=== PATIENT | male | born 1945 | race Caucasian/White ===

== ENCOUNTER 2017-09-11 14:18 | Inpatient (IN) | payer MEDICARE ==
[2017-09-11] VITALS (18 sets, daily range): BP systolic 64–118; BP diastolic 42–78; PULSE 41–94; RESP 8–20; TEMP 96–96.8; O2SAT 72–100
[~2017-09-11] VITALS: Ht 182.9 cm; Wt 105.2 kg
[~2017-09-11 14:18] MED LIST: ATOR80TA41 PO; ECOT81TA2 PO; FOSI20TA PO; HYDR-2768 PO; MSIR15 PO; NEUR800T PO; PROM25SU8 PO; PROT40TA PO; SERT50 PO; WARF2.5T40 PO; WARF5TAB PO; ZOFR4TAB3 SL
[2017-09-11 14:37] LABS: BLOOD GAS BASE EXCESS -17.4 mmol/L (-2-2); BLOOD GAS CARBOXYHEMOGLOBIN 0.9 % (0-4); BLOOD GAS HCO3 10 mmol/L (22-26); BLOOD GAS O2 HGB SATURATION 93 % (90-100); BLOOD GAS OXYGEN CONTENT 13.3 Vol % (12.0-20.0); BLOOD GAS PCO2 29 mmHg (38-42); BLOOD GAS PO2 109 mmHG (61-120); BLOOD GAS TOTAL HGB 10.1 G/DL (12.0-16.0); TEMP CORR TO 98.6
[2017-09-11 14:38] LABS: CRITICAL VALUE YES; DRAW SITE RT RADIAL; FIO2 100 %; LITER FLOW 15 L/M; NUMBER OF ARTERIAL PUNCTURES 1; STAT NO; ULNAR PULSE PRESENT
[2017-09-11] MEDS ORDERED: HEPARIN SODIUM - IV 10,000 UNITS/10 ML VIAL ONE ×2 (14:50→14:58)
[2017-09-11] MEDS ORDERED: NITROGLYCERIN INJ 5 ML ONE (14:50)
[2017-09-11] MEDS ORDERED: HEPARIN-NS/PF INJ 1,000 ML ONE ×2 (14:50→14:58)
[2017-09-11 14:55] LABS: AUTOMATED NEUTROPHIL # 9.8 TH/MM3 (1.8-7.7); BASOPHIL % 0.3 % (0.0-2.0); HEMATOCRIT 32.6 % (39.0-51.0); HEMO FLAGS DIFF FINAL; LYMPH % 4.5 % (9.0-44.0); LYMPHOCYTE # 0.5 TH/MM3 (1.0-4.8); MEAN CELL VOLUME 98.5 FL (80.0-100.0); MEAN CORPUSCULAR HGB CONC 31.4 % (32.0-36.0); MONO % 5.3 % (0.0-8.0); NEUT % 89.9 % (16.0-70.0); PLATELET COUNT 311 TH/MM3 (150-450); RED BLOOD COUNT 3.31 MIL/MM3 (4.50-5.90); RED CELL DISTRIBUTION WIDTH 15.4 % (11.6-17.2); WHITE BLOOD COUNT 10.9 TH/MM3 (4.0-11.0)
[2017-09-11] MEDS ORDERED: MIDAZOLAM HCL 2 MG/2 ML VIAL ONE (14:59)
--- NOTE | 2017-09-11 14:59 | RADRPT ---
EXAM DATE/TIME: 09/11/2017 14:45 [place] COMPARISON: CHEST SINGLE AP, January 09, 2016, 23:21. INDICATIONS : Short of breath, stemi alert MEDICAL HISTORY : Hypertension. diabetic SURGICAL HISTORY : aortic valve surgery. ENCOUNTER: Initial ACUITY: 1 day PAIN SCORE: Non-responsive. LOCATION: Bilateral chest FINDINGS: A single view of the chest demonstrates diffuse interstitial and airspace disease Central and perihil ar location. Heart is moderately enlarged. Prosthetic aortic valve is identified. Granulomatous calcification is identified in the right hilum. CONCLUSION: Bilateral interstitial/alveolar infiltrate characteristic of pulmonary edema. Mild cardiomegaly. Status post aortic valve replacement. Norberto Mckinley MD on September 11, 2017 at 14:56 Board Certified Radiologist. This report was verified electronically.
[2017-09-11 15:04] LABS: I-STAT POTASSIUM 6.8 MMOL/L (3.5-4.9); I-STAT SODIUM 133 MMOL/L (138-146)
[2017-09-11 15:06] LABS: APTT (PATIENT) 34.3 SEC (24.3-30.1); INTERNATIONAL NORMALIZED RATIO 1.7 RATIO; PROTHROMBIN TIME - PATIENT 19.3 SEC (9.8-11.6)
[2017-09-11] MEDS ORDERED: BIVALIRUDIN 250 MG VIAL ONE (15:07)
[2017-09-11] MEDS ORDERED: STERILE WATER FOR INJECTION 10 ML VIAL ONE (15:08)
[2017-09-11 15:21] LABS: MAGNESIUM 2.5 MG/DL (1.5-2.5)
[2017-09-11] MEDS ORDERED: FUROSEMIDE 40 MG/4 ML VIAL ONE (15:22)
[2017-09-11 15:23] LABS: CREATINE KINASE 174 U/L (39-308)
--- NOTE | 2017-09-11 15:25 | PD ---
HPI Chief Complaint: Respiratory Distress Time Seen by Provider: 14:44 Travel History International Travel<30 days: No Contact w/Intl Traveler<30days: No Traveled to known affect area: No History of Present Illness HPI 71-year-old male with history of hypertension, valve replacement currently on Coumadin, diabetes with an insulin pump, previous CVA, presents to the ER today because he wasn't feeling well since last night, generally weak, nauseous, throwing up, short of breath. EKG was done which show significant ST depressions, stroke alert had been called, and my presence was requested by charge nurse. When I got to the echo pod, patient was diaphoretic, EKG shows deep ST depressions in the inferior leads and lateral leads, I did not see any mild acute ST elevations, posterior leads were then done as well. Case was discussed with Dr. 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 STEMI protocol was initiated. Lab work started to return showing glucose of 500, pH of 7.19, potassium of 6.8, creatinine of 2.9. At this point, I am also concerned about underlying acute renal failure, possible hyperkalemia, DKA. I have discussed the lab findings with Dr. chi via cell phone as well regarding this case. At this point, he is on his way up to catheterization lab and Dr. chi states she will take care of him there. Case is admitted to his service for STEMI protocol. Modifying Factors: None Associated Signs & Symptoms: STEMI alert, left light abnormalities Risk Factors: Valve replacement, diabetes PFSH Past Medical History Hx Anticoagulant Therapy: Yes (COUMADIN) Asthma: No Blood Disorders: No Heart Rhythm Problems: No Cancer: No Cardiac Catheterization: Yes (2 X CABG) Cardiovascular Problems: Yes (MECHANICAL VALVE) High Cholesterol: Yes Chest Pain: No Congestive Heart Failure: No COPD: No Cerebrovascular Accident: Yes (TIA IN NOVEMBER 2015) Coronary Artery Disease: Yes Diabetes: Yes (INSULIN PUMP) Diminished Hearing: No Endocrine: No Genitourinary: No Hypertension: Yes Immune Disorder: No Implanted Vascular Access Dvce: Yes Musculoskeletal: Yes (LOWER BACK AND LEFT HIP: CHRONIC PAIN) Neurologic: No Psychiatric: No Reproductive: No Respiratory: No Pneumonia: Yes Sleep Apnea: No Thyroid Disease: No Past Surgical History Abdominal Surgery: Yes Appendectomy: Yes Body Medical Devices: mechanical heart valve Cardiac Surgery: Yes (CABG X2 AND VALVE BY LOAN 2000) Coronary Artery Bypass Graft: Yes Insulin Pump: Yes Valve Replacement: Yes Other Surgery: Yes (R NECK/FACE SURGERY TO REMOVE A LUMP) Social History Alcohol Use: No Tobacco Use: No Substance Use: No Allergies-Medications (Allergen,Severity, Reaction): Coded Allergies: No Known Allergies (Verified , 09/11/17) Reported Meds & Prescriptions Reported Meds & Active Scripts Active Phenergan (Promethazine HCl) 25 Mg Tab 25 Mg PO Q6H PRN FOR NAUSEA/VOMITING Zofran ODT (Ondansetron HCl) 4 Mg Tab 4 Mg SL Q6H PRN FOR NAUSEA/VOMITING Ecotrin (Aspirin) 81 Mg Tabec 81 Mg PO DAILY Reported Warfarin Sodium 2.5 mg (Warfarin Sodium) 2.5 Mg Tab 2.5 Mg PO EVERY OTHER DAY Neurontin (Gabapentin) 800 Mg Tab 1,600 Mg PO HS Neurontin (Gabapentin) 800 Mg Tab 800 Mg PO DAILY Protonix (Pantoprazole Sodium) 40 Mg Tab 40 Mg PO DAILY Morphine Sulfate IR 15 mg (Morphine Sulfate) 15 Mg Tab 15 Mg PO TID Warfarin Sodium 5 mg (Warfarin Sodium) 5 Mg Tab 5 Mg PO EVERY OTHER DAY Fosinopril Sodium 20 Mg Tab 40 Mg PO DAILY Hctz (Hydrochlorothiazide) 25 Mg Tab 25 Mg PO DAILY Lipitor 80 Mg Tab (Atorvastatin) 80 Mg Tab 80 Mg PO DAILY Zoloft (Sertraline HCl) 50 Mg Tab 100 Mg PO DAILY Review of Systems Except as stated in HPI: all other systems reviewed are Neg Physical Exam Narrative GENERAL: Well-developed elderly white male patient currently in moderate distress, diaphoretic, awake, oriented 3. SKIN: Focused skin assessment diaphoretic. HEAD: Atraumatic. Normocephalic. EYES: Pupils equal and round. No scleral icterus. No injection or drainage. ENT: No nasal bleeding or discharge. Mucous membranes pink and moist. NECK: Trachea midline. No JVD. CARDIOVASCULAR: Regular rate and rhythm. No murmur appreciated. Pulses are present and equal bilaterally. RESPIRATORY: No accessory muscle use. Clear to auscultation. Breath sounds equal bilaterally. GASTROINTESTINAL: Abdomen soft, non-tender, nondistended. Hepatic and splenic margins not palpable. MUSCULOSKELETAL: No obvious deformities. No clubbing. No cyanosis. No edema. NEUROLOGICAL: Awake and alert. No obvious cranial nerve deficits. Motor grossly within normal limits. Normal speech. PSYCHIATRIC: Appropriate mood and affect; insight and judgment normal. Data Data Last Documented VS Vital Signs Date Time Temp Pulse Resp B/P (MAP) Pulse Ox O2 Delivery O2 Flow Rate FiO2 09/11/17 14:34 93 18 118/59 (78) 100 09/11/17 14:30 Non-Rebreather 15.00 Orders Orders Electrocardiogram (09/11/17 14:21) Complete Blood Count With Diff (09/11/17 14:21) Prothrombin Time / Inr (Pt) (09/11/17 14:21) Act Partial Throm Time (Ptt) (09/11/17 14:21) Lactic Acid Sepsis Protocol (09/11/17 14:21) Magnesium (Mg) (09/11/17 14:21) Ckmb (Isoenzyme) Profile (09/11/17 14:21) Troponin I (09/11/17 14:21) Urinalysis - C+S If Indicated (09/11/17 14:21) Blood Culture (09/11/17 14:21) Chest, Single Ap (09/11/17 14:21) Blood Glucose (09/11/17 14:21) Ecg Monitoring (09/11/17 14:21) Iv Access Insert/Monitor (09/11/17 14:21) Oximetry (09/11/17 14:21) Oxygen Administration (09/11/17 14:21) Arterial Blood Gas (Abg) (09/11/17 14:26) I-Stat Creatinine (09/11/17 14:21) I-Stat Profile (09/11/17 14:21) Cardiac Catheterization (09/11/17 ) Heparin-Ns/Pf Inj (Heparin-Ns/Pf Inj) (09/11/17 14:50) Heparin Inj (Heparin Inj) (09/11/17 14:50) Nitroglycerin Inj (Nitroglycerin Inj) (09/11/17 14:50) Admit Order (Ed Use Only) (09/11/17 14:51) Labs Laboratory Tests Test 09/11/17 14:26 09/11/17 14:35 Blood Gas Puncture Site RT RADIAL Blood Gas Patient Temperature 98.6 Blood Gas HCO3 10 mmol/L Blood Gas Base Excess -17.4 mmol/L Blood Gas Oxygen Saturation 93 % Arterial Blood pH 7.15 Arterial Blood Partial Pressure CO2 29 mmHg Arterial Blood Partial Pressure O2 109 mmHG Arterial Blood Oxygen Content 13.3 Vol % Arterial Blood Carboxyhemoglobin 0.9 % Arterial Blood Methemoglobin 1.0 % Blood Gas Hemoglobin 10.1 G/DL Oxygen Delivery Device Non-Rebreathing Mask Blood Gas Liter Flow 15 L/M Blood Gas Inspired Oxygen 100 % White Blood Count 10.9 TH/MM3 Red Blood Count 3.31 MIL/MM3 Hemoglobin 10.3 GM/DL Bedside Hemoglobin 10.5 G/DL Hematocrit 32.6 % Bedside Hematocrit 31.0 % Mean Corpuscular Volume 98.5 FL Mean Corpuscular Hemoglobin 31.0 PG Mean Corpuscular Hemoglobin Concent 31.4 % Red Cell Distribution Width 15.4 % Platelet Count 311 TH/MM3 Mean Platelet Volume 9.5 FL Neutrophils (%) (Auto) 89.9 % Lymphocytes (%) (Auto) 4.5 % Monocytes (%) (Auto) 5.3 % Eosinophils (%) (Auto) 0.0 % Basophils (%) (Auto) 0.3 % Neutrophils # (Auto) 9.8 TH/MM3 Lymphocytes # (Auto) 0.5 TH/MM3 Monocytes # (Auto) 0.6 TH/MM3 Eosinophils # (Auto) 0.0 TH/MM3 Basophils # (Auto) 0.0 TH/MM3 CBC Comment DIFF FINAL Differential Comment Prothrombin Time 19.3 SEC Prothromb Time International Ratio 1.7 RATIO Activated Partial Thromboplast Time 34.3 SEC Bedside Sodium 133 MMOL/L Bedside Potassium 6.8 MMOL/L Bedside Chloride 102 MMOL/L Bedside Blood Urea Nitrogen 80 MG/DL Bedside Creatinine 2.9 MG/DL Bedside Glucose 495 MG/DL [facility] Medical Decision Making Medical Screen Exam Complete: Yes Emergency Medical Condition: Yes Medical Record Reviewed: Yes Interpretation(s) EKG show ST depressions which are fairly deep in the inferior lateral leads. Mild nonspecific ST elevations in aVR and possibly V2 which is up pointing versus down compared to old EKG. Laboratory Tests Test 09/11/17 14:26 09/11/17 14:35 Blood Gas HCO3 10 mmol/L (22-26) Blood Gas Base Excess -17.4 mmol/L (-2-2) Arterial Blood pH 7.15 (7.380-7.420) Arterial Blood Partial Pressure CO2 29 mmHg (38-42) Blood Gas Hemoglobin 10.1 G/DL (12.0-16.0) Red Blood Count 3.31 MIL/MM3 (4.50-5.90) Hemoglobin 10.3 GM/DL (13.0-17.0) Bedside Hemoglobin 10.5 G/DL (12.0-17.0) Hematocrit 32.6 % (39.0-51.0) Bedside Hematocrit 31.0 % (38.0-51.0) Mean Corpuscular Hemoglobin Concent 31.4 % (32.0-36.0) Neutrophils (%) (Auto) 89.9 % (16.0-70.0) Lymphocytes (%) (Auto) 4.5 % (9.0-44.0) Neutrophils # (Auto) 9.8 TH/MM3 (1.8-7.7) Lymphocytes # (Auto) 0.5 TH/MM3 (1.0-4.8) Prothrombin Time 19.3 SEC (9.8-11.6) Activated Partial Thromboplast Time 34.3 SEC (24.3-30.1) Bedside Sodium 133 MMOL/L (138-146) Bedside Potassium 6.8 MMOL/L (3.5-4.9) Bedside Blood Urea Nitrogen 80 MG/DL (8-26) Bedside Creatinine 2.9 MG/DL (0.8-1.3) Bedside Glucose 495 MG/DL (60-95) Last 24 hours Impressions Chest X-Ray 09/11/17 1421 Signed Impressions: Service Date/Time: Monday, September 11, 2017 14:45 - CONCLUSION: Bilateral interstitial/alveolar infiltrate characteristic of pulmonary edema. Mild cardiomegaly. Status post aortic valve replacement. Norberto Mckinley MD Differential Diagnosis ST elevation UT versus non-ST elevation UT versus electrolyte abnormalities versus pneumonia versus dysrhythmias Narrative Course Case is discussed with Dr. chi who accepts the case for catheterization lab. Admitted to his service for further treatment. Protocol initiated for STEMI alert. Diagnosis Primary Impression: ACS (acute coronary syndrome) Additional Impressions: DKA (diabetic ketoacidoses) Hyperkalemia, diminished renal excretion Admitting Information Admitting Physician Requests: Admit Mamta Blake MD Sep 11, 2017 15:25
[2017-09-11] MEDS ORDERED: CLOPIDOGREL 75 MG TAB ONE (15:48)
[2017-09-11] MEDS ORDERED: HEPARIN-D5W 25,000 U/250 ML 250 ML ONE (15:53)
[2017-09-11] MEDS ORDERED: CLOPIDOGREL 300 MG TAB PO ONE (16:00)
[2017-09-11] MEDS ORDERED: SODIUM BICARBONATE 8.4% SOLN 50 MEQ/50 ML VIAL SLOW IVP ONE (16:00)
[2017-09-11] MEDS ORDERED: METOCLOPRAMIDE HCL 10 MG/2 ML VIAL IV PUSH PRN (16:00)
[2017-09-11] MEDS ORDERED: CALCIUM GLUCONATE 10% 1 GM/10 ML VIAL SLOW IVP ONE (16:00)
[2017-09-11] MEDS ORDERED: SODIUM CHLOR 0.9% 250 ML INJ 250 ML IV PRN (16:00)
[2017-09-11] MEDS ORDERED: LIDOCAINE 2% JELLY 30 ML TUBE TOP PRN (16:00)
[2017-09-11] MEDS ORDERED: ONDANSETRON HCL 4 MG/2 ML VIAL IV PUSH PRN (16:00)
[2017-09-11] MEDS ORDERED: ATROPINE SULFATE 1 MG/ML VIAL IV PUSH PRN (16:00)
[2017-09-11] MEDS ORDERED: MORPHINE SULFATE 4 MG/ML INJ IV PUSH PRN (16:00)
--- NOTE | 2017-09-11 16:06 | CATHPROC ---
[employer] HIS Report Study Information Study Number Admission Scheduled Start Study Start [id number] Sep 11 2017 2:18PM 09/11/2017 Sep 11 2017 3:01PM [place] [facility] Cardiac Catheterization Admit Source Facility Department Emergency department [facility] - [employer] Worker Physician and Clinical Staff Initial Raza Amor Patient Safety Coordinator Misty Reyes BSRN Patient Safety Coordinator Kenn RN, Rios Recorder Starr Travis,RT(R) Scrub Fransisca Inman,RT(R) Procedures Performed Procedure Location (Site) Vessel Name Coronary Angiograms LCA Left Coronary Coronary Angiograms RCA Right Coronary Coronary Angiograms LOERA-LAD Left Coronary Coronary Angiograms SVG-OM CIRC IABP Antecubital (right) Antecubital Vein L Heart Cath PTCA RCA Dist Right Coronary PTCA RCA Mid Right Coronary Stent RCA Dist Right Coronary Stent RCA Mid Right Coronary Wire insertion Fem Art (right) Femoral Art Equipment Time Relocation Commissioner Description Size Mfg Part Number Used/Scraped TRANSDUCER, TRUWAVE [id number] 15:07 STODDARD ALAS * Used W/STOCKCOCK *[id number] *[id number] *[id number] *[id number] *[id number] BALLOON, FR7.5 40CC [id number] 15:45 MAQUET FR 7.5 40CC Used SENSATION PLUS 01U *[id number] 15:07 Independent IP INDUSTRIES PACK, CCL CUSTOM * Used *[id number] 15:07 Independent IP PACER PEN, SKIN DUAL W/ RULER * Used *[id number] 15:20 MEDTRONIC BALLOON, 2.0 X 15MM EUPHORA 15MM Used *[id number] 15:25 MEDTRONIC STENT, 2.25 14 INTEGRITY 2.25 14 Used *[id number] 15:29 MEDTRONIC STENT, 3.0 22 INTEGRITY 3.0 22 Used *[id number] 15:20 Rezzcard MEDICAL 30 MAU INDEFLATOR Used *[id number] 15:09 Rezzcard MEDICAL SHEATH, FR6.5 PRELUDE 11CM FR 6.5 038ACT Used *[id number] 15:12 Pathagility WIRE, 3MMJ .035 180CM 180CM Used *[id number] 15:07 Rezzcard MEDICAL WIRE, 3MMJ .035 180CM 180CM Used *[id number] 15:07 NAMIC MANIFOLD, 4 PORT * Used *[id number] 15:07 NYCOMED OMNIPAQUE, 350 MG, 150ML 150ML [id number] Used 15:32 NYCOMED OMNIPAQUE, 350 MG, 150ML 150ML [id number] Used [id number] 15:07 VALPARAISO MEDICAL BLANKET,WARM AIR CCL * Used *[id number] 15:07 TERUMO MEDICAL SHEATH, FR5 TERUMO (10CM) FR 5 Used *[id number] WIRE, RUNTHROUGH NS FLOPPY [id number] 15:18 TERUMO MEDICAL 300CM Used .014 300CM *[id number] Equipment Model, Serial, Lot Number and Expiration Data Description Model Number Serial Number Lot Number Expiration Date BALLOON, 2.0 X 15MM EUPHORA [id number] 04-03-2019 STENT, 2.25 14 INTEGRITY [id number] 08-02-2018 STENT, 3.0 22 INTEGRITY [id number] 03-02-2019 Labs Hgb (g/dl) Hct (%) RBC (MIL/MM3) WBC (l/cumm) Platelets (thousands) 11.60-17.00 35.00-51.00 4.00-5.90 4.00-11.00 150.00-450.00 10.3 31 3.3 10.9 311 Glucose (mg/dl) BUN (mg/dl) Creatinine (mg/dl) BUN:Creatinine (1:x) 74.00-106.00 7.00-18.00 0.50-1.30 10.00-20.00 495 80 2.9 27.6 Na (meq/l) K (meq/l) Cl (meq/l) 136.00-145.00 3.50-5.10 98.00-107.00 133 6.8 102 PT (sec) PTT (sec) INR (PTT:PT) 9.80-11.60 24.30-30.10 0.90-1.10 19.3 34.3 1.7 Troponin I (ng/ml) CPK-MB (ng/ML) 0.02-0.05 0.50-3.60 6.2 Not Drawn Medication Medication Total Dose (Bolus/Oral) Medication Total Dosage/Unit 1% XYLOCAINE 20 mL AGGRASTAT BOLUS 14 meq/kg FENTANYL 25 mcg LASIX 40 mg VERSED 1 mg Medications (Bolus/Oral) Medication Time Given Dosage/Unit Administered By Reason VERSED 09/11/2017 3:00:44 PM 1 mg Rittenour, Misty 1 mg VERSED given in lab by Misty Reyes BSRN via Peripheral IV. FENTANYL 09/11/2017 3:01:41 PM 25 mcg Rittenour, Misty 25 mcg FENTANYL given by Misty Reyes BSRN in Right Antecubital via Peripheral IV. 1% XYLOCAINE 09/11/2017 3:06:12 PM 20 mL Raza Courtney 20 mL 1% XYLOCAINE given in lab by Raza Courtney in Right Groin via Subcutaneous. AGGRASTAT BOLUS 09/11/2017 3:17:11 PM 14 meq/kg Rittensharmin, Misty 14 meq/kg AGGRASTAT BOLUS given in lab by Misty Reyes BSRN in Right Antecubital via Peripheral IV. Amount given = 1304.8 meq. LASIX 09/11/2017 3:24:37 PM 40 mg Eric, Misty 40 mg LASIX given in lab by Misty Reyes BSRN via Peripheral IV. Medication (Drip) Medication Time Given Dosage/Unit Concentration/Unit Diluent (ml) Solution AGGRASTAT DRIP 09/11/2017 3:19:06 PM 0.291 mcg/kg/min 12.5 mg 250 NaCl .9 0.291 mcg/kg/min AGGRASTAT DRIP given in lab by Misty Reyes BSRN via Peripheral IV. Pump/Drip F low = 32.6 ml/hr using NaCl .9 with a concentration of 12.5 mg in 250 ml. HEPARIN DRIP 09/11/2017 3:56:41 PM 745203 units/hr 97706 units 250 D5W 127075 units/hr HEPARIN DRIP given in lab by Misty Reyes BSRN via Peripheral IV. Pump/Drip Flow = 1000 ml/hr [place] [address] units in 250 ml. IV Solutions 09/11/2017 3:05:11 PM 0 mL (IV) 1000 NaCl .9 Patient arrived on IV Solutions in Right Antecubital via Peripheral IV. Pump/Drip Flow = 20 ml/hr usi ng NaCl .9. Initial Case Assessment Cardiovascular HR Rhythm NIBP Chest Pain 77 irreg 111/59 0 Edema Present Skin color Skin None Normal Warm Circulatory - Right Pulses Dorsalis Pedis Femoral 1 2 Scale (0,1,2,3,4,d) Circulatory - Left Pulses Dorsalis Pedis Femoral 1 2 Scale (0,1,2,3,4,d) Neurological State Oriented to time-place- Drowsy Moves all extremities person Respiration - General Respiration Rate SpO2 (%) O2 (lpm) (B/min) 17 98 15 Comment: non rebreather mask Chronological Log Time Study Chronological Log 14:55:00 Patient arrived via Bed. 15:00:44 1 mg VERSED given in lab by Misty Reyes BSRN via Peripheral IV. Vitals capture started with the following parameters, Patient=Adult, Interval=5 min, Initial Zsjfsbzz=953 mmHg, 15:01:14 Deflation Rate=5 mmHg, Cuff placed on Right Arm 15:01:25 Patient Name, D.O.B, / Armband Verified By R.N. 15:01:27 Pre-op and post- op instructions given; patient acknowledges understanding of instruction s. 15:01:35 Patient has been NPO for Less than 6Hrs. 15:01:39 HR=55 bpm, RLCZ=219/59 mmhg, SpO2=98.0 %, Resp=20 B/min, Pain=0, Hao=10, Lincoln=2 15:01:41 25 mcg FENTANYL given by Misty Reyes BSRN in Right Antecubital via Peripheral IV. 15:03:28 Skin Breakdown-healing wound plantar right foot Assessment: Initial Case, HR=77 BPM, Rhythm=irreg, LBBR=659/59 mmhg, Chest Pain=0, Edema=None, Color=Normal, Skin = Warm Right Pulses: Roman Ped=1, Femoral=2 15:03:51 Left Pulses: Roman Ped=1, Femoral=2 Neurological: State=Drowsy, Ox3, MUKHERJEE Respiration: Resp=17 B/min, SpO2=98 %, O2=15 lpm, Comment=non rebreather mask 15:03:59 Reference ECG taken 15:04:00 ON ARRIVAL PT'S BLOOD GLUCOSE WAS 495. ON INSULIN PUMP 15::28 Pressure channel 1 zeroed. 15:05:02 A # 158 IV was noted in the Antecubital (right). Grade = 0 15:05:11 Patient arrived on IV Solutions in Right Antecubital via Peripheral IV. Pump/Drip Flow = 20 ml/hr using NaCl .9. 15:05:37 Bilateral groins prepped with 2% chlorhexidine, and draped after a 3 minute waiting time. 15:05:43 MD arrived. Time Out. Correct patient, correct procedure, correct physician, power injector loaded, or not loaded with contrast with 15::54 surgical team present. Time Out Concurred by MD and individual staff in procedure. 15:06:07 Case Start 15:06:12 20 mL 1% XYLOCAINE given in lab by Raza Courtney in Right Groin via Subcutaneous. 15:06:23 Access site was Right Femoral Artery. 15:06:28 A wire was inserted via Fem Art (right). 15:06:32 A SHEATH, FR6.5 PRELUDE 11CM FR 6.5 was advanced into the Fem Art (right) using the Percuta neous technique. 15:06:38 HR=75 bpm, GTHY=598/42 mmhg, SpO2=96.0 %, Resp=20 B/min, Pain=0, Hao=10, Lincoln=2 Recorded Pressure: Ao, HR=76, Condition=Condition 1 15:07:02 (Aorta) Ao 85/37/54 A JR 4.0 INFINITI CATHETER FR 6 was advanced over a wire. OMNIPAQUE, 350 MG, 150ML 150ML was us ed for 15:07:32 injections. 15:07:38 The RCA was injected and visualized at various angles. OMNIPAQUE, 350 MG, 150ML 150ML used . 15:08:43 The SVG-OM was injected and visualized at various angles. OMNIPAQUE, 350 MG, 150ML 150ML us ed. 15:10:03 The LOERA-LAD was injected and visualized at various angles. OMNIPAQUE, 350 MG, 150ML 150ML used. After removing the current catheter a ESTELLA INFINITI CATHETER FR 6 was advanced over a WIRE, 3MMJ .035 180CM 15:10:30 180CM. 15:11:39 HR=70 bpm, YFFI=476/39 mmhg, SpO2=99.0 %, Resp=18 B/min, Pain=0, Hao=10, Lincoln=2 15:14:19 Catheter was removed A XBLAD 3.5 GUIDE CATHETER FR 6 was advanced over a wire. OMNIPAQUE, 350 MG, 150ML 150ML was us ed for 15:14:26 injections. 15:15:17 The LCA was injected and visualized at various angles. OMNIPAQUE, 350 MG, 150ML 150ML used . After removing the current catheter a JR 4.0 GUIDE CATHETER FR 6 was advanced over a WIRE, 3MMJ .035 180CM 15:15:45 180CM. 15:16:38 HR=61 bpm, EXSO=301/35 mmhg, SpO2=98.0 %, Resp=17 B/min, Pain=0, Hao=10, Lincoln=2 14 meq/kg AGGRASTAT BOLUS given in lab by Misty Reyes BSRN in Right Antecubital via Perip heral IV. Amount 15:17:11 given = 1304.8 meq. 15:18:43 A WIRE, RUNTHROUGH NS FLOPPY .014 300CM 300CM was inserted via Fem Art (right). 15:18:56 Interventional wire has crossed the lesion 0.291 mcg/kg/min AGGRASTAT DRIP given in lab by Misty Reyes BSRN via Peripheral IV. Pump/ Drip Flow = 32.6 15:19:06 ml/hr using NaCl .9 with a concentration of 12.5 mg in 250 ml. A BALLOON, 2.0 X 15MM EUPHORA 15MM was inserted over WIRE, RUNTHROUGH NS FLOPPY .014 300CM 300C M via 15:19:27 the RCA Mid. A BALLOON, 2.0 X 15MM EUPHORA 15MM over a WIRE, RUNTHROUGH NS FLOPPY .014 300CM 300CM in the RC A Mid 15:20:09 was inflated using a 30 MAU INDEFLATOR at 14 mau for 18 sec. 15:21:35 HR=62 bpm, KDOY=004/46 mmhg, SpO2=94.0 %, Resp=25 B/min, Pain=0, Hao=10, Lincoln=2 A BALLOON, 2.0 X 15MM EUPHORA 15MM over a WIRE, RUNTHROUGH NS FLOPPY .014 300CM 300CM in the RC A Dist 15:22:17 was inflated using a 30 MAU INDEFLATOR at 14 mau for 16 sec. 15:23:02 Balloon Removed. 15:24:37 40 mg LASIX given in lab by Misty Reyes BSRN via Peripheral IV. An STENT, 2.25 14 INTEGRITY 2.25 14 Bare Metal Stent was inserted through a JR 4.0 GUIDE CATHET ER FR 6 over a 15:24:55 WIRE, RUNTHROUGH NS FLOPPY .014 300CM 300CM. A STENT, 2.25 14 INTEGRITY 2.25 14 was deployed using a 30 MAU INDEFLATOR at 16 atmospheres for 10 seconds in 15:25:31 the RCA Dist. A STENT, 2.25 14 INTEGRITY 2.25 14 was deployed using a 30 MAU INDEFLATOR at 16 atmospheres for 8 seconds in 15:26:01 the RCA Dist. A STENT, 2.25 14 INTEGRITY 2.25 14 was deployed using a 30 MAU INDEFLATOR at 8 atmospheres for 6 seconds in 15:26:06 the RCA Dist. 15:26:38 HR=61 bpm, CRAA=749/34 mmhg, SpO2=88.0 %, Resp=29 B/min, Pain=0, Hao=10, Lincoln=2 A STENT, 2.25 14 INTEGRITY 2.25 14 was deployed using a 30 MAU INDEFLATOR at 12 atmospheres for 20 seconds in 15:27:07 the RCA Dist. 15:28:01 Delivery device removed 15:28:20 NIBP STAT measurement started. An STENT, 3.0 22 INTEGRITY 3.0 22 Bare Metal Stent was inserted through a JR 4.0 GUIDE CATHETER FR 6 over a 15:28:38 WIRE, RUNTHROUGH NS FLOPPY .014 300CM 300CM. 15:28:51 HR=65 bpm, NIBP=96/56 mmhg, SpO2=91.0 %, Resp=23 B/min, Pain=0, Hao=10, Lincoln=2 A STENT, 3.0 22 INTEGRITY 3.0 22 was deployed using a 30 MAU INDEFLATOR at 16 atmospheres for 1 0 seconds in 15:30:23 the RCA Mid. 15:31:35 HR=91 bpm, LOMW=168/43 mmhg, SpO2=91.0 %, Resp=16 B/min, Pain=0, Hao=10, Lincoln=2 15:31:53 The RCA was injected and visualized at various angles. OMNIPAQUE, 350 MG, 150ML 150ML used . 15:32:27 runthru Wire removed 15:32:38 A WIRE, 3MMJ .035 180CM 180CM was inserted via Fem Art (right). 15:32:42 Catheter was removed over j wire 15:32:56 ECHO ARRIVES TO CHECK VALVE AND EF 15:37:11 HR=76 bpm, QXYL=048/96 mmhg, SpO2=87.0 %, Resp=17 B/min, Pain=0, Hao=10, Lincoln=2 15:40:25 Sheath exchanged for intra-aortic balloon insertion. 15:41:37 HR=70 bpm, CCPX=446/45 mmhg, SpO2=94.0 %, Resp=18 B/min, Pain=0, Hao=10, Lincoln=2 An BALLOON, FR7.5 40CC SENSATION PLUS FR 7.5 40CC was advanced to the descending aorta. Proper placement 15:44:46 was confired under fluoroscopy and the balloon was sutured in place. Ratio = ~RATIO~. Augmented BP ~SYS~/~JAD~ 15:46:36 HR=67 bpm, NIBP=84/46 mmhg, SpO2=95.0 %, Resp=18 B/min, Pain=0, Hao=10, Lincoln=2 15:52:55 HR=75 bpm, NIBP=68/32 mmhg, SpO2=91.0 %, Resp=33 B/min, Pain=0, Hao=10, Lincoln=2 15:55:54 ANGIOMAX DISCONTINUED PER PHYSICAN 041239 units/hr HEPARIN DRIP given in lab by Misty Reyes BSRN via Peripheral IV. Pump/Dri p Flow = 1000 ml/hr 15:56:41 [place] D5[place] [address] units in 250 ml. 15:56:59 HR=67 bpm, NIBP=78/38 mmhg, SpO2=90.0 %, Resp=18 B/min, Pain=0, Hao=10, Lincoln=2 15:59:50 Case End 16:01:58 HR=66 bpm, NIBP=96/50 mmhg, SpO2=93.0 %, Resp=10 B/min, Pain=0, Hao=10, Lincoln=2 16:04:02 Catheter(s) removed without difficulty 16:04:16 In the Fem Art (right) the SHEATH, FR6.5 PRELUDE 11CM FR 6.[address] by Fransisca Inman, RT(R). 16:04:23 Sterile dressing applied to site 16:04:24 No case complications noted. 16:04:24 Cine recording checked. 16:04:26 Bedside Report will be given. 16:04:27 Implantable Device card placed in patient's chart. 16:04:31 A Left Heart Cath was performed. 16:04:[facility] Clinical correlaton risk stratification. End Study - Contrast Media Used In Study Contrast Total Opened (mL) Total Used (mL) Total Wasted (mL) Omnipaque 160 160 0 End Study - Maximum Contrast Load Max Contrast Load (mL) 160.7 End Study - Radiation Exposure Fluoro Time (minutes) 11.2 End Study - Patient Disposition Complications Transferred To Interventional Outcome No Telemetry Bed successful
[2017-09-11] MEDS ORDERED: INSULIN HUMAN REGULAR 1,000 UNITS/10 ML VIAL IV PUSH ONE ×2 (16:15→17:45)
[2017-09-11 16:48] LABS: LACTIC ACID GHOST NOT REPORTABLE
[2017-09-11 17:03] LABS: BLOOD GAS BASE EXCESS -20.5 mmol/L (-2-2); BLOOD GAS CARBOXYHEMOGLOBIN 0.1 % (0-4); BLOOD GAS HCO3 10 mmol/L (22-26); BLOOD GAS METHEMOGLOBIN 1.8 % (0-2); BLOOD GAS O2 HGB SATURATION 96 % (90-100); BLOOD GAS OXYGEN CONTENT 13.6 Vol % (12.0-20.0); BLOOD GAS PCO2 60 mmHg (38-42); BLOOD GAS PO2 255 mmHg (61-120); BLOOD GAS TOTAL HGB 9.7 G/DL (12.0-16.0); CRITICAL VALUE YES; OXYGEN DEVICE VENTILATOR; TEMP CORR TO 98.6
[2017-09-11 17:04] LABS: DRAW SITE ART LINE; FIO2 100 %; STAT YES; VENT SETTINGS 16/500/1.0/+5
[2017-09-11] MEDS ORDERED: ACETAMINOPHEN 325 MG TAB PO PRN (17:15)
[2017-09-11] MEDS ORDERED: CHLORHEXIDINE GLUCONATE 2 % 1 PACK (2 CLOTHS) TOP PRN (17:15)
[2017-09-11] MEDS ORDERED: BISACODYL 10 MG SUPP RECTAL PRN (17:15)
[2017-09-11] MEDS ORDERED: MAGNESIUM HYDROXIDE SUSP 30 ML CUP PO PRN (17:15)
[2017-09-11] MEDS ORDERED: SENNOSIDES 8.6 MG TAB PO PRN (17:15)
[2017-09-11] MEDS ORDERED: LACTULOSE SYRUP 20 GM/30 ML CUP PO PRN (17:15)
[2017-09-11] MEDS ORDERED: SODIUM CHLORIDE 0.9% FLUSH 10 ML FLUSH IV FLUSH PRN (17:15)
[2017-09-11] MEDS ORDERED: RESP: ALBUTEROL 2.5 MG/IPRATROPIUM 0.5 MG NEB (PRN) INH (17:15)
[2017-09-11] MEDS ORDERED: MISCELLANEOUS NURSING INFORMATION XX SCH ×3 (17:15→17:45)
[2017-09-11] MEDS ORDERED: TERBUTALINE INJ 1 MG/ML AMP SQ PRN (17:30)
[2017-09-11] MEDS ORDERED: Vancomycin Consult Pharmacy 1 EA OTHER SCH (17:30)
[2017-09-11] MEDS ORDERED: MIDAZOLAM 100 MG/100 ML INJ 100 ML IV PRN (17:30)
[2017-09-11 17:33] LABS: HEMATOCRIT 32.2 % (39.0-51.0); MEAN CELL VOLUME 101.4 FL (80.0-100.0); MEAN CORPUSCULAR HEMOGLOBIN 30.2 PG (27.0-34.0); PLATELET COUNT 314 TH/MM3 (150-450); RED BLOOD COUNT 3.17 MIL/MM3 (4.50-5.90); REVIEW FLAG FINAL; WHITE BLOOD COUNT 10.6 TH/MM3 (4.0-11.0)
[2017-09-11 17:34] LABS: MEAN CORPUSCULAR HGB CONC 29.8 % (32.0-36.0)
[2017-09-11] MEDS: DEXT 5%-NACL 0.9% 1000 ML INJ 1,000 ML IV SCH ×2 (17:34→21:19)
[2017-09-11] MEDS: SODIUM CHLOR 0.9% 1000 ML INJ 1,000 ML IV SCH ×2 (17:34→21:45)
--- NOTE | 2017-09-11 17:41 | MB ---
cc: KARRI MARCUM MD DATE OF CONSULTATION 09/11/[address]-elevation RI HISTORY OF PRESENT ILLNESS This is a 71-year-old gentleman with hypertension, history of mechanical aortic valve replacement on anticoagulation therapy in addition to diabetes with an insulin pump and prior stroke who presented to the emergency department with acute onset of shortness of breath with general weakness, nausea, vomiting. EKG showed significant ST depression throughout the anterolateral precordial leads and some borderline ST elevation inferiorly. He was diaphoretic, appeared to be ill. His electrocardiogram was compared to a prior EKG and shows dramatic change. ST-elevation RI protocol was initiated. He was rushed emergently to the cardiac catheterization lab. After arrival to the catheterization lab, it was noted that he had a glucose of 500. He was also acidotic 7.19, potassium 6.8, elevated creatinine to 2.9. PAST MEDICAL HISTORY 1. Thread Separator aortic valve replacement on anticoagulation 2. Coronary bypass surgery x2 3. TIA, 4. Diabetes insulin pump. 5. Chronic pain. SOCIAL HISTORY Denies any alcohol, tobacco or drug use. ALLERGIES NO KNOWN DRUG ALLERGIES. MEDICATIONS Reported medications 1. Neurontin 2. Warfarin 3. Protonix 4. Morphine 5. Lisinopril 6. Hydrochlorothiazide 7. Lipitor 8. Zoloft. REVIEW OF SYSTEMS 12-point review of systems was performed, negative unless otherwise noted in history of present illness. PHYSICAL EXAMINATION GENERAL: The patient appears to be in moderate distress, diaphoretic. Jugular vein is mildly distended. HEENT: Pupils reactive to light and accommodation. LUNGS: Generally clear with decreased breath sounds throughout. CARDIOVASCULAR: Regular without murmurs, rubs or gallops with 2/6 systolic murmur left sternal border. ABDOMEN: Nontender, nondistended. Good bowel sounds. No hepatosplenomegaly. EXTREMITIES: No clubbing, stenosis or edema. LABORATORY DATA WBC 10.9, hemoglobin 10.3, platelet count 311, INR is 1.7. Sodium 133, chloride 102, bicarb 6.8, lactate 10.9, troponin 6.2. CARDIOLOGY STUDIES Electrocardiogram shows sinus rhythm, right bundle-branch block, significant for ST-elevation and some anterolateral ST depression. ASSESSMENT Given the patient's acute ill appearance electrocardiographic changes, the STEMI protocol was initiated. He has been brought emergently to the cardiac catheterization lab. He does have a history of coronary disease, prior bypass surgery and aortic valve replacement with a mechanical valve. We will check some Stat labs for level of anticoagulation. He has been compliant with his Coumadin therapy. I will obtain a Stat 2-D echo to make sure that his mechanical estimator aortic valve is not thrombosed. He also appears to be in diabetic ketoacidosis with lactate of 10. His potassium is also elevated and he has acute renal failure, but his ejection fraction is moderately reduced so we will have to be careful with hydration. We will do a cardiac cath to determine what his coronary anatomy is and then move forward from there. MD JENNIFFER Gonzalez/ /4:01 PM /5:22 PM MTDD
[2017-09-11] MEDS ORDERED: POTASSIUM CHLOR 20 MEQ PREMIX 100 ML IV PRN ×6 (17:45)
[2017-09-11] MEDS ORDERED: SODIUM PHOSPHATE INJ 15 MMOL in SODIUM CHLORIDE 0.9% INJ 100 ML IV PRN (17:45)
[2017-09-11] MEDS ORDERED: SODIUM BICARBONATE 8.4% SOLN 50 MEQ/50 ML VIAL IV PUSH PRN ×2 (17:45)
[2017-09-11] MEDS ORDERED: POTASSIUM CHLOR 40 MEQ PREMIX 100 ML IV PRN ×2 (17:45)
[2017-09-11] MEDS: PHENYLEPHRINE INJ 80 MG in DEXTROSE 5% IN WATE 500 ML INJ 492 ML IV PRN ×6 (18:00→23:43)
[2017-09-11] MEDS: fentaNYL DRIP 250 ML IV PRN (18:00)
[2017-09-11] MEDS: PIPERACIL-TAZO 4.5 GM PREMIX 100 ML IV SCH ×2 (18:00→23:42)
[2017-09-11] MEDS: HEPARIN-D5W 25,000 U/250 ML 250 ML IV PRN (18:00)
--- NOTE | 2017-09-11 18:12 | HHI.HP ---
HPI Service Critical Care Medicine Primary Care Physician Rosa Riggs MD Admission Diagnosis STEMI/hyperkalemia/acidosis Diagnosis: Travel History International Travel<30 Days: No Contact w/Intl Traveler <30 Da: No Traveled to Known Affected Are: No History of Present Illness This is a 71-year-old male with history of hypertension, valve replacement currently on Coumadin, diabetes with an insulin pump, previous CVA, that presented to the ED, with symptoms of malaise nausea and vomiting with dyspnea. EKG was done which show significant ST depressions, stroke alert had been initiated. The patient was diaphoretic, EKG shows deep ST depressions in the inferior leads and lateral leads. Dr. Chi, patient's customer experience professional was notified , a STEMI alert was initiated . The patient underwent cardiac catheterization lab for further evaluation. In the ED laboratory findings glucose of 500, pH of 7.19, potassium of 6.8, creatinine of 2.9, lactate level of 10. At this point, concern for acute renal failure, possible hyperkalemia, DKA. The patient has a medical history significant for aortic valve replacement , mechanical, and a two-vessel bypass and a recent foot infection. A bedside echo was performed by Dr. chi showing an ejection fraction of 35-40% with moderate TR. The patient underwent 2 stents to the RCA and cardiac catheterization the patient was noted to become significantly hypotensive with a systolic blood pressure in the 70s-80s, and intra-aortic balloon pump was placed. The patient was transferred to the ICU, critical care medicine was consulted. Upon arrival to the ICU,the patient was noted to be in agonal respirations, O2 saturation 70's, sinus bradycardia heart rate in the 40s, with systolic blood pressure in 60's, cold with weak pulses. The patient was emergently intubated, fluid boluses initiated, phenylephrine was initiated. ABG upon presentation to ICU, immediately postintubation-pH 6.86 PCO2 60 PO2 255, [id number] with a base excess of -20.3. Modifying Factors: None Associated Signs & Symptoms: STEMI alert, left light abnormalities Risk Factors: Valve replacement, diabetes History PFSH Past Medical History Hx Anticoagulant Therapy: Yes (COUMADIN) Asthma: No Blood Disorders: No Heart Rhythm Problems: No Cancer: No Cardiac Catheterization: Yes (2 X CABG) Cardiovascular Problems: Yes (MECHANICAL VALVE) High Cholesterol: Yes Chest Pain: No Congestive Heart Failure: No COPD: No Cerebrovascular Accident: Yes (TIA IN NOVEMBER 2015) Coronary Artery Disease: Yes Diabetes: Yes (INSULIN PUMP) Diminished Hearing: No Endocrine: No Genitourinary: No Hypertension: Yes Immune Disorder: No Implanted Vascular Access Dvce: Yes Musculoskeletal: Yes (LOWER BACK AND LEFT HIP: CHRONIC PAIN) Neurologic: No Psychiatric: No Reproductive: No Respiratory: No Pneumonia: Yes Sleep Apnea: No Thyroid Disease: No Past Surgical History Abdominal Surgery: Yes Appendectomy: Yes Body Medical Devices: mechanical heart valve Cardiac Surgery: Yes (CABG X2 AND VALVE BY LOAN 2000) Coronary Artery Bypass Graft: Yes Insulin Pump: Yes Valve Replacement: Yes Other Surgery: Yes (R NECK/FACE SURGERY TO REMOVE A LUMP) Social History Alcohol Use: No Tobacco Use: No Substance Use: No Allergies-Medications Allergies-Medications (Allergen,Severity, Reaction): Coded Allergies: No Known Allergies (Verified , 09/11/17) Reported Meds & Prescriptions Reported Meds & Active Scripts Active Phenergan (Promethazine HCl) 25 Mg Tab 25 Mg PO Q6H PRN FOR NAUSEA/VOMITING Zofran ODT (Ondansetron HCl) 4 Mg Tab 4 Mg SL Q6H PRN FOR NAUSEA/VOMITING Ecotrin (Aspirin) 81 Mg Tabec 81 Mg PO DAILY Reported Warfarin Sodium 2.5 mg (Warfarin Sodium) 2.5 Mg Tab 2.5 Mg PO EVERY OTHER DAY Neurontin (Gabapentin) 800 Mg Tab 1,600 Mg PO HS Neurontin (Gabapentin) 800 Mg Tab 800 Mg PO DAILY Protonix (Pantoprazole Sodium) 40 Mg Tab 40 Mg PO DAILY Morphine Sulfate IR 15 mg (Morphine Sulfate) 15 Mg Tab 15 Mg PO TID Warfarin Sodium 5 mg (Warfarin Sodium) 5 Mg Tab 5 Mg PO EVERY OTHER DAY Fosinopril Sodium 20 Mg Tab 40 Mg PO DAILY Hctz (Hydrochlorothiazide) 25 Mg Tab 25 Mg PO DAILY Lipitor 80 Mg Tab (Atorvastatin) 80 Mg Tab 80 Mg PO DAILY Zoloft (Sertraline HCl) 50 Mg Tab 100 Mg PO DAILY Review of Systems ROS Limitations: Clinical Condition (12 point review of systems done with patient and negative except for pertinent positives mentioned in the above history and physical) Past Family Social History Allergies: Coded Allergies: No Known Allergies (Verified , 09/11/17) Physical Exam Vital Signs Vital Signs Date Time Temp Pulse Resp B/P (MAP) Pulse Ox O2 Delivery O2 Flow Rate FiO2 09/11/17 17:00 100 100 09/11/17 15:10 76 20 112/78 (89) 98 Non-Rebreather 15.00 09/11/17 14:34 93 18 118/59 (78) 100 09/11/17 14:30 78 20 98 Non-Rebreather 15.00 09/11/17 14:28 Non-Rebreather 15.00 09/11/17 14:28 92 20 118/59 (78) 100 Non-Rebreather 15.00 Physical Exam GENERAL: Critically ill male cool and clammy nonresponsive SKIN: Cool and clammy HEAD: Atraumatic. Normocephalic. EYES: Pupils equal and round. No scleral icterus. No injection or drainage. ENT: No nasal bleeding or discharge. Mucous membranes pink and moist. NECK: Trachea midline. No JVD. CARDIOVASCULAR: Normal rate, regular rhythm. RESPIRATORY: Accessory muscle use. Bilateral chest excursion. Dyspneic GASTROINTESTINAL: Abdomen soft, non-tender, nondistended. No guarding. MUSCULOSKELETAL: Extremities without clubbing, cyanosis, or edema. No obvious deformities. NEUROLOGICAL: Obtunded. Unable to assess Laboratory Laboratory Tests Test 09/11/17 14:26 09/11/17 14:35 09/11/17 16:45 09/11/17 17:17 Blood Gas Puncture Site RT RADIAL ART LINE Blood Gas Patient Temperature 98.6 98.6 Blood Gas HCO3 10 10 Blood Gas Base Excess -17.4 -20.5 Blood Gas Oxygen Saturation 93 96 Arterial Blood pH 7.15 6.87 Arterial Blood Partial Pressure CO2 29 60 Arterial Blood Partial Pressure O2 109 255 Arterial Blood Oxygen Content 13.3 13.6 Arterial Blood Carboxyhemoglobin 0.9 0.1 Arterial Blood Methemoglobin 1.0 1.8 Blood Gas Hemoglobin 10.1 9.7 Oxygen Delivery Device Non-Rebreathing Mask VENTILATOR Blood Gas Liter Flow 15 Blood Gas Inspired Oxygen 100 100 Lactic Acid Level 10.9 White Blood Count 10.9 10.6 Red Blood Count 3.31 3.17 Hemoglobin 10.3 9.6 Bedside Hemoglobin 10.5 Hematocrit 32.6 32.2 Bedside Hematocrit 31.0 Mean Corpuscular Volume 98.5 101.4 Mean Corpuscular Hemoglobin 31.0 30.2 Mean Corpuscular Hemoglobin Concent 31.4 29.8 Red Cell Distribution Width 15.4 15.0 Platelet Count 311 314 Mean Platelet Volume 9.5 9.1 Neutrophils (%) (Auto) 89.9 Lymphocytes (%) (Auto) 4.5 Monocytes (%) (Auto) 5.3 Eosinophils (%) (Auto) 0.0 Basophils (%) (Auto) 0.3 Neutrophils # (Auto) 9.8 Lymphocytes # (Auto) 0.5 Monocytes # (Auto) 0.6 Eosinophils # (Auto) 0.0 Basophils # (Auto) 0.0 CBC Comment DIFF FINAL Differential Comment Prothrombin Time 19.3 Prothromb Time International Ratio 1.7 Activated Partial Thromboplast Time 34.3 Bedside Sodium 133 Bedside Potassium 6.8 Bedside Chloride 102 Bedside Blood Urea Nitrogen 80 Bedside Creatinine 2.9 Bedside Glucose 495 Magnesium Level 2.5 Total Creatine Kinase 174 Creatine Kinase MB 5.0 Troponin I 6.20 Blood Gas Ventilator Setting 16/500/1.0/+5 Date/Time Source Procedure Growth Status 09/11/17 14:35 Blood Peripheral Aerobic Blood Culture Pending Received 09/11/17 14:35 Blood Peripheral Anaerobic Blood Culture Pending Received Result Diagram: 09/11/17 1435 Imaging Last Impressions Chest X-Ray 09/11/17 1421 Signed Impressions: Service Date/Time: Monday, September 11, 2017 14:45 - CONCLUSION: Bilateral interstitial/alveolar infiltrate characteristic of pulmonary edema. Mild cardiomegaly. Status post aortic valve replacement. Norberto Mckinley MD Septic Shock Reassessment Heart: Other (sinus bradycardia) Lungs: Crackles Skin: Cold, Mottled Peripheral Pulses: Weak Right Radial Weak Left Radial Weak Right Popliteal Weak Left Popliteal Capillary Refill: Sluggish Caprini VTE Risk Assessment Caprini VTE Risk Assessment: Mod/High Risk (score >= 2) Caprini Risk Assessment Model Point Value = 1 Point Value = 2 Point Value = 3 Point Value = 5 Age 41-60 Minor surgery BMI > 25 kg/m2 Swollen legs Varicose veins or History of unexplained or recurrent spontaneous Oral contraceptives or hormone replacement Sepsis (< 1 month) Serious lung disease, including pneumonia (< 1 month) Abnormal pulmonary function Acute myocardial infarction Congestive heart failure (< 1 month) History of inflammatory bowel disease Medical patient at bed rest Age 61-74 Arthroscopic surgery Major open surgery (> 45 min) Laparoscopic surgery (> 45 min) Malignancy Confined to bed (> 72 hours) Immobilizing plaster cast Central venous access Age >= 75 History of VTE Family history of VTE Factor V Leiden Prothrombin [id number] Lupus anticoagulant Anticardiolipin antibodies Elevated serum homocysteine Heparin-induced thrombocytopenia Other congenital or acquired thrombophilia Stroke (< 1 month) Elective arthroplasty Hip, pelvis, or leg fracture Acute spinal cord injury (< 1 month) Prophylaxis Regimen Total Risk Factor Score Risk Level Prophylaxis Regimen 0-1 Low Early ambulation 2 Moderate Order ONE of the following: *Sequential Compression Device (SCD) *Heparin 5000 units SQ BID 3-4 Higher Order ONE of the following medications: *Heparin 5000 units SQ TID *Enoxaparin/Lovenox 40 mg SQ daily (WT < 150 kg, CrCl > 30 mL/min) *Enoxaparin/Lovenox 30 mg SQ daily (WT < 150 kg, CrCl > 10-29 mL/min) *Enoxaparin/Lovenox 30 mg SQ BID (WT < 150 kg, CrCl > 30 mL/min) AND/OR *Sequential Compression Device (SCD) 5 or more Highest Order ONE of the following medications: *Heparin 5000 units SQ TID (Preferred with Epidurals) *Enoxaparin/Lovenox 40 mg SQ daily (WT < 150 kg, CrCl > 30 mL/min) *Enoxaparin/Lovenox 30 mg SQ daily (WT < 150 kg, CrCl > 10-29 mL/min) *Enoxaparin/Lovenox 30 mg SQ BID (WT < 150 kg, CrCl > 30 mL/min) AND *Sequential Compression Device (SCD) Assessment and Plan Assessment and Plan Assessment This is a 71-year-old male with cardiogenic and concomitant septic shock in the setting of DKA with recent/current wound infection. Patient has life- threatening metabolic abnormalites, with severe metabolic acidosis. Prognosis is guarded at this time. ASSESSMENT STEMI S/P PCI x 2 (RCA) History of two-vessel cardiac bypass with mechanical AVR Cardiogenic shock- with IABP support DKA Septic shock Acute hypercapnic and hypoxemic respiratory failure Pulmonary edema Acute kidney injury secondary to low cardiac output state Hyperkalemia Foot infection History of CVA PLAN Neurologic: Versed and fentanyl infusions for ventilator synchrony Neurochecks per ICU protocol Daily sedation vacation Tylenol 650 mg every 6 hours for temp greater than 101 Hold Neurontin at this time, patient's home medication Respiratory: 09/11-intubated 8.0 ETT at 23cm Mechanical vent settings to maintain O2 saturation > 92% Ventilator bundle Bronchodilators every 6 hours scheduled, every 2 hours when necessary CPAP trials when clinically indicated Repeat ABG Cardiovascular: IABP 1:2 Phenylephrine infusion to maintain MAP > 60mmHg Heparin infusion per protocol Renal: Insert and maintain Desouza -- Strict I/Os FEN/GI: Bolus normal saline 2 L, 50 mEq sodium bicarbonate IV push Sodium bicarbonate infusion 100 cc/hour Repeat BMP Maintain NPO status Zofran for nausea Bowel regimen Heme/ID: Follow up lactate per sepsis protocol Empiric antibiotics vancomycin and Zosyn initiated Follow-up blood, urine, and sputum cultures Obtain foot wound culture Endocrine: Insulin infusion per DKA protocol Remove insulin pump -- SSI Prophylaxis: GI Prophylaxis Famotidine DVT Prophylaxis -- SCDs Heparin infusion Lines: Peripheral IVs, right femoral intra-aortic balloon pump Dispo: This patient remains critically ill with one or more organ systems which are or may become a threat to life. I have spent in excess of 75 minutes discontinuously in the care and management of this patient. This time is exclusive of procedures, and includes, but is not limited to, evaluation of the patient, review of the medical record, discussions with family, consultants, nursing staff, or respiratory therapy, and documentation in the medical record. Code Status Full Discussed Condition With Dr. Chi,and PRINCIPAL JAVA DEVELOPER at bedside Flor Koch MD Sep 11, 2017 18:12
--- NOTE | 2017-09-11 18:14 | PD.PROCEDR ---
Procedure Note Procedure Endotracheal Intubation Diagnosis: Hypercapnic hypoxemic respiratory failure Indications: same Consent: emergent Anesthesia: see MAR Description of the Procedure: The patient was positioned in the sniffing position. Pre-oxygenation was performed using a BVM. Anesthesia was induced via rapid sequence. A Glidescope was used for laryngoscopy and a Grade 1 view was obtained. A 8.0 cuffed endotracheal tube was inserted atraumatically through the vocal cords. Confirmation of correct endotracheal tube placement was made by equal and bilateral breath sounds and colorimetric CO2 detection. The endotracheal tube was secured at [ ] cm at the teeth. There were no immediate complications noted. The patient remained hemodynamically stable throughout the procedure. A chest x-ray has been ordered. I personally performed the procedure. Flor Koch MD Sep 11, 2017 18:14
--- NOTE | 2017-09-11 18:48 | MA ---
cc: KARRI MARCUM DATE 09/11/[address]-elevation myocardial infarction. PROCEDURES PERFORMED 1. Fluoroscopy with interpretation. 2. Coronary angiography. 3. Coronary artery bypass graft angiography. 4. Percutaneous intervention with bare metal stents to the right coronary artery. 5. Intraaortic balloon pump placement. METHOD The risks, benefits and alternatives discussed with the patient. The patient understood and consented to the procedure. PROCEDURE DETAILS The patient brought into the catheterization lab and placed on the catheterization table. Right groin prepped and draped in usual sterile fashion. Right groin was anesthetized with 2% lidocaine. Right common femoral was cannulated and a 6-[place] 11 cm sheath was placed without difficulty. CORONARY ANGIOGRAPHY 1. Left main coronary has minor luminal irregularities. 2. Left anterior descending coronary artery is 100% occluded proximally. The diagonal branch is also 100% occluded. Distal LAD is fed via bypass graft. 3. Circumflex is occluded proximally. 4. Right coronary is a dominant vessel giving rise to a posterior descending branch. The mid right coronary has a 95% stenosis. The distal segment just prior to the bifurcation has a 90% stenosis. Posterior descending branch has luminal irregularities. Posterolateral branch has moderate diffuse disease. Small caliber size. CORONARY BYPASS GRAFT ANGIOGRAPHY 1. Left internal mammary to left anterior descending coronary is patent. The left anterior descending just beyond the graft itself has what appears to be about 60% to maybe 70% stenosis. This LAD wraps around the inferior apex. There is GERA III flow. 2. Saphenous vein graft to the second obtuse marginal branch widely patent. There is a first obtuse marginal branch which was back fed via the graft to the OM-2. There is a stenosis at the origin of the OM which does somewhat limit the perfusion of the first obtuse marginal branch but there is still GERA III flow. PERCUTANEOUS INTERVENTION Given the patient's ill appearance and electrocardiographic changes we elected to proceed with attempted revascularization. It did appear that the right coronary is potentially the culprit given that the flow did appear to be GERA II flow and there is subtotal occlusion. The right coronary artery was selectively engaged with a 6-[place] JR-4 guide catheter. A 0.014 300 cm [employer] run-through wire was navigated down the distal posterior lateral branch and a 2.0 x 15 mm RX Euphora balloon was then deployed in the distal right coronary artery and mid right coronary to 12 atmospheres. Repeat angiography showed still severe residual stenosis. A 2.25 x 14 mm RX Integrity bare metal stent was then deployed in the distal right coronary artery. A 3.0 x 22 mm RX Integrity bare metal stent was advanced into the mid-right coronary artery and deployed. Repeat angiography showed no significant residual stenosis and GERA III flow. Wires removed. Guide catheter removed. Sheath was sewn into place to be removed. Manual hemostasis. INTRAAORTIC BALLOON PUMP PLACEMENT Given the patient's systolic pressure of 70s and decreased ejection fraction we elected to proceed with intraaortic balloon pump placement. A 40 cc Datascope intra-aortic balloon pump was then placed and 1:1 synchronization was obtained with good arterial augmentation. Heparin was administered throughout the entire procedure to maintain appropriate anticoagulation. CONCLUSION 1. Severe [place] three-vessel coronary disease. 2. Two of two coronary bypass grafts are widely patent. 3. Moderate left anterior descending coronary artery stenosis beyond the takeoff of the left internal mammary graft anastomosis. 4. Successful percutaneous intervention with drug-eluting stents to the mid and distal right coronary artery. PLAN We will initiate Plavix and will monitor closely. Hopefully IABP will improve systolic pressure & will help to reduce the afterload and improve coronary perfusion. He is also going to need aggressive treatment for diabetic ketoacidosis. We will have to monitor his fluid balance closely given his reduced ejection fraction . We will consult medical laboratory specialist. MD JENNIFFER Gonzalez/EZEKIEL /4:05 PM /6:08 PM CHELE
[2017-09-11 18:50] LABS: BLOOD, URINE NEG (NEG); GLUCOSE,URINE NEG (NEG); KETONE, URINE NEG (NEG); NITRITE,URINE NEG (NEG); SQUAMOUS EPITHELIAL CELL URINE <1 /hpf (0-5); URINE COLOR YELLOW (YELLW/STRAW)
--- NOTE | 2017-09-11 18:50 | RADRPT ---
EXAM DATE/TIME: 09/11/2017 18:15 [facility] COMPARISON: CHEST SINGLE AP, September 11, 2017, 14:45. INDICATIONS : Short of breath. MEDICAL HISTORY : Hypertension. diabetic SURGICAL HISTORY : None. ENCOUNTER: Subsequent ACUITY: 1 day PAIN SCORE: 0/10 LOCATION: Bilateral chest FINDINGS: ET tube is present with tip overlapping approximately 3 cm above the dami. NG tube is present with tip in the stomach. There is no appreciable change inmixed interstitial and alveolar process in the r ight lung, however the left lung opacity has questionably slightly improved. There is evidence for pr ior median sternotomy. CONCLUSION: The right lung has not changed, however there is mild questionable improvement in aeration of the lef t lung. Lesley Spangler MD on September 11, 2017 at 18:48 Board Certified Radiologist. This report was verified electronically.
[2017-09-11 18:52] LABS: COMMENT (UR) CATH-CULT NOT IND; CULTURE IF INDICATED CATH CULTURE NOT IND
[2017-09-11] MEDS: SODIUM BICARBONATE 8.4% INJ 150 MEQ in SODIUM CHLOR 0.9% 1000 ML INJ 850 ML IV SCH (18:54)
[2017-09-11] MEDS: INSULIN REGULAR (IV INFUSION) 100 UNITS in SODIUM CHLORIDE 0.9% INJ 99 ML IV SCH (19:04)
[2017-09-11] MEDS: CHLORHEXIDINE 0.12% (ORAL KIT) 15 ML CUP MT SCH (20:00)
[2017-09-11] MEDS ORDERED: VANCOMYCIN 1,500 MG/NS 500 ML IV ONE ×2 (20:00)
[2017-09-11] MEDS: VASOPRESSIN INJ 40 UNITS in DEXTROSE 5% IN WATER 100ML INJ 98 ML IV PRN ×2 (20:26)
[2017-09-11 20:29] LABS: BLOOD GAS BASE EXCESS -17.2 mmol/L (-2-2); BLOOD GAS CARBOXYHEMOGLOBIN 0.6 % (0-4); BLOOD GAS HCO3 12 mmol/L (22-26); BLOOD GAS METHEMOGLOBIN 1.7 % (0-2); BLOOD GAS O2 HGB SATURATION 87 % (90-100); BLOOD GAS OXYGEN CONTENT 11.8 Vol % (12.0-20.0); BLOOD GAS PCO2 55 mmHg (38-42); BLOOD GAS PO2 87 mmHg (61-120); BLOOD GAS TOTAL HGB 9.5 G/DL (12.0-16.0); TEMP CORR TO 98.6
[2017-09-11 20:30] LABS: CRITICAL VALUE YES; FIO2 100 %; OXYGEN DEVICE VENTILATOR; VENT SETTINGS PRVC/AC
[2017-09-11 20:31] LABS: DRAW SITE LT RADIAL; NUMBER OF ARTERIAL PUNCTURES 1; STAT NO; ULNAR PULSE PRESENT
[2017-09-11 20:35] LABS: APTT (PATIENT) 106.7 SEC (24.3-30.1)
[2017-09-11] MEDS: DOCUSATE SODIUM 50 MG/SENNA 8.6 MG TAB PO SCH (20:52)
[2017-09-11] MEDS: SODIUM CHLORIDE 0.9% FLUSH 10 ML FLUSH IV FLUSH SCH (20:52)
--- NOTE | 2017-09-11 20:59 | RADRPT ---
EXAM DATE/TIME: 09/11/2017 20:14 [facility] COMPARISON: CHEST SINGLE AP, September 11, 2017, 18:15. INDICATIONS : Central line placement. MEDICAL HISTORY : Hypertension. diabetic. SURGICAL HISTORY : None. ENCOUNTER: Subsequent ACUITY: 1 day PAIN SCORE: 0/10 LOCATION: Bilateral chest FINDINGS: There is no appreciable change in bilateral mixed interstitial and alveolar process. Right IJ line is present with tip overlapping the expected region of the SVC. No definite pneumothorax is seen for [place]. ET tube, and NG tube have not changed. The rest of the examination has not significantly erin nged. CONCLUSION: Placement of right IJ central line otherwise not changed. Lesley Spangler MD on September 11, 2017 at 20:57 Board Certified Radiologist. This report was verified electronically.
--- NOTE | 2017-09-11 21:01 | PD.PROCEDR ---
Procedure Note Procedure Centerline placement A time-out was completed verifying correct patient, procedure, site, positioning , and special equipment if applicable. The patient was placed in a dependent position appropriate for central line placement based on the vein to be cannulated. The patients right neck was prepped and draped in sterile fashion. 1% Lidocaine was used to anesthetize the surrounding skin area. A triple lumen 9 -Russian Cordis catheter was introduced into the the internal jugular vein using the Seldinger technique and under ultrasound guidance. The catheter was threaded smoothly over the guide wire and appropriate blood return was obtained. Each lumen of the catheter was evacuated of air and flushed with sterile saline. The catheter was then sutured in place to the skin and a sterile dressing applied. Perfusion to the extremity distal to the point of catheter insertion was checked and found to be adequate. Estimated Blood Loss: 1ml The patient tolerated the procedure well and there were no complications. Viet Das MD Sep 11, 2017 21:01
[2017-09-11] MEDS: RESP: ALBUTEROL 2.5 MG/IPRATROPIUM 0.5 MG NEB (SCH) INH (21:26)
[2017-09-11] MEDS ORDERED: SODIUM CHLOR 0.9% 1000 ML INJ 2,000 ML IV STA (21:51)
[2017-09-11 22:36] LABS: APTT (PATIENT) 182.3 SEC (24.3-30.1)
[2017-09-11 23:23] LABS: BICARBONATE 14.1 MEQ/L (21.0-32.0); MAGNESIUM 2.4 MG/DL (1.5-2.5); POTASSIUM 5.6 MEQ/L (3.5-5.1)
[2017-09-11 23:46] LABS: CALCIUM-PROTEIN CORRECTED 7.9 MG/DL (8.5-10.1)
[2017-09-12] VITALS (29 sets, daily range): BP systolic 85–117; BP diastolic 48–60; PULSE 71–97; RESP 0–24; TEMP 91.1–97.8; O2SAT 92–100
[2017-09-12 01:17] LABS: APTT (PATIENT) 93.1 SEC (24.3-30.1)
[2017-09-12] MEDS ORDERED: PHENYLEPHRINE INJ 80 MG in DEXTROSE 5% IN WATE 500 ML INJ 492 ML IV PRN ×2 (01:30)
[2017-09-12] MEDS: DOPamine 800 MG/D5W PREMIX 500 ML IV PRN (01:35)
[2017-09-12] MEDS: PHENYLEPHRINE HCL 160 MG/D5W 484 ML ADMIX IV PRN ×8 (02:02→16:06)
[2017-09-12] MEDS: INSULIN REGULAR (IV INFUSION) 100 UNITS in SODIUM CHLORIDE 0.9% INJ 99 ML IV SCH ×4 (02:17→19:26)
[2017-09-12] MEDS: SODIUM CHLOR 0.9% 1000 ML INJ 1,000 ML IV SCH ×7 (02:45→21:57)
[2017-09-12 03:14] LABS: APTT (PATIENT) 59.2 SEC (24.3-30.1)
[2017-09-12] MEDS: DEXT 5%-NACL 0.9% 1000 ML INJ 1,000 ML IV SCH ×5 (03:34→22:30)
[2017-09-12] MEDS: CHLORHEXIDINE GLUCONATE 2 % 1 PACK (2 CLOTHS) TOP SCH ×2 (04:00→20:29)
[2017-09-12] MEDS: RESP: ALBUTEROL 2.5 MG/IPRATROPIUM 0.5 MG NEB (SCH) INH ×4 (04:53→21:15)
[2017-09-12] MEDS: SODIUM BICARBONATE 8.4% INJ 150 MEQ in SODIUM CHLOR 0.9% 1000 ML INJ 850 ML IV SCH ×3 (05:02→21:57)
[2017-09-12] MEDS: PIPERACIL-TAZO 4.5 GM PREMIX 100 ML IV SCH ×2 (05:02→11:30)
[2017-09-12] MEDS: VASOPRESSIN INJ 40 UNITS in DEXTROSE 5% IN WATER 100ML INJ 98 ML IV PRN ×2 (05:03)
[2017-09-12 05:07] LABS: AUTOMATED NEUTROPHIL # 17.4 TH/MM3 (1.8-7.7); BASOPHIL % 0.1 % (0.0-2.0); HEMATOCRIT 31.6 % (39.0-51.0); HEMO FLAGS DIFF FINAL; LYMPHOCYTE # 0.8 TH/MM3 (1.0-4.8); MEAN CELL VOLUME 98.1 FL (80.0-100.0); MEAN CORPUSCULAR HEMOGLOBIN 30.6 PG (27.0-34.0); MEAN CORPUSCULAR HGB CONC 31.2 % (32.0-36.0); MONO % 4.6 % (0.0-8.0); NEUT % 91.3 % (16.0-70.0); PLATELET COUNT 282 TH/MM3 (150-450); RED BLOOD COUNT 3.22 MIL/MM3 (4.50-5.90); RED CELL DISTRIBUTION WIDTH 15.3 % (11.6-17.2); WHITE BLOOD COUNT 19.1 TH/MM3 (4.0-11.0)
[2017-09-12 05:18] LABS: BLOOD GAS BASE EXCESS -8.4 mmol/L (-2-2); BLOOD GAS HCO3 19 mmol/L (22-26); BLOOD GAS METHEMOGLOBIN 1.7 % (0-2); BLOOD GAS O2 HGB SATURATION 88 % (90-100); BLOOD GAS OXYGEN CONTENT 12.4 Vol % (12.0-20.0); BLOOD GAS PCO2 52 mmHg (38-42); BLOOD GAS PO2 70 mmHg (61-120); TEMP CORR TO 98.6
[2017-09-12 05:19] LABS: CRITICAL VALUE YES; OXYGEN DEVICE VENTILATOR
[2017-09-12 05:20] LABS: DRAW SITE RT RADIAL; FIO2 100 %; NUMBER OF ARTERIAL PUNCTURES 1; STAT NO; ULNAR PULSE Y; VENT SETTINGS PRVC/AC
[2017-09-12 05:41] LABS: ANION GAP 14 MEQ/L (5-15); BETA-HYDROXYBUTYRATE 0.14 MMOL/L (0.00-0.39); BICARBONATE 19.9 MEQ/L (21.0-32.0); BLOOD UREA NITROGEN 76 MG/DL (7-18); CHLORIDE 101 MEQ/L (98-107); CREATINE KINASE 630 U/L (39-308); GLOMERULAR FILTRATION RATE 19 ML/MIN (>89); HDL CHOLESTEROL 33.6 MG/DL (40.0-60.0); MAGNESIUM 2.1 MG/DL (1.5-2.5); POTASSIUM 3.9 MEQ/L (3.5-5.1); SODIUM (NA) 135 MEQ/L (136-145)
[2017-09-12 06:01] LABS: LDL CHOLESTEROL 5 MG/DL (0-99)
[2017-09-12 06:20] LABS: CKMB 36.9 NG/ML (0.5-3.6)
[2017-09-12 06:26] LABS: CALCIUM-PROTEIN CORRECTED 7.3 MG/DL (8.5-10.1)
[2017-09-12] MEDS: fentaNYL DRIP 250 ML IV PRN (06:35)
[2017-09-12] MEDS: CHLORHEXIDINE 0.12% (ORAL KIT) 15 ML CUP MT SCH ×2 (08:00→19:20)
[2017-09-12] MEDS: DOCUSATE SODIUM 50 MG/SENNA 8.6 MG TAB PO SCH ×2 (09:00→19:30)
--- NOTE | 2017-09-12 09:14 | PD.CARD.PN ---
Subjective Subjective Remarks intubated, sedated and mechanically ventilated (Drea Jimenez) Objective Medications Current Medications Medications (Trade) Dose Ordered Sig/Kandice Route Start Time Stop Time Status Last Admin (Xylocaine 2% Jelly) 1 applic UNSCH PRN TOP 09/11/17 16:00 (Morphine Inj) 2 mg Q30M PRN IV PUSH 09/11/17 16:00 (Plavix) 75 mg DAILY PO 09/12/17 09:00 (Atropine Inj) 0.5 mg UNSCH PRN IV PUSH 09/11/17 16:00 Sodium Chloride 250 ml @ 500 mls/hr ONCE PRN IV 09/11/17 16:00 09/12/17 15:59 (Reglan Inj) 10 mg Q4H PRN IV PUSH 09/11/17 16:00 UNV (Zofran Inj) 4 mg Q4H PRN IV PUSH 09/11/17 16:00 Heparin Sodium/ Dextrose 250 ml @ 9 mls/hr TITRATE PRN IV 09/11/17 16:00 09/11/17 18:00 (NS Flush) 2 ml UNSCH PRN IV FLUSH 09/11/17 17:15 (NS Flush) 2 ml BID IV FLUSH 09/11/17 21:00 09/11/17 20:52 (Tylenol) 650 mg Q6H PRN PO 09/11/17 17:15 (Duoneb Neb) 1 ampule Q6HR NEB INH 09/11/17 22:00 09/12/17 08:31 (Duoneb Neb) 1 ampule Q2HR NEB PRN INH 09/11/17 17:15 Miscellaneous Information 1 Q361D XX 09/11/17 17:15 09/11/17 17:15 (Chlorhexidine 2% Cloth) 3 pack Taper DAILY@04 TOP 09/12/17 04:00 09/08/18 03:59 09/12/17 04:00 (Chlorhexidine 2% Cloth) 3 pack UNSCH PRN TOP 09/11/17 17:15 (Yamilex-Colace) 1 tab BID PO 09/11/17 21:00 (Milk Of Magnesia Liq) 30 ml Q12H PRN PO 09/11/17 17:15 (Senokot) 17.2 mg Q12H PRN PO 09/11/17 17:15 (Dulcolax Supp) 10 mg DAILY PRN RECTAL 09/11/17 17:15 (Lactulose Liq) 30 ml DAILY PRN PO 09/11/17 17:15 Fentanyl Citrate 250 ml @ 5 mls/hr TITRATE PRN IV 09/11/17 17:30 09/12/17 06:35 (Brethine Inj) 1 mg UNSCH PRN SQ 09/11/17 17:30 Pharmacy Profile Note 0 ml @ 0 mls/hr UNSCH OTHER 09/11/17 17:30 Piperacillin Sod/ Tazobactam Sod 100 ml @ 200 mls/hr Q6H IV 09/11/17 18:00 09/12/17 05:02 Miscellaneous Information 1 Q361D XX 09/11/17 17:30 09/11/17 17:30 (Peridex 0.12% Liq) 15 ml BID@08,20 MT 09/11/17 20:00 09/11/17 20:00 Sodium Bicarbonate 150 meq/Sodium Chloride 1,000 ml @ 100 mls/hr Q10H IV 09/11/17 20:00 09/12/17 05:02 Sodium Chloride 1,000 ml @ 250 mls/hr Q4H IV 09/11/17 17:34 09/12/17 06:51 Dextrose/Sodium Chloride 1,000 ml @ 200 mls/hr Q5H IV 09/11/17 17:34 Insulin Human Regular 100 units/ Sodium Chloride 100 ml @ 7 mls/hr TITRATE IV 09/11/17 17:45 09/12/17 02:17 Potassium Chloride 100 ml @ 100 mls/hr Q1H PRN IV 09/11/17 17:45 Potassium Chloride 100 ml @ 50 mls/hr Q2H PRN IV 09/11/17 17:45 Potassium Chloride 100 ml @ 100 mls/hr Q1H PRN IV 09/11/17 17:45 Potassium Chloride 100 ml @ 100 mls/hr Q1H PRN IV 09/11/17 17:45 Potassium Chloride 100 ml @ 50 mls/hr Q2H PRN IV 09/11/17 17:45 Potassium Chloride 100 ml @ 50 mls/hr Q2H PRN IV 09/11/17 17:45 Potassium Chloride 100 ml @ 50 mls/hr Q2H PRN IV 09/11/17 17:45 Potassium Chloride 100 ml @ 50 mls/hr Q2H PRN IV 09/11/17 17:45 (Sodium Bicarbonate 8.4% Inj) 100 meq UNSCH PRN IV PUSH 09/11/17 17:45 09/11/17 19:01 (Sodium Bicarbonate 8.4% Inj) 50 meq UNSCH PRN IV PUSH 09/11/17 17:45 Sodium Phosphate 15 mmol/Sodium Chloride 105 ml @ 25 mls/hr UNSCH PRN IV 09/11/17 17:45 Miscellaneous Information 1 Q361D XX 09/11/17 17:45 09/11/17 17:45 Vasopressin 40 units/Dextrose 100 ml @ 6 mls/hr TITRATE PRN IV 09/11/17 18:15 09/12/17 05:03 Phenylephrine HCl 160 mg/Dextrose 500 ml @ 7.5 mls/hr TITRATE PRN IV 09/12/17 01:30 09/12/17 06:36 Dopamine HCl/ Dextrose 500 ml @ 8.182 mls/ hr TITRATE PRN IV 09/12/17 01:30 09/12/17 01:35 Vital Signs / I&O Vital Signs Date Time Temp Pulse Resp B/P (MAP) Pulse Ox O2 Delivery O2 Flow Rate FiO2 09/12/17 08:26 99 75 09/12/17 06:36 81 101/57 09/12/17 06:00 91/39 (71) 09/12/17 06:00 82 09/12/17 06:00 82 105/59 (74) 09/12/17 05:03 80 92/50 09/12/17 05:00 96/37 (72) 09/12/17 04:54 92 100 09/12/17 04:00 94.1 80 20 100/56 (71) 93 09/12/17 04:00 96/36 (72) 09/12/17 04:00 100 09/12/17 04:00 80 09/12/17 03:00 94/35 (72) 09/12/17 02:02 71 89/54 09/12/17 02:00 74/31 (61) 09/12/17 02:00 71 09/12/17 01:35 70 86/54 09/12/17 01:14 96 100 09/12/17 01:00 75/28 (59) 09/12/17 00:00 100 09/12/17 00:00 72 09/12/17 00:00 91.1 72 20 88/54 (65) 97 09/12/17 00:00 79/30 (63) 09/11/17 23:43 74 89/51 09/11/17 23:00 109/34 (80) 09/11/17 22:00 79 09/11/17 22:00 99/30 (73) 09/11/17 21:54 80 104/53 09/11/17 21:21 100 100 09/11/17 21:00 106/28 (75) 09/11/17 20:26 85 91/55 09/11/17 20:00 100/22 (67) 09/11/17 20:00 87 20 86/45 (59) 100 09/11/17 20:00 87 09/11/17 20:00 100 09/11/17 19:15 96.0 85 16 89/45 (60) 100 09/11/17 19:00 109/27 (73) 09/11/17 19:00 96.0 86 16 90/48 (62) 100 09/11/17 18:45 96.0 90 16 93/47 (62) 100 09/11/17 18:30 96.0 90 16 95/50 (65) 100 09/11/17 18:15 96.0 94 16 99/54 (69) 100 09/11/17 18:00 91/21 (66) 09/11/17 18:00 53/22 09/11/17 18:00 96.0 92 16 72/42 (52) 100 09/11/17 17:45 96.0 94 16 80/46 (57) 100 09/11/17 17:30 96.0 92 16 91/52 (65) 09/11/17 17:15 96.0 77 16 81/53 (62) 09/11/17 17:00 96.0 94 10 86/59 (68) 100 17 17:00 102/33 (66) 17 17:00 100 100 17 16:48 100 09/11/17 16:45 96.0 62 8 94/65 (75) 75 09/11/17 16:30 96.8 69 11 64/43 (50) 09/11/17 16:30 96.0 41 8 64/43 (50) 72 09/11/17 15:10 76 20 112/78 (89) 98 Non-Rebreather 15.00 09/11/17 14:34 93 18 118/59 (78) 100 09/11/17 14:30 78 20 98 Non-Rebreather 15.00 09/11/17 14:28 Non-Rebreather 15.00 09/11/17 14:28 92 20 118/59 (78) 100 Non-Rebreather 15.00 I/O 09/11/17 09/11/17 09/11/17 09/12/17 09/12/17 09/12/17 06:59 14:59 22:59 06:59 14:59 22:59 Intake Total 100 ml 84131 ml 490 ml Output Total 450 ml Balance 100 ml 29272 ml 490 ml Intake IV Total 100 ml 20962 ml 490 ml Output Urine Total 450 ml Physical Exam intubated,sedated and mechanically ventilated HEAD: Atraumatic. Normocephalic. EYES: Pupils equal and round. No scleral icterus. No injection or drainage. ENT: No nasal bleeding or discharge. Mucous membranes pink and moist. NECK: Trachea midline. No JVD. CARDIOVASCULAR: Regular rate and rhythm. systolic murmur RESPIRATORY: No accessory muscle use. GASTROINTESTINAL: Abdomen soft, non-tender, nondistended. . MUSCULOSKELETAL: Extremities without clubbing, cyanosis, or edema. No obvious deformities. NEUROLOGICAL: sedated. Laboratory Laboratory Tests Test 09/11/17 14:26 09/11/17 14:35 09/11/17 16:45 09/11/17 17:04 Blood Gas Puncture Site RT RADIAL ART LINE Blood Gas Patient Temperature 98.6 98.6 Blood Gas HCO3 10 mmol/L 10 mmol/L Blood Gas Base Excess -17.4 mmol/L -20.5 mmol/L Blood Gas Oxygen Saturation 93 % 96 % Arterial Blood pH 7.15 6.87 Arterial Blood Partial Pressure CO2 29 mmHg 60 mmHg Arterial Blood Partial Pressure O2 109 mmHG 255 mmHg Arterial Blood Oxygen Content 13.3 Vol % 13.6 Vol % Arterial Blood Carboxyhemoglobin 0.9 % 0.1 % Arterial Blood Methemoglobin 1.0 % 1.8 % Blood Gas Hemoglobin 10.1 G/DL 9.7 G/DL Oxygen Delivery Device Non-Rebreathing Mask VENTILATOR Blood Gas Liter Flow 15 L/M Blood Gas Inspired Oxygen 100 % 100 % Lactic Acid Level 10.9 mmol/L White Blood Count 10.9 TH/MM3 Red Blood Count 3.31 MIL/MM3 Hemoglobin 10.3 GM/DL Bedside Hemoglobin 10.5 G/DL Hematocrit 32.6 % Bedside Hematocrit 31.0 % Mean Corpuscular Volume 98.5 FL Mean Corpuscular Hemoglobin 31.0 PG Mean Corpuscular Hemoglobin Concent 31.4 % Red Cell Distribution Width 15.4 % Platelet Count 311 TH/MM3 Mean Platelet Volume 9.5 FL Neutrophils (%) (Auto) 89.9 % Lymphocytes (%) (Auto) 4.5 % Monocytes (%) (Auto) 5.3 % Eosinophils (%) (Auto) 0.0 % Basophils (%) (Auto) 0.3 % Neutrophils # (Auto) 9.8 TH/MM3 Lymphocytes # (Auto) 0.5 TH/MM3 Monocytes # (Auto) 0.6 TH/MM3 Eosinophils # (Auto) 0.0 TH/MM3 Basophils # (Auto) 0.0 TH/MM3 CBC Comment DIFF FINAL Differential Comment Prothrombin Time 19.3 SEC Prothromb Time International Ratio 1.7 RATIO Activated Partial Thromboplast Time 34.3 SEC Bedside Sodium 133 MMOL/L Bedside Potassium 6.8 MMOL/L Bedside Chloride 102 MMOL/L Bedside Blood Urea Nitrogen 80 MG/DL Bedside Creatinine 2.9 MG/DL Bedside Glucose 495 MG/DL Magnesium Level 2.5 MG/DL Total Creatine Kinase 174 U/L Creatine Kinase MB 5.0 NG/ML Troponin I 6.20 NG/ML Blood Gas Ventilator Setting 16/500/1.0/+5 Nasal Screen MRSA (PCR) MRSA NOT DETECTED Test 09/11/17 17:15 09/11/17 17:17 09/11/17 19:04 09/11/17 20:05 Urine Color YELLOW Urine Turbidity HAZY Urine pH 5.0 Urine Specific [place] 1.017 Urine Protein 30 mg/dL Urine Glucose (UA) NEG mg/dL Urine Ketones NEG mg/dL Urine Occult Blood NEG Urine Nitrite NEG Urine Bilirubin NEG Urine Urobilinogen 2.0 MG/DL Urine Leukocyte Esterase NEG Urine RBC 1 /hpf Urine WBC 1 /hpf Urine Squamous Epithelial Cells <1 /hpf Urine Amorphous Sediment RARE Microscopic Urinalysis Comment CATH-CULT NOT IND White Blood Count 10.6 TH/MM3 Red Blood Count 3.17 MIL/MM3 Hemoglobin 9.6 GM/DL Hematocrit 32.2 % Mean Corpuscular Volume 101.4 FL Mean Corpuscular Hemoglobin 30.2 PG Mean Corpuscular Hemoglobin Concent 29.8 % Red Cell Distribution Width 15.0 % Platelet Count 314 TH/MM3 Mean Platelet Volume 9.1 FL Lactic Acid Level 11.2 mmol/L Activated Partial Thromboplast Time 106.7 SEC Potassium Level 6.6 MEQ/L B-Hydroxybutyrate 1.80 MMOL/L Blood Gas Puncture Site LT RADIAL Blood Gas Patient Temperature 98.6 Blood Gas HCO3 12 mmol/L Blood Gas Base Excess -17.2 mmol/L Blood Gas Oxygen Saturation 87 % Arterial Blood pH 6.98 Arterial Blood Partial Pressure CO2 55 mmHg Arterial Blood Partial Pressure O2 87 mmHg Arterial Blood Oxygen Content 11.8 Vol % Arterial Blood Carboxyhemoglobin 0.6 % Arterial Blood Methemoglobin 1.7 % Blood Gas Hemoglobin 9.5 G/DL Oxygen Delivery Device VENTILATOR Blood Gas Ventilator Setting PRVC/AC Blood Gas Inspired Oxygen 100 % Test 09/11/17 20:09 09/11/17 21:10 09/11/17 22:45 09/12/17 00:43 Blood Urea Nitrogen 80 MG/DL Creatinine 3.42 MG/DL Random Glucose 653 MG/DL 673 MG/DL 687 MG/DL Total Protein 5.9 GM/DL Calcium Level 7.3 MG/DL Phosphorus Level 7.6 MG/DL Magnesium Level 2.4 MG/DL Sodium Level 135 MEQ/L Potassium Level 5.6 MEQ/L Chloride Level 101 MEQ/L Carbon Dioxide Level 14.1 MEQ/L Anion Gap 20 MEQ/L Estimat Glomerular Filtration Rate 18 ML/MIN Protein Corrected Calcium 7.9 MG/DL Activated Partial Thromboplast Time 182.3 SEC 93.1 SEC Test 09/12/17 02:55 09/12/17 04:40 09/12/17 04:48 Activated Partial Thromboplast Time 59.2 SEC Random Glucose 716 MG/DL 643 MG/DL White Blood Count 19.1 TH/MM3 Red Blood Count 3.22 MIL/MM3 Hemoglobin 9.9 GM/DL Hematocrit 31.6 % Mean Corpuscular Volume 98.1 FL Mean Corpuscular Hemoglobin 30.6 PG Mean Corpuscular Hemoglobin Concent 31.2 % Red Cell Distribution Width 15.3 % Platelet Count 282 TH/MM3 Mean Platelet Volume 9.6 FL Neutrophils (%) (Auto) 91.3 % Lymphocytes (%) (Auto) 4.0 % Monocytes (%) (Auto) 4.6 % Eosinophils (%) (Auto) 0.0 % Basophils (%) (Auto) 0.1 % Neutrophils # (Auto) 17.4 TH/MM3 Lymphocytes # (Auto) 0.8 TH/MM3 Monocytes # (Auto) 0.9 TH/MM3 Eosinophils # (Auto) 0.0 TH/MM3 Basophils # (Auto) 0.0 TH/MM3 CBC Comment DIFF FINAL Differential Comment Blood Urea Nitrogen 76 MG/DL Creatinine 3.22 MG/DL Total Protein 5.7 GM/DL Calcium Level 6.6 MG/DL Phosphorus Level 4.7 MG/DL Magnesium Level 2.1 MG/DL Sodium Level 135 MEQ/L Potassium Level 3.9 MEQ/L Chloride Level 101 MEQ/L Carbon Dioxide Level 19.9 MEQ/L Anion Gap 14 MEQ/L Estimat Glomerular Filtration Rate 19 ML/MIN Protein Corrected Calcium 7.3 MG/DL Total Creatine Kinase 630 U/L Creatine Kinase MB 36.9 NG/ML Creatine Kinase MB % 5.9 % Triglycerides Level 58 MG/DL Cholesterol Level LESS THAN 50 MG/DL LDL Cholesterol 5 MG/DL HDL Cholesterol 33.6 MG/DL Cholesterol/HDL Ratio 1.48 RATIO B-Hydroxybutyrate 0.14 MMOL/L Blood Gas Puncture Site RT RADIAL Blood Gas Patient Temperature 98.6 Blood Gas HCO3 19 mmol/L Blood Gas Base Excess -8.4 mmol/L Blood Gas Oxygen Saturation 88 % Arterial Blood pH 7.18 Arterial Blood Partial Pressure CO2 52 mmHg Arterial Blood Partial Pressure O2 70 mmHg Arterial Blood Oxygen Content 12.4 Vol % Arterial Blood Carboxyhemoglobin 1.0 % Arterial Blood Methemoglobin 1.7 % Blood Gas Hemoglobin 10.0 G/DL Oxygen Delivery Device VENTILATOR Blood Gas Ventilator Setting PRVC/AC Blood Gas Inspired Oxygen 100 % Imaging Last 24 hours Impressions Chest X-Ray 09/11/17 1421 Signed Impressions: Service Date/Time: Monday, September 11, 2017 14:45 - CONCLUSION: Bilateral interstitial/alveolar infiltrate characteristic of pulmonary edema. Mild cardiomegaly. Status post aortic valve replacement. Norberto Mckinley MD (Drea Jimeenz) Assessment and Plan Problem List: (1) ACS (acute coronary syndrome) ICD Codes: I24.9 - Acute ischemic heart disease, unspecified Status: Acute Assessment and Plan 71 yo M with HTN, CABG, mechanical AVR, diabetes with insulin pump, prior CVA who presented with STEMI yesterday and underwent urgent cardiac catheterization. STEMI: s/p PCI KENNEDY RCA, 2/3 grafts patent, mid-LAD stenosis, IABP in place. patient is in DKA and receiving fluids. he is heparinized to cover his mechanical valve. we will continue to monitor while glucose and fluids corrected and he becomes more hemodynamically stable before considering further intervention. (Drea Jimenez) Assessment and Plan STEMI - KENNEDY RCA. asa plavix statin hold BB and ACEi due to SBP mechanical valve - FU echo. bedside looked ok. on heparin gtt. will eventually need heparin to Coumadin transition. cardiomyopathy - intubated. FiO2 80%. EF moderately reduced but IVF necessary. DKA - + I/O. Acidosis improving. Resolve DKA and then we will move to weaning pressors, IABP, and intubation. cardiogenic shock - IABP in place. 1:1. Chito gtt (Raza Courtney MD) Drea Jimenez Sep 12, 2017 09:14 Raza Courtnye MD Sep 12, 2017 10:03
[2017-09-12] MEDS: SODIUM CHLORIDE 0.9% FLUSH 10 ML FLUSH IV FLUSH SCH ×2 (09:41→19:20)
[2017-09-12 10:51] LABS: APTT (PATIENT) 56.9 SEC (24.3-30.1)
[2017-09-12 11:14] LABS: MAGNESIUM 2.1 MG/DL (1.5-2.5); POTASSIUM 3.7 MEQ/L (3.5-5.1)
[2017-09-12] MEDS: ATORVASTATIN 40 MG TAB PO SCH (11:30)
[2017-09-12] MEDS: ASPIRIN EC 81 MG TABEC PO SCH (11:30)
[2017-09-12 11:32] LABS: CALCIUM-PROTEIN CORRECTED 7.4 MG/DL (8.5-10.1)
[2017-09-12] MEDS: CLOPIDOGREL 75 MG TAB PO SCH (11:32)
--- NOTE | 2017-09-12 11:40 | HHI.CCPN ---
Subjective Remarks/Hospital Course This is a 71-year-old male with history of hypertension, valve replacement currently on Coumadin, diabetes with an insulin pump, previous CVA, that presented to the ED, with symptoms of malaise nausea and vomiting with dyspnea. EKG was done which show significant ST depressions, stroke alert had been initiated. The patient was diaphoretic, EKG shows deep ST depressions in the inferior leads and lateral leads. Dr. 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 The patient underwent cardiac catheterization lab for further evaluation. In the ED laboratory findings glucose of 500, pH of 7.19, potassium of 6.8, creatinine of 2.9, lactate level of 10. At this point, concern for acute renal failure, possible hyperkalemia, DKA. The patient has a medical history significant for aortic valve replacement , mechanical, and a two-vessel bypass and a recent foot infection. A bedside echo was performed by Dr. chi showing an ejection fraction of 35-40% with moderate TR. The patient underwent 2 stents to the RCA and cardiac catheterization the patient was noted to become significantly hypotensive with a systolic blood pressure in the 70s-80s, and intra-aortic balloon pump was placed. The patient was transferred to the ICU, critical care medicine was consulted. Upon arrival to the ICU,the patient was noted to be in agonal respirations, O2 saturation 70's, sinus bradycardia heart rate in the 40s, with systolic blood pressure in 60's, cold with weak pulses. The patient was emergently intubated, fluid boluses initiated, phenylephrine was initiated. ABG upon presentation to ICU, immediately postintubation-pH 6.86 PCO2 60 PO2 255, [id number] with a base excess of -20.3. Subjective: 09/12: Overnight the patient's vasopressor support increased to 3 pressor agents. Bicarbonate level normalized sodium bicarbonate infusion discontinued. Formal echo pending. A chin continues on IABP 1:1. Wound culture gram- positive cocci patient empirically on vancomycin and cefepime will obtain infectious disease consult secondary to multiple antibiotics in the last several weeks, appreciate recommendations. Urine output minimal overnight, resolution of hyperkalemia. The patient continues to be hyperglycemic, continues on insulin infusion glucose levels decreased from 700-500 currently. GCS 11 T currently on fentanyl infusion, patient responding to commands, interacting yes and no questions with family at bedside. Objective Vital Signs Date Time Temp Pulse Resp B/P (MAP) Pulse Ox O2 Delivery O2 Flow Rate FiO2 09/12/17 09:35 79 96/50 09/12/17 08:26 99 75 09/12/17 04:00 94.1 20 09/11/17 15:10 Non-Rebreather 15.00 Intake and Output 09/12/17 09/12/17 09/13/17 08:00 16:00 00:00 Intake Total 24817 ml 182 ml Output Total 450 ml 35 ml Balance 24742 ml 147 ml Result Diagram: 09/12/17 0440 09/12/17 0910 Other Results Laboratory Tests Test 09/11/17 14:26 09/11/17 16:45 09/11/17 20:05 09/12/17 04:48 Blood Gas Puncture Site RT RADIAL ART LINE LT RADIAL RT RADIAL Blood Gas Patient Temperature 98.6 98.6 98.6 98.6 Blood Gas HCO3 10 mmol/L (22-26) 10 mmol/L (22-26) 12 mmol/L (22-26) 19 mmol/L (22-26) Blood Gas Base Excess -17.4 mmol/L (-2-2) -20.5 mmol/L (-2-2) -17.2 mmol/L (-2-2) -8.4 mmol/L (-2-2) Blood Gas Oxygen Saturation 93 % (90-100) 96 % (90-100) 87 % (90-100) 88 % ( 90-100) Arterial Blood pH 7.15 (7.380-7.420) 6.87 (7.380-7.420) 6.98 (7.380-7.420) 7.18 (7.380-7.420) Arterial Blood Partial Pressure CO2 29 mmHg (38-42) 60 mmHg (38-42) 55 mmHg (38-42) 52 mmHg (38-42) Arterial Blood Partial Pressure O2 109 mmHG (61-120) 255 mmHg (61-120) 87 mmHg (61-120) 70 mmHg (61-120) Arterial Blood Oxygen Content 13.3 Vol % (12.0-20.0) 13.6 Vol % (12.0-20.0) 11.8 Vol % (12.0-20.0) 12.4 Vol % (12.0-20.0) Arterial Blood Carboxyhemoglobin 0.9 % (0-4) 0.1 % (0-4) 0.6 % (0-4) 1.0 % (0-4) Arterial Blood Methemoglobin 1.0 % (0-2) 1.8 % (0-2) 1.7 % (0-2) 1.7 % (0-2) Blood Gas Hemoglobin 10.1 G/DL (12.0-16.0) 9.7 G/DL (12.0-16.0) 9.5 G/DL (12.0-16.0) 10.0 G/DL (12.0-16.0) Oxygen Delivery Device Non-Rebreathing Mask VENTILATOR VENTILATOR VENTILATOR Blood Gas Liter Flow 15 L/M Blood Gas Inspired Oxygen 100 % 100 % 100 % 100 % Blood Gas Ventilator Setting 16/500/1.0/+5 PRVC/AC PRVC/AC Imaging Last Impressions Chest X-Ray 09/11/17 1421 Signed Impressions: Service Date/Time: Monday, September 11, 2017 14:45 - CONCLUSION: Bilateral interstitial/alveolar infiltrate characteristic of pulmonary edema. Mild cardiomegaly. Status post aortic valve replacement. Norberto Mckinley MD Objective Remarks GENERAL: Critically ill male intubated mildly sedated responding to yes and no questions following commands SKIN: Warm and dry HEAD: Atraumatic. Normocephalic. EYES: Pupils equal and round. No scleral icterus. No injection or drainage. Extraocular movement intact ENT: No nasal bleeding or discharge. Mucous membranes pink and moist. Orotracheally intubated NECK: Trachea midline. No JVD. CARDIOVASCULAR: Normal rate, regular rhythm. Telemetry sinus rhythm RESPIRATORY: Mechanical ventilation. Bilateral chest excursion. Scattered rhonchi on auscultation GASTROINTESTINAL: Abdomen soft, non-tender, nondistended. No guarding. MUSCULOSKELETAL: Extremities without clubbing, cyanosis, 1+ peripheral edema. No obvious deformities. Right groin intra-aortic balloon pump. Pulses palpable. Right foot wound, purulent drainage NEUROLOGICAL: GCS 11 T. RASS -2. Movement of extremities 4 Procedures 09/11 IABP, 2 drug-eluting stents to RCA 09/12 echo Urinary Catheter: Yes Date of Insertion: Sep 11, 2017 Vascular Central Line Catheter: Yes Date of Insertion: Sep 11, 2017 Line: Central Venous Catheter Side: Right Location: Internal Reason for Continuation Vasoactive medication administration A/P Assessment and Plan Assessment This is a 71-year-old male with cardiogenic and concomitant septic shock in the setting of DKA with recent/current wound infection. Patient with acidosis, renal failure. Prognosis is guarded at this time. ASSESSMENT STEMI S/P PCI x 2 (RCA) History of two-vessel cardiac bypass with mechanical AVR Cardiogenic shock- with IABP support Status post PCI (2) KENNEDY to RCA-09/11 DKA Septic shock Acute hypercapnic and hypoxemic respiratory failure Pulmonary edema Acute kidney injury secondary to low cardiac output state Hyperkalemia-resolved Right Foot infection History of CVA PLAN Neurologic: Versed and fentanyl infusions for ventilator synchrony Neurochecks per ICU protocol Daily sedation vacation Tylenol 650 mg every 6 hours for temp greater than 101 Hold Neurontin at this time, patient's home medication GCS 11 T Respiratory: 09/11-intubated 8.0 ETT at 23cm Mechanical vent settings to maintain O2 saturation > 92% Ventilator bundle Bronchodilators every 6 hours scheduled, every 2 hours when necessary CPAP trials when clinically indicated Repeat ABG-7.18/52/70/19/-8.4, currently on FiO2 of 75% PEEP of 10, increased rate and repeat ABG Cardiovascular: IABP 1:1 Phenylephrine, dopamine, vasopressin infusion to maintain MAP > 60mmHg Heparin infusion per protocol, we'll eventually plan on transitioning to Coumadin Status post drug-eluting stents 2 to RCA-aspirin Plavix and statin management per cardiology Cardiology-Dr. Chi following Renal: Insert and maintain Desouza -- Strict I/Os FEN/GI: Bolus normal saline 2 L, 50 mEq sodium bicarbonate IV push Sodium bicarbonate infusion discontinued this a.m. BMP pending Obtain urine eosinophils, urine creatinine urine sodium Renal ultrasound pending Maintain NPO status Zofran for nausea Bowel regimen Heme/ID: Follow up lactate per sepsis protocol Empiric antibiotics vancomycin and Zosyn (day 2) ID consulted Follow-up blood, urine, and sputum cultures Foot wound [id number] cocci Endocrine: Insulin infusion per DKA protocol insulin pump disconnected 09/11 -- SSI Prophylaxis: GI Prophylaxis Famotidine DVT Prophylaxis -- SCDs Heparin infusion Lines: Peripheral IVs, right femoral intra-aortic balloon pump Dispo: This patient remains critically ill with one or more organ systems which are or may become a threat to life. I have spent in excess of 45 minutes discontinuously in the care and management of this patient. This time is exclusive of procedures, and includes, but is not limited to, evaluation of the patient, review of the medical record, discussions with family, consultants, nursing staff, or respiratory therapy, and documentation in the medical record. Discussed with COSMETOLOGY EDUCATOR, Dr. Chi and family at bedside. All questions answered. Physician Flor Solo MD Sep 12, 2017 11:40
[2017-09-12] MEDS: MIDAZOLAM 100 MG/100 ML INJ 100 ML IV PRN ×2 (12:00→21:36)
[2017-09-12 12:22] LABS: BLOOD GAS BASE EXCESS -9.1 mmol/L (-2-2); BLOOD GAS HCO3 17 mmol/L (22-26); BLOOD GAS METHEMOGLOBIN 1.9 % (0-2); BLOOD GAS O2 HGB SATURATION 94 % (90-100); BLOOD GAS OXYGEN CONTENT 13.1 Vol % (12.0-20.0); BLOOD GAS PCO2 45 mmHg (38-42); BLOOD GAS PO2 99 mmHg (61-120); BLOOD GAS TOTAL HGB 9.8 G/DL (12.0-16.0); TEMP CORR TO 98.6
[2017-09-12 12:24] LABS: CRITICAL VALUE YES; OXYGEN DEVICE VENTILATOR
[2017-09-12 12:25] LABS: DRAW SITE ART LINE; FIO2 75 %; STAT NO; ULNAR PULSE PRESENT
--- NOTE | 2017-09-12 12:54 | ECHRPT ---
Indication: chest pain CONCLUSIONS The left ventricular systolic function is masydzni-me-dpzvczc reduced with an estimated ejection fra ction in the range of 35-40%. Normal left ventricular size. Mild concentric left ventricular hypertrophy. No regional wall motion abnormalities are present. Moderate thickening of the mitral valve leaflets. Trace mitral valve regurgitation. There is trace tricuspid valve regurgitation. The estimated pulmonary arterial pressure is 40.9 mmHg. Mild pulmonary valve regurgitation. BP: 101 / 57 HR: 81 Rhythm: Sinus MEASUREMENTS (Male / Female) Normal Values Technical Quality:Fair 2D ECHO LV Diastolic Diameter PLAX 5.6 cm 4.2 - 5.9 / 3.9 - 5.3 cm LV Systolic Diameter PLAX 4.6 cm IVS Diastolic Thickness 1.4 cm 0.6 - 1.0 / 0.6 - 0.9 cm LVPW Diastolic Thickness 1.4 cm 0.6 - 1.0 / 0.6 - 0.9 cm LV Relative Wall Thickness 0.5 RV Internal Dim ED PLAX 3.3 cm LVOT Diameter 2.0 cm LA Systolic Diameter LX 4.0 cm 3.0 - 4.0 / 2.7 - 3.8 cm LV Ejection Fraction MOD 4C 30.6 % LV Cardiac Index MOD 4C 1248.1 cm/minm LV Ejection Fraction 4C AL 34.0 % LV Cardiac Index 4C AL 1437.0 cm/minm M-MODE Aortic Root Diameter MM 3.6 cm AV Cusp Separation MM 1.8 cm DOPPLER AV Peak Velocity 277.0 cm/s AV Peak Gradient 30.7 mmHg AV Mean Gradient 11.5 mmHg AV Velocity Time Integral 39.3 cm LVOT Peak Velocity 135.0 cm/s LVOT Peak Gradient 7.3 mmHg LVOT Velocity Time Integral 24.3 cm LVOT Cardiac Index 2802.4 cm/minm AV Area Cont Eq vti 1.9 cm AV Area Cont Eq pk 1.5 cm MV Peak Velocity 183.0 cm/s MV Peak Gradient 13.4 mmHg MV Mean Velocity 89.4 cm/s MV Mean Gradient 4.0 mmHg MV Area PHT 3.3 cm Mitral E Point Velocity 160.0 cm/s Mitral A Point Velocity 93.8 cm/s Mitral E to A Ratio 1.7 LV E' Lateral Velocity 9.2 cm/s Mitral E to LV E' Lateral Ratio 17.5 LV E' Septal Velocity 5.1 cm/s Mitral E to LV E' Septal Ratio 31.6 TR Peak Velocity 278.0 cm/s TR Peak Gradient 30.9 mmHg Right Atrial Pressure 10.0 mmHg Pulmonary Artery Systolic Pressu 40.9 mmHg Right Ventricular Systolic Press 40.9 mmHg PV Peak Velocity 152.0 cm/s PV Peak Gradient 9.2 mmHg FINDINGS LEFT VENTRICLE The left ventricular systolic function is ypejoklj-hy-xomeoma reduced with an estimated ejection fra ction in the range of 35-40%. Normal left ventricular size. Mild concentric left ventricular hypertrophy. No regional wall motion abnormalities are present. RIGHT VENTRICLE Normal right ventricular size and systolic function. LEFT ATRIUM The left atrial size is normal. RIGHT ATRIUM The right atrial size is normal. ATRIAL SEPTUM Normal atrial septal thickness without atrial level shunting by limited color doppler interrogation. AORTA The aortic root and proximal ascending aorta are normal in size on limited imaging. MITRAL VALVE Moderate thickening of the mitral valve leaflets. Trace mitral valve regurgitation. AORTIC VALVE The aortic valve prosthesis is normal to two-dimensional, color flow and Doppler interrogation. TRICUSPID VALVE There is trace tricuspid valve regurgitation. The estimated pulmonary arterial pressure is 40.9 mmHg. PULMONARY VALVE Mild pulmonary valve regurgitation. VESSELS The inferior vena cava is dilated. PERICARDIUM No pericardial effusion. Raza Courtney MD, FACC (Electronically Signed) Final Date:12 September 2017 12:52
[2017-09-12] MEDS ORDERED: IOHEXOL 350 MG/ML 100 ML BTL (for Cath Lab) OTHER ONE (13:02)
--- NOTE | 2017-09-12 13:49 | EKG ---
Date Performed: 09/12/2017 Time Performed: 05:26:04 PTAGE: 71 years EKG: Sinus rhythm . Poor R wave progression - probable normal variant Extensive ST-T changes may be due to myocardial i schemia Abnormal ECG PREVIOUS TRACING : 09/11/2017 18.09 DOCTOR: Raza Courtney Interpretating Date/Time 09/12/2017 13:43:37
--- NOTE | 2017-09-12 14:05 | EKG ---
Date Performed: 09/11/2017 Time Performed: 18:09:40 PTAGE: 71 years EKG: ECTOPIC ATRIAL RHYTHM MARKED RIGHT AXIS DEVIATION INTRAVENTRICULAR CONDUCTION DELAY SEPTAL MYOCARDIAL INFARCTION , PROBABLY OLD ABNORMAL ECG PREVIOUS TRACING : 09/11/2017 14.38 DOCTOR: Raza Courtney Interpretating Date/Time 09/12/2017 13:57:48
--- NOTE | 2017-09-12 14:10 | RADRPT ---
EXAM DATE/TIME: 09/12/2017 13:44 [facility] COMPARISON: CHEST SINGLE AP, September 11, 2017, 20:14. INDICATIONS : Respiratory failure. MEDICAL HISTORY : Hypertension. diabetic SURGICAL HISTORY : aortic valve surgery. ENCOUNTER: Subsequent ACUITY: 2 days PAIN SCORE: Non-responsive. LOCATION: Bilateral chest FINDINGS: 2 portable frontal views of the chest show bilateral pleural effusions and diffuse bilateral pulmonar y infiltrates. The basilar components are more pronounced than the prior study. Heart is mildly enlar ged. Tip of the endotracheal tube 4 cm from the dami. Nasogastric tube tip courses off the inferior margin of the film. Right-sided central line. Prosthetic heart valve. No pneumothorax. CONCLUSION: Some progression in the basilar components of the bilateral pulmonary infiltrates. Bilateral pleural effusions. Devaughn Chiu Jr., MD on September 12, 2017 at 14:07 Board Certified Radiologist. This report was verified electronically.
--- NOTE | 2017-09-12 14:19 | EKG ---
Date Performed: 09/11/2017 Time Performed: 14:38:11 PTAGE: 71 years EKG: Sinus rhythm WITH MARKED SINUS ARRHYTHMIA MARKED RIGHT AXIS DEVIATION RIGHT BUNDLE BRANCH BLOCK SEPTAL MYOCARDIAL INFARCTION ST DEPRESSION, CONSIDER SUBENDOCARDIAL INJURY ABNORMAL ECG PREVIOUS TRACING : 09/11/2017 14.28 DOCTOR: Raza Courtney Interpretating Date/Time 09/12/2017 14:15:41
--- NOTE | 2017-09-12 14:19 | EKG ---
Date Performed: 09/11/2017 Time Performed: 14:28:39 PTAGE: 71 years EKG: Sinus rhythm WITH MARKED SINUS ARRHYTHMIA INTRAVENTRICULAR CONDUCTION DELAY POSSIBLE RIGHT VENTRICULAR HYPERTROPH Y SEPTAL MYOCARDIAL INFARCTION ABNORMAL ECG PREVIOUS TRACING : 01/09/2016 23.05 DOCTOR: Raza Courtney Interpretating Date/Time 09/12/2017 14:15:52
--- NOTE | 2017-09-12 14:21 | RADRPT ---
EXAM DATE/TIME: 09/12/2017 12:10 [facility] COMPARISON: No previous studies available for comparison. INDICATIONS : Increased BUN/Creatinine. MEDICAL HISTORY : Hypercholesterolemia. Hypertension. Transient ischemic attack. Anticoagulant therapy, Coumadin. Rajwinder betes. Insulin pump. Coronary artery disease. SURGICAL HISTORY : Appendectomy. Valve replacement. CABG. Cardiac catheterization. Lump removed from right face/neck . ENCOUNTER: Initial ACUITY: 1 day PAIN SCORE: Nonresponsive. LOCATION: Bilateral flank MEASUREMENTS: RIGHT KIDNEY: 12.0 x 5.7 x 5.6 cm LEFT KIDNEY: 11.9 x 7.4 x 6.9 cm FINDINGS: RIGHT KIDNEY: Renal cortex is normal in thickness and echotexture. No hydronephrosis or mass. An echogenic focus w ith shadowing measuring 6 mm is seen within the renal pelvis. LEFT KIDNEY: Renal cortex is normal in thickness and echotexture. No hydronephrosis, stone, or mass. BLADDER: The bladder is decompressed and not well evaluated. Small volume ascites.. CONCLUSION: 1. No hydronephrosis. 2. 6 mm nonobstructing right renal stone. 3. Urinary bladder decompressed and not well evaluated. 4. Small volume ascites. Devaughn Chiu Jr., MD on September 12, 2017 at 14:15 Board Certified Radiologist. This report was verified electronically.
--- NOTE | 2017-09-12 14:39 | PD.CONS ---
HPI Service Nephrology Consult Requested By Dr. Koch Reason for Consult Acute renal failure Primary Care Physician Rosa Riggs MD History of Present Illness Patient is 71-year-old male with history of coronary artery disease, diabetes, continue with the elevated troponin and underwent heart catheterization requiring 2 stents however he was hemodynamically unstable requiring intravenous fluid support and aortic balloon pump his blood sugars were elevated the and he was treated for DKA, patient was on bicarbonate drip and subsequently this was stopped today and also received fluid but due to cardiogenic shock and this was discontinued that he is becoming more edematous, he is on ventilator, he is urine output has dropped since the morning. His creatinine is 3.19 baseline creatinine in December 2015 was 1 Review of Systems ROS Limitations: Clinical Condition Past Family Social History Allergies: Coded Allergies: No Known Allergies (Verified , 09/11/17) Past Medical History Aortic valve mechanical on Coumadin Insulin-dependent diabetes on insulin pump Coronary artery disease Hyperlipidemia Hypertension Past Surgical History Appendectomy Coronary artery bypass graft Aortic valve replacement Lump removed Reported Medications Reported Meds & Active Scripts Active Phenergan (Promethazine HCl) 25 Mg Tab 25 Mg PO Q6H PRN FOR NAUSEA/VOMITING Zofran ODT (Ondansetron HCl) 4 Mg Tab 4 Mg SL Q6H PRN FOR NAUSEA/VOMITING Ecotrin (Aspirin) 81 Mg Tabec 81 Mg PO DAILY Reported Warfarin Sodium 2.5 mg (Warfarin Sodium) 2.5 Mg Tab 2.5 Mg PO EVERY OTHER DAY Neurontin (Gabapentin) 800 Mg Tab 1,600 Mg PO HS Neurontin (Gabapentin) 800 Mg Tab 800 Mg PO DAILY Protonix (Pantoprazole Sodium) 40 Mg Tab 40 Mg PO DAILY Morphine Sulfate IR 15 mg (Morphine Sulfate) 15 Mg Tab 15 Mg PO TID Warfarin Sodium 5 mg (Warfarin Sodium) 5 Mg Tab 5 Mg PO EVERY OTHER DAY Fosinopril Sodium 20 Mg Tab 40 Mg PO DAILY Hctz (Hydrochlorothiazide) 25 Mg Tab 25 Mg PO DAILY Lipitor 80 Mg Tab (Atorvastatin) 80 Mg Tab 80 Mg PO DAILY Zoloft (Sertraline HCl) 50 Mg Tab 100 Mg PO DAILY Active Ordered Medications Current Medications Medications (Trade) Dose Ordered Sig/Kandice Route Start Time Stop Time Status Last Admin (Xylocaine 2% Jelly) 1 applic UNSCH PRN TOP 09/11/17 16:00 (Morphine Inj) 2 mg Q30M PRN IV PUSH 09/11/17 16:00 (Plavix) 75 mg DAILY PO 09/12/17 09:00 09/12/17 11:32 (Atropine Inj) 0.5 mg UNSCH PRN IV PUSH 09/11/17 16:00 Sodium Chloride 250 ml @ 500 mls/hr ONCE PRN IV 09/11/17 16:00 09/12/17 15:59 (Reglan Inj) 10 mg Q4H PRN IV PUSH 09/11/17 16:00 (Zofran Inj) 4 mg Q4H PRN IV PUSH 09/11/17 16:00 Heparin Sodium/ Dextrose 250 ml @ 9 mls/hr TITRATE PRN IV 09/11/17 16:00 09/11/17 18:00 (NS Flush) 2 ml UNSCH PRN IV FLUSH 09/11/17 17:15 (NS Flush) 2 ml BID IV FLUSH 09/11/17 21:00 09/12/17 09:41 (Tylenol) 650 mg Q6H PRN PO 09/11/17 17:15 (Duoneb Neb) 1 ampule Q6HR NEB INH 09/11/17 22:00 09/12/17 08:31 (Duoneb Neb) 1 ampule Q2HR NEB PRN INH 09/11/17 17:15 Miscellaneous Information 1 Q361D XX 09/11/17 17:15 09/11/17 17:15 (Chlorhexidine 2% Cloth) 3 pack Taper DAILY@04 TOP 09/12/17 04:00 09/08/18 03:59 09/12/17 04:00 (Chlorhexidine 2% Cloth) 3 pack UNSCH PRN TOP 09/11/17 17:15 (Yamilex-Colace) 1 tab BID PO 09/11/17 21:00 (Milk Of Magnesia Liq) 30 ml Q12H PRN PO 09/11/17 17:15 (Senokot) 17.2 mg Q12H PRN PO 09/11/17 17:15 (Dulcolax Supp) 10 mg DAILY PRN RECTAL 09/11/17 17:15 (Lactulose Liq) 30 ml DAILY PRN PO 09/11/17 17:15 Fentanyl Citrate 250 ml @ 5 mls/hr TITRATE PRN IV 09/11/17 17:30 09/12/17 06:35 (Brethine Inj) 1 mg UNSCH PRN SQ 09/11/17 17:30 Pharmacy Profile Note 0 ml @ 0 mls/hr UNSCH OTHER 09/11/17 17:30 Piperacillin Sod/ Tazobactam Sod 100 ml @ 200 mls/hr Q6H IV 09/11/17 18:00 09/12/17 11:30 Miscellaneous Information 1 Q361D XX 09/11/17 17:30 09/11/17 17:30 (Peridex 0.12% Liq) 15 ml BID@08,20 MT 09/11/17 20:00 09/12/17 08:00 Sodium Bicarbonate 150 meq/Sodium Chloride 1,000 ml @ 100 mls/hr Q10H IV 09/11/17 20:00 09/12/17 05:02 Sodium Chloride 1,000 ml @ 250 mls/hr Q4H IV 09/11/17 17:34 09/12/17 09:34 Dextrose/Sodium Chloride 1,000 ml @ 200 mls/hr Q5H IV 09/11/17 17:34 Insulin Human Regular 100 units/ Sodium Chloride 100 ml @ 7 mls/hr TITRATE IV 09/11/17 17:45 09/12/17 10:25 Potassium Chloride 100 ml @ 100 mls/hr Q1H PRN IV 09/11/17 17:45 Potassium Chloride 100 ml @ 50 mls/hr Q2H PRN IV 09/11/17 17:45 Potassium Chloride 100 ml @ 100 mls/hr Q1H PRN IV 09/11/17 17:45 Potassium Chloride 100 ml @ 100 mls/hr Q1H PRN IV 09/11/17 17:45 Potassium Chloride 100 ml @ 50 mls/hr Q2H PRN IV 09/11/17 17:45 Potassium Chloride 100 ml @ 50 mls/hr Q2H PRN IV 09/11/17 17:45 Potassium Chloride 100 ml @ 50 mls/hr Q2H PRN IV 09/11/17 17:45 Potassium Chloride 100 ml @ 50 mls/hr Q2H PRN IV 09/11/17 17:45 (Sodium Bicarbonate 8.4% Inj) 100 meq UNSCH PRN IV PUSH 09/11/17 17:45 09/11/17 19:01 (Sodium Bicarbonate 8.4% Inj) 50 meq UNSCH PRN IV PUSH 09/11/17 17:45 Sodium Phosphate 15 mmol/Sodium Chloride 105 ml @ 25 mls/hr UNSCH PRN IV 09/11/17 17:45 Miscellaneous Information 1 Q361D XX 09/11/17 17:45 09/11/17 17:45 Vasopressin 40 units/Dextrose 100 ml @ 6 mls/hr TITRATE PRN IV 09/11/17 18:15 09/12/17 05:03 Phenylephrine HCl 160 mg/Dextrose 500 ml @ 7.5 mls/hr TITRATE PRN IV 09/12/17 01:30 09/12/17 09:35 Dopamine HCl/ Dextrose 500 ml @ 8.182 mls/ hr TITRATE PRN IV 09/12/17 01:30 09/12/17 01:35 (Ecotrin Ec) 81 mg DAILY PO 09/12/17 10:00 09/12/17 11:30 (Lipitor) 40 mg DAILY PO 09/12/17 10:00 09/12/17 11:30 Midazolam HCl 100 ml @ 2 mls/hr TITRATE PRN IV 09/12/17 11:15 Family History Noncontributory Social History Denies smoking or alcohol Physical Exam Vital Signs Vital Signs Date Time Temp Pulse Resp B/P (MAP) Pulse Ox O2 Delivery O2 Flow Rate FiO2 09/12/17 14:00 106/42 (80) EKG 09/12/17 13:28 100 75 09/12/17 13:00 99/39 (74) EKG 09/12/17 12:06 96/38 (72) 09/12/17 10:53 103/41 (76) 09/12/17 09:35 79 96/50 09/12/17 09:06 102/42 (78) 09/12/17 09:06 100/41 (77) 09/12/17 08:26 99 75 09/12/17 08:24 100/41 (77) EKG 09/12/17 06:36 81 101/57 09/12/17 06:00 91/39 (71) 09/12/17 06:00 82 09/12/17 06:00 82 105/59 (74) 09/12/17 05:03 80 92/50 09/12/17 05:00 96/37 (72) 09/12/17 04:54 92 100 09/12/17 04:00 94.1 80 20 100/56 (71) 93 09/12/17 04:00 96/36 (72) 09/12/17 04:00 100 09/12/17 04:00 80 09/12/17 03:00 94/35 (72) 09/12/17 02:02 71 89/54 09/12/17 02:00 74/31 (61) 09/12/17 02:00 71 09/12/17 01:35 70 86/54 09/12/17 01:14 96 100 09/12/17 01:00 75/28 (59) 09/12/17 00:00 100 09/12/17 00:00 72 09/12/17 00:00 91.1 72 20 88/54 (65) 97 09/12/17 00:00 79/30 (63) 09/11/17 23:43 74 89/51 09/11/17 23:00 109/34 (80) 09/11/17 22:00 79 09/11/17 22:00 99/30 (73) 09/11/17 21:54 80 104/53 09/11/17 21:21 100 100 09/11/17 21:00 106/28 (75) 09/11/17 20:26 85 91/55 09/11/17 20:00 100/22 (67) 09/11/17 20:00 87 20 86/45 (59) 100 09/11/17 20:00 87 09/11/17 20:00 100 09/11/17 19:15 96.0 85 16 89/45 (60) 100 09/11/17 19:00 109/27 (73) 09/11/17 19:00 96.0 86 16 90/48 (62) 100 09/11/17 18:45 96.0 90 16 93/47 (62) 100 09/11/17 18:30 96.0 90 16 95/50 (65) 100 09/11/17 18:15 96.0 94 16 99/54 (69) 100 09/11/17 18:00 91/21 (66) 09/11/17 18:00 53/22 09/11/17 18:00 96.0 92 16 72/42 (52) 100 09/11/17 17:45 96.0 94 16 80/46 (57) 100 09/11/17 17:30 96.0 92 16 91/52 (65) 09/11/17 17:15 96.0 77 16 81/53 (62) 09/11/17 17:00 96.0 94 10 86/59 (68) 100 09/11/17 17:00 102/33 (66) 09/11/17 17:00 100 100 09/11/17 16:48 100 09/11/17 16:45 96.0 62 8 94/65 (75) 75 09/11/17 16:30 96.8 69 11 64/43 (50) 09/11/17 16:30 96.0 41 8 64/43 (50) 72 09/11/17 15:10 76 20 112/78 (89) 98 Non-Rebreather 15.00 09/11/17 14:34 93 18 118/59 (78) 100 09/11/17 14:30 78 20 98 Non-Rebreather 15.00 Physical Exam GENERAL: Well-nourished, well-developed sick. Intubated and on balloon pump Patient. SKIN: Warm and dry. HEAD: Normocephalic. EYES: No scleral icterus. No injection or drainage. NECK: Supple, trachea midline. No JVD or lymphadenopathy. CARDIOVASCULAR: Regular rate and rhythm or intra-aortic balloon pump RESPIRATORY: Breath sounds equal bilaterally. No accessory muscle use. GASTROINTESTINAL: Abdomen soft, non-tender, nondistended. EXTREMITIES: No cyanosis, 2+ edema . NEUROLOGICAL: Obtunded Laboratory Laboratory Tests Test 09/11/17 14:35 09/11/17 16:45 09/11/17 17:04 09/11/17 17:15 White Blood Count 10.9 Red Blood Count 3.31 Hemoglobin 10.3 Bedside Hemoglobin 10.5 Hematocrit 32.6 Bedside Hematocrit 31.0 Mean Corpuscular Volume 98.5 Mean Corpuscular Hemoglobin 31.0 Mean Corpuscular Hemoglobin Concent 31.4 Red Cell Distribution Width 15.4 Platelet Count 311 Mean Platelet Volume 9.5 Neutrophils (%) (Auto) 89.9 Lymphocytes (%) (Auto) 4.5 Monocytes (%) (Auto) 5.3 Eosinophils (%) (Auto) 0.0 Basophils (%) (Auto) 0.3 Neutrophils # (Auto) 9.8 Lymphocytes # (Auto) 0.5 Monocytes # (Auto) 0.6 Eosinophils # (Auto) 0.0 Basophils # (Auto) 0.0 CBC Comment DIFF FINAL Differential Comment Prothrombin Time 19.3 Prothromb Time International Ratio 1.7 Activated Partial Thromboplast Time 34.3 Bedside Sodium 133 Bedside Potassium 6.8 Bedside Chloride 102 Bedside Blood Urea Nitrogen 80 Bedside Creatinine 2.9 Bedside Glucose 495 Magnesium Level 2.5 Total Creatine Kinase 174 Creatine Kinase MB 5.0 Troponin I 6.20 Blood Gas Puncture Site ART LINE Blood Gas Patient Temperature 98.6 Blood Gas HCO3 10 Blood Gas Base Excess -20.5 Blood Gas Oxygen Saturation 96 Arterial Blood pH 6.87 Arterial Blood Partial Pressure CO2 60 Arterial Blood Partial Pressure O2 255 Arterial Blood Oxygen Content 13.6 Arterial Blood Carboxyhemoglobin 0.1 Arterial Blood Methemoglobin 1.8 Blood Gas Hemoglobin 9.7 Oxygen Delivery Device VENTILATOR Blood Gas Ventilator Setting 16/500/1.0/+5 Blood Gas Inspired Oxygen 100 Nasal Screen MRSA (PCR) MRSA NOT DETECTED Urine Color YELLOW Urine Turbidity HAZY Urine pH 5.0 Urine Specific [place] 1.017 Urine Protein 30 Urine Glucose (UA) NEG Urine Ketones NEG Urine Occult Blood NEG Urine Nitrite NEG Urine Bilirubin NEG Urine Urobilinogen 2.0 Urine Leukocyte Esterase NEG Urine RBC 1 Urine WBC 1 Urine Squamous Epithelial Cells <1 Urine Amorphous Sediment RARE Microscopic Urinalysis Comment CATH-CULT NOT IND Test 09/11/17 17:17 09/11/17 19:04 09/11/17 20:05 09/11/17 20:09 White Blood Count 10.6 Red Blood Count 3.17 Hemoglobin 9.6 Hematocrit 32.2 Mean Corpuscular Volume 101.4 Mean Corpuscular Hemoglobin 30.2 Mean Corpuscular Hemoglobin Concent 29.8 Red Cell Distribution Width 15.0 Platelet Count 314 Mean Platelet Volume 9.1 Lactic Acid Level 11.2 Activated Partial Thromboplast Time 106.7 Potassium Level 6.6 5.6 B-Hydroxybutyrate 1.80 Blood Gas Puncture Site LT RADIAL Blood Gas Patient Temperature 98.6 Blood Gas HCO3 12 Blood Gas Base Excess -17.2 Blood Gas Oxygen Saturation 87 Arterial Blood pH 6.98 Arterial Blood Partial Pressure CO2 55 Arterial Blood Partial Pressure O2 87 Arterial Blood Oxygen Content 11.8 Arterial Blood Carboxyhemoglobin 0.6 Arterial Blood Methemoglobin 1.7 Blood Gas Hemoglobin 9.5 Oxygen Delivery Device VENTILATOR Blood Gas Ventilator Setting PRVC/AC Blood Gas Inspired Oxygen 100 Blood Urea Nitrogen 80 Creatinine 3.42 Random Glucose 653 Total Protein 5.9 Calcium Level 7.3 Phosphorus Level 7.6 Magnesium Level 2.4 Sodium Level 135 Chloride Level 101 Carbon Dioxide Level 14.1 Anion Gap 20 Estimat Glomerular Filtration Rate 18 Protein Corrected Calcium 7.9 Test 09/11/17 21:10 09/11/17 22:45 09/12/17 00:43 09/12/17 02:55 Activated Partial Thromboplast Time 182.3 93.1 59.2 Random Glucose 673 687 716 Test 09/12/17 04:40 09/12/17 04:48 09/12/17 07:07 09/12/17 09:10 White Blood Count 19.1 Red Blood Count 3.22 Hemoglobin 9.9 Hematocrit 31.6 Mean Corpuscular Volume 98.1 Mean Corpuscular Hemoglobin 30.6 Mean Corpuscular Hemoglobin Concent 31.2 Red Cell Distribution Width 15.3 Platelet Count 282 Mean Platelet Volume 9.6 Neutrophils (%) (Auto) 91.3 Lymphocytes (%) (Auto) 4.0 Monocytes (%) (Auto) 4.6 Eosinophils (%) (Auto) 0.0 Basophils (%) (Auto) 0.1 Neutrophils # (Auto) 17.4 Lymphocytes # (Auto) 0.8 Monocytes # (Auto) 0.9 Eosinophils # (Auto) 0.0 Basophils # (Auto) 0.0 CBC Comment DIFF FINAL Differential Comment Blood Urea Nitrogen 76 78 Creatinine 3.22 3.19 Random Glucose 643 620 544 Total Protein 5.7 5.7 Calcium Level 6.6 6.7 Phosphorus Level 4.7 4.3 Magnesium Level 2.1 2.1 Sodium Level 135 137 Potassium Level 3.9 3.7 Chloride Level 101 104 Carbon Dioxide Level 19.9 21.0 Anion Gap 14 12 Estimat Glomerular Filtration Rate 19 19 Protein Corrected Calcium 7.3 7.4 Total Creatine Kinase 630 Creatine Kinase MB 36.9 Creatine Kinase MB % 5.9 Triglycerides Level 58 Cholesterol Level LESS THAN 50 LDL Cholesterol 5 HDL Cholesterol 33.6 Cholesterol/HDL Ratio 1.48 B-Hydroxybutyrate 0.14 Blood Gas Puncture Site RT RADIAL Blood Gas Patient Temperature 98.6 Blood Gas HCO3 19 Blood Gas Base Excess -8.4 Blood Gas Oxygen Saturation 88 Arterial Blood pH 7.18 Arterial Blood Partial Pressure CO2 52 Arterial Blood Partial Pressure O2 70 Arterial Blood Oxygen Content 12.4 Arterial Blood Carboxyhemoglobin 1.0 Arterial Blood Methemoglobin 1.7 Blood Gas Hemoglobin 10.0 Oxygen Delivery Device VENTILATOR Blood Gas Ventilator Setting PRVC/AC Blood Gas Inspired Oxygen 100 Activated Partial Thromboplast Time 56.9 Test 09/12/17 12:15 Blood Gas Puncture Site ART LINE Blood Gas Patient Temperature 98.6 Blood Gas HCO3 17 Blood Gas Base Excess -9.1 Blood Gas Oxygen Saturation 94 Arterial Blood pH 7.21 Arterial Blood Partial Pressure CO2 45 Arterial Blood Partial Pressure O2 99 Arterial Blood Oxygen Content 13.1 Arterial Blood Carboxyhemoglobin 1.0 Arterial Blood Methemoglobin 1.9 Blood Gas Hemoglobin 9.8 Oxygen Delivery Device VENTILATOR Blood Gas Ventilator Setting Blood Gas Inspired Oxygen 75 Date/Time Source Procedure Growth Status 09/11/17 18:47 Blood Peripheral Aerobic Blood Culture - Preliminary NO GROWTH IN 1 DAY Resulted 09/11/17 18:47 Blood Peripheral Anaerobic Blood Culture - Preliminary NO GROWTH IN 1 DAY Resulted 09/12/17 12:30 Sputum Endotracheal Gram Stain Pending Received 09/12/17 12:30 Sputum Endotracheal Sputum Culture Pending Received 09/11/17 17:15 Urine Catheterized Urine Urine Culture - Preliminary NO GROWTH IN 24 HOURS. Resulted 09/11/17 19:00 Wound Foot Gram Stain - Final Resulted 09/11/17 19:00 Wound Foot Wound Culture Pending Resulted Result Diagram: 09/12/17 0440 09/12/17 0910 Imaging Last Impressions Chest X-Ray 09/11/17 1421 Signed Impressions: Service Date/Time: Monday, September 11, 2017 14:45 - CONCLUSION: Bilateral interstitial/alveolar infiltrate characteristic of pulmonary edema. Mild cardiomegaly. Status post aortic valve replacement. Norberto Mckinley MD Assessment and Plan Problem List: (1) Acute renal failure ICD Codes: N17.9 - Acute kidney failure, unspecified Plan: Patient likely has acute tubular necrosis due to cardiogenic shock urine output has dropped to require Bumex continue with diuretics for now he did receive hydration however due to cardiogenic shock this was stopped as he is becoming volume overloaded Continue to monitor his progress He is in acute renal failure was nonoliguric Critically ill on vent and intra-aortic balloon pump support, stents were placed in RCA (2) Acute coronary syndrome ICD Codes: I24.9 - Acute ischemic heart disease, unspecified Plan: Continue to monitor (3) Coronary artery disease ICD Codes: I25.10 - Atherosclerotic heart disease of [place] coronary artery without angina pectoris Plan: Cardiology following (4) Diabetes ICD Codes: E11.9 - Type 2 diabetes mellitus without complications Status: Chronic Plan: Monitor Manda Bliss MD Sep 12, 2017 14:39
[2017-09-12] MEDS ORDERED: ALBUMIN 25% INJ 100 ML IV ONE (14:45)
--- NOTE | 2017-09-12 15:21 | PD.CONS ---
History of Present Illness Service Infectious disease Consult Requested By Dr. Mann Koch Reason for Consult Evaluate patient with septic shock Primary Care Physician Rosa Riggs MD Diagnoses: History of Present Illness Patient seen and examined. Records reviewed. Patient is a 71-year-old male, brought into the hospital other evaluation of severe shortness of breath. He also had an episode of vomiting on the day of admission. Patient apparently has been noted to be short of breath early part of August. He has seen his steam press tender, and an echo was done about a week prior to admission and there was mention that he has a leaky valve. The last 4 days to shortness of breath has been worse, and the kids have been trying to convince the patient to go to the hospital but did not want to go up until the day of admission when he became worse, and also had some vomiting. He was brought into the hospital, an EKG showed evidence of acute LA. He underwent cardiac catheterization, and had intervention done, and placement of an intra- aortic balloon pump. Patient also required intubation, and has been on the vent. Overnight he has required pressors, and currently on dopamine, Chito- Synephrine, and vasopressin. His intra-aortic balloon pump is at 1 is to 1. He has not been febrile. Of note is the patient apparently has been having problem with an ulcer on his right foot. He has been going to a sales attendant building materials over the last 3 weeks, and has been prescribed 2 courses of antibiotics, each course about a week's worth. Last week after he saw his steam press tender, a chest x-ray was done, and there was some findings suggestive of pneumonia. His primary care physician prescribed an antibiotic is taking that antibiotic prior to admission. Patient really has not had any significant congestion or cough. He has not complained of any chest pain. The vomiting was only on the day of admission. There has been no complaint of any sore throat, runny nose or ear pain, fever or chills, diarrhea , or any urinary complaint. Infectious disease consultation has been requested to make recommendation regarding antibiotics. Review of Systems ROS Limitations: Clinical Condition, Intubated Constitutional: DENIES: Fever, Chills Ears, nose, mouth, throat: DENIES: Nasal discharge, Throat pain, Ear Pain Respiratory: COMPLAINS OF: Wheezing, Shortness of breath Cardiovascular: COMPLAINS OF: Dyspnea on Exertion, DENIES: Chest pain Gastrointestinal: DENIES: Abdominal pain, Constipation, Diarrhea, Nausea, Vomiting Genitourinary: DENIES: Dysuria ROS obtained from the Past Family Social History Allergies: Coded Allergies: No Known Allergies (Verified , 09/11/17) Past Medical History Aortic valve mechanical on Coumadin, for bicuspid Insulin-dependent diabetes on insulin pump Coronary artery disease Hyperlipidemia Hypertension Neuropathy Past Surgical History Appendectomy Coronary artery bypass graft Aortic valve replacement Lump removed Reported Medications I attest that I obtained, updated or reviewed the home and current medications. Reported Meds & Active Scripts Active Phenergan (Promethazine HCl) 25 Mg Tab 25 Mg PO Q6H PRN FOR NAUSEA/VOMITING Zofran ODT (Ondansetron HCl) 4 Mg Tab 4 Mg SL Q6H PRN FOR NAUSEA/VOMITING Ecotrin (Aspirin) 81 Mg Tabec 81 Mg PO DAILY Reported Warfarin Sodium 2.5 mg (Warfarin Sodium) 2.5 Mg Tab 2.5 Mg PO EVERY OTHER DAY Neurontin (Gabapentin) 800 Mg Tab 1,600 Mg PO HS Neurontin (Gabapentin) 800 Mg Tab 800 Mg PO DAILY Protonix (Pantoprazole Sodium) 40 Mg Tab 40 Mg PO DAILY Morphine Sulfate IR 15 mg (Morphine Sulfate) 15 Mg Tab 15 Mg PO TID Warfarin Sodium 5 mg (Warfarin Sodium) 5 Mg Tab 5 Mg PO EVERY OTHER DAY Fosinopril Sodium 20 Mg Tab 40 Mg PO DAILY Hctz (Hydrochlorothiazide) 25 Mg Tab 25 Mg PO DAILY Lipitor 80 Mg Tab (Atorvastatin) 80 Mg Tab 80 Mg PO DAILY Zoloft (Sertraline HCl) 50 Mg Tab 100 Mg PO DAILY Active Ordered Medications Tylenol prn Albumin ALbuterol prn Aspirin Lipitor Dulcolax prn Bumex Plavix Dopamine Heparin Insulin Lactulose prn MOM prn Reglan versed Morphine prn Zofran prn Phenylephrine Zosyn Potassium Pericolace prn Senokot prn Na bicarb Vasopressin Family History Noncontributory to current ID problem Social History No smoking No alcohol use No illicit drug Physical Exam Vital Signs Vital Signs Date Time Temp Pulse Resp B/P (MAP) Pulse Ox O2 Delivery O2 Flow Rate FiO2 09/12/17 14:00 79 09/12/17 14:00 106/42 (80) EKG 09/12/17 13:28 100 75 09/12/17 13:00 81 09/12/17 13:00 99/39 (74) EKG 09/12/17 12:06 96/38 (72) 09/12/17 12:00 81 09/12/17 11:00 91 09/12/17 10:53 103/41 (76) 09/12/17 10:00 82 09/12/17 09:35 79 96/50 09/12/17 09:06 102/42 (78) 09/12/17 09:06 100/41 (77) 09/12/17 09:00 80 09/12/17 08:26 99 75 09/12/17 08:24 100/41 (77) EKG 09/12/17 08:00 81 09/12/17 06:36 81 101/57 09/12/17 06:00 91/39 (71) 09/12/17 06:00 82 09/12/17 06:00 82 105/59 (74) 09/12/17 05:03 80 92/50 09/12/17 05:00 96/37 (72) 09/12/17 04:54 92 100 09/12/17 04:00 94.1 80 20 100/56 (71) 93 09/12/17 04:00 96/36 (72) 09/12/17 04:00 100 09/12/17 04:00 80 09/12/17 03:00 94/35 (72) 09/12/17 02:02 71 89/54 09/12/17 02:00 74/31 (61) 09/12/17 02:00 71 09/12/17 01:35 70 86/54 09/12/17 01:14 96 100 09/12/17 01:00 75/28 (59) 09/12/17 00:00 100 09/12/17 00:00 72 09/12/17 00:00 91.1 72 20 88/54 (65) 97 09/12/17 00:00 79/30 (63) 09/11/17 23:43 74 89/51 09/11/17 23:00 109/34 (80) 09/11/17 22:00 79 09/11/17 22:00 99/30 (73) 09/11/17 21:54 80 104/53 09/11/17 21:21 100 100 09/11/17 21:00 106/28 (75) 09/11/17 20:26 85 91/55 09/11/17 20:00 100/22 (67) 09/11/17 20:00 87 20 86/45 (59) 100 09/11/17 20:00 87 09/11/17 20:00 100 09/11/17 19:15 96.0 85 16 89/45 (60) 100 09/11/17 19:00 109/27 (73) 09/11/17 19:00 96.0 86 16 90/48 (62) 100 09/11/17 18:45 96.0 90 16 93/47 (62) 100 09/11/17 18:30 96.0 90 16 95/50 (65) 100 09/11/17 18:15 96.0 94 16 99/54 (69) 100 09/11/17 18:00 91/21 (66) 09/11/17 18:00 53/22 09/11/17 18:00 96.0 92 16 72/42 (52) 100 09/11/17 17:45 96.0 94 16 80/46 (57) 100 09/11/17 17:30 96.0 92 16 91/52 (65) 09/11/17 17:15 96.0 77 16 81/53 (62) 09/11/17 17:00 96.0 94 10 86/59 (68) 100 09/11/17 17:00 102/33 (66) 09/11/17 17:00 100 100 09/11/17 16:48 100 09/11/17 16:45 96.0 62 8 94/65 (75) 75 09/11/17 16:30 96.8 69 11 64/43 (50) 09/11/17 16:30 96.0 41 8 64/43 (50) 72 Physical Exam GENERAL: Patient is a well-nourished, well-developed male, sedated on the vent, not in respiratory distress. SKIN: Warm and dry. No generalized rash, no ecchymoses and no evidence of embolic lesions. HEAD: Atraumatic. Normocephalic. No temporal wasting, or tenderness. EYES: Harvel conjunctiva. No petechia or hemorrhage. Pupils equal, round and reactive to light. No scleral icterus. No injection or drainage. EARS, NOSE AND THROAT: Nose without bleeding or purulent nasal discharge. Edentulous, he is orally intubared, moist mucosa. NECK: Trachea midline. Supple and not tender, no meningeal signs. RIJ line with no evidence of infection CARDIOVASCULAR: Regular rate and rhythm, could hear the IABP. RESPIRATORY: Coarse BS bilaterally, decreased at the bases ABDOMEN: Distended, bowel sounds present and hypoactive. No reaction to palpation, tympanitic on percussion. No organomegaly. R groin IABP in place with dry intact dressing EXTREMITIES: No clubbing, cyanosis. Has some pedal edema. There is a dime size clean hypertrophic ulcer over the first MT R, with no surrounding erythema , ,no edema, no purulence, no reaction to palpation. Cool feet, no mottling NEUROLOGICAL: Sedated. PSYCHIATRIC: Unable to assess LINE: Lines with no evidence of infection : Desouza in place, urine looks clear Laboratory Laboratory Tests Test 09/11/17 16:45 09/11/17 17:04 09/11/17 17:15 09/11/17 17:17 Blood Gas Puncture Site ART LINE Blood Gas Patient Temperature 98.6 Blood Gas HCO3 10 Blood Gas Base Excess -20.5 Blood Gas Oxygen Saturation 96 Arterial Blood pH 6.87 Arterial Blood Partial Pressure CO2 60 Arterial Blood Partial Pressure O2 255 Arterial Blood Oxygen Content 13.6 Arterial Blood Carboxyhemoglobin 0.1 Arterial Blood Methemoglobin 1.8 Blood Gas Hemoglobin 9.7 Oxygen Delivery Device VENTILATOR Blood Gas Ventilator Setting 16/500/1.0/+5 Blood Gas Inspired Oxygen 100 Nasal Screen MRSA (PCR) MRSA NOT DETECTED Urine Color YELLOW Urine Turbidity HAZY Urine pH 5.0 Urine Specific [place] 1.017 Urine Protein 30 Urine Glucose (UA) NEG Urine Ketones NEG Urine Occult Blood NEG Urine Nitrite NEG Urine Bilirubin NEG Urine Urobilinogen 2.0 Urine Leukocyte Esterase NEG Urine RBC 1 Urine WBC 1 Urine Squamous Epithelial Cells <1 Urine Amorphous Sediment RARE Microscopic Urinalysis Comment CATH-CULT NOT IND White Blood Count 10.6 Red Blood Count 3.17 Hemoglobin 9.6 Hematocrit 32.2 Mean Corpuscular Volume 101.4 Mean Corpuscular Hemoglobin 30.2 Mean Corpuscular Hemoglobin Concent 29.8 Red Cell Distribution Width 15.0 Platelet Count 314 Mean Platelet Volume 9.1 Lactic Acid Level 11.2 Test 09/11/17 19:04 09/11/17 20:05 09/11/17 20:09 09/11/17 21:10 Activated Partial Thromboplast Time 106.7 182.3 Potassium Level 6.6 5.6 B-Hydroxybutyrate 1.80 Blood Gas Puncture Site LT RADIAL Blood Gas Patient Temperature 98.6 Blood Gas HCO3 12 Blood Gas Base Excess -17.2 Blood Gas Oxygen Saturation 87 Arterial Blood pH 6.98 Arterial Blood Partial Pressure CO2 55 Arterial Blood Partial Pressure O2 87 Arterial Blood Oxygen Content 11.8 Arterial Blood Carboxyhemoglobin 0.6 Arterial Blood Methemoglobin 1.7 Blood Gas Hemoglobin 9.5 Oxygen Delivery Device VENTILATOR Blood Gas Ventilator Setting PRVC/AC Blood Gas Inspired Oxygen 100 Blood Urea Nitrogen 80 Creatinine 3.42 Random Glucose 653 Total Protein 5.9 Calcium Level 7.3 Phosphorus Level 7.6 Magnesium Level 2.4 Sodium Level 135 Chloride Level 101 Carbon Dioxide Level 14.1 Anion Gap 20 Estimat Glomerular Filtration Rate 18 Protein Corrected Calcium 7.9 Test 09/11/17 22:45 09/12/17 00:43 09/12/17 02:55 09/12/17 04:40 Random Glucose 673 687 716 643 Activated Partial Thromboplast Time 93.1 59.2 White Blood Count 19.1 Red Blood Count 3.22 Hemoglobin 9.9 Hematocrit 31.6 Mean Corpuscular Volume 98.1 Mean Corpuscular Hemoglobin 30.6 Mean Corpuscular Hemoglobin Concent 31.2 Red Cell Distribution Width 15.3 Platelet Count 282 Mean Platelet Volume 9.6 Neutrophils (%) (Auto) 91.3 Lymphocytes (%) (Auto) 4.0 Monocytes (%) (Auto) 4.6 Eosinophils (%) (Auto) 0.0 Basophils (%) (Auto) 0.1 Neutrophils # (Auto) 17.4 Lymphocytes # (Auto) 0.8 Monocytes # (Auto) 0.9 Eosinophils # (Auto) 0.0 Basophils # (Auto) 0.0 CBC Comment DIFF FINAL Differential Comment Blood Urea Nitrogen 76 Creatinine 3.22 Total Protein 5.7 Calcium Level 6.6 Phosphorus Level 4.7 Magnesium Level 2.1 Sodium Level 135 Potassium Level 3.9 Chloride Level 101 Carbon Dioxide Level 19.9 Anion Gap 14 Estimat Glomerular Filtration Rate 19 Protein Corrected Calcium 7.3 Total Creatine Kinase 630 Creatine Kinase MB 36.9 Creatine Kinase MB % 5.9 Triglycerides Level 58 Cholesterol Level LESS THAN 50 LDL Cholesterol 5 HDL Cholesterol 33.6 Cholesterol/HDL Ratio 1.48 B-Hydroxybutyrate 0.14 Test 09/12/17 04:48 09/12/17 07:07 09/12/17 09:10 09/12/17 12:15 Blood Gas Puncture Site RT RADIAL ART LINE Blood Gas Patient Temperature 98.6 98.6 Blood Gas HCO3 19 17 Blood Gas Base Excess -8.4 -9.1 Blood Gas Oxygen Saturation 88 94 Arterial Blood pH 7.18 7.21 Arterial Blood Partial Pressure CO2 52 45 Arterial Blood Partial Pressure O2 70 99 Arterial Blood Oxygen Content 12.4 13.1 Arterial Blood Carboxyhemoglobin 1.0 1.0 Arterial Blood Methemoglobin 1.7 1.9 Blood Gas Hemoglobin 10.0 9.8 Oxygen Delivery Device VENTILATOR VENTILATOR Blood Gas Ventilator Setting PRVC/AC Blood Gas Inspired Oxygen 100 75 Random Glucose 620 544 Activated Partial Thromboplast Time 56.9 Blood Urea Nitrogen 78 Creatinine 3.19 Total Protein 5.7 Calcium Level 6.7 Phosphorus Level 4.3 Magnesium Level 2.1 Sodium Level 137 Potassium Level 3.7 Chloride Level 104 Carbon Dioxide Level 21.0 Anion Gap 12 Estimat Glomerular Filtration Rate 19 Protein Corrected Calcium 7.4 Date/Time Source Procedure Growth Status 09/11/17 18:47 Blood Peripheral Aerobic Blood Culture - Preliminary NO GROWTH IN 1 DAY Resulted 09/11/17 18:47 Blood Peripheral Anaerobic Blood Culture - Preliminary NO GROWTH IN 1 DAY Resulted 09/12/17 12:30 Sputum Endotracheal Gram Stain Pending Received 09/12/17 12:30 Sputum Endotracheal Sputum Culture Pending Received 09/11/17 17:15 Urine Catheterized Urine Urine Culture - Preliminary NO GROWTH IN 24 HOURS. Resulted 09/11/17 19:00 Wound Foot Gram Stain - Final Resulted 09/11/17 19:00 Wound Foot Wound Culture Pending Resulted Result Diagram: 09/12/17 0440 09/12/17 0910 Imaging RADIOLOGY STUDIES/FILMS REVIEWED Renal Ultrasound 09/12/17 0000 Signed Impressions: Service Date/Time: Tuesday, September 12, 2017 12:10 - CONCLUSION: 1. No hydronephrosis. 2. 6 mm nonobstructing right renal stone. 3. Urinary bladder decompressed and not well evaluated. 4. Small volume ascites. Devaughn Chiu Jr., MD Chest X-Ray 09/12/17 0000 Signed Impressions: Service Date/Time: Tuesday, September 12, 2017 13:44 - CONCLUSION: Some progression in the basilar components of the bilateral pulmonary infiltrates. Bilateral pleural effusions. Devaughn Chiu Jr., MD Assessment and Plan Assessment and Plan IMPRESSION Shock, cardiogenic shock, S/P LA - S/P intervention, low EF - has IABP 1:1 ?sepsis, has bilateral pulmonary infiltrates which clinically on presentation looks more of puomonary edema than PNA Respiratory failure Renal failure due to shock R foot ulcer, currently does not look infected DM Leukocytosis RECOMMENDATION Follow C/S Change Zosyn to Cefepime (less salt load with Cefepime) Check vanco level in AM Legio and pneumo AG Wound care to the Foot ulcer get records for his sales attendant building materials (C/S and MRI) Monitor progress I will follow along with you Thank you for this consultation Discussed Condition With Explained plan to the , and 2 children Discussed with Loreta Cottrell MD Sep 12, 2017 15:20
[2017-09-12] MEDS: CEFEPIME INJ 1,000 MG in SODIUM CHLORIDE 0.9% INJ 100 ML IV SCH (16:19)
[2017-09-12] MEDS: BUMETANIDE INJ 1 MG/4 ML VIAL IV PUSH SCH (16:25)
[2017-09-12 19:27] LABS: BICARBONATE 20.8 MEQ/L (21.0-32.0); MAGNESIUM 1.9 MG/DL (1.5-2.5); POTASSIUM 3.5 MEQ/L (3.5-5.1)
[2017-09-12 19:33] LABS: BETA-HYDROXYBUTYRATE 0.08 MMOL/L (0.00-0.39); TOTAL BILIRUBIN ADULT 0.9 MG/DL (0.2-1.0)
[2017-09-12 19:34] LABS: CALCIUM-PROTEIN CORRECTED 7.1 MG/DL (8.5-10.1)
[2017-09-12 20:39] LABS: BLOOD GAS BASE EXCESS -7.6 mmol/L (-2-2); BLOOD GAS HCO3 18 mmol/L (22-26); BLOOD GAS METHEMOGLOBIN 1.8 % (0-2); BLOOD GAS O2 HGB SATURATION 90 % (90-100); BLOOD GAS OXYGEN CONTENT 12.5 Vol % (12.0-20.0); BLOOD GAS PCO2 44 mmHg (38-42); BLOOD GAS PO2 72 mmHg (61-120); BLOOD GAS TOTAL HGB 9.8 G/DL (12.0-16.0); CRITICAL VALUE YES; OXYGEN DEVICE VENTILATOR; TEMP CORR TO 98.6
[2017-09-12 20:40] LABS: DRAW SITE RT BRACHIAL; FIO2 55 %; NUMBER OF ARTERIAL PUNCTURES 1; STAT NO; ULNAR PULSE NOT PRESENT; VENT SETTINGS PRVC/AC
[2017-09-12 21:32] LABS: INDIRECT BILIRUBIN 0.2 MG/DL (0.0-0.8); TOTAL BILIRUBIN ADULT 0.9 MG/DL (0.2-1.0)
[2017-09-12] MEDS: HEPARIN-D5W 25,000 U/250 ML 250 ML IV PRN (22:56)
[2017-09-13] VITALS (28 sets, daily range): BP systolic 81–109; BP diastolic 40–66; PULSE 79–100; RESP 0–24; TEMP 97.9–98.8; O2SAT 90–100
[2017-09-13] MEDS: fentaNYL DRIP 250 ML IV PRN (00:14)
[2017-09-13] MEDS: DEXT 5%-NACL 0.9% 1000 ML INJ 1,000 ML IV SCH ×2 (00:30→08:23)
[2017-09-13] MEDS: SODIUM CHLOR 0.9% 1000 ML INJ 1,000 ML IV SCH ×2 (00:30→08:22)
[2017-09-13] MEDS: PHENYLEPHRINE HCL 160 MG/D5W 484 ML ADMIX IV PRN ×6 (02:09→19:48)
[2017-09-13] MEDS: RESP: ALBUTEROL 2.5 MG/IPRATROPIUM 0.5 MG NEB (SCH) INH ×4 (02:55→20:09)
[2017-09-13] MEDS: CEFEPIME INJ 1,000 MG in SODIUM CHLORIDE 0.9% INJ 100 ML IV SCH ×2 (03:30→17:00)
[2017-09-13 04:31] LABS: BASOPHIL % 0.3 % (0.0-2.0); EOSINOPHIL # 0.1 TH/MM3 (0-0.4); EOSINOPHIL % 0.6 % (0.0-4.0); HEMATOCRIT 29.2 % (39.0-51.0); HEMO FLAGS DIFF FINAL; LYMPHOCYTE # 1.2 TH/MM3 (1.0-4.8); MEAN CELL VOLUME 92.1 FL (80.0-100.0); MEAN CORPUSCULAR HEMOGLOBIN 30.4 PG (27.0-34.0); MONO % 6.4 % (0.0-8.0); NEUT % 85.7 % (16.0-70.0); PLATELET COUNT 235 TH/MM3 (150-450); RED BLOOD COUNT 3.17 MIL/MM3 (4.50-5.90); RED CELL DISTRIBUTION WIDTH 14.4 % (11.6-17.2); WHITE BLOOD COUNT 17.5 TH/MM3 (4.0-11.0)
[2017-09-13 05:16] LABS: ALKALINE PHOSPHATASE 90 U/L (45-117); ALT (GPT) 544 U/L (12-78); ANION GAP 12 MEQ/L (5-15); AST (GOT) 705 U/L (15-37); BICARBONATE 20.1 MEQ/L (21.0-32.0); BLOOD UREA NITROGEN 78 MG/DL (7-18); CHLORIDE 106 MEQ/L (98-107); CREATINE KINASE 1453 U/L (39-308); GLOMERULAR FILTRATION RATE 16 ML/MIN (>89); MAGNESIUM 1.8 MG/DL (1.5-2.5); SODIUM (NA) 138 MEQ/L (136-145); TOTAL BILIRUBIN ADULT 0.8 MG/DL (0.2-1.0)
[2017-09-13 05:20] LABS: CALCIUM-PROTEIN CORRECTED 6.8 MG/DL (8.5-10.1)
[2017-09-13 05:38] LABS: CKMB 28.7 NG/ML (0.5-3.6)
[2017-09-13 06:00] LABS: APTT (PATIENT) 65.3 SEC (24.3-30.1)
[2017-09-13] MEDS: CHLORHEXIDINE 0.12% (ORAL KIT) 15 ML CUP MT SCH ×2 (08:04→19:33)
[2017-09-13] MEDS: ASPIRIN EC 81 MG TABEC PO SCH (08:21)
[2017-09-13] MEDS: SODIUM CHLORIDE 0.9% FLUSH 10 ML FLUSH IV FLUSH SCH ×2 (08:21→19:34)
[2017-09-13] MEDS: CLOPIDOGREL 75 MG TAB PO SCH (08:21)
[2017-09-13] MEDS: BUMETANIDE INJ 1 MG/4 ML VIAL IV PUSH SCH (08:21)
[2017-09-13] MEDS: ATORVASTATIN 40 MG TAB PO SCH (08:22)
[2017-09-13] MEDS: DOCUSATE SODIUM 50 MG/SENNA 8.6 MG TAB PO SCH ×2 (08:22→19:54)
--- NOTE | 2017-09-13 09:09 | HHI.CCPN ---
Subjective Remarks/Hospital Course This is a 71-year-old male with history of hypertension, valve replacement currently on Coumadin, diabetes with an insulin pump, previous CVA, that presented to the ED, with symptoms of malaise nausea and vomiting with dyspnea. EKG was done which show significant ST depressions, stroke alert had been initiated. The patient was diaphoretic, EKG shows deep ST depressions in the inferior leads and lateral leads. Dr. Chi, patient's base manager was notified , a STEMI alert was initiated . The patient underwent cardiac catheterization lab for further evaluation. In the ED laboratory findings glucose of 500, pH of 7.19, potassium of 6.8, creatinine of 2.9, lactate level of 10. At this point, concern for acute renal failure, possible hyperkalemia, DKA. The patient has a medical history significant for aortic valve replacement , mechanical, and a two-vessel bypass and a recent foot infection. A bedside echo was performed by Dr. chi showing an ejection fraction of 35-40% with moderate TR. The patient underwent 2 stents to the RCA and cardiac catheterization the patient was noted to become significantly hypotensive with a systolic blood pressure in the 70s-80s, and intra-aortic balloon pump was placed. The patient was transferred to the ICU, critical care medicine was consulted. Upon arrival to the ICU,the patient was noted to be in agonal respirations, O2 saturation 70's, sinus bradycardia heart rate in the 40s, with systolic blood pressure in 60's, cold with weak pulses. The patient was emergently intubated, fluid boluses initiated, phenylephrine was initiated. ABG upon presentation to ICU, immediately postintubation-pH 6.86 PCO2 60 PO2 255, .3 with a base excess of -20.3. Subjective: 09/12: Overnight the patient's vasopressor support increased to 3 pressor agents. Bicarbonate level normalized sodium bicarbonate infusion discontinued. Formal echo pending. A chin continues on IABP 1:1. Wound culture gram- positive cocci patient empirically on vancomycin and cefepime will obtain infectious disease consult secondary to multiple antibiotics in the last several weeks, appreciate recommendations. Urine output minimal overnight, resolution of hyperkalemia. The patient continues to be hyperglycemic, continues on insulin infusion glucose levels decreased from 700-500 currently. GCS 11 T currently on fentanyl infusion, patient responding to commands, interacting yes and no questions with family at bedside. 09/13: Patient FiO2 weaned to 55%. Patient continues in acute nonoliguric renal failure monitored per nephrology. Still requiring 3 vasopressors for maintaining a MAP of 65mmHg. The patient has been has been transitioned off insulin drip, subcutaneous insulin. Glucose ranges 200. Sodium bicarbonate infusion reinitiated at 50 cc/an hour with resolution of DKA. Objective Vital Signs Date Time Temp Pulse Resp B/P (MAP) Pulse Ox O2 Delivery O2 Flow Rate FiO2 09/13/17 08:02 89/40 (72) 09/13/17 06:00 87 09/13/17 04:00 55 09/13/17 04:00 98.8 99 09/13/17 00:00 0 09/11/17 15:10 Non-Rebreather 15.00 Intake and Output 09/13/17 09/13/17 09/14/17 08:00 16:00 00:00 Intake Total 1419 ml Output Total 65 ml Balance -65 ml 1419 ml Result Diagram: 09/13/17 0339 09/13/17 0339 Other Results Laboratory Tests Test 09/12/17 12:15 09/12/17 20:22 Blood Gas Puncture Site ART LINE RT BRACHIAL Blood Gas Patient Temperature 98.6 98.6 Blood Gas HCO3 17 mmol/L (22-26) 18 mmol/L (22-26) Blood Gas Base Excess -9.1 mmol/L (-2-2) -7.6 mmol/L (-2-2) Blood Gas Oxygen Saturation 94 % (90-100) 90 % (90-100) Arterial Blood pH 7.21 (7.380-7.420) 7.25 (7.380-7.420) Arterial Blood Partial Pressure CO2 45 mmHg (38-42) 44 mmHg (38-42) Arterial Blood Partial Pressure O2 99 mmHg (61-120) 72 mmHg (61-120) Arterial Blood Oxygen Content 13.1 Vol % (12.0-20.0) 12.5 Vol % (12.0-20.0) Arterial Blood Carboxyhemoglobin 1.0 % (0-4) 1.0 % (0-4) Arterial Blood Methemoglobin 1.9 % (0-2) 1.8 % (0-2) Blood Gas Hemoglobin 9.8 G/DL (12.0-16.0) 9.8 G/DL (12.0-16.0) Oxygen Delivery Device VENTILATOR VENTILATOR Blood Gas Ventilator Setting PRVC/AC Blood Gas Inspired Oxygen 75 % 55 % Imaging Last Impressions Chest X-Ray 09/11/17 1421 Signed Impressions: Service Date/Time: Monday, September 11, 2017 14:45 - CONCLUSION: Bilateral interstitial/alveolar infiltrate characteristic of pulmonary edema. Mild cardiomegaly. Status post aortic valve replacement. Norberto Mckinley MD Objective Remarks Infusions: Dopamine 1mcg/min Phenylephrine 400mcgs/min Vasopressin 0.04u/hr (currently being weaned off) Versed 3mg/hr BP 84/56 Pulse 84 O2 sat 97% on FIO2 55% GENERAL: Critically ill male intubated and sedated SKIN: Warm and dry HEAD: Atraumatic. Normocephalic. EYES: Pupils equal and round. No scleral icterus. No injection or drainage. Extraocular movement intact ENT: No nasal bleeding or discharge. Mucous membranes pink and moist. Orotracheally intubated NECK: Trachea midline. No JVD. CARDIOVASCULAR: Normal rate, regular rhythm. Telemetry sinus rhythm RESPIRATORY: Mechanical ventilation. Bilateral chest excursion. Scattered rhonchi on auscultation GASTROINTESTINAL: Abdomen soft, non-tender, nondistended. No guarding. MUSCULOSKELETAL: Extremities without clubbing, cyanosis,2+ peripheral edema, scrotal edema. No obvious deformities. Right groin intra-aortic balloon pump. Pulses palpable. Right foot wound, purulent drainage IABP with 1-1, right femoral groin site soft, no erythema noted drainage NEUROLOGICAL: GCS 11 T. RASS -2. Movement of extremities 4 Procedures 09/11 IABP, 2 drug-eluting stents to RCA 09/12 echo Date of Insertion: Sep 11, 2017 Date of Insertion: Sep 11, 2017 Line: Central Venous Catheter Side: Right Location: Internal A/P Assessment and Plan Assessment This is a 71-year-old male with cardiogenic and concomitant septic shock in the setting of DKA with recent/current wound infection. Patient with acidosis, renal failure. Prognosis is guarded at this time. ASSESSMENT STEMI S/P PCI x 2 (RCA) History of two-vessel cardiac bypass with mechanical AVR Cardiogenic shock- with IABP support Status post PCI (2) KENNEDY to RCA-09/11 DKA Septic shock Acute hypercapnic and hypoxemic respiratory failure Pulmonary edema Nonoliguric acute renal failure Hyperkalemia-resolved Right Foot infection History of CVA PLAN Neurologic: Versed and fentanyl infusions for ventilator synchrony Neurochecks per ICU protocol Daily sedation vacation Tylenol 650 mg every 6 hours for temp greater than 101 Hold Neurontin at this time, patient's home medication GCS 11 T Respiratory: 09/11-intubated 8.0 ETT at 23cm Mechanical vent settings to maintain O2 saturation > 92% Ventilator bundle Bronchodilators every 6 hours scheduled, every 2 hours when necessary CPAP trials when clinically indicated Repeat ABG- 7.25/44/72/18/-7.6 currently on FiO2 of 55% PEEP of 10, increased rate and repeat ABG Cardiovascular: IABP 1:1 Phenylephrine, dopamine, vasopressin infusion to maintain MAP > 60mmHg Heparin infusion per protocol, we'll eventually plan on transitioning to Coumadin Status post drug-eluting stents 2 to RCA-aspirin Plavix and statin management per cardiology Cardiology-Dr. Chi following Renal: Insert and maintain Desouza Neurology following- Dr. Bliss Sodium bicarbonate infusion at 50 cc/hour -- Strict I/Os FEN/GI: Sodium bicarbonate infusion discontinued 09/12 Insulin infusion discontinued, transition to subcutaneous insulin, with sliding scale Monitor BMP Urine eosinophils-negative FeNa1.16 Renal ultrasound pending Maintain NPO status secondary to hemodynamic instability Dietary consulted for tube feeds Zofran for nausea Bowel regimen Heme/ID: Empiric antibiotics vancomycin and Zosyn (day 2) ID following-Dr. Mcknight Follow-up blood, urine, and sputum cultures- NGTD Foot wound culture-positive cocci Endocrine: Transition to subcutaneous ,Insulin sliding scale -glucose ranges 200's insulin pump disconnected 09/11 -- SSI Prophylaxis: GI Prophylaxis Famotidine DVT Prophylaxis -- SCDs Heparin infusion Lines: Peripheral IVs, right femoral intra-aortic balloon pump Dispo: This patient remains critically ill with one or more organ systems which are or may become a threat to life. I have spent in excess of 30 minutes discontinuously in the care and management of this patient. This time is exclusive of procedures, and includes, but is not limited to, evaluation of the patient, review of the medical record, discussions with family, consultants, nursing staff, or respiratory therapy, and documentation in the medical record. Discussed with MANAGER CREDIT, Dr. Chi and Mrs Malave at bedside. All questions answered. Physician Flor Solo MD Sep 13, 2017 09:09
[2017-09-13] MEDS ORDERED: DEXTROSE 50% IN WATER 50 ML VIAL(D50) IV PUSH PRN (09:45)
[2017-09-13] MEDS ORDERED: GLUCAGON 1 MG/ML VIAL OTHER PRN (09:45)
[2017-09-13 09:50] LABS: BLOOD GAS BASE EXCESS -9.2 mmol/L (-2-2); BLOOD GAS CARBOXYHEMOGLOBIN 1.1 % (0-4); BLOOD GAS HCO3 17 mmol/L (22-26); BLOOD GAS METHEMOGLOBIN 1.7 % (0-2); BLOOD GAS O2 HGB SATURATION 86 % (90-100); BLOOD GAS OXYGEN CONTENT 12.5 Vol % (12.0-20.0); BLOOD GAS PCO2 40 mmHg (38-42); BLOOD GAS PO2 60 mmHg (61-120); BLOOD GAS TOTAL HGB 10.2 G/DL (12.0-16.0); CRITICAL VALUE YES; OXYGEN DEVICE VENTILATOR; TEMP CORR TO 98.6; VENT SETTINGS PRVC 24/550/PEEP+8
[2017-09-13 09:51] LABS: DRAW SITE ART LINE; FIO2 55 %; STAT NO
[2017-09-13] MEDS ORDERED: CALCIUM GLUCONATE INJ 2 GM in SODIUM CHLORIDE 0.9% INJ 100 ML IV ONE (10:00)
[2017-09-13] MEDS ORDERED: DC Insulin drip 2 hrs post basal insulin dose ONE (10:00)
[2017-09-13] MEDS: INSULIN DETEMIR 100 UNITS/ML VIAL SQ SCH (10:00)
[2017-09-13] MEDS ORDERED: DC previous DKA orders (HMC 1917) ONE (10:23)
--- NOTE | 2017-09-13 10:36 | PD.WCN.NOT ---
Wound Consult Description: Received wound management consult for pre-existing R foot ulcer. Spoke with Doctor jalen before seeing the patient, Doctor also wants expert medical writer to look at the buttock area for possible breakdown. Communicated with: MARCO JOHNSON and Doctor Flor Koch Recommendation: 1.Please cleanse wound to R plantar foot with wound cleanser and pat dry. Apply Optifoam gentle AG dressing just over wound bed and secure with rolled gauze and tape. Change dressing every 2 days or PRN if saturated or dislodged. 2. Please cleanse buttock area gently with soap and water and pat dry before applying Calazime barrier cream BID and PRN and leave open to air. DO NOT scrub scream from skin when cleansing patient, OK to leave some barrier cream in place and layer barrier cream. 3. please place patient on pressure relieving support surface bed or mattress if stable enough for it 4.Please obtain heel raiser boots and apply. 5. Please turn and reposition patient in bed every 2 hours and PRN to offload pressure from buttocks and sacral area Additional Information: Patient seen on 5th floor [facility] for evaluation of wound management of preexisting R foot ulcer around 1020. Spoke with Doctor Flor Koch before entering patient' s room,Doctor also wants expert medical writer to assess buttocks for possible skin breakdown. Patient turned to R side with the assistance of MARCO Garnica 5th floor [facility]. Patient is noted with DTI to L buttock and Stage 1 pressure injury to R buttock Areas join to form butterfly shaped area of non blanchable skin discoloration to bilateral buttocks that measures 6cm x 10cm. Cleansed area with normal saline and before applying moisture barrier cream. MARCO Garnica to apply Calazime barrier cream when obtained from [facility]. Pressure relieving support surface ordered. Removed dressing to R foot to reveal R foot diabetic foot ulcer. Wound measures ~1cm x ~1cm x ~<0.1cm Wound bed presents with ~30% red non granulation tissue and ~70% white tissue. Wound drainage is without odor and is scant and sero-sanguinous Periwound presents with hyperkeratotic tissue that is noted circumferentially with scattered fissures. Wound culture is positive for gram negative rods. Wound care recommendations are noted above. MARCO Garnica to apply dressing as ordered when supplies obtained from [facility]. Yaritza Lynch [facility] Sep 13, 2017 10:36
[2017-09-13] MEDS ORDERED: VANCOMYCIN INJ 1,500 MG in SODIUM CHLORID 0.9% 500 ML INJ 500 ML IV ONE (11:00)
[2017-09-13] MEDS: SODIUM BICARBONATE 8.4% INJ 150 MEQ in SODIUM CHLOR 0.9% 1000 ML INJ 850 ML IV SCH ×2 (11:31→14:58)
[2017-09-13] MEDS ORDERED: INSULIN ASPART SUPPLEMENTAL SCALE SQ SCH (12:00)
[2017-09-13 12:14] LABS: BLOOD GAS BASE EXCESS -10.2 mmol/L (-2-2); BLOOD GAS HCO3 16 mmol/L (22-26); BLOOD GAS METHEMOGLOBIN 1.8 % (0-2); BLOOD GAS O2 HGB SATURATION 89 % (90-100); BLOOD GAS OXYGEN CONTENT 11.9 Vol % (12.0-20.0); BLOOD GAS PCO2 38 mmHg (38-42); BLOOD GAS PO2 69 mmHg (61-120); BLOOD GAS TOTAL HGB 9.4 G/DL (12.0-16.0); CRITICAL VALUE YES; OXYGEN DEVICE VENTILATOR; TEMP CORR TO 98.6
[2017-09-13 12:15] LABS: DRAW SITE ART LINE; FIO2 85 %; STAT YES; VENT SETTINGS PRVC/AC
--- NOTE | 2017-09-13 12:21 | PD.CARD.PN ---
Subjective Subjective Remarks intubated sedated IABP 3 pressors family at bedside Objective Medications Current Medications Medications (Trade) Dose Ordered Sig/Kandice Route Start Time Stop Time Status Last Admin (Xylocaine 2% Jelly) 1 applic UNSCH PRN TOP 09/11/17 16:00 (Morphine Inj) 2 mg Q30M PRN IV PUSH 09/11/17 16:00 (Plavix) 75 mg DAILY PO 09/12/17 09:00 09/13/17 08:21 (Atropine Inj) 0.5 mg UNSCH PRN IV PUSH 09/11/17 16:00 (Reglan Inj) 10 mg Q4H PRN IV PUSH 09/11/17 16:00 (Zofran Inj) 4 mg Q4H PRN IV PUSH 09/11/17 16:00 Heparin Sodium/ Dextrose 250 ml @ 9 mls/hr TITRATE PRN IV 09/11/17 16:00 09/12/17 22:56 (NS Flush) 2 ml UNSCH PRN IV FLUSH 09/11/17 17:15 (NS Flush) 2 ml BID IV FLUSH 09/11/17 21:00 09/13/17 08:21 (Tylenol) 650 mg Q6H PRN PO 09/11/17 17:15 (Duoneb Neb) 1 ampule Q6HR NEB INH 09/11/17 22:00 09/13/17 02:55 (Duoneb Neb) 1 ampule Q2HR NEB PRN INH 09/11/17 17:15 Miscellaneous Information 1 Q361D XX 09/11/17 17:15 09/11/17 17:15 (Chlorhexidine 2% Cloth) 3 pack Taper DAILY@04 TOP 09/12/17 04:00 09/08/18 03:59 09/12/17 20:29 (Chlorhexidine 2% Cloth) 3 pack UNSCH PRN TOP 09/11/17 17:15 (Yamilex-Colace) 1 tab BID PO 09/11/17 21:00 09/13/17 08:22 (Milk Of Magnesia Liq) 30 ml Q12H PRN PO 09/11/17 17:15 (Senokot) 17.2 mg Q12H PRN PO 09/11/17 17:15 (Dulcolax Supp) 10 mg DAILY PRN RECTAL 09/11/17 17:15 (Lactulose Liq) 30 ml DAILY PRN PO 09/11/17 17:15 Fentanyl Citrate 250 ml @ 5 mls/hr TITRATE PRN IV 09/11/17 17:30 09/13/17 00:14 (Brethine Inj) 1 mg UNSCH PRN SQ 09/11/17 17:30 Pharmacy Profile Note 0 ml @ 0 mls/hr UNSCH OTHER 09/11/17 17:30 Miscellaneous Information 1 Q361D XX 09/11/17 17:30 09/11/17 17:30 (Peridex 0.12% Liq) 15 ml BID@08,20 MT 09/11/17 20:00 09/13/17 08:04 Sodium Bicarbonate 150 meq/Sodium Chloride 1,000 ml @ 100 mls/hr Q10H IV 09/11/17 20:00 09/12/17 05:02 Miscellaneous Information 1 Q361D XX 09/11/17 17:45 09/11/17 17:45 Vasopressin 40 units/Dextrose 100 ml @ 6 mls/hr TITRATE PRN IV 09/11/17 18:15 09/12/17 05:03 Phenylephrine HCl 160 mg/Dextrose 500 ml @ 7.5 mls/hr TITRATE PRN IV 09/12/17 01:30 09/13/17 02:09 Dopamine HCl/ Dextrose 500 ml @ 8.182 mls/ hr TITRATE PRN IV 09/12/17 01:30 09/12/17 01:35 (Ecotrin Ec) 81 mg DAILY PO 09/12/17 10:00 09/13/17 08:21 (Lipitor) 40 mg DAILY PO 09/12/17 10:00 09/13/17 08:22 Midazolam HCl 100 ml @ 2 mls/hr TITRATE PRN IV 09/12/17 11:15 09/12/17 21:36 (Bumex Inj) 1 mg BID@,18 IV PUSH 09/12/17 18:00 09/13/17 08:21 Cefepime HCl 1000 mg/Sodium Chloride 100 ml @ 200 mls/hr Q12H IV 09/12/17 17:00 09/13/17 03:30 (Levemir Inj) 5 units DAILY SQ 09/13/17 10:00 09/13/17 10:00 (NovoLOG SUPPLEMENTAL SCALE) 1 ACHS SLIDING SCALE SQ 09/13/17 12:00 09/13/17 11:32 (D50w (Vial) Inj) 50 ml UNSCH PRN IV PUSH 09/13/17 09:45 (Glucagon Inj) 1 mg UNSCH PRN OTHER 09/13/17 09:45 Vancomycin HCl 1500 mg/Sodium Chloride 515 ml @ 250 mls/hr ONCE ONCE IV 09/13/17 11:00 09/13/17 13:03 09/13/17 11:30 Vital Signs / I&O Vital Signs Date Time Temp Pulse Resp B/P (MAP) Pulse Ox O2 Delivery O2 Flow Rate FiO2 09/13/17 09:55 93 55 09/13/17 09:40 93 55 09/13/17 09:10 91/41 (71) 09/13/17 08:30 87 88/54 09/13/17 08:30 87 88/54 09/13/17 08:30 87 88/54 09/13/17 08:02 89/40 (72) 09/13/17 08:00 79 09/13/17 07:38 90/41 (71) 09/13/17 06:00 87 98/55 (69) 84/41 (55) 09/13/17 06:00 79 09/13/17 06:00 86/50 (71) 09/13/17 05:39 89 109/54 (72) 89/41 (57) 09/13/17 05:00 84/49 (71) 09/13/17 04:00 55 09/13/17 04:00 79 09/13/17 04:00 90/54 (71) 09/13/17 04:00 98.8 81 99/55 (70) 99 89/53 (65) 09/13/17 03:52 100 55 09/13/17 03:00 89/40 (71) 09/13/17 02:20 98.6 81 96/51 (66) 99 86/41 (56) 09/13/17 02:09 81 88/40 09/13/17 02:00 79 09/13/17 02:00 89/41 (71) 09/13/17 01:00 89/39 (69) 09/13/17 00:50 100 55 09/13/17 00:00 97.9 79 0 94/40 (58) 100 92/53 (66) 09/13/17 00:00 79 09/13/17 00:00 55 09/13/17 00:00 93/44 (71) 09/12/17 23:00 106/43 (79) 09/12/17 22:00 108/45 (81) 09/12/17 22:00 79 09/12/17 21:11 99 55 09/12/17 21:00 94/44 (72) 09/12/17 20:00 55 09/12/17 20:00 79 09/12/17 20:00 97.8 79 0 113/53 (73) 100 95/49 (64) 09/12/17 20:00 94/40 (71) 09/12/17 19:50 100 55 09/12/17 19:00 91/49 (71) 09/12/17 18:01 91 94/56 09/12/17 18:00 110/37 (41) 09/12/17 18:00 97.7 92 0 113/53 (73) 100 95/49 (64) 09/12/17 18:00 92 113/53 (73) 95/49 (64) 09/12/17 18:00 92 09/12/17 17:08 97 102/54 09/12/17 17:00 97 09/12/17 17:00 97.7 97 0 113/55 (74) 100 100/52 (68) 09/12/17 17:00 110/47 (82) 09/12/17 16:51 100 65 09/12/17 16:06 96 100/55 09/12/17 16:00 65 09/12/17 16:00 97.9 86 24 101/55 (70) 100 97/49 (65) 09/12/17 16:00 86 09/12/17 15:00 80 09/12/17 15:00 98.1 80 24 107/53 (71) 100 98/49 (65) 17 15:00 108/45 (80) 09/12/17 14:00 79 09/12/17 14:00 106/42 (80) EKG 09/12/17 14:00 98.2 79 24 108/55 (72) 100 97/48 (64) 09/12/17 13:48 98.2 80 24 107/52 (70) 100 97/49 (65) 09/12/17 13:28 100 75 09/12/17 13:00 81 09/12/17 13:00 99/39 (74) EKG I/O 09/12/17 09/12/17 09/12/17 09/13/17 09/13/17 09/13/17 07:00 15:00 23:00 07:00 15:00 23:00 Intake Total 24846 ml 3162 ml 1313 ml 2104 ml Output Total 450 ml 57 ml 53 ml 75 ml 11 ml Balance 96488 ml 3105 ml 1260 ml -75 ml 2093 ml Intake Oral 0 ml 0 ml IV Total 85898 ml 3132 ml 1313 ml 2104 ml Tube Irrigant 30 ml Output Urine Total 450 ml 57 ml 53 ml 75 ml 11 ml Stool Total 0 ml Physical Exam NECK: No JVD or lymphadenopathy. CARDIOVASCULAR: Regular rate and rhythm without murmurs, gallops, or rubs. RESPIRATORY: Breath sounds equal bilaterally GASTROINTESTINAL: nondistended. Laboratory Laboratory Tests Test 09/12/17 18:21 09/12/17 18:33 09/12/17 20:22 09/12/17 20:35 Lab Scanned Report Lab Reports - Other [id number] Blood Urea Nitrogen 78 MG/DL Creatinine 3.46 MG/DL Random Glucose 231 MG/DL 186 MG/DL Total Protein 5.7 GM/DL 5.7 GM/DL Albumin 2.6 GM/DL 2.5 GM/DL Calcium Level 6.4 MG/DL Phosphorus Level 3.6 MG/DL Magnesium Level 1.9 MG/DL Alkaline Phosphatase 88 U/L 88 U/L Aspartate Amino Transf (AST/SGOT) 894 U/L 856 U/L Alanine Aminotransferase (ALT/SGPT) 577 U/L 574 U/L Total Bilirubin 0.9 MG/DL 0.9 MG/DL Sodium Level 138 MEQ/L Potassium Level 3.5 MEQ/L Chloride Level 107 MEQ/L Carbon Dioxide Level 20.8 MEQ/L Anion Gap 10 MEQ/L Estimat Glomerular Filtration Rate 17 ML/MIN Protein Corrected Calcium 7.1 MG/DL B-Hydroxybutyrate 0.08 MMOL/L Blood Gas Puncture Site RT BRACHIAL Blood Gas Patient Temperature 98.6 Blood Gas HCO3 18 mmol/L Blood Gas Base Excess -7.6 mmol/L Blood Gas Oxygen Saturation 90 % Arterial Blood pH 7.25 Arterial Blood Partial Pressure CO2 44 mmHg Arterial Blood Partial Pressure O2 72 mmHg Arterial Blood Oxygen Content 12.5 Vol % Arterial Blood Carboxyhemoglobin 1.0 % Arterial Blood Methemoglobin 1.8 % Blood Gas Hemoglobin 9.8 G/DL Oxygen Delivery Device VENTILATOR Blood Gas Ventilator Setting PRVC/AC Blood Gas Inspired Oxygen 55 % Direct Bilirubin 0.7 MG/DL Indirect Bilirubin 0.2 MG/DL Test 09/12/17 23:39 09/13/17 03:39 09/13/17 05:23 09/13/17 09:40 Urine Glucose (UA) 70 mg/dL Urine Eosinophils NONE SEEN /HPF Urine Osmolality 350 MOSM/KG Urine Random Creatinine 84.2 MG/DL Urine Random Sodium 36 MEQ/L White Blood Count 17.5 TH/MM3 Red Blood Count 3.17 MIL/MM3 Hemoglobin 9.6 GM/DL Hematocrit 29.2 % Mean Corpuscular Volume 92.1 FL Mean Corpuscular Hemoglobin 30.4 PG Mean Corpuscular Hemoglobin Concent 33.0 % Red Cell Distribution Width 14.4 % Platelet Count 235 TH/MM3 Mean Platelet Volume 8.9 FL Neutrophils (%) (Auto) 85.7 % Lymphocytes (%) (Auto) 7.0 % Monocytes (%) (Auto) 6.4 % Eosinophils (%) (Auto) 0.6 % Basophils (%) (Auto) 0.3 % Neutrophils # (Auto) 15.0 TH/MM3 Lymphocytes # (Auto) 1.2 TH/MM3 Monocytes # (Auto) 1.1 TH/MM3 Eosinophils # (Auto) 0.1 TH/MM3 Basophils # (Auto) 0.0 TH/MM3 CBC Comment DIFF FINAL Differential Comment Blood Urea Nitrogen 78 MG/DL Creatinine 3.73 MG/DL Random Glucose 90 MG/DL Total Protein 5.5 GM/DL Albumin 2.2 GM/DL Calcium Level 6.1 MG/DL Phosphorus Level 3.6 MG/DL Magnesium Level 1.8 MG/DL Alkaline Phosphatase 90 U/L Aspartate Amino Transf (AST/SGOT) 705 U/L Alanine Aminotransferase (ALT/SGPT) 544 U/L Total Bilirubin 0.8 MG/DL Sodium Level 138 MEQ/L Potassium Level 4.0 MEQ/L Chloride Level 106 MEQ/L Carbon Dioxide Level 20.1 MEQ/L Anion Gap 12 MEQ/L Estimat Glomerular Filtration Rate 16 ML/MIN Protein Corrected Calcium 6.8 MG/DL Total Creatine Kinase 1453 U/L Creatine Kinase MB 28.7 NG/ML Random Vancomycin Level 13.8 COMMENT Activated Partial Thromboplast Time 65.3 SEC Blood Gas Puncture Site ART LINE Blood Gas Patient Temperature 98.6 Blood Gas HCO3 17 mmol/L Blood Gas Base Excess -9.2 mmol/L Blood Gas Oxygen Saturation 86 % Arterial Blood pH 7.25 Arterial Blood Partial Pressure CO2 40 mmHg Arterial Blood Partial Pressure O2 60 mmHg Arterial Blood Oxygen Content 12.5 Vol % Arterial Blood Carboxyhemoglobin 1.1 % Arterial Blood Methemoglobin 1.7 % Blood Gas Hemoglobin 10.2 G/DL Oxygen Delivery Device VENTILATOR Blood Gas Ventilator Setting PRVC 24/550/PEEP+8 Blood Gas Inspired Oxygen 55 % Test 09/13/17 12:08 Blood Gas Puncture Site ART LINE Blood Gas Patient Temperature 98.6 Blood Gas HCO3 16 mmol/L Blood Gas Base Excess -10.2 mmol/L Blood Gas Oxygen Saturation 89 % Arterial Blood pH 7.24 Arterial Blood Partial Pressure CO2 38 mmHg Arterial Blood Partial Pressure O2 69 mmHg Arterial Blood Oxygen Content 11.9 Vol % Arterial Blood Carboxyhemoglobin 1.0 % Arterial Blood Methemoglobin 1.8 % Blood Gas Hemoglobin 9.4 G/DL Oxygen Delivery Device VENTILATOR Blood Gas Ventilator Setting PRVC/AC Blood Gas Inspired Oxygen 85 % Assessment and Plan Problem List: (1) ACS (acute coronary syndrome) ICD Codes: I24.9 - Acute ischemic heart disease, unspecified Status: Acute Assessment and Plan STEMI - KENNEDY RCA. asa plavix statin hold BB and ACEi due to SBP mechanical valve - on heparin gtt. cardiomyopathy - intubated. DKA - resolved cardiogenic shock - IABP in place. 1:1. pressors ARF on CRI - neph following Sepsis - ID following Minor,Raza Girard MD Sep 13, 2017 12:20
--- NOTE | 2017-09-13 12:38 | EKG ---
Date Performed: 09/13/2017 Time Performed: 04:59:20 PTAGE: 71 years EKG: Sinus tachycardia with PAC(s) Anteroseptal infarct - age undetermined Inferior/lateral ST-T changes are nonspecific Low QRS voltages in limb leads Abnormal ECG PREVIOUS TRACING : 09/12/2017 05.26 Cannot exclude ischemia, but no major change from the old t racing DOCTOR: Laurent Rios Interpretating Date/Time 09/13/2017 12:37:07
--- NOTE | 2017-09-13 13:16 | RADRPT ---
EXAM DATE/TIME: 09/13/2017 12:44 [place] COMPARISON: CHEST SINGLE AP, September 12, 2017, 13:44. INDICATIONS : Oxygen desaturation. MEDICAL HISTORY : Hypercholesterolemia. Hypertension. Transient ischemic attack. Anticoagulant therapy, Coumadin. Diabe idania. Insulin pump. Coronary artery disease. SURGICAL HISTORY : Appendectomy. Valve replacement. CABG. Cardiac catheterization. Lump removed from right face/neck. ENCOUNTER: Subsequent ACUITY: 1 day PAIN SCORE: Non-responsive. LOCATION: Bilateral chest FINDINGS: Stable ETT, right IJ central line, and NGT coursing beyond the GE junction. He has sternotomy wires a nd cardiac valve replacement. Cardiac lead is enlarged with diffuse interstitial prominence and patch y groundglass opacities. Small to moderate bilateral pleural effusions and associated lower lobe airs pace disease. Remainder of the exam is unchanged. CONCLUSION: 1. Stable tubes and lines, as above. 2. Cardiomegaly with positive fluid balance. 3. Slightly worsening small to moderate bilateral pleural effusions and associated lower lobe airspac e disease, presumably compressive atelectasis. Magdi Vergara MD on September 13, 2017 at 13:13 Board Certified Radiologist. This report was verified electronically.
--- NOTE | 2017-09-13 14:28 | HHI.NPPN ---
Subjective History of Present Illness 71-year-old with acute coronary syndrome status post stent diabetes, acute renal failure on intra-aortic balloon pump Objective Data Data 09/13/17 09/14/17 19:00 07:00 Intake Total 2739 ml Output Total 11 ml Balance 2728 ml IV Total 2739 ml Output Urine Total 11 ml Vital Signs Date Time Temp Pulse Resp B/P (MAP) Pulse Ox O2 Delivery O2 Flow Rate FiO2 09/13/17 14:04 90/41 (69) 09/13/17 13:24 86 78/42 09/13/17 13:07 91/37 (66) 09/13/17 13:00 92 09/13/17 13:00 99.0 92 0 87/52 (64) 90 85/47 (60) 09/13/17 12:00 100 09/13/17 12:00 87 09/13/17 12:00 99.1 87 24 81/51 (61) 91 83/44 (57) 09/13/17 11:38 85 09/13/17 11:00 87 09/13/17 11:00 99.5 87 5 95/60 (72) 98 92/50 (64) 09/13/17 10:00 87 09/13/17 10:00 99.7 87 24 91/53 (66) 93 88/49 (62) 09/13/17 09:55 93 55 09/13/17 09:40 93 55 09/13/17 09:40 55 09/13/17 09:10 55 09/13/17 09:10 91/41 (71) 09/13/17 09:00 99.7 88 24 94/66 (75) 93 84/49 (61) 09/13/17 09:00 88 09/13/17 08:30 87 88/54 09/13/17 08:30 87 88/54 09/13/17 08:30 87 88/54 09/13/17 08:02 89/40 (72) 09/13/17 08:00 99.5 88 24 101/58 (72) 96 88/49 (62) 09/13/17 08:00 55 09/13/17 08:00 79 09/13/17 07:38 90/41 (71) 09/13/17 07:00 99.3 89 24 96/56 (69) 93 84/47 (59) 09/13/17 06:00 87 98/55 (69) 84/41 (55) 09/13/17 06:00 99.1 87 24 98/55 (69) 93 81/45 (57) 09/13/17 06:00 79 09/13/17 06:00 86/50 (71) 09/13/17 05:39 89 109/54 (72) 89/41 (57) 09/13/17 05:00 99.0 100 24 109/54 (72) 93 97/53 (68) 09/13/17 05:00 84/49 (71) 09/13/17 04:00 55 09/13/17 04:00 79 09/13/17 04:00 90/54 (71) 09/13/17 04:00 98.8 81 99/55 (70) 99 89/53 (65) 09/13/17 03:52 100 55 09/13/17 03:00 89/40 (71) 09/13/17 02:20 98.6 81 96/51 (66) 99 86/41 (56) 09/13/17 02:09 81 88/40 09/13/17 02:00 79 09/13/17 02:00 89/41 (71) 09/13/17 01:00 89/39 (69) 09/13/17 00:50 100 55 09/13/17 00:00 97.9 79 0 94/40 (58) 100 92/53 (66) 09/13/17 00:00 79 09/13/17 00:00 55 09/13/17 00:00 93/44 (71) 09/12/17 23:00 106/43 (79) 09/12/17 22:00 108/45 (81) 09/12/17 22:00 79 09/12/17 21:11 99 55 09/12/17 21:00 94/44 (72) 09/12/17 20:00 55 09/12/17 20:00 79 09/12/17 20:00 97.8 79 0 113/53 (73) 100 95/49 (64) 09/12/17 20:00 94/40 (71) 09/12/17 19:50 100 55 09/12/17 19:00 91/49 (71) 09/12/17 18:01 91 94/56 09/12/17 18:00 110/37 (41) 09/12/17 18:00 97.7 92 0 113/53 (73) 100 95/49 (64) 09/12/17 18:00 92 113/53 (73) 95/49 (64) 09/12/17 18:00 92 09/12/17 17:08 97 102/54 09/12/17 17:00 97 09/12/17 17:00 97.7 97 0 113/55 (74) 100 100/52 (68) 09/12/17 17:00 110/47 (82) 09/12/17 16:51 100 65 09/12/17 16:06 96 100/55 09/12/17 16:00 65 09/12/17 16:00 97.9 86 24 101/55 (70) 100 97/49 (65) 09/12/17 16:00 86 09/12/17 15:00 80 09/12/17 15:00 98.1 80 24 107/53 (71) 100 98/49 (65) 09/12/17 15:00 108/45 (80) -: 09/13/17 0339 09/13/17 0339 Microbiology 09/12/17 Legionella Antigen - Final, Complete PRESUMPTIVE NEGATIVE FOR LEGIONELLA P... 09/12/17 Streptococcus pneumoniae Antigen (M - Final, Complete PRESUMPTIVE NEGATIVE FOR STREPTOCOCCU... Physical Exam General Appearance: Well Developed Neck Neck Exam: Neck Supple Pulmonary Resp Exam: Decreased Bases Cardiology CV Exam: Arrhythmia CV Remarks Intra-aortic balloon pump Gastrointestinal/Abdomen GI Exam: Soft, Distended Extremeties Extremities Exam: Moderate Edema Assessment/Plan Problem List: (1) Acute renal failure ICD Codes: N17.9 - Acute kidney failure, unspecified Plan: Patient likely has acute tubular necrosis due to cardiogenic shock urine output has dropped Not responding to Bumex intermittently does I I will start on Bumex drip at 1 mg/h If he doesn't respond to diuretic he will need CRRT/Vas-Cath Continue to monitor his progress He is in acute renal failure now oliguric Critically ill on vent and intra-aortic balloon pump support, stents were placed in RCA (2) Acute coronary syndrome ICD Codes: I24.9 - Acute ischemic heart disease, unspecified Plan: Continue to monitor (3) Coronary artery disease ICD Codes: I25.10 - Atherosclerotic heart disease of [place] coronary artery without angina pectoris Plan: Cardiology following (4) Diabetes ICD Codes: E11.9 - Type 2 diabetes mellitus without complications Status: Chronic Plan: Monitor Manda Bliss MD Sep 13, 2017 14:28
[2017-09-13] MEDS: BUMETANIDE INJ 100 ML IV SCH (14:59)
[2017-09-13] MEDS: INSULIN ASPART SUPPLEMENTAL SCALE SQ SCH ×3 (15:28→23:08)
--- NOTE | 2017-09-13 17:28 | HHI.IDPN ---
Subjective Subjective Remarks Patient is a 71-year-old male, brought into the hospital other evaluation of severe shortness of breath. He also had an episode of vomiting on the day of admission. Patient apparently has been noted to be short of breath early part of August. He has seen his warp knit operator, and an echo was done about a week prior to admission and there was mention that he has a leaky valve. The last 4 days to shortness of breath has been worse, and the kids have been trying to convince the patient to go to the hospital but did not want to go up until the day of admission when he became worse, and also had some vomiting. He was brought into the hospital, an EKG showed evidence of acute CO. He underwent cardiac catheterization, and had intervention done, and placement of an intra- aortic balloon pump. Patient also required intubation, and has been on the vent. Overnight he has required pressors, and currently on dopamine, Chito- Synephrine, and vasopressin. His intra-aortic balloon pump is at 1 is to 1. He has not been febrile. Of note is the patient apparently has been having problem with an ulcer on his right foot. He has been going to a trials manager over the last 3 weeks, and has been prescribed 2 courses of antibiotics, each course about a week's worth. Last week after he saw his warp knit operator, a chest x-ray was done, and there was some findings suggestive of pneumonia. His primary care physician prescribed an antibiotic is taking that antibiotic prior to admission. Patient really has not had any significant congestion or cough. He has not complained of any chest pain. The vomiting was only on the day of admission. There has been no complaint of any sore throat, runny nose or ear pain, fever or chills, diarrhea , or any urinary complaint. Infectious disease consultation has been requested to make recommendation regarding antibiotics. Notes reviewed D/W RN Temps ok Remains on 3 pressors IABP 1:1 Increased FiO2 requirement since noon, 90% now On bicarb and bumex drip UO low Sedated on the vent Antibiotics I attest that I obtained, updated or reviewed the home and current medications. Vanco x 1 dose Cefepime Current Medications Medications (Trade) Dose Ordered Sig/Kandice Route Start Time Stop Time Status Last Admin (Xylocaine 2% Jelly) 1 applic UNSCH PRN TOP 09/11/17 16:00 (Morphine Inj) 2 mg Q30M PRN IV PUSH 09/11/17 16:00 (Plavix) 75 mg DAILY PO 09/12/17 09:00 09/13/17 08:21 (Atropine Inj) 0.5 mg UNSCH PRN IV PUSH 09/11/17 16:00 (Reglan Inj) 10 mg Q4H PRN IV PUSH 09/11/17 16:00 (Zofran Inj) 4 mg Q4H PRN IV PUSH 09/11/17 16:00 Heparin Sodium/ Dextrose 250 ml @ 9 mls/hr TITRATE PRN IV 09/11/17 16:00 09/12/17 22:56 (NS Flush) 2 ml UNSCH PRN IV FLUSH 09/11/17 17:15 (NS Flush) 2 ml BID IV FLUSH 09/11/17 21:00 09/13/17 08:21 (Tylenol) 650 mg Q6H PRN PO 09/11/17 17:15 (Duoneb Neb) 1 ampule Q6HR NEB INH 09/11/17 22:00 09/13/17 16:28 (Duoneb Neb) 1 ampule Q2HR NEB PRN INH 09/11/17 17:15 Miscellaneous Information 1 Q361D XX 09/11/17 17:15 09/11/17 17:15 (Chlorhexidine 2% Cloth) 3 pack Taper DAILY@04 TOP 09/12/17 04:00 09/08/18 03:59 09/12/17 20:29 (Chlorhexidine 2% Cloth) 3 pack UNSCH PRN TOP 09/11/17 17:15 (Yamilex-Colace) 1 tab BID PO 09/11/17 21:00 09/13/17 08:22 (Milk Of Magnesia Liq) 30 ml Q12H PRN PO 09/11/17 17:15 (Senokot) 17.2 mg Q12H PRN PO 09/11/17 17:15 (Dulcolax Supp) 10 mg DAILY PRN RECTAL 09/11/17 17:15 (Lactulose Liq) 30 ml DAILY PRN PO 09/11/17 17:15 Fentanyl Citrate 250 ml @ 5 mls/hr TITRATE PRN IV 09/11/17 17:30 09/13/17 00:14 (Brethine Inj) 1 mg UNSCH PRN SQ 09/11/17 17:30 Pharmacy Profile Note 0 ml @ 0 mls/hr UNSCH OTHER 09/11/17 17:30 Miscellaneous Information 1 Q361D XX 09/11/17 17:30 09/11/17 17:30 (Peridex 0.12% Liq) 15 ml BID@08,20 MT 09/11/17 20:00 09/13/17 08:04 Miscellaneous Information 1 Q361D XX 09/11/17 17:45 09/11/17 17:45 Vasopressin 40 units/Dextrose 100 ml @ 6 mls/hr TITRATE PRN IV 09/11/17 18:15 09/12/17 05:03 Phenylephrine HCl 160 mg/Dextrose 500 ml @ 7.5 mls/hr TITRATE PRN IV 09/12/17 01:30 09/13/17 13:24 Dopamine HCl/ Dextrose 500 ml @ 8.182 mls/ hr TITRATE PRN IV 09/12/17 01:30 09/12/17 01:35 (Ecotrin Ec) 81 mg DAILY PO 09/12/17 10:00 09/13/17 08:21 (Lipitor) 40 mg DAILY PO 09/12/17 10:00 09/13/17 08:22 Midazolam HCl 100 ml @ 2 mls/hr TITRATE PRN IV 09/12/17 11:15 09/12/17 21:36 Cefepime HCl 1000 mg/Sodium Chloride 100 ml @ 200 mls/hr Q12H IV 09/12/17 17:00 09/13/17 17:00 (Levemir Inj) 5 units DAILY SQ 09/13/17 10:00 09/13/17 10:00 (D50w (Vial) Inj) 50 ml UNSCH PRN IV PUSH 09/13/17 09:45 (Glucagon Inj) 1 mg UNSCH PRN OTHER 09/13/17 09:45 Sodium Bicarbonate 150 meq/Sodium Chloride 1,000 ml @ 50 mls/hr Q20H IV 09/13/17 15:00 09/13/17 14:58 (NovoLOG SUPPLEMENTAL SCALE) 1 Q4HR SQ 09/13/17 16:00 09/13/17 15:28 Bumetanide 100 ml @ 4 mls/hr Q24H IV 09/13/17 15:00 09/13/17 14:59 Lines Central line Emerson IABP Desouza cath Past Medical History Aortic valve mechanical on Coumadin, for bicuspid Insulin-dependent diabetes on insulin pump Coronary artery disease Hyperlipidemia Hypertension Neuropathy Past Surgical History Appendectomy Coronary artery bypass graft Aortic valve replacement Lump removed Allergies: Coded Allergies: No Known Allergies (Verified , 09/11/17) Objective . Vital Signs Date Time Temp Pulse Resp B/P (MAP) Pulse Ox O2 Delivery O2 Flow Rate FiO2 09/13/17 17:08 86/37 (66) 09/13/17 17:00 91 09/13/17 17:00 99.3 91 6 91/50 (64) 93 88/47 (61) 09/13/17 16:58 91/40 (67) 09/13/17 16:28 93 90 09/13/17 16:00 90 09/13/17 16:00 86 09/13/17 16:00 99.3 86 3 95/61 (72) 94 88/47 (61) 09/13/17 15:34 85/37 (64) 09/13/17 15:00 99.3 85 24 89/55 (66) 91 86/47 (60) 09/13/17 15:00 85 09/13/17 14:04 90/41 (69) 09/13/17 14:00 89 09/13/17 14:00 99.1 89 5 90/59 (69) 93 88/50 (63) 09/13/17 13:24 86 78/42 09/13/17 13:07 91/37 (66) 09/13/17 13:00 92 09/13/17 13:00 99.0 92 0 87/52 (64) 90 85/47 (60) 09/13/17 12:00 100 09/13/17 12:00 87 09/13/17 12:00 99.1 87 24 81/51 (61) 91 83/44 (57) 09/13/17 11:38 85 09/13/17 11:00 87 09/13/17 11:00 99.5 87 5 95/60 (72) 98 92/50 (64) 09/13/17 10:00 87 09/13/17 10:00 99.7 87 24 91/53 (66) 93 88/49 (62) 09/13/17 09:55 93 55 09/13/17 09:40 93 55 09/13/17 09:40 55 09/13/17 09:10 55 09/13/17 09:10 91/41 (71) 09/13/17 09:00 99.7 88 24 94/66 (75) 93 84/49 (61) 09/13/17 09:00 88 09/13/17 08:30 87 88/54 09/13/17 08:30 87 88/54 09/13/17 08:30 87 88/54 09/13/17 08:02 89/40 (72) 09/13/17 08:00 99.5 88 24 101/58 (72) 96 88/49 (62) 09/13/17 08:00 55 09/13/17 08:00 79 09/13/17 07:38 90/41 (71) 09/13/17 07:00 99.3 89 24 96/56 (69) 93 84/47 (59) 09/13/17 06:00 87 98/55 (69) 84/41 (55) 09/13/17 06:00 99.1 87 24 98/55 (69) 93 81/45 (57) 09/13/17 06:00 79 09/13/17 06:00 86/50 (71) 09/13/17 05:39 89 109/54 (72) 89/41 (57) 09/13/17 05:00 99.0 100 24 109/54 (72) 93 97/53 (68) 09/13/17 05:00 84/49 (71) 09/13/17 04:00 55 09/13/17 04:00 79 09/13/17 04:00 90/54 (71) 09/13/17 04:00 98.8 81 99/55 (70) 99 89/53 (65) 09/13/17 03:52 100 55 09/13/17 03:00 89/40 (71) 09/13/17 02:20 98.6 81 96/51 (66) 99 86/41 (56) 09/13/17 02:09 81 88/40 09/13/17 02:00 79 09/13/17 02:00 89/41 (71) 09/13/17 01:00 89/39 (69) 09/13/17 00:50 100 55 09/13/17 00:00 97.9 79 0 94/40 (58) 100 92/53 (66) 09/13/17 00:00 79 09/13/17 00:00 55 09/13/17 00:00 93/44 (71) 09/12/17 23:00 106/43 (79) 09/12/17 22:00 108/45 (81) 09/12/17 22:00 79 09/12/17 21:11 99 55 09/12/17 21:00 94/44 (72) 09/12/17 20:00 55 09/12/17 20:00 79 09/12/17 20:00 97.8 79 0 113/53 (73) 100 95/49 (64) 09/12/17 20:00 94/40 (71) 09/12/17 19:50 100 55 09/12/17 19:00 91/49 (71) 09/12/17 18:01 91 94/56 09/12/17 18:00 110/37 (41) 09/12/17 18:00 97.7 92 0 113/53 (73) 100 95/49 (64) 09/12/17 18:00 92 113/53 (73) 95/49 (64) 09/12/17 18:00 92 09/13/17 09/13/17 09/14/17 15:00 23:00 07:00 Intake Total 2739 ml Output Total 11 ml 0 ml Balance 2728 ml 0 ml IV Total 2739 ml Output Urine Total 11 ml 0 ml . Laboratory Tests Test 09/12/17 04:40 09/13/17 03:39 White Blood Count 19.1 TH/MM3 17.5 TH/MM3 Red Blood Count 3.22 MIL/MM3 3.17 MIL/MM3 Hemoglobin 9.9 GM/DL 9.6 GM/DL Hematocrit 31.6 % 29.2 % Mean Corpuscular Volume 98.1 FL 92.1 FL Mean Corpuscular Hemoglobin 30.6 PG 30.4 PG Mean Corpuscular Hemoglobin Concent 31.2 % 33.0 % Red Cell Distribution Width 15.3 % 14.4 % Platelet Count 282 TH/MM3 235 TH/MM3 Mean Platelet Volume 9.6 FL 8.9 FL Neutrophils (%) (Auto) 91.3 % 85.7 % Lymphocytes (%) (Auto) 4.0 % 7.0 % Monocytes (%) (Auto) 4.6 % 6.4 % Eosinophils (%) (Auto) 0.0 % 0.6 % Basophils (%) (Auto) 0.1 % 0.3 % Neutrophils # (Auto) 17.4 TH/MM3 15.0 TH/MM3 Lymphocytes # (Auto) 0.8 TH/MM3 1.2 TH/MM3 Monocytes # (Auto) 0.9 TH/MM3 1.1 TH/MM3 Eosinophils # (Auto) 0.0 TH/MM3 0.1 TH/MM3 Basophils # (Auto) 0.0 TH/MM3 0.0 TH/MM3 CBC Comment DIFF FINAL DIFF FINAL Differential Comment Laboratory Tests Test 09/11/17 19:04 09/11/17 20:09 09/11/17 22:45 09/12/17 00:43 Potassium Level 6.6 MEQ/L 5.6 MEQ/L Blood Urea Nitrogen 80 MG/DL Creatinine 3.42 MG/DL Random Glucose 653 MG/DL 673 MG/DL 687 MG/DL Total Protein 5.9 GM/DL Calcium Level 7.3 MG/DL Phosphorus Level 7.6 MG/DL Magnesium Level 2.4 MG/DL Sodium Level 135 MEQ/L Chloride Level 101 MEQ/L Carbon Dioxide Level 14.1 MEQ/L Anion Gap 20 MEQ/L Estimat Glomerular Filtration Rate 18 ML/MIN Protein Corrected Calcium 7.9 MG/DL Test 09/12/17 02:55 09/12/17 04:40 09/12/17 07:07 09/12/17 09:10 Random Glucose 716 MG/DL 643 MG/DL 620 MG/DL 544 MG/DL Blood Urea Nitrogen 76 MG/DL 78 MG/DL Creatinine 3.22 MG/DL 3.19 MG/DL Total Protein 5.7 GM/DL 5.7 GM/DL Calcium Level 6.6 MG/DL 6.7 MG/DL Phosphorus Level 4.7 MG/DL 4.3 MG/DL Magnesium Level 2.1 MG/DL 2.1 MG/DL Sodium Level 135 MEQ/L 137 MEQ/L Potassium Level 3.9 MEQ/L 3.7 MEQ/L Chloride Level 101 MEQ/L 104 MEQ/L Carbon Dioxide Level 19.9 MEQ/L 21.0 MEQ/L Anion Gap 14 MEQ/L 12 MEQ/L Estimat Glomerular Filtration Rate 19 ML/MIN 19 ML/MIN Protein Corrected Calcium 7.3 MG/DL 7.4 MG/DL Total Creatine Kinase 630 U/L Creatine Kinase MB 36.9 NG/ML Creatine Kinase MB % 5.9 % Triglycerides Level 58 MG/DL Cholesterol Level LESS THAN 50 MG/DL LDL Cholesterol 5 MG/DL HDL Cholesterol 33.6 MG/DL Cholesterol/HDL Ratio 1.48 RATIO Test 09/12/17 18:33 09/12/17 20:35 09/13/17 03:39 Blood Urea Nitrogen 78 MG/DL 78 MG/DL Creatinine 3.46 MG/DL 3.73 MG/DL Random Glucose 231 MG/DL 186 MG/DL 90 MG/DL Total Protein 5.7 GM/DL 5.7 GM/DL 5.5 GM/DL Albumin 2.6 GM/DL 2.5 GM/DL 2.2 GM/DL Calcium Level 6.4 MG/DL 6.1 MG/DL Phosphorus Level 3.6 MG/DL 3.6 MG/DL Magnesium Level 1.9 MG/DL 1.8 MG/DL Alkaline Phosphatase 88 U/L 88 U/L 90 U/L Aspartate Amino Transf (AST/SGOT) 894 U/L 856 U/L 705 U/L Alanine Aminotransferase (ALT/SGPT) 577 U/L 574 U/L 544 U/L Total Bilirubin 0.9 MG/DL 0.9 MG/DL 0.8 MG/DL Sodium Level 138 MEQ/L 138 MEQ/L Potassium Level 3.5 MEQ/L 4.0 MEQ/L Chloride Level 107 MEQ/L 106 MEQ/L Carbon Dioxide Level 20.8 MEQ/L 20.1 MEQ/L Anion Gap 10 MEQ/L 12 MEQ/L Estimat Glomerular Filtration Rate 17 ML/MIN 16 ML/MIN Protein Corrected Calcium 7.1 MG/DL 6.8 MG/DL Direct Bilirubin 0.7 MG/DL Indirect Bilirubin 0.2 MG/DL Total Creatine Kinase 1453 U/L Creatine Kinase MB 28.7 NG/ML Microbiology Date/Time Source Procedure Growth Status 09/11/17 18:47 Blood Peripheral Aerobic Blood Culture - Preliminary NO GROWTH IN 2 DAYS Resulted 09/11/17 18:47 Blood Peripheral Anaerobic Blood Culture - Preliminary NO GROWTH IN 2 DAYS Resulted 09/11/17 18:47 Blood Peripheral Aerobic Blood Culture - Preliminary NO GROWTH IN 2 DAYS Resulted 09/11/17 18:47 Blood Peripheral Anaerobic Blood Culture - Preliminary NO GROWTH IN 2 DAYS Resulted 09/11/17 14:35 Blood Peripheral Aerobic Blood Culture - Preliminary NO GROWTH IN 2 DAYS Resulted 09/11/17 14:35 Blood Peripheral Anaerobic Blood Culture - Preliminary NO GROWTH IN 2 DAYS Resulted 09/11/17 14:25 Blood Peripheral Aerobic Blood Culture - Preliminary NO GROWTH IN 2 DAYS Resulted 09/11/17 14:25 Blood Peripheral Anaerobic Blood Culture - Preliminary NO GROWTH IN 2 DAYS Resulted 09/12/17 12:30 Sputum Endotracheal Gram Stain - Final Resulted 09/12/17 12:30 Sputum Endotracheal Sputum Culture - Preliminary HEAVY GROWTH NORMAL RESPIRATORY JUDIE... Resulted 09/12/17 23:39 Urine Catheterized Urine Legionella Antigen - Final PRESUMPTIVE NEGATIVE FOR LEGIONELLA P... Complete 09/12/17 23:39 Urine Catheterized Urine Streptococcus pneumoniae Antigen (M - Final PRESUMPTIVE NEGATIVE FOR STREPTOCOCCU... Complete 09/11/17 17:15 Urine Catheterized Urine Urine Culture - Final NO GROWTH IN 48 HOURS. Complete 09/11/17 19:00 Wound Foot Gram Stain - Final Resulted 09/11/17 19:00 Wound Culture - Preliminary Gram Negative Doug Resulted Imaging Last Impressions Chest X-Ray 09/13/17 0000 Signed Impressions: Service Date/Time: August 12:44 - CONCLUSION: 1. Stable tubes and lines, as above. 2. Cardiomegaly with positive fluid balance. 3. Slightly worsening small to moderate bilateral pleural effusions and associated lower lobe airspace disease, presumably compressive atelectasis. Magdi Vergara MD Renal Ultrasound 09/12/17 0000 Signed Impressions: Service Date/Time: Tuesday, September 12, 2017 12:10 - CONCLUSION: 1. No hydronephrosis. 2. 6 mm nonobstructing right renal stone. 3. Urinary bladder decompressed and not well evaluated. 4. Small volume ascites. Devaughn Chiu Jr., MD Physical Exam GENERAL: sedated on the vent, not in respiratory distress. Looking more edematous SKIN: Warm and dry. No generalized rash, no ecchymoses and no evidence of embolic lesions. HEAD: Atraumatic. Normocephalic. No temporal wasting, or tenderness. EYES: [place] conjunctiva. No petechia or hemorrhage. Pupils equal, round and reactive to light. No scleral icterus. No injection or drainage. EARS, NOSE AND THROAT: Nose without bleeding or purulent nasal discharge. Edentulous, he is orally intubared, moist mucosa. NECK: Trachea midline. Supple and not tender, no meningeal signs. RIJ line with no evidence of infection CARDIOVASCULAR: Regular rate and rhythm, could hear the IABP. RESPIRATORY: Bilateral wheezing ABDOMEN: Distended, bowel sounds present and hypoactive. No reaction to palpation, tympanitic on percussion. No organomegaly. R groin IABP in place with dry intact dressing EXTREMITIES: No clubbing, cyanosis. Has some pedal edema. There is a dime size clean hypertrophic ulcer over the first MT R, with no surrounding erythema , ,no edema, no purulence, no reaction to palpation. Cool feet, no mottling NEUROLOGICAL: Sedated. PSYCHIATRIC: Unable to assess LINE: Lines with no evidence of infection : Desouza in place, urine looks clear Assessment & Plan Remarks IMPRESSION Shock, cardiogenic shock, S/P CO - S/P intervention, low EF - has IABP 1:1 ?sepsis, has bilateral pulmonary infiltrates which clinically on presentation looks more of pulmonary edema than PNA Respiratory failure Renal failure due to shock R foot ulcer, currently does not look infected - (+) wound culture C/W contamination DM Leukocytosis, slightly lower RECOMMENDATION Follow C/S Continue Cefepime Vanco dose today Check vanco level in AM Wound care to the Foot ulcer Monitor progress D/W Loreta Cottrell MD Sep 13, 2017 17:28
[2017-09-13] MEDS: VASOPRESSIN INJ 40 UNITS in DEXTROSE 5% IN WATER 100ML INJ 98 ML IV PRN ×2 (19:47)
[2017-09-13] MEDS: CHLORHEXIDINE GLUCONATE 2 % 1 PACK (2 CLOTHS) TOP SCH (21:58)
[2017-09-14] VITALS (40 sets, daily range): BP systolic 81–107; BP diastolic 38–72; PULSE 91–105; RESP 0–24; TEMP 96.2; O2SAT 82–93
[2017-09-14] MEDS: fentaNYL DRIP 250 ML IV PRN ×2 (02:07→23:56)
[2017-09-14] MEDS: MIDAZOLAM 100 MG/100 ML INJ 100 ML IV PRN (02:08)
[2017-09-14] MEDS: PHENYLEPHRINE HCL 160 MG/D5W 484 ML ADMIX IV PRN ×8 (02:09→18:17)
[2017-09-14] MEDS: RESP: ALBUTEROL 2.5 MG/IPRATROPIUM 0.5 MG NEB (SCH) INH ×4 (02:29→21:21)
[2017-09-14] MEDS: INSULIN ASPART SUPPLEMENTAL SCALE SQ SCH ×5 (02:58→20:00)
[2017-09-14] MEDS: CEFEPIME INJ 1,000 MG in SODIUM CHLORIDE 0.9% INJ 100 ML IV SCH (02:59)
[2017-09-14 05:37] LABS: BLOOD GAS VENOUS HCO3 17 mmol/L (22-26); BLOOD GAS VENOUS O2 CONTENT 9.6 Vol % (9.0-17.0); BLOOD GAS VENOUS O2 HGB SAT 70 % (70-76); BLOOD GAS VENOUS PCO2 50 mmHg (44-48); BLOOD GAS VENOUS PO2 43 mmHg (35-40); BLOOD GAS VENOUS pH 7.16 (7.360-7.400); CRITICAL VALUE YES; OXYGEN DEVICE VENTILATOR; TEMP CORR TO 98.6; VENT SETTINGS PRVC/AC
[2017-09-14 05:38] LABS: DRAW SITE CENTRAL LINE; FIO2 90 %; STAT NO
[2017-09-14 05:51] LABS: AUTOMATED NEUTROPHIL # 16.4 TH/MM3 (1.8-7.7); BASOPHIL % 0.1 % (0.0-2.0); HEMATOCRIT 29.2 % (39.0-51.0); LYMPH % 2.4 % (9.0-44.0); LYMPHOCYTE # 0.4 TH/MM3 (1.0-4.8); MEAN CELL VOLUME 93.8 FL (80.0-100.0); MEAN CORPUSCULAR HEMOGLOBIN 30.4 PG (27.0-34.0); MEAN CORPUSCULAR HGB CONC 32.4 % (32.0-36.0); MONO % 5.3 % (0.0-8.0); NEUT % 92.2 % (16.0-70.0); PLATELET COUNT 216 TH/MM3 (150-450); RED BLOOD COUNT 3.11 MIL/MM3 (4.50-5.90); RED CELL DISTRIBUTION WIDTH 14.5 % (11.6-17.2); WHITE BLOOD COUNT 17.8 TH/MM3 (4.0-11.0)
[2017-09-14 05:53] LABS: HEMO FLAGS AUTO DIFF
--- NOTE | 2017-09-14 06:09 | RADRPT ---
EXAM DATE/TIME: 09/14/2017 04:35 [facility] COMPARISON: CHEST SINGLE AP, September 13, 2017, 12:44. INDICATIONS : Evaluate for respiratory failure. MEDICAL HISTORY : Hypercholesterolemia. Hypertension. Transient ischemic attack. Anticoagulant therapy, Coumadin. Diabe idania. Insulin pump. Coronary artery disease. SURGICAL HISTORY : Appendectomy. Valve replacement. CABG. Cardiac catheterization. Lump removed from right face/neck. ENCOUNTER: Subsequent ACUITY: 4 - 6 days PAIN SCORE: Non-responsive. LOCATION: chest FINDINGS: A single view of the chest demonstrates cardiomegaly with bibasilar densities and pulmonary edema. Pr evious median sternotomy and heart valve replacement. Endotracheal tube, nasogastric tube and right j ugular central line in stable position. Probable bilateral pleural effusions. Osseous structures are intact. CONCLUSION: 1. Cardiomegaly with bibasilar densities and probable small pleural effusions. 2. Bilateral airspace disease either layering pleural effusions or pulmonary edema. Suman Duron MD on September 14, 2017 at 6:07 Board Certified Radiologist. This report was verified electronically.
[2017-09-14 06:13] LABS: BICARBONATE 18.7 MEQ/L (21.0-32.0); CALCIUM-PROTEIN CORRECTED 7.5 MG/DL (8.5-10.1); MAGNESIUM 1.8 MG/DL (1.5-2.5); POTASSIUM 5.8 MEQ/L (3.5-5.1); TOTAL BILIRUBIN ADULT 0.9 MG/DL (0.2-1.0)
[2017-09-14] MEDS: CHLORHEXIDINE 0.12% (ORAL KIT) 15 ML CUP MT SCH ×2 (08:31→21:00)
[2017-09-14] MEDS: DOCUSATE SODIUM 50 MG/SENNA 8.6 MG TAB PO SCH ×2 (08:32→21:10)
[2017-09-14] MEDS: SODIUM CHLORIDE 0.9% FLUSH 10 ML FLUSH IV FLUSH SCH ×2 (08:32→21:00)
[2017-09-14] MEDS: CLOPIDOGREL 75 MG TAB PO SCH (08:32)
[2017-09-14] MEDS: ATORVASTATIN 40 MG TAB PO SCH (08:32)
[2017-09-14] MEDS: INSULIN DETEMIR 100 UNITS/ML VIAL SQ SCH (08:33)
[2017-09-14] MEDS: ASPIRIN EC 81 MG TABEC PO SCH (08:33)
[2017-09-14 08:51] LABS: BANDS 15 % (0-6); CORRECTED NUCLEATED RBC 2 /100 WBC (0-0); METAMYELOCYTES 2 % (0-1); MYELOCYTES 2 % (0-0); NEUTROPHIL # MANUAL DIFF 16.7 TH/MM3 (1.8-7.7); POLYS (SEG NEUTROPHILS) 75 % (16-70); WBC DIFF SAMPLE 100
[2017-09-14 08:58] LABS: ACANTHOCYTES 1+ (NORMAL); PLATELET ESTIMATE SMEAR NORMAL (NORMAL); PLATELET MORPHOLOGY NORMAL (NORMAL); SCAN/DIFF FINAL DIFF MANUAL
[2017-09-14] MEDS: SODIUM BICARBONATE 8.4% INJ 150 MEQ in SODIUM CHLOR 0.9% 1000 ML INJ 850 ML IV SCH (10:07)
[2017-09-14] MEDS ORDERED: BUMETANIDE 25 MG/100 ML CONTINOUS DRIP IV SCH (11:00)
--- NOTE | 2017-09-14 12:02 | HHI.NPPN ---
Subjective History of Present Illness 71-year-old with acute coronary syndrome status post stent diabetes, acute renal failure on intra-aortic balloon pump Additional Remarks doing poorly ARF Anuria intubated on IABP Objective Data Data 09/14/17 09/15/17 19:00 07:00 Intake Total 2305.5 ml Output Total 9 ml Balance 2296.5 ml IV Total 2305.5 ml Output Urine Total 9 ml Vital Signs Date Time Temp Pulse Resp B/P (MAP) Pulse Ox O2 Delivery O2 Flow Rate FiO2 09/14/17 11:00 96/38 (66) 09/14/17 10:00 95/37 (65) 09/14/17 10:00 93 09/14/17 09:40 100 09/14/17 09:00 103/37 (69) 09/14/17 08:48 100/36 (61) 09/14/17 08:47 92 95 09/14/17 08:30 99.7 93 0 84/43 (57) 92 09/14/17 08:00 93 09/14/17 08:00 99.7 93 0 84/53 (63) 91 86/44 (58) 09/14/17 08:00 95 09/14/17 07:41 93 80/42 09/14/17 07:30 99.7 94 0 83/43 (56) 90 09/14/17 07:30 94 80/41 09/14/17 07:00 99.7 95 0 85/55 (65) 91 86/44 (58) 09/14/17 06:30 99.7 95 0 85/43 (57) 90 09/14/17 06:00 97/36 (66) 09/14/17 06:00 99.7 96 0 90/52 (65) 90 88/44 (59) 09/14/17 06:00 96 09/14/17 05:30 99.7 96 0 85/44 (58) 90 09/14/17 05:00 98/39 (67) 09/14/17 05:00 96 92/57 (69) 91/48 (62) 09/14/17 05:00 99.7 96 0 92/57 (69) 90 89/45 (60) 09/14/17 04:30 99.7 97 0 90/46 (61) 91 09/14/17 04:00 99.9 97 0 95/72 (80) 91 92/47 (62) 09/14/17 04:00 101/40 (71) 09/14/17 04:00 97 09/14/17 04:00 90 09/14/17 03:20 91 90 09/14/17 03:00 104/40 (75) 09/14/17 02:09 97 94/48 09/14/17 02:00 102/40 (72) 09/14/17 02:00 97 09/14/17 01:00 100/40 (71) 09/14/17 00:30 92 90 09/14/17 00:00 99/41 (73) 09/14/17 00:00 90 09/14/17 00:00 96 09/14/17 00:00 100.0 96 24 93/56 (68) 93 94/49 (64) 09/13/17 23:00 98/41 (67) 09/13/17 22:00 96 09/13/17 22:00 99/42 (67) 09/13/17 21:48 95 90 09/13/17 21:00 96/41 (67) 09/13/17 20:07 95 90 09/13/17 20:00 93 09/13/17 20:00 90 09/13/17 20:00 95/40 (67) 09/13/17 20:00 99.7 93 5 94/56 (69) 96 92/47 (62) 09/13/17 19:48 93 91/50 09/13/17 19:47 93 91/44 09/13/17 19:16 92/39 (67) 09/13/17 18:00 91 09/13/17 18:00 90/39 (67) 09/13/17 18:00 99.0 91 7 90/62 (71) 95 87/45 (59) 09/13/17 18:00 91 90/62 (71) 87/45 (59) 09/13/17 17:08 86/37 (66) 09/13/17 17:00 91 09/13/17 17:00 99.3 91 6 91/50 (64) 93 88/47 (61) 09/13/17 16:58 91/40 (67) 09/13/17 16:28 93 90 10/19/17 16:00 90 09/13/17 16:00 86 09/13/17 16:00 99.3 86 3 95/61 (72) 94 88/47 (61) 09/13/17 15:34 85/37 (64) 09/13/17 15:00 99.3 85 24 89/55 (66) 91 86/47 (60) 09/13/17 15:00 85 09/13/17 14:04 90/41 (69) 09/13/17 14:00 89 09/13/17 14:00 99.1 89 5 90/59 (69) 93 88/50 (63) 09/13/17 13:24 86 78/42 09/13/17 13:07 91/37 (66) 09/13/17 13:00 92 09/13/17 13:00 99.0 92 0 87/52 (64) 90 85/47 (60) 09/13/17 12:00 100 09/13/17 12:00 87 09/13/17 12:00 99.1 87 24 81/51 (61) 91 83/44 (57) -: 09/14/17 0500 09/14/17 0500 Physical Exam General Appearance: Well Developed Neck Neck Exam: Neck Supple Pulmonary Resp Exam: Decreased Bases Cardiology CV Exam: Arrhythmia CV Remarks Intra-aortic balloon pump Gastrointestinal/Abdomen GI Exam: Soft, Distended Extremeties Extremities Exam: Pitting Edema, Dependent Edema Assessment/Plan Problem List: (1) Acute renal failure ICD Codes: N17.9 - Acute kidney failure, unspecified Plan: Patient likely has acute tubular necrosis due to cardiogenic shock urine output has dropped Not responding to Bumex CRRT/Vascath insertion today Net UF 100CC, 2K BATH , Pre dilutional NaHCO3 75 MEQ at 1 L/HR D/W Dr. Koch she will place VasCath Continue to monitor his progress He is in acute renal failure now Anuric Critically ill on vent and intra-aortic balloon pump support, stents were placed in RCA (2) Acute coronary syndrome ICD Codes: I24.9 - Acute ischemic heart disease, unspecified Plan: Continue to monitor prognosis is poor (3) Coronary artery disease ICD Codes: I25.10 - Atherosclerotic heart disease of [place] coronary artery without angina pectoris Plan: Cardiology following (4) Diabetes ICD Codes: E11.9 - Type 2 diabetes mellitus without complications Status: Chronic Plan: Monitor Manda Bliss MD Sep 14, 2017 12:02
[2017-09-14 12:07] LABS: APTT (PATIENT) 107.4 SEC (24.3-30.1)
[2017-09-14] MEDS: BUMETANIDE INJ 100 ML IV SCH (12:19)
[2017-09-14] MEDS: VASOPRESSIN INJ 40 UNITS in DEXTROSE 5% IN WATER 100ML INJ 98 ML IV PRN ×2 (12:20)
--- NOTE | 2017-09-14 14:06 | PD.CARD.PN ---
Subjective Subjective Remarks intubated sedated IABP 3 pressors family at bedside no urine output Objective Medications Current Medications Medications (Trade) Dose Ordered Sig/Kandice Route Start Time Stop Time Status Last Admin (Xylocaine 2% Jelly) 1 applic UNSCH PRN TOP 09/11/17 16:00 (Morphine Inj) 2 mg Q30M PRN IV PUSH 09/11/17 16:00 (Plavix) 75 mg DAILY PO 09/12/17 09:00 09/14/17 08:32 (Atropine Inj) 0.5 mg UNSCH PRN IV PUSH 09/11/17 16:00 (Reglan Inj) 10 mg Q4H PRN IV PUSH 09/11/17 16:00 (Zofran Inj) 4 mg Q4H PRN IV PUSH 09/11/17 16:00 Heparin Sodium/ Dextrose 250 ml @ 9 mls/hr TITRATE PRN IV 09/11/17 16:00 09/12/17 22:56 (NS Flush) 2 ml UNSCH PRN IV FLUSH 09/11/17 17:15 (NS Flush) 2 ml BID IV FLUSH 09/11/17 21:00 09/14/17 08:32 (Tylenol) 650 mg Q6H PRN PO 09/11/17 17:15 (Duoneb Neb) 1 ampule Q6HR NEB INH 09/11/17 22:00 09/14/17 08:43 (Duoneb Neb) 1 ampule Q2HR NEB PRN INH 09/11/17 17:15 Miscellaneous Information 1 Q361D XX 09/11/17 17:15 09/11/17 17:15 (Chlorhexidine 2% Cloth) 3 pack Taper DAILY@04 TOP 09/12/17 04:00 09/08/18 03:59 09/13/17 21:58 (Chlorhexidine 2% Cloth) 3 pack UNSCH PRN TOP 09/11/17 17:15 (Yamilex-Colace) 1 tab BID PO 09/11/17 21:00 09/14/17 08:32 (Milk Of Magnesia Liq) 30 ml Q12H PRN PO 09/11/17 17:15 (Senokot) 17.2 mg Q12H PRN PO 09/11/17 17:15 (Dulcolax Supp) 10 mg DAILY PRN RECTAL 09/11/17 17:15 (Lactulose Liq) 30 ml DAILY PRN PO 09/11/17 17:15 Fentanyl Citrate 250 ml @ 5 mls/hr TITRATE PRN IV 09/11/17 17:30 09/14/17 02:07 (Brethine Inj) 1 mg UNSCH PRN SQ 09/11/17 17:30 Pharmacy Profile Note 0 ml @ 0 mls/hr UNSCH OTHER 09/11/17 17:30 Miscellaneous Information 1 Q361D XX 09/11/17 17:30 09/11/17 17:30 (Peridex 0.12% Liq) 15 ml BID@08,20 MT 09/11/17 20:00 09/14/17 08:31 Miscellaneous Information 1 Q361D XX 09/11/17 17:45 09/11/17 17:45 Vasopressin 40 units/Dextrose 100 ml @ 6 mls/hr TITRATE PRN IV 09/11/17 18:15 09/14/17 12:20 Phenylephrine HCl 160 mg/Dextrose 500 ml @ 7.5 mls/hr TITRATE PRN IV 09/12/17 01:30 09/14/17 13:20 Dopamine HCl/ Dextrose 500 ml @ 8.182 mls/ hr TITRATE PRN IV 09/12/17 01:30 09/12/17 01:35 (Ecotrin Ec) 81 mg DAILY PO 09/12/17 10:00 09/14/17 08:33 (Lipitor) 40 mg DAILY PO 09/12/17 10:00 09/14/17 08:32 Midazolam HCl 100 ml @ 2 mls/hr TITRATE PRN IV 09/12/17 11:15 09/14/17 02:08 (Levemir Inj) 5 units DAILY SQ 09/13/17 10:00 09/13/17 10:00 (D50w (Vial) Inj) 50 ml UNSCH PRN IV PUSH 09/13/17 09:45 (Glucagon Inj) 1 mg UNSCH PRN OTHER 09/13/17 09:45 Sodium Bicarbonate 150 meq/Sodium Chloride 1,000 ml @ 50 mls/hr Q20H IV 09/13/17 15:00 09/14/17 10:07 (NovoLOG SUPPLEMENTAL SCALE) 1 Q4HR SQ 09/13/17 16:00 09/14/17 11:06 Bumetanide 100 ml @ 4 mls/hr Q24H IV 09/13/17 15:00 09/14/17 12:19 Cefepime HCl 1000 mg/Sodium Chloride 100 ml @ 200 mls/hr Q24H IV 09/15/17 03:00 Vital Signs / I&O Vital Signs Date Time Temp Pulse Resp B/P (MAP) Pulse Ox O2 Delivery O2 Flow Rate FiO2 09/14/17 13:39 100/48 09/14/17 13:20 92 83/45 09/14/17 13:17 78/43 09/14/17 13:00 91/37 (63) 09/14/17 12:20 92 83/41 09/14/17 12:14 90 100 09/14/17 12:00 99.3 92 0 87/57 (67) 90 87/46 (60) 09/14/17 12:00 93 09/14/17 12:00 95/38 (68) 09/14/17 12:00 100 09/14/17 11:30 99.3 92 0 82/45 (57) 91 09/14/17 11:00 99.5 91 0 87/59 (68) 91 81/43 (56) 09/14/17 11:00 96/38 (66) 09/14/17 10:30 99.5 93 0 82/44 (57) 90 09/14/17 10:00 95/37 (65) 09/14/17 10:00 99.5 93 0 88/58 (68) 90 86/44 (58) 09/14/17 10:00 93 09/14/17 09:40 100 09/14/17 09:30 99.7 95 0 87/46 (60) 90 09/14/17 09:00 99.7 93 0 88/65 (73) 91 89/46 (60) 09/14/17 09:00 103/37 (69) 09/14/17 08:48 100/36 (61) 09/14/17 08:47 92 95 09/14/17 08:30 99.7 93 0 84/43 (57) 92 09/14/17 08:00 93 09/14/17 08:00 99.7 93 0 84/53 (63) 91 86/44 (58) 09/14/17 08:00 95 09/14/17 07:41 93 80/42 09/14/17 07:30 99.7 94 0 83/43 (56) 90 09/14/17 07:30 94 80/41 09/14/17 07:00 99.7 95 0 85/55 (65) 91 86/44 (58) 09/14/17 06:30 99.7 95 0 85/43 (57) 90 09/14/17 06:00 97/36 (66) 09/14/17 06:00 99.7 96 0 90/52 (65) 90 88/44 (59) 09/14/17 06:00 96 09/14/17 05:30 99.7 96 0 85/44 (58) 90 09/14/17 05:00 98/39 (67) 09/14/17 05:00 96 92/57 (69) 91/48 (62) 09/14/17 05:00 99.7 96 0 92/57 (69) 90 89/45 (60) 09/14/17 04:30 99.7 97 0 90/46 (61) 91 09/14/17 04:00 99.9 97 0 95/72 (80) 91 92/47 (62) 09/14/17 04:00 101/40 (71) 09/14/17 04:00 97 09/14/17 04:00 90 09/14/17 03:20 91 90 09/14/17 03:00 104/40 (75) 09/14/17 02:09 97 94/48 09/14/17 02:00 102/40 (72) 09/14/17 02:00 97 09/14/17 01:00 100/40 (71) 09/14/17 00:30 92 90 09/14/17 00:00 99/41 (73) 09/14/17 00:00 90 09/14/17 00:00 96 09/14/17 00:00 100.0 96 24 93/56 (68) 93 94/49 (64) 09/13/17 23:00 98/41 (67) 09/13/17 22:00 96 09/13/17 22:00 99/42 (67) 09/13/17 21:48 95 90 09/13/17 21:00 96/41 (67) 09/13/17 20:07 95 90 09/13/17 20:00 93 09/13/17 20:00 90 09/13/17 20:00 95/40 (67) 09/13/17 20:00 99.7 93 5 94/56 (69) 96 92/47 (62) 09/13/17 19:48 93 91/50 09/13/17 19:47 93 91/44 09/13/17 19:16 92/39 (67) 09/13/17 18:00 91 09/13/17 18:00 90/39 (67) 09/13/17 18:00 99.0 91 7 90/62 (71) 95 87/45 (59) 09/13/17 18:00 91 90/62 (71) 87/45 (59) 09/13/17 17:08 86/37 (66) 09/13/17 17:00 91 09/13/17 17:00 99.3 91 6 91/50 (64) 93 88/47 (61) 09/13/17 16:58 91/40 (67) 09/13/17 16:28 93 90 09/13/17 16:00 90 09/13/17 16:00 86 09/13/17 16:00 99.3 86 3 95/61 (72) 94 88/47 (61) 09/13/17 15:34 85/37 (64) 09/13/17 15:00 99.3 85 24 89/55 (66) 91 86/47 (60) 09/13/17 15:00 85 I/O 09/13/17 09/13/17 09/13/17 09/14/17 09/14/17 09/14/17 07:00 15:00 23:00 07:00 15:00 23:00 Intake Total 2711 ml 1256 ml 2883.5 ml Output Total 75 ml 11 ml 0 ml 100 ml 9 ml Balance -75 ml 2700 ml 1256 ml -100 ml 2874.5 ml IV Total 2711 ml 1256 ml 2883.5 ml Output Urine Total 75 ml 11 ml 0 ml 100 ml 9 ml Physical Exam NECK: No JVD or lymphadenopathy. CARDIOVASCULAR: Regular rate and rhythm without murmurs, gallops, or rubs. RESPIRATORY: Breath sounds equal bilaterally GASTROINTESTINAL: nondistended. Laboratory Laboratory Tests Test 09/14/17 05:00 09/14/17 05:09 09/14/17 06:11 09/14/17 10:59 White Blood Count 17.8 TH/MM3 Red Blood Count 3.11 MIL/MM3 Hemoglobin 9.5 GM/DL Hematocrit 29.2 % Mean Corpuscular Volume 93.8 FL Mean Corpuscular Hemoglobin 30.4 PG Mean Corpuscular Hemoglobin Concent 32.4 % Red Cell Distribution Width 14.5 % Platelet Count 216 TH/MM3 Mean Platelet Volume 9.2 FL Neutrophils (%) (Auto) 92.2 % Lymphocytes (%) (Auto) 2.4 % Monocytes (%) (Auto) 5.3 % Eosinophils (%) (Auto) 0.0 % Basophils (%) (Auto) 0.1 % Neutrophils # (Auto) 16.4 TH/MM3 Lymphocytes # (Auto) 0.4 TH/MM3 Monocytes # (Auto) 0.9 TH/MM3 Eosinophils # (Auto) 0.0 TH/MM3 Basophils # (Auto) 0.0 TH/MM3 CBC Comment AUTO DIFF Differential Total Cells Counted 100 Neutrophils % (Manual) 75 % Band Neutrophils % 15 % Lymphocytes % 2 % Monocytes % 4 % Neutrophils # (Manual) 16.7 TH/MM3 Metamyelocytes 2 % Myelocytes 2 % Nucleated Red Blood Cells 2 /100 WBC Differential Comment FINAL DIFF MANUAL Platelet Estimate NORMAL Platelet Morphology Comment NORMAL Acanthocytes 1+ Blood Urea Nitrogen 80 MG/DL Creatinine 5.02 MG/DL Random Glucose 121 MG/DL Total Protein 5.4 GM/DL Albumin 2.0 GM/DL Calcium Level 6.7 MG/DL Phosphorus Level 5.6 MG/DL Magnesium Level 1.8 MG/DL Alkaline Phosphatase 106 U/L Aspartate Amino Transf (AST/SGOT) 1157 U/L Alanine Aminotransferase (ALT/SGPT) 872 U/L Total Bilirubin 0.9 MG/DL Sodium Level 134 MEQ/L Potassium Level 5.8 MEQ/L Chloride Level 104 MEQ/L Carbon Dioxide Level 18.7 MEQ/L Anion Gap 11 MEQ/L Estimat Glomerular Filtration Rate 11 ML/MIN Protein Corrected Calcium 7.5 MG/DL Blood Gas Puncture Site CENTRAL LINE Blood Gas Patient Temperature 98.6 Venous Blood pH 7.16 Venous Blood Partial Pressure CO2 50 mmHg Venous Blood Partial Pressure O2 43 mmHg Venous Blood HCO3 17 mmol/L Venous Blood Oxygen Saturation 70 % Venous Blood Oxygen Content 9.6 Vol % Venous Blood Base Excess -10.0 mmol/L Oxygen Delivery Device VENTILATOR Blood Gas Ventilator Setting PRVC/AC Blood Gas Inspired Oxygen 90 % Activated Partial Thromboplast Time 87.0 SEC 107.4 SEC Imaging Last 24 hours Impressions Chest X-Ray 09/14/17 0600 Signed Impressions: Service Date/Time: Thursday, September 14, 2017 04:35 - CONCLUSION: 1. Cardiomegaly with bibasilar densities and probable small pleural effusions. 2. Bilateral airspace disease either layering pleural effusions or pulmonary edema. Suman Druon MD Assessment and Plan Problem List: (1) ACS (acute coronary syndrome) ICD Codes: I24.9 - Acute ischemic heart disease, unspecified Status: Acute Assessment and Plan STEMI - KENNEDY RCA. asa plavix statin mechanical valve - on heparin gtt. cardiomyopathy - intubated. DKA - resolved cardiogenic shock - IABP in place. 1:1. needing 3 pressors ARF on CRI - neph following. No urine output. CVVHD starting Sepsis - ID following. On antibiotics. Poor prognosis. multiorgan failure. had lengthy discussion with the family. Palliative care consult. If no improvement in the next few days, we may need to move to comfort care measures. Raza Courtney MD Sep 14, 2017 14:06
[2017-09-14 15:08] LABS: BLOOD GAS BASE EXCESS -10.4 mmol/L (-2-2); BLOOD GAS CARBOXYHEMOGLOBIN 0.9 % (0-4); BLOOD GAS HCO3 17 mmol/L (22-26); BLOOD GAS METHEMOGLOBIN 1.7 % (0-2); BLOOD GAS O2 HGB SATURATION 83 % (90-100); BLOOD GAS OXYGEN CONTENT 10.8 Vol % (12.0-20.0); BLOOD GAS PCO2 50 mmHg (38-42); BLOOD GAS PO2 58 mmHg (61-120); BLOOD GAS TOTAL HGB 9.2 G/DL (12.0-16.0); CRITICAL VALUE YES; OXYGEN DEVICE VENTILATOR; TEMP CORR TO 98.6
[2017-09-14 15:09] LABS: DRAW SITE ART LINE; FIO2 100 %; STAT YES; VENT SETTINGS PRVC/AC
--- NOTE | 2017-09-14 15:26 | RADRPT ---
EXAM DATE/TIME: 09/14/2017 14:55 [facility] COMPARISON: CHEST SINGLE AP, September 14, 2017, 4:35. INDICATIONS : Confirm vas cath placement. MEDICAL HISTORY : Hypercholesterolemia. Hypertension Transient ischemic attack. Anticoagulant therapy, Coumadin. D iabetes. Insulin pump. Coronary artery SURGICAL HISTORY : Appendectomy. Valve replacement. CABG. Cardiac catheterization. Lump removed from right face/neck. ENCOUNTER: Subsequent ACUITY: 1 day PAIN SCORE: Non-responsive. LOCATION: Bilateral chest FINDINGS: A left-sided central line is in place. Tip of the central line is at the confluence between the innom inate vein and SVC. There is no pneumothorax. The rest of the support devices remain in place. There continues to be bilateral pulmonary infiltrates of both lung turk without significant change compar ed to the prior exam. Heart size remains enlarged but stable. CONCLUSION: Left-sided central appears to be in place. No pneumothorax. Chico Chappell MD on September 14, 2017 at 15:24 Board Certified Radiologist. This report was verified electronically.
[2017-09-14 16:15] LABS: APTT (PATIENT) 67.5 SEC (24.3-30.1)
[2017-09-14] MEDS ORDERED: NOREPINEPHRINE 4 MG/D5W 250 ML IV PRN (16:30)
[2017-09-14] MEDS: NOREPINEPHRINE 4 MG/D5W 250 ML IV PRN (16:31)
[2017-09-14] MEDS ORDERED: SODIUM BICARBONATE 8.4% INJ 50 ML ONE (16:38)
[2017-09-14] MEDS: SODIUM BICARBONATE 8.4% INJ 75 MEQ in SODIUM CHLOR 0.45% 1000 ML INJ 1,000 ML IV SCH ×7 (16:55→23:27)
--- NOTE | 2017-09-14 17:04 | PD.CONS ---
Consult Service Palliative Care Consult Requested By Dr. Koch . Primary Care Physician Rosa Riggs MD Reason for Consultation a. To assist with evaluation and management of symptoms including: Dyspnea, encephalopathy, malnutrition b. To assist medical decision maker(s) with: better understanding of current medical conditions; weighing benefits/burdens of medical treatment options; making medical treatment decisions. HPI History of Present Illness This 71-year-old patient presented to the ED 09/11/17 around 2 PM with complaints of feeling ill, generalized weakness, nausea, vomiting, shortness of breath since the night before. EKG in the ER notable for significant ST depression,STEMI alert called. EKG physician notes patient diaphoretic, cardiology consulted for urgent catheterization, STEMI protocol initiated. Blood glucose 500, pH 7.19, potassium 6.8, creatinine 2.9. Concern for acute renal failure, DKA. * Patient went emergently to catheterization lab with Dr. chi coronary angiography of left main coronary noted with minor luminal irregularities, left anterior descending coronary artery 100% occlusion proximally diagonal branch also 100% included, distal LAD is fed via bypass graft. Circumflex is included proximally, right coronary is a dominant vessel giving rise to posterior descending main coronary has 95% stenosis, distal segment 90% stenosis. Patient underwent successful percutaneous intervention with drug-eluting stents to the mid and distal right coronary artery. 2 of 2 coronary bypass grafts found to be patent. Due to low EF, low systolic pressure intra-aortic balloon pump was placed. * 2-D echo notes LV function moderately to severely reduced EF 35-40%. Moderate thickening mitral valve leaflets. trace tricuspid regurg, trace mitral regurg. * On arrival to ICU agonal respirations systolic BPs 60s, cold, emergently intubated IV fluids given. * Overnight 09/12 requiring 3 pressor agents and bicarbonate for a while. Wound culture gram-positive cocci empirically started on Vanco, cefepime. ID consulted. Minimal urine output. Continues to have hyperglycemia. On fentanyl for sedation, interacting with family answering yes/no questions. * ID consulted; changed to Zosyn to cefepime. Follow cultures. * Nephrology consulted; patient with acute tubular necrosis secondary to cardiogenic shock, critically ill on intra-aortic balloon pump. * Started on Bumex drip at 09/13--may require CRRT if does not respond * 09/14 remains critically ill. Vas-Cath to be placed to begin CRRT. Still on 3 pressors. Still with intra-aortic balloon pump. Patient with multiorgan failure, poor prognosis per cardiology. Cardiology had lengthy discussion with family recommends if no improvement in coming days comfort measures. Palliative care consulted to assist with clarification of goals of treatment. WBC 17.8. Liver functions worsening AST 1157, ALT up to 872. CXR today=1. Cardiomegaly with bibasilar densities and probable small pleural effusions. 2. Bilateral airspace disease either layering pleural effusions or pulmonary edema. Patient seen in room nurse, dialysis nurse present. CRRT has just been begun. Tolerating thus far with some hypotension BP systolic 80s-90s. Nonresponsive to my exam. On fentanyl 120 mics, Versed 5 mg an hour. Also on dopamine drip, Levophed drip, Chito-Synephrine. + Heparin drip. No urine output. Met with family at length following exam see family conference. Function/Cognitive Trajectory hx used a cane, prior falls 2/2 neuropathy. Ambulated short distances within home though fatigue and MATHEWS limited beyond room to room, approx 15 feet Review of Systems ROS Limitations: Clinical Condition (critically ill on mechanical vent limited ROS obtained from ED, family), Intubated, Altered Mental Status Constitutional: COMPLAINS OF: Fatigue, Generalized weakness, DENIES: Weight gain, Change in appetite Cardiovascular: COMPLAINS OF: Dyspnea on Exertion, DENIES: Chest pain, Lower Extremity Edema Gastrointestinal: COMPLAINS OF: Nausea, Vomiting, DENIES: Abdominal pain, Difficulty Swallowing Musculoskeletal: COMPLAINS OF: Back pain (some minor chronic back pain), DENIES : Joint pain, Muscle aches Integumentary: DENIES: Rash Psychiatric: DENIES: Anxiety, Confusion Past Family Social History Coded Allergies: No Known Allergies (Verified , 09/11/17) Past Medical History Hyperlipidemia CVA, TIA Diabetes CAD Chronic low back pain Chronic hip pain . Past Surgical History CABG x2 Aortic valve valve [address] [facility] insulin pump Right neck/facial surgery for lump removal Appendectomy . Reported Medications Phenergan (Promethazine HCl) 25 Mg Tab 25 Mg PO Q6H PRN FOR NAUSEA/VOMITING Zofran ODT (Ondansetron HCl) 4 Mg Tab 4 Mg SL Q6H PRN FOR NAUSEA/VOMITING Ecotrin (Aspirin) 81 Mg Tabec 81 Mg PO DAILY Warfarin Sodium 2.5 mg (Warfarin Sodium) 2.5 Mg Tab 2.5 Mg PO EVERY OTHER DAY Neurontin (Gabapentin) 800 Mg Tab 1,600 Mg PO HS Neurontin (Gabapentin) 800 Mg Tab 800 Mg PO DAILY Protonix (Pantoprazole Sodium) 40 Mg Tab 40 Mg PO DAILY Morphine Sulfate IR 15 mg (Morphine Sulfate) 15 Mg Tab 15 Mg PO TID Warfarin Sodium 5 mg (Warfarin Sodium) 5 Mg Tab 5 Mg PO EVERY OTHER DAY Fosinopril Sodium 20 Mg Tab 40 Mg PO DAILY Hctz (Hydrochlorothiazide) 25 Mg Tab 25 Mg PO DAILY Lipitor 80 Mg Tab (Atorvastatin) 80 Mg Tab 80 Mg PO DAILY Zoloft (Sertraline HCl) 50 Mg Tab 100 Mg PO DAILY . Current Medications Medications (Trade) Dose Ordered Sig/Kandice Route Start Time Stop Time Status Last Admin (Xylocaine 2% Jelly) 1 applic UNSCH PRN TOP 09/11/17 16:00 (Morphine Inj) 2 mg Q30M PRN IV PUSH 09/11/17 16:00 (Plavix) 75 mg DAILY PO 09/12/17 09:00 09/14/17 08:32 (Atropine Inj) 0.5 mg UNSCH PRN IV PUSH 09/11/17 16:00 (Reglan Inj) 10 mg Q4H PRN IV PUSH 09/11/17 16:00 (Zofran Inj) 4 mg Q4H PRN IV PUSH 09/11/17 16:00 Heparin Sodium/ Dextrose 250 ml @ 9 mls/hr TITRATE PRN IV 09/11/17 16:00 09/12/17 22:56 (NS Flush) 2 ml UNSCH PRN IV FLUSH 09/11/17 17:15 (NS Flush) 2 ml BID IV FLUSH 09/11/17 21:00 09/14/17 08:32 (Tylenol) 650 mg Q6H PRN PO 09/11/17 17:15 (Duoneb Neb) 1 ampule Q6HR NEB INH 09/11/17 22:00 09/14/17 08:43 (Duoneb Neb) 1 ampule Q2HR NEB PRN INH 09/11/17 17:15 Miscellaneous Information 1 Q361D XX 09/11/17 17:15 09/11/17 17:15 (Chlorhexidine 2% Cloth) 3 pack Taper DAILY@04 TOP 09/12/17 04:00 09/08/18 03:59 09/13/17 21:58 (Chlorhexidine 2% Cloth) 3 pack UNSCH PRN TOP 09/11/17 17:15 (Yamilex-Colace) 1 tab BID PO 09/11/17 21:00 09/14/17 08:32 (Milk Of Magnesia Liq) 30 ml Q12H PRN PO 09/11/17 17:15 (Senokot) 17.2 mg Q12H PRN PO 09/11/17 17:15 (Dulcolax Supp) 10 mg DAILY PRN RECTAL 09/11/17 17:15 (Lactulose Liq) 30 ml DAILY PRN PO 09/11/17 17:15 Fentanyl Citrate 250 ml @ 5 mls/hr TITRATE PRN IV 09/11/17 17:30 09/14/17 02:07 (Brethine Inj) 1 mg UNSCH PRN SQ 09/11/17 17:30 Pharmacy Profile Note 0 ml @ 0 mls/hr UNSCH OTHER 09/11/17 17:30 Miscellaneous Information 1 Q361D XX 09/11/17 17:30 09/11/17 17:30 (Peridex 0.12% Liq) 15 ml BID@08,20 MT 09/11/17 20:00 09/14/17 08:31 Miscellaneous Information 1 Q361D XX 09/11/17 17:45 09/11/17 17:45 Phenylephrine HCl 160 mg/Dextrose 500 ml @ 7.5 mls/hr TITRATE PRN IV 09/12/17 01:30 09/14/17 13:20 Dopamine HCl/ Dextrose 500 ml @ 8.182 mls/ hr TITRATE PRN IV 09/12/17 01:30 09/12/17 01:35 (Ecotrin Ec) 81 mg DAILY PO 09/12/17 10:00 09/14/17 08:33 (Lipitor) 40 mg DAILY PO 09/12/17 10:00 09/14/17 08:32 Midazolam HCl 100 ml @ 2 mls/hr TITRATE PRN IV 09/12/17 11:15 09/14/17 02:08 (Levemir Inj) 5 units DAILY SQ 09/13/17 10:00 09/13/17 10:00 (D50w (Vial) Inj) 50 ml UNSCH PRN IV PUSH 09/13/17 09:45 (Glucagon Inj) 1 mg UNSCH PRN OTHER 09/13/17 09:45 Sodium Bicarbonate 150 meq/Sodium Chloride 1,000 ml @ 50 mls/hr Q20H IV 09/13/17 15:00 09/14/17 10:07 (NovoLOG SUPPLEMENTAL SCALE) 1 Q4HR SQ 09/13/17 16:00 09/14/17 11:06 Bumetanide 100 ml @ 4 mls/hr Q24H IV 09/13/17 15:00 09/14/17 12:19 Cefepime HCl 1000 mg/Sodium Chloride 100 ml @ 200 mls/hr Q24H IV 09/15/17 03:00 Sodium Bicarbonate 75 meq/Sodium Chloride 1,075 ml @ 1,000 mls/hr Q1H5M IV 09/14/17 16:15 Sodium Chloride 1,000 ml @ 0 mls/hr UNSCH PRN OTHER 09/14/17 16:15 (KCl 40 Meq Premix Inj) 2 meq WITH DIALYSIS PRN .XX 09/14/17 16:15 Norepinephrine Bitartrate 250 ml @ 18.75 mls/ hr TITRATE PRN IV 09/14/17 16:30 09/14/17 16:31 Family History per EMR: father of cancer, mother of old age. Substance Use Tobacco: Former smoker smoked 2-2.5 PPD 20 years quit 1981 Alcohol: None Prescription med abuse: None Illicits: None . Psychosocial History to his since 1965. One son, one daughter . 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 Originally from [place], in [place] since 1969. Spiritual/Cultural Factors Yarsanism Living Will: Completed, but not made available Health Care Surrogate: Completed, but not made available Ethical and Legal Issues Due to clinical condition patient unable to participate in decision-making. is reported to be healthcare surrogate, awaiting these documents. Per [place] statutes would be appropriate legal proxy. Physical Exam Vital Signs Date Time Temp Pulse Resp B/P (MAP) Pulse Ox O2 Delivery O2 Flow Rate FiO2 09/14/17 16:31 96 90/45 09/14/17 15:00 108/37 (73) 09/14/17 14:00 105 09/14/17 13:39 100/48 09/14/17 13:20 92 83/45 09/14/17 13:17 78/43 09/14/17 13:00 91/37 (63) 09/14/17 12:20 92 83/41 09/14/17 12:14 90 100 09/14/17 12:00 99.3 92 0 87/57 (67) 90 87/46 (60) 09/14/17 12:00 93 09/14/17 12:00 95/38 (68) 09/14/17 12:00 100 09/14/17 11:30 99.3 92 0 82/45 (57) 91 09/14/17 11:00 99.5 91 0 87/59 (68) 91 81/43 (56) 09/14/17 11:00 96/38 (66) 09/14/17 10:30 99.5 93 0 82/44 (57) 90 09/14/17 10:00 95/37 (65) 09/14/17 10:00 99.5 93 0 88/58 (68) 90 86/44 (58) 09/14/17 10:00 93 09/14/17 09:40 100 09/14/17 09:30 99.7 95 0 87/46 (60) 90 09/14/17 09:00 99.7 93 0 88/65 (73) 91 89/46 (60) 09/14/17 09:00 103/37 (69) 09/14/17 08:48 100/36 (61) 09/14/17 08:47 92 95 09/14/17 08:30 99.7 93 0 84/43 (57) 92 09/14/17 08:00 93 09/14/17 08:00 99.7 93 0 84/53 (63) 91 86/44 (58) 09/14/17 08:00 95 09/14/17 07:41 93 80/42 09/14/17 07:30 99.7 94 0 83/43 (56) 90 09/14/17 07:30 94 80/41 09/14/17 07:00 99.7 95 0 85/55 (65) 91 86/44 (58) 09/14/17 06:30 99.7 95 0 85/43 (57) 90 10/20/17 06:00 97/36 (66) 09/14/17 06:00 99.7 96 0 90/52 (65) 90 88/44 (59) 09/14/17 06:00 96 09/14/17 05:30 99.7 96 0 85/44 (58) 90 09/14/17 05:00 98/39 (67) 09/14/17 05:00 96 92/57 (69) 91/48 (62) 09/14/17 05:00 99.7 96 0 92/57 (69) 90 89/45 (60) 09/14/17 04:30 99.7 97 0 90/46 (61) 91 09/14/17 04:00 99.9 97 0 95/72 (80) 91 92/47 (62) 09/14/17 04:00 101/40 (71) 09/14/17 04:00 97 09/14/17 04:00 90 09/14/17 03:20 91 90 09/14/17 03:00 104/40 (75) 09/14/17 02:09 97 94/48 09/14/17 02:00 102/40 (72) 09/14/17 02:00 97 09/14/17 01:00 100/40 (71) 09/14/17 00:30 92 90 09/14/17 00:00 99/41 (73) 09/14/17 00:00 90 09/14/17 00:00 96 09/14/17 00:00 100.0 96 24 93/56 (68) 93 94/49 (64) 09/13/17 23:00 98/41 (67) 09/13/17 22:00 96 09/13/17 22:00 99/42 (67) 09/13/17 21:48 95 90 09/13/17 21:00 96/41 (67) 09/13/17 20:07 95 90 09/13/17 20:00 93 09/13/17 20:00 90 09/13/17 20:00 95/40 (67) 09/13/17 20:00 99.7 93 5 94/56 (69) 96 92/47 (62) 09/13/17 19:48 93 91/50 09/13/17 19:47 93 91/44 09/13/17 19:16 92/39 (67) 09/13/17 18:00 91 09/13/17 18:00 90/39 (67) 09/13/17 18:00 99.0 91 7 90/62 (71) 95 87/45 (59) 09/13/17 18:00 91 90/62 (71) 87/45 (59) 09/13/17 17:08 86/37 (66) 09/13/17 17:00 91 09/13/17 17:00 99.3 91 6 91/50 (64) 93 88/47 (61) 09/13/17 16:58 91/40 (67) 09/14/17 09/15/17 19:00 07:00 Intake Total 2905.5 ml Output Total 10 ml Balance 2895.5 ml IV Total 2905.5 ml Output Urine Total 10 ml Exam CONSTITUTIONAL/GENERAL: This is a critically ill appearing patient, well- nourished on mechanical vent, CRRT TUBES/LINES/DRAINS: IJ central line, left IJ dialysis catheter, ET tube, OG tube , Desouza catheter, CRRT machine, balloon pump SKIN: No jaundice, rashes, or lesions. . No wounds seen anteriorly. Skin temperature appropriate. Not diaphoretic. Generalized edema/anasarca HEAD: Atraumatic. Normocephalic. EYES: Pupils 2 mm, questionable reaction to light. No eye opening. No scleral icterus. No injection or drainage. Fundi not examined. ENT: Nose without bleeding or purulent drainage. Unable to visualize oropharynx secondary ET tube, NG tube NECK: Trachea midline. Supple, nontender. No palpable thyroid enlargement or nodularity. CARDIOVASCULAR: Regular rate and rhythm , audible balloon pump clicki, Peripheral pulses faint. RESPIRATORY/CHEST: Symmetric, unlabored respirations via mechanical vent. Decreased air movement throughout, scattered wheezes GASTROINTESTINAL: Abdomen soft, unable to determine tenderness, distended, taut. Limited palpation though no readily palpable masses. Bowel sounds intermittent. G-tube clamped. GENITOURINARY: Without palpable bladder distension. Desouza catheter in place 1 or 2 mL of urine present. Significant scrotal edema. MUSCULOSKELETAL: Extremities without clubbing, cyanosis. Significant edema to entire body, extremities . NEUROLOGICAL: Sedated on mechanical vent. Nonresponsive to my exam. No eye opening no withdrawal. PSYCHIATRIC: Limited assessment due to clinical condition, no apparent anxiety or tachypnea Diagnostic Tests Laboratory Laboratory Tests Test 09/11/17 16:45 09/11/17 17:04 09/11/17 17:15 09/11/17 17:17 Blood Gas Puncture Site ART LINE Blood Gas Patient Temperature 98.6 Blood Gas HCO3 10 mmol/L (22-26) Blood Gas Base Excess -20.5 mmol/L (-2-2) Blood Gas Oxygen Saturation 96 % (90-100) Arterial Blood pH 6.87 (7.380-7.420) Arterial Blood Partial Pressure CO2 60 mmHg (38-42) Arterial Blood Partial Pressure O2 255 mmHg (61-120) Arterial Blood Oxygen Content 13.6 Vol % (12.0-20.0) Arterial Blood Carboxyhemoglobin 0.1 % (0-4) Arterial Blood Methemoglobin 1.8 % (0-2) Blood Gas Hemoglobin 9.7 G/DL (12.0-16.0) Oxygen Delivery Device VENTILATOR Blood Gas Ventilator Setting 16/500/1.0/+5 Blood Gas Inspired Oxygen 100 % Nasal Screen MRSA (PCR) MRSA NOT DETECTED (NOT Urine Color YELLOW (YELLW/STRAW) Urine Turbidity HAZY (CLEAR) Urine pH 5.0 (5.0-8.5) Urine Specific [place] 1.017 (1.002-1.035) Urine Protein 30 mg/dL (NEG-TRACE) Urine Glucose (UA) NEG mg/dL (NEG) Urine Ketones NEG mg/dL (NEG) Urine Occult Blood NEG (NEG) Urine Nitrite NEG (NEG) Urine Bilirubin NEG (NEG) Urine Urobilinogen 2.0 MG/DL (LESS THAN Urine Leukocyte Esterase NEG (NEG) Urine RBC 1 /hpf (0-3) Urine WBC 1 /hpf (0-5) Urine Squamous Epithelial Cells <1 /hpf (0-5) Urine Amorphous Sediment RARE Microscopic Urinalysis Comment CATH-CULT NOT IND White Blood Count 10.6 TH/MM3 (4.0-11.0) Red Blood Count 3.17 MIL/MM3 (4.50-5.90) Hemoglobin 9.6 GM/DL (13.0-17.0) Hematocrit 32.2 % (39.0-51.0) Mean Corpuscular Volume 101.4 FL (80.0-100.0) Mean Corpuscular Hemoglobin 30.2 PG (27.0-34.0) Mean Corpuscular Hemoglobin Concent 29.8 % (32.0-36.0) Red Cell Distribution Width 15.0 % (11.6-17.2) Platelet Count 314 TH/MM3 (150-450) Mean Platelet Volume 9.1 FL (7.0-11.0) Lactic Acid Level 11.2 mmol/L (0.4-2.0) Test 09/11/17 19:04 09/11/17 20:05 09/11/17 20:09 09/11/17 21:10 Activated Partial Thromboplast Time 106.7 SEC (24.3-30.1) 182.3 SEC (24.3-30.1) Potassium Level 6.6 MEQ/L (3.5-5.1) 5.6 MEQ/L (3.5-5.1) B-Hydroxybutyrate 1.80 MMOL/L (0.00-0.39) Blood Gas Puncture Site LT RADIAL Blood Gas Patient Temperature 98.6 Blood Gas HCO3 12 mmol/L (22-26) Blood Gas Base Excess -17.2 mmol/L (-2-2) Blood Gas Oxygen Saturation 87 % (90-100) Arterial Blood pH 6.98 (7.380-7.420) Arterial Blood Partial Pressure CO2 55 mmHg (38-42) Arterial Blood Partial Pressure O2 87 mmHg (61-120) Arterial Blood Oxygen Content 11.8 Vol % (12.0-20.0) Arterial Blood Carboxyhemoglobin 0.6 % (0-4) Arterial Blood Methemoglobin 1.7 % (0-2) Blood Gas Hemoglobin 9.5 G/DL (12.0-16.0) Oxygen Delivery Device VENTILATOR Blood Gas Ventilator Setting PRVC/AC Blood Gas Inspired Oxygen 100 % Blood Urea Nitrogen 80 MG/DL (7-18) Creatinine 3.42 MG/DL (0.60-1.30) Random Glucose 653 MG/DL (74-106) Total Protein 5.9 GM/DL (6.4-8.2) Calcium Level 7.3 MG/DL (8.5-10.1) Phosphorus Level 7.6 MG/DL (2.5-4.9) Magnesium Level 2.4 MG/DL (1.5-2.5) Sodium Level 135 MEQ/L (136-145) Chloride Level 101 MEQ/L (98-107) Carbon Dioxide Level 14.1 MEQ/L (21.0-32.0) Anion Gap 20 MEQ/L (5-15) Estimat Glomerular Filtration Rate 18 ML/MIN (>89) Protein Corrected Calcium 7.9 MG/DL (8.5-10.1) Test 09/11/17 22:45 09/12/17 00:43 09/12/17 02:55 09/12/17 04:40 Random Glucose 673 MG/DL (74-106) 687 MG/DL (74-106) 716 MG/DL (74-106) 643 MG/DL (74-106) Activated Partial Thromboplast Time 93.1 SEC (24.3-30.1) 59.2 SEC (24.3-30.1) White Blood Count 19.1 TH/MM3 (4.0-11.0) Red Blood Count 3.22 MIL/MM3 (4.50-5.90) Hemoglobin 9.9 GM/DL (13.0-17.0) Hematocrit 31.6 % (39.0-51.0) Mean Corpuscular Volume 98.1 FL (80.0-100.0) Mean Corpuscular Hemoglobin 30.6 PG (27.0-34.0) Mean Corpuscular Hemoglobin Concent 31.2 % (32.0-36.0) Red Cell Distribution Width 15.3 % (11.6-17.2) Platelet Count 282 TH/MM3 (150-450) Mean Platelet Volume 9.6 FL (7.0-11.0) Neutrophils (%) (Auto) 91.3 % (16.0-70.0) Lymphocytes (%) (Auto) 4.0 % (9.0-44.0) Monocytes (%) (Auto) 4.6 % (0.0-8.0) Eosinophils (%) (Auto) 0.0 % (0.0-4.0) Basophils (%) (Auto) 0.1 % (0.0-2.0) Neutrophils # (Auto) 17.4 TH/MM3 (1.8-7.7) Lymphocytes # (Auto) 0.8 TH/MM3 (1.0-4.8) Monocytes # (Auto) 0.9 TH/MM3 (0-0.9) Eosinophils # (Auto) 0.0 TH/MM3 (0-0.4) Basophils # (Auto) 0.0 TH/MM3 (0-0.2) CBC Comment DIFF FINAL Differential Comment Blood Urea Nitrogen 76 MG/DL (7-18) Creatinine 3.22 MG/DL (0.60-1.30) Total Protein 5.7 GM/DL (6.4-8.2) Calcium Level 6.6 MG/DL (8.5-10.1) Phosphorus Level 4.7 MG/DL (2.5-4.9) Magnesium Level 2.1 MG/DL (1.5-2.5) Sodium Level 135 MEQ/L (136-145) Potassium Level 3.9 MEQ/L (3.5-5.1) Chloride Level 101 MEQ/L (98-107) Carbon Dioxide Level 19.9 MEQ/L (21.0-32.0) Anion Gap 14 MEQ/L (5-15) Estimat Glomerular Filtration Rate 19 ML/MIN (>89) Protein Corrected Calcium 7.3 MG/DL (8.5-10.1) Total Creatine Kinase 630 U/L (39-308) Creatine Kinase MB 36.9 NG/ML (0.5-3.6) Creatine Kinase MB % 5.9 % (0.0-4.0) Triglycerides Level 58 MG/DL (42-150) Cholesterol Level LESS THAN 50 MG/DL LDL Cholesterol 5 MG/DL (0-99) HDL Cholesterol 33.6 MG/DL (40.0-60.0) Cholesterol/HDL Ratio 1.48 RATIO B-Hydroxybutyrate 0.14 MMOL/L (0.00-0.39) Test 09/12/17 04:48 09/12/17 07:07 09/12/17 09:10 09/12/17 12:15 Blood Gas Puncture Site RT RADIAL ART LINE Blood Gas Patient Temperature 98.6 98.6 Blood Gas HCO3 19 mmol/L (22-26) 17 mmol/L (22-26) Blood Gas Base Excess -8.4 mmol/L (-2-2) -9.1 mmol/L (-2-2) Blood Gas Oxygen Saturation 88 % (90-100) 94 % (90-100) Arterial Blood pH 7.18 (7.380-7.420) 7.21 (7.380-7.420) Arterial Blood Partial Pressure CO2 52 mmHg (38-42) 45 mmHg (38-42) Arterial Blood Partial Pressure O2 70 mmHg (61-120) 99 mmHg (61-120) Arterial Blood Oxygen Content 12.4 Vol % (12.0-20.0) 13.1 Vol % (12.0-20.0) Arterial Blood Carboxyhemoglobin 1.0 % (0-4) 1.0 % (0-4) Arterial Blood Methemoglobin 1.7 % (0-2) 1.9 % (0-2) Blood Gas Hemoglobin 10.0 G/DL (12.0-16.0) 9.8 G/DL (12.0-16.0) Oxygen Delivery Device VENTILATOR VENTILATOR Blood Gas Ventilator Setting PRVC/AC Blood Gas Inspired Oxygen 100 % 75 % Random Glucose 620 MG/DL (74-106) 544 MG/DL (74-106) Activated Partial Thromboplast Time 56.9 SEC (24.3-30.1) Blood Urea Nitrogen 78 MG/DL (7-18) Creatinine 3.19 MG/DL (0.60-1.30) Total Protein 5.7 GM/DL (6.4-8.2) Calcium Level 6.7 MG/DL (8.5-10.1) Phosphorus Level 4.3 MG/DL (2.5-4.9) Magnesium Level 2.1 MG/DL (1.5-2.5) Sodium Level 137 MEQ/L (136-145) Potassium Level 3.7 MEQ/L (3.5-5.1) Chloride Level 104 MEQ/L (98-107) Carbon Dioxide Level 21.0 MEQ/L (21.0-32.0) Anion Gap 12 MEQ/L (5-15) Estimat Glomerular Filtration Rate 19 ML/MIN (>89) Protein Corrected Calcium 7.4 MG/DL (8.5-10.1) Test 09/12/17 18:21 09/12/17 18:33 09/12/17 20:22 09/12/17 20:35 Lab Scanned Report Lab Reports - Other [id number] Blood Urea Nitrogen 78 MG/DL (7-18) Creatinine 3.46 MG/DL (0.60-1.30) Random Glucose 231 MG/DL (74-106) 186 MG/DL (74-106) Total Protein 5.7 GM/DL (6.4-8.2) 5.7 GM/DL (6.4-8.2) Albumin 2.6 GM/DL (3.4-5.0) 2.5 GM/DL (3.4-5.0) Calcium Level 6.4 MG/DL (8.5-10.1) Phosphorus Level 3.6 MG/DL (2.5-4.9) Magnesium Level 1.9 MG/DL (1.5-2.5) Alkaline Phosphatase 88 U/L (45-117) 88 U/L (45-117) Aspartate Amino Transf (AST/SGOT) 894 U/L (15-37) 856 U/L (15-37) Alanine Aminotransferase (ALT/SGPT) 577 U/L (12-78) 574 U/L (12-78) Total Bilirubin 0.9 MG/DL (0.2-1.0) 0.9 MG/DL (0.2-1.0) Sodium Level 138 MEQ/L (136-145) Potassium Level 3.5 MEQ/L (3.5-5.1) Chloride Level 107 MEQ/L (98-107) Carbon Dioxide Level 20.8 MEQ/L (21.0-32.0) Anion Gap 10 MEQ/L (5-15) Estimat Glomerular Filtration Rate 17 ML/MIN (>89) Protein Corrected Calcium 7.1 MG/DL (8.5-10.1) B-Hydroxybutyrate 0.08 MMOL/L (0.00-0.39) Blood Gas Puncture Site RT BRACHIAL Blood Gas Patient Temperature 98.6 Blood Gas HCO3 18 mmol/L (22-26) Blood Gas Base Excess -7.6 mmol/L (-2-2) Blood Gas Oxygen Saturation 90 % (90-100) Arterial Blood pH 7.25 (7.380-7.420) Arterial Blood Partial Pressure CO2 44 mmHg (38-42) Arterial Blood Partial Pressure O2 72 mmHg (61-120) Arterial Blood Oxygen Content 12.5 Vol % (12.0-20.0) Arterial Blood Carboxyhemoglobin 1.0 % (0-4) Arterial Blood Methemoglobin 1.8 % (0-2) Blood Gas Hemoglobin 9.8 G/DL (12.0-16.0) Oxygen Delivery Device VENTILATOR Blood Gas Ventilator Setting PRVC/AC Blood Gas Inspired Oxygen 55 % Direct Bilirubin 0.7 MG/DL (0.0-0.2) Indirect Bilirubin 0.2 MG/DL (0.0-0.8) Test 09/12/17 23:39 09/13/17 03:39 09/13/17 05:23 09/13/17 09:40 Urine Glucose (UA) 70 mg/dL (NEG) Urine Eosinophils NONE SEEN /HPF (NONE SEEN) Urine Osmolality 350 MOSM/KG (300-1300) Urine Random Creatinine 84.2 MG/DL Urine Random Sodium 36 MEQ/L White Blood Count 17.5 TH/MM3 (4.0-11.0) Red Blood Count 3.17 MIL/MM3 (4.50-5.90) Hemoglobin 9.6 GM/DL (13.0-17.0) Hematocrit 29.2 % (39.0-51.0) Mean Corpuscular Volume 92.1 FL (80.0-100.0) Mean Corpuscular Hemoglobin 30.4 PG (27.0-34.0) Mean Corpuscular Hemoglobin Concent 33.0 % (32.0-36.0) Red Cell Distribution Width 14.4 % (11.6-17.2) Platelet Count 235 TH/MM3 (150-450) Mean Platelet Volume 8.9 FL (7.0-11.0) Neutrophils (%) (Auto) 85.7 % (16.0-70.0) Lymphocytes (%) (Auto) 7.0 % (9.0-44.0) Monocytes (%) (Auto) 6.4 % (0.0-8.0) Eosinophils (%) (Auto) 0.6 % (0.0-4.0) Basophils (%) (Auto) 0.3 % (0.0-2.0) Neutrophils # (Auto) 15.0 TH/MM3 (1.8-7.7) Lymphocytes # (Auto) 1.2 TH/MM3 (1.0-4.8) Monocytes # (Auto) 1.1 TH/MM3 (0-0.9) Eosinophils # (Auto) 0.1 TH/MM3 (0-0.4) Basophils # (Auto) 0.0 TH/MM3 (0-0.2) CBC Comment DIFF FINAL Differential Comment Blood Urea Nitrogen 78 MG/DL (7-18) Creatinine 3.73 MG/DL (0.60-1.30) Random Glucose 90 MG/DL (74-106) Total Protein 5.5 GM/DL (6.4-8.2) Albumin 2.2 GM/DL (3.4-5.0) Calcium Level 6.1 MG/DL (8.5-10.1) Phosphorus Level 3.6 MG/DL (2.5-4.9) Magnesium Level 1.8 MG/DL (1.5-2.5) Alkaline Phosphatase 90 U/L (45-117) Aspartate Amino Transf (AST/SGOT) 705 U/L (15-37) Alanine Aminotransferase (ALT/SGPT) 544 U/L (12-78) Total Bilirubin 0.8 MG/DL (0.2-1.0) Sodium Level 138 MEQ/L (136-145) Potassium Level 4.0 MEQ/L (3.5-5.1) Chloride Level 106 MEQ/L (98-107) Carbon Dioxide Level 20.1 MEQ/L (21.0-32.0) Anion Gap 12 MEQ/L (5-15) Estimat Glomerular Filtration Rate 16 ML/MIN (>89) Protein Corrected Calcium 6.8 MG/DL (8.5-10.1) Total Creatine Kinase 1453 U/L (39-308) Creatine Kinase MB 28.7 NG/ML (0.5-3.6) Random Vancomycin Level 13.8 COMMENT Activated Partial Thromboplast Time 65.3 SEC (24.3-30.1) Blood Gas Puncture Site ART LINE Blood Gas Patient Temperature 98.6 Blood Gas HCO3 17 mmol/L (22-26) Blood Gas Base Excess -9.2 mmol/L (-2-2) Blood Gas Oxygen Saturation 86 % (90-100) Arterial Blood pH 7.25 (7.380-7.420) Arterial Blood Partial Pressure CO2 40 mmHg (38-42) Arterial Blood Partial Pressure O2 60 mmHg (61-120) Arterial Blood Oxygen Content 12.5 Vol % (12.0-20.0) Arterial Blood Carboxyhemoglobin 1.1 % (0-4) Arterial Blood Methemoglobin 1.7 % (0-2) Blood Gas Hemoglobin 10.2 G/DL (12.0-16.0) Oxygen Delivery Device VENTILATOR Blood Gas Ventilator Setting PRVC 24/550/PEEP+8 Blood Gas Inspired Oxygen 55 % Test 09/13/17 12:08 09/14/17 05:00 09/14/17 05:09 09/14/17 06:11 Blood Gas Puncture Site ART LINE CENTRAL LINE Blood Gas Patient Temperature 98.6 98.6 Blood Gas HCO3 16 mmol/L (22-26) Blood Gas Base Excess -10.2 mmol/L (-2-2) Blood Gas Oxygen Saturation 89 % (90-100) Arterial Blood pH 7.24 (7.380-7.420) Arterial Blood Partial Pressure CO2 38 mmHg (38-42) Arterial Blood Partial Pressure O2 69 mmHg (61-120) Arterial Blood Oxygen Content 11.9 Vol % (12.0-20.0) Arterial Blood Carboxyhemoglobin 1.0 % (0-4) Arterial Blood Methemoglobin 1.8 % (0-2) Blood Gas Hemoglobin 9.4 G/DL (12.0-16.0) Oxygen Delivery Device VENTILATOR VENTILATOR Blood Gas Ventilator Setting PRVC/AC PRVC/AC Blood Gas Inspired Oxygen 85 % 90 % White Blood Count 17.8 TH/MM3 (4.0-11.0) Red Blood Count 3.11 MIL/MM3 (4.50-5.90) Hemoglobin 9.5 GM/DL (13.0-17.0) Hematocrit 29.2 % (39.0-51.0) Mean Corpuscular Volume 93.8 FL (80.0-100.0) Mean Corpuscular Hemoglobin 30.4 PG (27.0-34.0) Mean Corpuscular Hemoglobin Concent 32.4 % (32.0-36.0) Red Cell Distribution Width 14.5 % (11.6-17.2) Platelet Count 216 TH/MM3 (150-450) Mean Platelet Volume 9.2 FL (7.0-11.0) Neutrophils (%) (Auto) 92.2 % (16.0-70.0) Lymphocytes (%) (Auto) 2.4 % (9.0-44.0) Monocytes (%) (Auto) 5.3 % (0.0-8.0) Eosinophils (%) (Auto) 0.0 % (0.0-4.0) Basophils (%) (Auto) 0.1 % (0.0-2.0) Neutrophils # (Auto) 16.4 TH/MM3 (1.8-7.7) Lymphocytes # (Auto) 0.4 TH/MM3 (1.0-4.8) Monocytes # (Auto) 0.9 TH/MM3 (0-0.9) Eosinophils # (Auto) 0.0 TH/MM3 (0-0.4) Basophils # (Auto) 0.0 TH/MM3 (0-0.2) CBC Comment AUTO DIFF Differential Total Cells Counted 100 Neutrophils % (Manual) 75 % (16-70) Band Neutrophils % 15 % (0-6) Lymphocytes % 2 % (9-44) Monocytes % 4 % (0-8) Neutrophils # (Manual) 16.7 TH/MM3 (1.8-7.7) Metamyelocytes 2 % (0-1) Myelocytes 2 % (0-0) Nucleated Red Blood Cells 2 /100 WBC (0-0) Differential Comment FINAL DIFF MANUAL Platelet Estimate NORMAL (NORMAL) Platelet Morphology Comment NORMAL (NORMAL) Acanthocytes 1+ (NORMAL) Blood Urea Nitrogen 80 MG/DL (7-18) Creatinine 5.02 MG/DL (0.60-1.30) Random Glucose 121 MG/DL (74-106) Total Protein 5.4 GM/DL (6.4-8.2) Albumin 2.0 GM/DL (3.4-5.0) Calcium Level 6.7 MG/DL (8.5-10.1) Phosphorus Level 5.6 MG/DL (2.5-4.9) Magnesium Level 1.8 MG/DL (1.5-2.5) Alkaline Phosphatase 106 U/L (45-117) Aspartate Amino Transf (AST/SGOT) 1157 U/L (15-37) Alanine Aminotransferase (ALT/SGPT) 872 U/L (12-78) Total Bilirubin 0.9 MG/DL (0.2-1.0) Sodium Level 134 MEQ/L (136-145) Potassium Level 5.8 MEQ/L (3.5-5.1) Chloride Level 104 MEQ/L (98-107) Carbon Dioxide Level 18.7 MEQ/L (21.0-32.0) Anion Gap 11 MEQ/L (5-15) Estimat Glomerular Filtration Rate 11 ML/MIN (>89) Protein Corrected Calcium 7.5 MG/DL (8.5-10.1) Venous Blood pH 7.16 (7.360-7.400) Venous Blood Partial Pressure CO2 50 mmHg (44-48) Venous Blood Partial Pressure O2 43 mmHg (35-40) Venous Blood HCO3 17 mmol/L (22-26) Venous Blood Oxygen Saturation 70 % (70-76) Venous Blood Oxygen Content 9.6 Vol % (9.0-17.0) Venous Blood Base Excess -10.0 mmol/L (-2-2) Activated Partial Thromboplast Time 87.0 SEC (24.3-30.1) Test 09/14/17 10:59 09/14/17 15:00 09/14/17 15:15 Activated Partial Thromboplast Time 107.4 SEC (24.3-30.1) 67.5 SEC (24.3-30.1) Blood Gas Puncture Site ART LINE Blood Gas Patient Temperature 98.6 Blood Gas HCO3 17 mmol/L (22-26) Blood Gas Base Excess -10.4 mmol/L (-2-2) Blood Gas Oxygen Saturation 83 % (90-100) Arterial Blood pH 7.16 (7.380-7.420) Arterial Blood Partial Pressure CO2 50 mmHg (38-42) Arterial Blood Partial Pressure O2 58 mmHg (61-120) Arterial Blood Oxygen Content 10.8 Vol % (12.0-20.0) Arterial Blood Carboxyhemoglobin 0.9 % (0-4) Arterial Blood Methemoglobin 1.7 % (0-2) Blood Gas Hemoglobin 9.2 G/DL (12.0-16.0) Oxygen Delivery Device VENTILATOR Blood Gas Ventilator Setting PRVC/AC Blood Gas Inspired Oxygen 100 % Result Diagram: 09/14/17 0500 09/14/17 0500 Microbiology Microbiology Date/Time Source Procedure Growth Status 09/11/17 18:47 Blood Peripheral Aerobic Blood Culture - Preliminary NO GROWTH IN 3 DAYS Resulted 09/11/17 18:47 Blood Peripheral Anaerobic Blood Culture - Preliminary NO GROWTH IN 3 DAYS Resulted 09/11/17 18:47 Blood Peripheral Aerobic Blood Culture - Preliminary NO GROWTH IN 3 DAYS Resulted 09/11/17 18:47 Blood Peripheral Anaerobic Blood Culture - Preliminary NO GROWTH IN 3 DAYS Resulted 09/12/17 12:30 Sputum Endotracheal Gram Stain - Final Complete 09/12/17 12:30 Sputum Endotracheal Sputum Culture - Final HEAVY GROWTH NORMAL RESPIRATORY JUDIE Complete 09/12/17 23:39 Urine Catheterized Urine Legionella Antigen - Final PRESUMPTIVE NEGATIVE FOR LEGIONELLA P... Complete 09/12/17 23:39 Urine Catheterized Urine Streptococcus pneumoniae Antigen (M - Final PRESUMPTIVE NEGATIVE FOR STREPTOCOCCU... Complete 09/11/17 17:15 Urine Catheterized Urine Urine Culture - Final NO GROWTH IN 48 HOURS. Complete 09/11/17 19:00 Wound Foot Gram Stain - Final Complete 09/11/17 19:00 Wound Culture - Final Pseudo Fluorescens/Put[place] Pseudomonas Oryzihabitans Complete Imaging Last Impressions Chest X-Ray 09/14/17 0600 Signed Impressions: Service Date/Time: Thursday, September 14, 2017 04:35 - CONCLUSION: 1. Cardiomegaly with bibasilar densities and probable small pleural effusions. 2. Bilateral airspace disease either layering pleural effusions or pulmonary edema. Suman Duron MD Renal Ultrasound 09/12/17 0000 Signed Impressions: Service Date/Time: Tuesday, September 12, 2017 12:10 - CONCLUSION: 1. No hydronephrosis. 2. 6 mm nonobstructing right renal stone. 3. Urinary bladder decompressed and not well evaluated. 4. Small volume ascites. Devaughn Chiu Jr., MD Patient/Family Conference Present at Family Conference: , daughter, son Family Conference Time (mins): 45 Family Conference Location: Consult Room Issues Discussed: Met with family at length, discussion included the following: * Palliative care role, purpose, approach * Additional medical, psychosocial, and spiritual history * Patients general health, functional status, and cognitive changes in the months leading up to the current hospitalization * Patient/family understanding of the current medical problems * Patient/family understanding of prognosis; review of likely trajectory potential setback/complications going forward * Patients goals of care as best understood from advance directives and/or conversations and/or values * Current medical treatment options and benefits/burdens of those options * CODE STATUS-at this time family continuing to consider DNR status though not ready at this point for DNR; review of what CPR entails/limitations/benefits * Legal decision makers/proxy * Likely scenarios comparing ongoing aggressive care with a transition to comfort measures only review of continued aggressive measures versus comfort and compassionate removal of artificial devices and support * Questions answered to the best of my ability * Palliative care contact information provided Family appears to have good understanding of conditions and overall prognosis. At this time they wish to follow Dr. Whitley' recommendations to give the patient another day or so to show signs of improvement. Goals aggressive at this time though they are open to ongoing conversations as clinical course evolve's. Assessment and Plan Disease Oriented Problem List: (1) Acute respiratory failure (2) Hepatic failure, acute (3) DKA (diabetic ketoacidoses) (4) ACS (acute coronary syndrome) (5) Coronary artery disease (6) Acute renal failure (7) Acute coronary syndrome (8) Hypertension (9) Diabetes Symptom Scale: (1) Dyspnea (2) Encephalopathy (3) Malnutrition Pertinent Non-Medical Issues Psychosocial: to his since 1965. One son, one daughter . 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 Originally from [place], in [place] since 1969. Spiritual: Yarsanism, no particular affiliation not recently active in voodoo. Does request flask fitter visit in the next day or so Legal:Due to clinical condition patient unable to participate in decision- making. is reported to be healthcare surrogate, awaiting these documents. Per [place] statutes would be appropriate legal proxy. Ethical issues impacting care: No ethical issues identified Important Contacts Starr Malave [phone] / [phone] Son Francisco [phone] Daughter Shelbie [phone] . . Prognosis Patient was admitted for acute STEMI. He underwent emergent cardiac catheterization. He has remained critically ill requiring 3 pressors, aortic balloon pump, and is in multiorgan failure. Prognosis poor. Appropriate for hospice and comfort measures if no improvement in the coming days. Code Status: Full Code Plan * Legal decision maker::Due to clinical condition patient unable to participate in decision-making. is reported to be healthcare surrogate, awaiting these documents. Per [place] statutes would be appropriate legal proxy. * Goals: Extensive meeting with patient and family today. Family appears to have good understanding of conditions and overall prognosis. At this time they wish to follow Dr. Whitley' recommendations to give the patient another day or so to show signs of improvement. Goals aggressive at this time though they are open to ongoing conversations as clinical course evolve, open to considering comfort measures if no improvement or significant deterioration. They're going to continue discussing CODE STATUS for now full code. * CODE STATUS: Full code * SYMPTOMS: --Dyspnea-emergently intubated for respiratory distress secondary to cardiogenic shock; currently on mechanical vent 100% FiO2; also requiring balloon pump for cardiac support --Encephalopathy-multiorgan failure/multifactorial non-responsive to exam. On some sedation fentanyl, Versed. Previously knotting to some questions. --Malnutrition-OG tube in place, clamped. Sounds hypoactive, concern for aspiration due to decreased GI motility tube feed held at this time. * Palliative care will continue to follow during hospital course as condition evolves, to assist patient/decision-maker with understanding of medical conditions, weighing benefits/burdens of treatment options, for clarification of goals of treatment. Additionally will assist with any symptoms of palliative concern Time Spent Total Floor Time (mins): 65 (PE, review of chart, discussion with primary RN, meeting with family) Thank you for the opportunity to participate in the care of Mr. Malave. Attestation To help prompt me to consider important information that might be impacting today's encounter and assessment, information from prior notes written by myself or my colleagues may have been "brought forward" into today's note. My signature on this note, however, is an attestation that I personally performed the exam, history, and/or decision-making noted today, and, unless otherwise indicated, the interactions with patient, family, and staff as well as the review of records all occurred today. I also attest that the listed assessment and stated plan reflect my best clinical judgment today based on the combination of historical information, prior notes, and today's exam/ interactions. When time spent is documented, it refers only to time spent today by the signer, or if indicated, combined time spent today by collaborating physician/nurse practitioner. Camilla Petty Sep 14, 2017 17:04
[2017-09-14 17:13] LABS: BLOOD GAS BASE EXCESS -9.6 mmol/L (-2-2); BLOOD GAS CARBOXYHEMOGLOBIN 1.1 % (0-4); BLOOD GAS HCO3 17 mmol/L (22-26); BLOOD GAS METHEMOGLOBIN 1.6 % (0-2); BLOOD GAS O2 HGB SATURATION 89 % (90-100); BLOOD GAS OXYGEN CONTENT 11.3 Vol % (12.0-20.0); BLOOD GAS PCO2 43 mmHg (38-42); BLOOD GAS PO2 72 mmHg (61-120); CRITICAL VALUE YES; FIO2 100 %; OXYGEN DEVICE VENTILATOR; TEMP CORR TO 98.6; VENT SETTINGS PRVC /AC
[2017-09-14 17:14] LABS: DRAW SITE ART LINE; STAT NO
--- NOTE | 2017-09-14 17:21 | HHI.IDPN ---
Subjective Subjective Remarks Patient is a 71-year-old male, brought into the hospital other evaluation of severe shortness of breath. He also had an episode of vomiting on the day of admission. Patient apparently has been noted to be short of breath early part of August. He has seen his water quality manager, and an echo was done about a week prior to admission and there was mention that he has a leaky valve. The last 4 days to shortness of breath has been worse, and the kids have been trying to convince the patient to go to the hospital but did not want to go up until the day of admission when he became worse, and also had some vomiting. He was brought into the hospital, an EKG showed evidence of acute [place]. He underwent cardiac catheterization, and had intervention done, and placement of an intra- aortic balloon pump. Patient also required intubation, and has been on the vent. Overnight he has required pressors, and currently on dopamine, Chito- Synephrine, and vasopressin. His intra-aortic balloon pump is at 1 is to 1. He has not been febrile. Of note is the patient apparently has been having problem with an ulcer on his right foot. He has been going to a manager of recruiting over the last 3 weeks, and has been prescribed 2 courses of antibiotics, each course about a week's worth. Last week after he saw his water quality manager, a chest x-ray was done, and there was some findings suggestive of pneumonia. His primary care physician prescribed an antibiotic is taking that antibiotic prior to admission. Patient really has not had any significant congestion or cough. He has not complained of any chest pain. The vomiting was only on the day of admission. There has been no complaint of any sore throat, runny nose or ear pain, fever or chills, diarrhea , or any urinary complaint. Infectious disease consultation has been requested to make recommendation regarding antibiotics. Notes reviewed D/W RN Temps ok Had vascath placed - to be started on HD this afternoon Remains on 3 pressors: chito, levophed and dopamine IABP 1:1 Sedated on the vent, FiO2 at 100% Antibiotics I attest that I obtained, updated or reviewed the home and current medications. Vanco x 1 dose Cefepime Current Medications Medications (Trade) Dose Ordered Sig/Kandice Route Start Time Stop Time Status Last Admin (Xylocaine 2% Jelly) 1 applic UNSCH PRN TOP 09/11/17 16:00 (Morphine Inj) 2 mg Q30M PRN IV PUSH 09/11/17 16:00 (Plavix) 75 mg DAILY PO 09/12/17 09:00 09/14/17 08:32 (Atropine Inj) 0.5 mg UNSCH PRN IV PUSH 09/11/17 16:00 (Reglan Inj) 10 mg Q4H PRN IV PUSH 09/11/17 16:00 (Zofran Inj) 4 mg Q4H PRN IV PUSH 09/11/17 16:00 Heparin Sodium/ Dextrose 250 ml @ 9 mls/hr TITRATE PRN IV 09/11/17 16:00 09/12/17 22:56 (NS Flush) 2 ml UNSCH PRN IV FLUSH 09/11/17 17:15 (NS Flush) 2 ml BID IV FLUSH 09/11/17 21:00 09/14/17 08:32 (Tylenol) 650 mg Q6H PRN PO 09/11/17 17:15 (Duoneb Neb) 1 ampule Q6HR NEB INH 09/11/17 22:00 09/14/17 16:34 (Duoneb Neb) 1 ampule Q2HR NEB PRN INH 09/11/17 17:15 Miscellaneous Information 1 Q361D XX 09/11/17 17:15 09/11/17 17:15 (Chlorhexidine 2% Cloth) 3 pack Taper DAILY@04 TOP 09/12/17 04:00 09/08/18 03:59 09/13/17 21:58 (Chlorhexidine 2% Cloth) 3 pack UNSCH PRN TOP 09/11/17 17:15 (Yamilex-Colace) 1 tab BID PO 09/11/17 21:00 09/14/17 08:32 (Milk Of Magnesia Liq) 30 ml Q12H PRN PO 09/11/17 17:15 (Senokot) 17.2 mg Q12H PRN PO 09/11/17 17:15 (Dulcolax Supp) 10 mg DAILY PRN RECTAL 09/11/17 17:15 (Lactulose Liq) 30 ml DAILY PRN PO 09/11/17 17:15 Fentanyl Citrate 250 ml @ 5 mls/hr TITRATE PRN IV 09/11/17 17:30 09/14/17 02:07 (Brethine Inj) 1 mg UNSCH PRN SQ 09/11/17 17:30 Pharmacy Profile Note 0 ml @ 0 mls/hr UNSCH OTHER 09/11/17 17:30 Miscellaneous Information 1 Q361D XX 09/11/17 17:30 09/11/17 17:30 (Peridex 0.12% Liq) 15 ml BID@08,20 MT 09/11/17 20:00 09/14/17 08:31 Miscellaneous Information 1 Q361D XX 09/11/17 17:45 09/11/17 17:45 Phenylephrine HCl 160 mg/Dextrose 500 ml @ 7.5 mls/hr TITRATE PRN IV 09/12/17 01:30 09/14/17 13:20 Dopamine HCl/ Dextrose 500 ml @ 8.182 mls/ hr TITRATE PRN IV 09/12/17 01:30 09/12/17 01:35 (Ecotrin Ec) 81 mg DAILY PO 09/12/17 10:00 09/14/17 08:33 (Lipitor) 40 mg DAILY PO 09/12/17 10:00 09/14/17 08:32 Midazolam HCl 100 ml @ 2 mls/hr TITRATE PRN IV 09/12/17 11:15 09/14/17 02:08 (Levemir Inj) 5 units DAILY SQ 09/13/17 10:00 09/13/17 10:00 (D50w (Vial) Inj) 50 ml UNSCH PRN IV PUSH 09/13/17 09:45 (Glucagon Inj) 1 mg UNSCH PRN OTHER 09/13/17 09:45 (NovoLOG SUPPLEMENTAL SCALE) 1 Q4HR SQ 09/13/17 16:00 09/14/17 11:06 Cefepime HCl 1000 mg/Sodium Chloride 100 ml @ 200 mls/hr Q24H IV 09/15/17 03:00 Sodium Bicarbonate 75 meq/Sodium Chloride 1,075 ml @ 1,000 mls/hr Q1H5M IV 09/14/17 16:15 Sodium Chloride 1,000 ml @ 0 mls/hr UNSCH PRN OTHER 09/14/17 16:15 (KCl 40 Meq Premix Inj) 2 meq WITH DIALYSIS PRN .XX 09/14/17 16:15 Norepinephrine Bitartrate 250 ml @ 18.75 mls/ hr TITRATE PRN IV 09/14/17 16:30 09/14/17 16:31 Lines Central line [place] IABP Desouza cath Past Medical History Aortic valve mechanical on Coumadin, for bicuspid Insulin-dependent diabetes on insulin pump Coronary artery disease Hyperlipidemia Hypertension Neuropathy Past Surgical History Appendectomy Coronary artery bypass graft Aortic valve replacement Lump removed Allergies: Coded Allergies: No Known Allergies (Verified , 09/11/17) Objective . Vital Signs Date Time Temp Pulse Resp B/P (MAP) Pulse Ox O2 Delivery O2 Flow Rate FiO2 09/14/17 17:00 109/36 (71) 09/14/17 16:35 89 100 09/14/17 16:31 96 90/45 09/14/17 16:30 98.8 96 0 92/46 (61) 89 09/14/17 16:00 102 09/14/17 16:00 100 09/14/17 16:00 99.0 96 0 107/55 (72) 86 102/51 (68) 09/14/17 15:30 99.1 96 0 93/49 (64) 86 09/14/17 15:00 108/37 (73) 09/14/17 15:00 99.1 97 9 100/53 (69) 85 86/45 (59) 09/14/17 14:30 99.1 98 0 85/47 (60) 82 09/14/17 14:00 105 09/14/17 14:00 99.1 101 81/52 (62) 88 92/48 (63) 09/14/17 13:39 100/48 09/14/17 13:30 99.1 100 0 93/50 (64) 87 09/14/17 13:20 92 83/45 09/14/17 13:17 78/43 09/14/17 13:00 99.1 92 0 91/57 (68) 89 81/43 (56) 09/14/17 13:00 91/37 (63) 09/14/17 12:30 99.0 92 0 82/45 (57) 90 09/14/17 12:20 92 83/41 09/14/17 12:14 90 100 09/14/17 12:00 99.3 92 0 87/57 (67) 90 87/46 (60) 09/14/17 12:00 93 09/14/17 12:00 95/38 (68) 09/14/17 12:00 100 09/14/17 11:30 99.3 92 0 82/45 (57) 91 09/14/17 11:00 99.5 91 0 87/59 (68) 91 81/43 (56) 09/14/17 11:00 96/38 (66) 09/14/17 10:30 99.5 93 0 82/44 (57) 90 09/14/17 10:00 95/37 (65) 09/14/17 10:00 99.5 93 0 88/58 (68) 90 86/44 (58) 09/14/17 10:00 93 09/14/17 09:40 100 09/14/17 09:30 99.7 95 0 87/46 (60) 90 09/14/17 09:00 99.7 93 0 88/65 (73) 91 89/46 (60) 09/14/17 09:00 103/37 (69) 09/14/17 08:48 100/36 (61) 09/14/17 08:47 92 95 09/14/17 08:30 99.7 93 0 84/43 (57) 92 09/14/17 08:00 93 09/14/17 08:00 99.7 93 0 84/53 (63) 91 86/44 (58) 09/14/17 08:00 95 09/14/17 07:41 93 80/42 09/14/17 07:30 99.7 94 0 83/43 (56) 90 09/14/17 07:30 94 80/41 09/14/17 07:00 99.7 95 0 85/55 (65) 91 86/44 (58) 09/14/17 06:30 99.7 95 0 85/43 (57) 90 09/14/17 06:00 97/36 (66) 09/14/17 06:00 99.7 96 0 90/52 (65) 90 88/44 (59) 09/14/17 06:00 96 09/14/17 05:30 99.7 96 0 85/44 (58) 90 09/14/17 05:00 98/39 (67) 09/14/17 05:00 96 92/57 (69) 91/48 (62) 09/14/17 05:00 99.7 96 0 92/57 (69) 90 89/45 (60) 09/14/17 04:30 99.7 97 0 90/46 (61) 91 09/14/17 04:00 99.9 97 0 95/72 (80) 91 92/47 (62) 09/14/17 04:00 101/40 (71) 09/14/17 04:00 97 09/14/17 04:00 90 09/14/17 03:20 91 90 09/14/17 03:00 104/40 (75) 09/14/17 02:09 97 94/48 09/14/17 02:00 102/40 (72) 09/14/17 02:00 97 09/14/17 01:00 100/40 (71) 09/14/17 00:30 92 90 09/14/17 00:00 99/41 (73) 09/14/17 00:00 90 09/14/17 00:00 96 09/14/17 00:00 100.0 96 24 93/56 (68) 93 94/49 (64) 09/13/17 23:00 98/41 (67) 09/13/17 22:00 96 09/13/17 22:00 99/42 (67) 09/13/17 21:48 95 90 09/13/17 21:00 96/41 (67) 09/13/17 20:07 95 90 09/13/17 20:00 93 09/13/17 20:00 90 09/13/17 20:00 95/40 (67) 09/13/17 20:00 99.7 93 5 94/56 (69) 96 92/47 (62) 09/13/17 19:48 93 91/50 09/13/17 19:47 93 91/44 09/13/17 19:16 92/39 (67) 09/13/17 18:00 91 09/13/17 18:00 90/39 (67) 09/13/17 18:00 99.0 91 7 90/62 (71) 95 87/45 (59) 09/13/17 18:00 91 90/62 (71) 87/45 (59) 09/14/17 09/14/1717 15:00 23:00 07:00 Intake Total 2883.5 ml 22 ml Output Total 10 ml 1 ml Balance 2873.5 ml 21 ml IV Total 2883.5 ml 22 ml Output Urine Total 10 ml 1 ml . Laboratory Tests Test 09/13/17 03:39 09/14/17 05:00 White Blood Count 17.5 TH/MM3 17.8 TH/MM3 Red Blood Count 3.17 MIL/MM3 3.11 MIL/MM3 Hemoglobin 9.6 GM/DL 9.5 GM/DL Hematocrit 29.2 % 29.2 % Mean Corpuscular Volume 92.1 FL 93.8 FL Mean Corpuscular Hemoglobin 30.4 PG 30.4 PG Mean Corpuscular Hemoglobin Concent 33.0 % 32.4 % Red Cell Distribution Width 14.4 % 14.5 % Platelet Count 235 TH/MM3 216 TH/MM3 Mean Platelet Volume 8.9 FL 9.2 FL Neutrophils (%) (Auto) 85.7 % 92.2 % Lymphocytes (%) (Auto) 7.0 % 2.4 % Monocytes (%) (Auto) 6.4 % 5.3 % Eosinophils (%) (Auto) 0.6 % 0.0 % Basophils (%) (Auto) 0.3 % 0.1 % Neutrophils # (Auto) 15.0 TH/MM3 16.4 TH/MM3 Lymphocytes # (Auto) 1.2 TH/MM3 0.4 TH/MM3 Monocytes # (Auto) 1.1 TH/MM3 0.9 TH/MM3 Eosinophils # (Auto) 0.1 TH/MM3 0.0 TH/MM3 Basophils # (Auto) 0.0 TH/MM3 0.0 TH/MM3 CBC Comment DIFF FINAL AUTO DIFF Differential Comment FINAL DIFF MANUAL Differential Total Cells Counted 100 Neutrophils % (Manual) 75 % Band Neutrophils % 15 % Lymphocytes % 2 % Monocytes % 4 % Neutrophils # (Manual) 16.7 TH/MM3 Metamyelocytes 2 % Myelocytes 2 % Nucleated Red Blood Cells 2 /100 WBC Platelet Estimate NORMAL Platelet Morphology Comment NORMAL Acanthocytes 1+ Laboratory Tests Test 09/12/17 18:33 09/12/17 20:35 09/13/17 03:39 09/14/17 05:00 Blood Urea Nitrogen 78 MG/DL 78 MG/DL 80 MG/DL Creatinine 3.46 MG/DL 3.73 MG/DL 5.02 MG/DL Random Glucose 231 MG/DL 186 MG/DL 90 MG/DL 121 MG/DL Total Protein 5.7 GM/DL 5.7 GM/DL 5.5 GM/DL 5.4 GM/DL Albumin 2.6 GM/DL 2.5 GM/DL 2.2 GM/DL 2.0 GM/DL Calcium Level 6.4 MG/DL 6.1 MG/DL 6.7 MG/DL Phosphorus Level 3.6 MG/DL 3.6 MG/DL 5.6 MG/DL Magnesium Level 1.9 MG/DL 1.8 MG/DL 1.8 MG/DL Alkaline Phosphatase 88 U/L 88 U/L 90 U/L 106 U/L Aspartate Amino Transf (AST/SGOT) 894 U/L 856 U/L 705 U/L 1157 U/L Alanine Aminotransferase (ALT/SGPT) 577 U/L 574 U/L 544 U/L 872 U/L Total Bilirubin 0.9 MG/DL 0.9 MG/DL 0.8 MG/DL 0.9 MG/DL Sodium Level 138 MEQ/L 138 MEQ/L 134 MEQ/L Potassium Level 3.5 MEQ/L 4.0 MEQ/L 5.8 MEQ/L Chloride Level 107 MEQ/L 106 MEQ/L 104 MEQ/L Carbon Dioxide Level 20.8 MEQ/L 20.1 MEQ/L 18.7 MEQ/L Anion Gap 10 MEQ/L 12 MEQ/L 11 MEQ/L Estimat Glomerular Filtration Rate 17 ML/MIN 16 ML/MIN 11 ML/MIN Protein Corrected Calcium 7.1 MG/DL 6.8 MG/DL 7.5 MG/DL Direct Bilirubin 0.7 MG/DL Indirect Bilirubin 0.2 MG/DL Total Creatine Kinase 1453 U/L Creatine Kinase MB 28.7 NG/ML Microbiology Date/Time Source Procedure Growth Status 09/11/17 18:47 Blood Peripheral Aerobic Blood Culture - Preliminary NO GROWTH IN 3 DAYS Resulted 09/11/17 18:47 Blood Peripheral Anaerobic Blood Culture - Preliminary NO GROWTH IN 3 DAYS Resulted 09/11/17 18:47 Blood Peripheral Aerobic Blood Culture - Preliminary NO GROWTH IN 3 DAYS Resulted 09/11/17 18:47 Blood Peripheral Anaerobic Blood Culture - Preliminary NO GROWTH IN 3 DAYS Resulted 09/12/17 12:30 Sputum Endotracheal Gram Stain - Final Complete 09/12/17 12:30 Sputum Endotracheal Sputum Culture - Final HEAVY GROWTH NORMAL RESPIRATORY JUDIE Complete 09/12/17 23:39 Urine Catheterized Urine Legionella Antigen - Final PRESUMPTIVE NEGATIVE FOR LEGIONELLA P... Complete 09/12/17 23:39 Urine Catheterized Urine Streptococcus pneumoniae Antigen (M - Final PRESUMPTIVE NEGATIVE FOR STREPTOCOCCU... Complete 09/11/17 19:00 Wound Foot Gram Stain - Final Complete 09/11/17 19:00 Wound Culture - Final Pseudo Fluorescens/[place] Pseudomonas Oryzihabitans Complete Imaging Chest X-Ray 09/14/17 0600 Signed Impressions: Service Date/Time: Thursday, September 14, 2017 04:35 - CONCLUSION: 1. Cardiomegaly with bibasilar densities and probable small pleural effusions. 2. Bilateral airspace disease either layering pleural effusions or pulmonary edema. Suman Duron MD Chest X-Ray 09/14/17 0000 Signed Impressions: Service Date/Time: Thursday, September 14, 2017 14:55 - CONCLUSION: Left-sided central appears to be in place. No pneumothorax. Chico Chappell MD Chest X-Ray 09/13/17 0000 Signed Impressions: Service Date/Time: August 12:44 - CONCLUSION: 1. Stable tubes and lines, as above. 2. Cardiomegaly with positive fluid balance. 3. Slightly worsening small to moderate bilateral pleural effusions and associated lower lobe airspace disease, presumably compressive atelectasis. Magdi Vergara MD Last Impressions Chest X-Ray 09/13/17 0000 Signed Impressions: Service Date/Time: August 12:44 - CONCLUSION: 1. Stable tubes and lines, as above. 2. Cardiomegaly with positive fluid balance. 3. Slightly worsening small to moderate bilateral pleural effusions and associated lower lobe airspace disease, presumably compressive atelectasis. Magdi Vergara MD Renal Ultrasound 09/12/17 0000 Signed Impressions: Service Date/Time: Tuesday, September 12, 2017 12:10 - CONCLUSION: 1. No hydronephrosis. 2. 6 mm nonobstructing right renal stone. 3. Urinary bladder decompressed and not well evaluated. 4. Small volume ascites. Devaughn Chiu Jr., MD Physical Exam GENERAL: sedated on the vent, not in respiratory distress. Looking more edematous SKIN: Warm and dry. No generalized rash, no ecchymoses and no evidence of embolic lesions. HEAD: Atraumatic. Normocephalic. No temporal wasting, or tenderness. EYES: [place] conjunctiva. No petechia or hemorrhage. Pupils equal, round and reactive to light. No scleral icterus. No injection or drainage. EARS, NOSE AND THROAT: Nose without bleeding or purulent nasal discharge. Edentulous, he is orally intubared, moist mucosa. NECK: Trachea midline. Supple and not tender, no meningeal signs. RIJ line with no evidence of infection CARDIOVASCULAR: Regular rate and rhythm, could hear the IABP. RESPIRATORY: Bilateral wheezing ABDOMEN: Distended, bowel sounds present and hypoactive. No reaction to palpation, tympanitic on percussion. No organomegaly. R groin IABP in place with dry intact dressing EXTREMITIES: No clubbing, cyanosis. increasing edema. There is a dime size clean hypertrophic ulcer over the first MT R, with no surrounding erythema, ,no edema, no purulence. Cool L foot, R warm, no mottling. NEUROLOGICAL: Sedated. PSYCHIATRIC: Unable to assess LINE: Lines with no evidence of infection : Desouza in place, urine looks clear. Scrotum very edematous Assessment & Plan Remarks IMPRESSION Shock, cardiogenic shock, S/P [place] - S/P intervention, low EF - has IABP 1:1 ?sepsis, has bilateral pulmonary infiltrates which clinically on presentation looks more of pulmonary edema than PNA Respiratory failure Renal failure due to shock R foot ulcer, currently does not look infected - (+) wound culture C/W contamination DM Leukocytosis, slightly lower Elevated LFT, due to shock RECOMMENDATION Follow C/S Continue Cefepime Vanco dose today Check vanco level in AM Wound care to the Foot ulcer Monitor progress D/W Loreta Cottrell MD Sep 14, 2017 17:21
[2017-09-14] MEDS ORDERED: VANCOMYCIN INJ 1,000 MG in SODIUM CHLOR 0.9% 250 ML INJ 250 ML IV ONE (17:30)
--- NOTE | 2017-09-14 19:29 | PD.CONS ---
History of Present Illness Service Podiatry Consult Requested By Reason for Consult R foot ulcer Primary Care Physician Rosa Riggs MD Diagnoses: History of Present Illness Patient has been under my care for ulceration R medial foot. He originally presented with ulceration/blister medial/plantar R foot 08/09/17. Culture results in plan for ID reference and timeline/prescribed antibiotics, etc. MRI negative for abscess/osteo 08/29/17. Last clinic visit was 09/06 and was scheduled to follow up again 09/13, but unable due to hospitalization. Was having increased clear watery drainage from wound and severe maceration to wound area at last follow up 09/06/17 and had been having betadine wet to dry dressings daily to R foot in attempt to dry out the surrounding skin. Past Family Social History Allergies: Coded Allergies: No Known Allergies (Verified , 09/11/17) Past Medical History Aortic valve mechanical on Coumadin, for bicuspid Insulin-dependent diabetes on insulin pump Coronary artery disease Hyperlipidemia Hypertension Neuropathy Past Surgical History Appendectomy Coronary artery bypass graft Aortic valve replacement Lump removed Active Ordered Medications Current Medications Medications (Trade) Dose Ordered Sig/Kandice Route Start Time Stop Time Status Last Admin (Xylocaine 2% Jelly) 1 applic UNSCH PRN TOP 09/11/17 16:00 (Morphine Inj) 2 mg Q30M PRN IV PUSH 09/11/17 16:00 (Plavix) 75 mg DAILY PO 09/12/17 09:00 09/14/17 08:32 (Atropine Inj) 0.5 mg UNSCH PRN IV PUSH 09/11/17 16:00 (Reglan Inj) 10 mg Q4H PRN IV PUSH 09/11/17 16:00 (Zofran Inj) 4 mg Q4H PRN IV PUSH 09/11/17 16:00 Heparin Sodium/ Dextrose 250 ml @ 9 mls/hr TITRATE PRN IV 09/11/17 16:00 09/12/17 22:56 (NS Flush) 2 ml UNSCH PRN IV FLUSH 09/11/17 17:15 (NS Flush) 2 ml BID IV FLUSH 09/11/17 21:00 09/14/17 08:32 (Tylenol) 650 mg Q6H PRN PO 09/11/17 17:15 (Duoneb Neb) 1 ampule Q6HR NEB INH 09/11/17 22:00 09/14/17 16:34 (Duoneb Neb) 1 ampule Q2HR NEB PRN INH 09/11/17 17:15 Miscellaneous Information 1 Q361D XX 09/11/17 17:15 09/11/17 17:15 (Chlorhexidine 2% Cloth) 3 pack Taper DAILY@04 TOP 09/12/17 04:00 09/08/18 03:59 09/13/17 21:58 (Chlorhexidine 2% Cloth) 3 pack UNSCH PRN TOP 09/11/17 17:15 (Yamilex-Colace) 1 tab BID PO 09/11/17 21:00 09/14/17 08:32 (Milk Of Magnesia Liq) 30 ml Q12H PRN PO 09/11/17 17:15 (Senokot) 17.2 mg Q12H PRN PO 09/11/17 17:15 (Dulcolax Supp) 10 mg DAILY PRN RECTAL 09/11/17 17:15 (Lactulose Liq) 30 ml DAILY PRN PO 09/11/17 17:15 Fentanyl Citrate 250 ml @ 5 mls/hr TITRATE PRN IV 09/11/17 17:30 09/14/17 02:07 (Brethine Inj) 1 mg UNSCH PRN SQ 09/11/17 17:30 Pharmacy Profile Note 0 ml @ 0 mls/hr UNSCH OTHER 09/11/17 17:30 Miscellaneous Information 1 Q361D XX 09/11/17 17:30 09/11/17 17:30 (Peridex 0.12% Liq) 15 ml BID@08,20 MT 09/11/17 20:00 09/14/17 08:31 Miscellaneous Information 1 Q361D XX 09/11/17 17:45 09/11/17 17:45 Phenylephrine HCl 160 mg/Dextrose 500 ml @ 7.5 mls/hr TITRATE PRN IV 09/12/17 01:30 09/14/17 18:17 Dopamine HCl/ Dextrose 500 ml @ 8.182 mls/ hr TITRATE PRN IV 09/12/17 01:30 09/12/17 01:35 (Ecotrin Ec) 81 mg DAILY PO 09/12/17 10:00 09/14/17 08:33 (Lipitor) 40 mg DAILY PO 09/12/17 10:00 09/14/17 08:32 Midazolam HCl 100 ml @ 2 mls/hr TITRATE PRN IV 09/12/17 11:15 09/14/17 02:08 (Levemir Inj) 5 units DAILY SQ 09/13/17 10:00 09/13/17 10:00 (D50w (Vial) Inj) 50 ml UNSCH PRN IV PUSH 09/13/17 09:45 (Glucagon Inj) 1 mg UNSCH PRN OTHER 09/13/17 09:45 (NovoLOG SUPPLEMENTAL SCALE) 1 Q4HR SQ 09/13/17 16:00 09/14/17 11:06 Cefepime HCl 1000 mg/Sodium Chloride 100 ml @ 200 mls/hr Q24H IV 09/15/17 03:00 Sodium Bicarbonate 75 meq/Sodium Chloride 1,075 ml @ 1,000 mls/hr Q1H5M IV 09/14/17 16:15 09/14/17 19:04 Sodium Chloride 1,000 ml @ 0 mls/hr UNSCH PRN OTHER 09/14/17 16:15 (KCl 40 Meq Premix Inj) 2 meq WITH DIALYSIS PRN .XX 09/14/17 16:15 Norepinephrine Bitartrate 250 ml @ 18.75 mls/ hr TITRATE PRN IV 09/14/17 16:30 09/14/17 16:31 Social History Denies x 3 Physical Exam Vital Signs Vital Signs Date Time Temp Pulse Resp B/P (MAP) Pulse Ox O2 Delivery O2 Flow Rate FiO2 09/14/17 19:00 107/37 (70) 09/14/17 18:17 96 93/43 09/14/17 18:00 96 09/14/17 18:00 113/38 (73) 09/14/17 17:37 103/38 09/14/17 17:00 109/36 (71) 09/14/17 16:35 89 100 09/14/17 16:31 96 90/45 09/14/17 16:30 98.8 96 0 92/46 (61) 89 09/14/17 16:00 102 09/14/17 16:00 100 09/14/17 16:00 99.0 96 0 107/55 (72) 86 102/51 (68) 09/14/17 15:30 99.1 96 0 93/49 (64) 86 09/14/17 15:00 108/37 (73) 09/14/17 15:00 99.1 97 9 100/53 (69) 85 86/45 (59) 09/14/17 14:30 99.1 98 0 85/47 (60) 82 09/14/17 14:00 105 09/14/17 14:00 99.1 101 81/52 (62) 88 92/48 (63) 09/14/17 13:39 100/48 09/14/17 13:30 99.1 100 0 93/50 (64) 87 09/14/17 13:20 92 83/45 09/14/17 13:17 78/43 09/14/17 13:00 99.1 92 0 91/57 (68) 89 81/43 (56) 09/14/17 13:00 91/37 (63) 09/14/17 12:30 99.0 92 0 82/45 (57) 90 09/14/17 12:20 92 83/41 09/14/17 12:14 90 100 09/14/17 12:00 99.3 92 0 87/57 (67) 90 87/46 (60) 09/14/17 12:00 93 09/14/17 12:00 95/38 (68) 09/14/17 12:00 100 09/14/17 11:30 99.3 92 0 82/45 (57) 91 09/14/17 11:00 99.5 91 0 87/59 (68) 91 81/43 (56) 09/14/17 11:00 96/38 (66) 09/14/17 10:30 99.5 93 0 82/44 (57) 90 09/14/17 10:00 95/37 (65) 09/14/17 10:00 99.5 93 0 88/58 (68) 90 86/44 (58) 09/14/17 10:00 93 09/14/17 09:40 100 09/14/17 09:30 99.7 95 0 87/46 (60) 90 09/14/17 09:00 99.7 93 0 88/65 (73) 91 89/46 (60) 09/14/17 09:00 103/37 (69) 09/14/17 08:48 100/36 (61) 09/14/17 08:47 92 95 09/14/17 08:30 99.7 93 0 84/43 (57) 92 09/14/17 08:00 93 09/14/17 08:00 99.7 93 0 84/53 (63) 91 86/44 (58) 09/14/17 08:00 95 09/14/17 07:41 93 80/42 09/14/17 07:30 99.7 94 0 83/43 (56) 90 09/14/17 07:30 94 80/41 09/14/17 07:00 99.7 95 0 85/55 (65) 91 86/44 (58) 09/14/17 06:30 99.7 95 0 85/43 (57) 90 09/14/17 06:00 97/36 (66) 09/14/17 06:00 99.7 96 0 90/52 (65) 90 88/44 (59) 09/14/17 06:00 96 09/14/17 05:30 99.7 96 0 85/44 (58) 90 09/14/17 05:00 98/39 (67) 09/14/17 05:00 96 92/57 (69) 91/48 (62) 09/14/17 05:00 99.7 96 0 92/57 (69) 90 89/45 (60) 09/14/17 04:30 99.7 97 0 90/46 (61) 91 09/14/17 04:00 99.9 97 0 95/72 (80) 91 92/47 (62) 09/14/17 04:00 101/40 (71) 09/14/17 04:00 97 09/14/17 04:00 90 09/14/17 03:20 91 90 09/14/17 03:00 104/40 (75) 09/14/17 02:09 97 94/48 09/14/17 02:00 102/40 (72) 09/14/17 02:00 97 09/14/17 01:00 100/40 (71) 09/14/17 00:30 92 90 09/14/17 00:00 99/41 (73) 09/14/17 00:00 90 09/14/17 00:00 96 09/14/17 00:00 100.0 96 24 93/56 (68) 93 94/49 (64) 09/13/17 23:00 98/41 (67) 09/13/17 22:00 96 09/13/17 22:00 99/42 (67) 09/13/17 21:48 95 90 09/13/17 21:00 96/41 (67) 09/13/17 20:07 95 90 09/13/17 20:00 93 09/13/17 20:00 90 09/13/17 20:00 95/40 (67) 09/13/17 20:00 99.7 93 5 94/56 (69) 96 92/47 (62) 09/13/17 19:48 93 91/50 09/13/17 19:47 93 91/44 Laboratory Laboratory Tests Test 09/14/17 05:00 09/14/17 05:09 09/14/17 06:11 09/14/17 10:59 White Blood Count 17.8 Red Blood Count 3.11 Hemoglobin 9.5 Hematocrit 29.2 Mean Corpuscular Volume 93.8 Mean Corpuscular Hemoglobin 30.4 Mean Corpuscular Hemoglobin Concent 32.4 Red Cell Distribution Width 14.5 Platelet Count 216 Mean Platelet Volume 9.2 Neutrophils (%) (Auto) 92.2 Lymphocytes (%) (Auto) 2.4 Monocytes (%) (Auto) 5.3 Eosinophils (%) (Auto) 0.0 Basophils (%) (Auto) 0.1 Neutrophils # (Auto) 16.4 Lymphocytes # (Auto) 0.4 Monocytes # (Auto) 0.9 Eosinophils # (Auto) 0.0 Basophils # (Auto) 0.0 CBC Comment AUTO DIFF Differential Total Cells Counted 100 Neutrophils % (Manual) 75 Band Neutrophils % 15 Lymphocytes % 2 Monocytes % 4 Neutrophils # (Manual) 16.7 Metamyelocytes 2 Myelocytes 2 Nucleated Red Blood Cells 2 Differential Comment FINAL DIFF MANUAL Platelet Estimate NORMAL Platelet Morphology Comment NORMAL Acanthocytes 1+ Blood Urea Nitrogen 80 Creatinine 5.02 Random Glucose 121 Total Protein 5.4 Albumin 2.0 Calcium Level 6.7 Phosphorus Level 5.6 Magnesium Level 1.8 Alkaline Phosphatase 106 Aspartate Amino Transf (AST/SGOT) 1157 Alanine Aminotransferase (ALT/SGPT) 872 Total Bilirubin 0.9 Sodium Level 134 Potassium Level 5.8 Chloride Level 104 Carbon Dioxide Level 18.7 Anion Gap 11 Estimat Glomerular Filtration Rate 11 Protein Corrected Calcium 7.5 Blood Gas Puncture Site CENTRAL LINE Blood Gas Patient Temperature 98.6 Venous Blood pH 7.16 Venous Blood Partial Pressure CO2 50 Venous Blood Partial Pressure O2 43 Venous Blood HCO3 17 Venous Blood Oxygen Saturation 70 Venous Blood Oxygen Content 9.6 Venous Blood Base Excess -10.0 Oxygen Delivery Device VENTILATOR Blood Gas Ventilator Setting PRVC/AC Blood Gas Inspired Oxygen 90 Activated Partial Thromboplast Time 87.0 107.4 Test 09/14/17 15:00 09/14/17 15:15 09/14/17 17:05 Blood Gas Puncture Site ART LINE ART LINE Blood Gas Patient Temperature 98.6 98.6 Blood Gas HCO3 17 17 Blood Gas Base Excess -10.4 -9.6 Blood Gas Oxygen Saturation 83 89 Arterial Blood pH 7.16 7.21 Arterial Blood Partial Pressure CO2 50 43 Arterial Blood Partial Pressure O2 58 72 Arterial Blood Oxygen Content 10.8 11.3 Arterial Blood Carboxyhemoglobin 0.9 1.1 Arterial Blood Methemoglobin 1.7 1.6 Blood Gas Hemoglobin 9.2 9.0 Oxygen Delivery Device VENTILATOR VENTILATOR Blood Gas Ventilator Setting PRVC/AC PRVC /AC Blood Gas Inspired Oxygen 100 100 Activated Partial Thromboplast Time 67.5 Date/Time Source Procedure Growth Status 09/11/17 18:47 Blood Peripheral Aerobic Blood Culture - Preliminary NO GROWTH IN 3 DAYS Resulted 09/11/17 18:47 Blood Peripheral Anaerobic Blood Culture - Preliminary NO GROWTH IN 3 DAYS Resulted 09/12/17 12:30 Sputum Endotracheal Gram Stain - Final Complete 09/12/17 12:30 Sputum Endotracheal Sputum Culture - Final HEAVY GROWTH NORMAL RESPIRATORY JUDIE Complete 09/12/17 23:39 Urine Catheterized Urine Legionella Antigen - Final PRESUMPTIVE NEGATIVE FOR LEGIONELLA P... Complete 09/12/17 23:39 Urine Catheterized Urine Streptococcus pneumoniae Antigen (M - Final PRESUMPTIVE NEGATIVE FOR STREPTOCOCCU... Complete 09/11/17 19:00 Wound Foot Gram Stain - Final Complete 09/11/17 19:00 Wound Culture - Final Pseudo Fluorescens/Putida Pseudomonas Oryzihabitans Complete Result Diagram: 09/14/17 0500 09/14/17 0500 Assessment and Plan Assessment and Plan Ulcer R medial foot Dressing change orders to be put in The following was obtained from clinic records for ID reference For ID: 08/09 culture: Klebsiella oxytoca, ampicillin and cephazolin resistant, susceptible to amox/ clav,cefepime, ceftriaxone,cefuroxime,cipro Staph aureus, oxacillin susceptible Keflex originally prescribed when presented with wound on 08/09/17 when culture taken. Both susceptible to bactrim, which is what was prescribed x 10 days at follow up August and wound improved significantly at next follow up. MRI 08/29/17 Radiology associates No abscess and no sign of osteomyelitis Last follow up in clinic 09/06/17 wound with maceration, but stable appearance. put in for vascular referral due to slow healing Nava Hartmann DPM Sep 14, 2017 19:28
[2017-09-14 19:44] LABS: BLOOD GAS BASE EXCESS -7.2 mmol/L (-2-2); BLOOD GAS CARBOXYHEMOGLOBIN 0.9 % (0-4); BLOOD GAS HCO3 19 mmol/L (22-26); BLOOD GAS METHEMOGLOBIN 1.7 % (0-2); BLOOD GAS O2 HGB SATURATION 87 % (90-100); BLOOD GAS OXYGEN CONTENT 11.3 Vol % (12.0-20.0); BLOOD GAS PCO2 50 mmHg (38-42); BLOOD GAS PO2 67 mmHg (61-120); BLOOD GAS TOTAL HGB 9.1 G/DL (12.0-16.0); CRITICAL VALUE YES; DRAW SITE ART LINE; FIO2 100 %; OXYGEN DEVICE VENTILATOR; STAT NO; TEMP CORR TO 98.6; VENT SETTINGS PRVC/AC
--- NOTE | 2017-09-14 19:47 | HHI.CCPN ---
Subjective Remarks/Hospital Course This is a 71-year-old male with history of hypertension, valve replacement currently on Coumadin, diabetes with an insulin pump, previous CVA, that presented to the ED, with symptoms of malaise nausea and vomiting with dyspnea. EKG was done which show significant ST depressions, stroke alert had been initiated. The patient was diaphoretic, EKG shows deep ST depressions in the inferior leads and lateral leads. Dr. Chi, patient's handmade tile artist was notified , a STEMI alert was initiated . The patient underwent cardiac catheterization lab for further evaluation. In the ED laboratory findings glucose of 500, pH of 7.19, potassium of 6.8, creatinine of 2.9, lactate level of 10. At this point, concern for acute renal failure, possible hyperkalemia, DKA. The patient has a medical history significant for aortic valve replacement , mechanical, and a two-vessel bypass and a recent foot infection. A bedside echo was performed by Dr. chi showing an ejection fraction of 35-40% with moderate TR. The patient underwent 2 stents to the RCA and cardiac catheterization the patient was noted to become significantly hypotensive with a systolic blood pressure in the 70s-80s, and intra-aortic balloon pump was placed. The patient was transferred to the ICU, critical care medicine was consulted. Upon arrival to the ICU,the patient was noted to be in agonal respirations, O2 saturation 70's, sinus bradycardia heart rate in the 40s, with systolic blood pressure in 60's, cold with weak pulses. The patient was emergently intubated, fluid boluses initiated, phenylephrine was initiated. ABG upon presentation to ICU, immediately postintubation-pH 6.86 PCO2 60 PO2 255, [id number] with a base excess of -20.3. Subjective: 09/12: Overnight the patient's vasopressor support increased to 3 pressor agents. Bicarbonate level normalized sodium bicarbonate infusion discontinued. Formal echo pending. A chin continues on IABP 1:1. Wound culture gram- positive cocci patient empirically on vancomycin and cefepime will obtain infectious disease consult secondary to multiple antibiotics in the last several weeks, appreciate recommendations. Urine output minimal overnight, resolution of hyperkalemia. The patient continues to be hyperglycemic, continues on insulin infusion glucose levels decreased from 700-500 currently. GCS 11 T currently on fentanyl infusion, patient responding to commands, interacting yes and no questions with family at bedside. 09/13: Patient FiO2 weaned to 55%. Patient continues in acute nonoliguric renal failure monitored per nephrology. Still requiring 3 vasopressors for maintaining a MAP of 65mmHg. The patient has been has been transitioned off insulin drip, subcutaneous insulin. Glucose ranges 200. Sodium bicarbonate infusion reinitiated at 50 cc/an hour with resolution of DKA. 09/14: Patient continues still have increasing oxygen requirement, currently FiO2 90%, PEEP now increased to 12. Left IJ vas catheter placement this afternoon for initiation of CRRT. Palliative care consulted, after discussing with Dr. Chi. Objective Vital Signs Date Time Temp Pulse Resp B/P (MAP) Pulse Ox O2 Delivery O2 Flow Rate FiO2 09/14/17 19:00 107/37 (70) 09/14/17 18:17 96 09/14/17 16:35 89 100 09/14/17 16:30 98.8 0 09/11/17 15:10 Non-Rebreather 15.00 Intake and Output 09/14/17 09/14/17 09/15/17 08:00 16:00 00:00 Intake Total 2176.5 ml 707 ml 3598.3 ml Output Total 100 ml 10 ml 233 ml Balance 2076.5 ml 697 ml 3365.3 ml Result Diagram: 09/14/17 0500 09/14/17 0500 Other Results Microbiology Date/Time Source Procedure Growth Status 09/12/17 12:30 Sputum Endotracheal Gram Stain - Final Complete 09/12/17 12:30 Sputum Endotracheal Sputum Culture - Final HEAVY GROWTH NORMAL RESPIRATORY JUDIE Complete 09/12/17 23:39 Urine Catheterized Urine Legionella Antigen - Final PRESUMPTIVE NEGATIVE FOR LEGIONELLA P... Complete 09/12/17 23:39 Urine Catheterized Urine Streptococcus pneumoniae Antigen (M - Final PRESUMPTIVE NEGATIVE FOR STREPTOCOCCU... Complete Laboratory Tests Test 09/14/17 05:09 09/14/17 15:00 09/14/17 17:05 Blood Gas Puncture Site CENTRAL LINE ART LINE ART LINE Blood Gas Patient Temperature 98.6 98.6 98.6 Venous Blood pH 7.16 (7.360-7.400) Venous Blood Partial Pressure CO2 50 mmHg (44-48) Venous Blood Partial Pressure O2 43 mmHg (35-40) Venous Blood HCO3 17 mmol/L (22-26) Venous Blood Oxygen Saturation 70 % (70-76) Venous Blood Oxygen Content 9.6 Vol % (9.0-17.0) Venous Blood Base Excess -10.0 mmol/L (-2-2) Oxygen Delivery Device VENTILATOR VENTILATOR VENTILATOR Blood Gas Ventilator Setting PRVC/AC PRVC/AC PRVC /AC Blood Gas Inspired Oxygen 90 % 100 % 100 % Blood Gas HCO3 17 mmol/L (22-26) 17 mmol/L (22-26) Blood Gas Base Excess -10.4 mmol/L (-2-2) -9.6 mmol/L (-2-2) Blood Gas Oxygen Saturation 83 % (90-100) 89 % (90-100) Arterial Blood pH 7.16 (7.380-7.420) 7.21 (7.380-7.420) Arterial Blood Partial Pressure CO2 50 mmHg (38-42) 43 mmHg (38-42) Arterial Blood Partial Pressure O2 58 mmHg (61-120) 72 mmHg (61-120) Arterial Blood Oxygen Content 10.8 Vol % (12.0-20.0) 11.3 Vol % (12.0-20.0) Arterial Blood Carboxyhemoglobin 0.9 % (0-4) 1.1 % (0-4) Arterial Blood Methemoglobin 1.7 % (0-2) 1.6 % (0-2) Blood Gas Hemoglobin 9.2 G/DL (12.0-16.0) 9.0 G/DL (12.0-16.0) Imaging Last Impressions Chest X-Ray 09/11/17 1421 Signed Impressions: Service Date/Time: Monday, September 11, 2017 14:45 - CONCLUSION: Bilateral interstitial/alveolar infiltrate characteristic of pulmonary edema. Mild cardiomegaly. Status post aortic valve replacement. Norberto Mckinley MD Objective Remarks Infusions: Dopamine 1mcg/min Phenylephrine 400mcgs/min Vasopressin 0.04u/hr (currently being weaned off) Versed 3mg/hr BP 84/56 Pulse 84 O2 sat 97% on FIO2 55% GENERAL: Critically ill male intubated and sedated SKIN: Warm and dry HEAD: Atraumatic. Normocephalic. EYES: Pupils equal and round. No scleral icterus. No injection or drainage. Extraocular movement intact ENT: No nasal bleeding or discharge. Mucous membranes pink and moist. Orotracheally intubated NECK: Trachea midline. No JVD. CARDIOVASCULAR: Normal rate, regular rhythm. Telemetry sinus rhythm RESPIRATORY: Mechanical ventilation. Bilateral chest excursion. Scattered rhonchi on auscultation GASTROINTESTINAL: Abdomen soft, non-tender, nondistended. No guarding. MUSCULOSKELETAL: Extremities without clubbing, cyanosis, or edema. No obvious deformities. Right groin intra-aortic balloon pump. Pulses palpable. Right foot wound, purulent drainage IABP with 1-1, right femoral groin site soft, no erythema noted drainage NEUROLOGICAL: GCS 11 T. RASS -2. Movement of extremities 4 Procedures 09/11 IABP, 2 drug-eluting stents to RCA 09/12 echo Date of Insertion: Sep 11, 2017 Date of Insertion: Sep 11, 2017 Line: Central Venous Catheter Side: Right Location: Internal A/P Assessment and Plan Assessment This is a 71-year-old male with cardiogenic and concomitant septic shock in the setting of DKA with recent/current wound infection. Patient with acidosis, renal failure. Prognosis is guarded at this time. ASSESSMENT STEMI S/P PCI x 2 (RCA) History of two-vessel cardiac bypass with mechanical AVR Cardiogenic shock- with IABP support 1:1 Status post PCI (2) KENNEDY to RCA-09/11 DKA-resolved Septic shock Acute hypercapnic and hypoxemic respiratory failure Pulmonary edema Nonoliguric acute renal failure Hyperkalemia-resolved Right Foot infection History of CVA Multisystem organ dysfunction Transaminitis PLAN Neurologic: Versed and fentanyl infusions for ventilator synchrony Neurochecks per ICU protocol Daily sedation vacation and clinically applicable Tylenol 650 mg every 6 hours for temp greater than 101 Hold Neurontin at this time, patient's home medication GCS 11 T Respiratory: 09/11-intubated 8.0 ETT at 23cm Mechanical vent settings to maintain O2 saturation > 92% Ventilator bundle Bronchodilators every 6 hours scheduled, every 2 hours when necessary CPAP trials when clinically indicated FiO2 of 90% PEEP of 12, to obtain a PaO2 of 72, will repeat ABG at 12 midnight , if PaO2 less than 60 will initiate Flolan Cardiovascular: IABP 1:1 Phenylephrine, dopamine, norepinephrine infusion to maintain MAP > 60mmHg Heparin infusion per protocol, will eventually plan on transitioning to Coumadin Status post drug-eluting stents 2 to RCA-aspirin Plavix and statin management per cardiology Cardiology-Dr. Chi following Renal: Insert and maintain Desouza Neurology following- Dr. Bliss Sodium bicarbonate infusion at 50 cc/hour -- Strict I/Os FEN/GI: Sodium bicarbonate infusion discontinued 09/12 LFTs elevated-probable shock liver Monitor BMP Urine eosinophils-negative FeNa1.16 Renal ultrasound pending Maintain NPO status secondary to hemodynamic instability Zofran for nausea Bowel regimen Heme/ID: ID following-Dr. Mcknight-antibiotic management Follow-up blood, urine, and sputum cultures- NGTD Foot wound culture-positive cocci Endocrine: Insulin sliding scale -glucose ranges 200's insulin pump disconnected 09/11 -- SSI Prophylaxis: GI Prophylaxis Famotidine DVT Prophylaxis -- SCDs Heparin infusion Lines: Peripheral IVs, right femoral intra-aortic balloon pump Dispo: This patient remains critically ill with one or more organ systems which are or may become a threat to life. I have spent in excess of 45 minutes discontinuously in the care and management of this patient. This time is exclusive of procedures, and includes, but is not limited to, evaluation of the patient, review of the medical record, discussions with family, consultants, nursing staff, or respiratory therapy, and documentation in the medical record. The patient continues in multisystem organ failure. Palliative care has been consulted. I do not think the patient will survive this hospitalization. Prognosis is poor. Extensive discussion with family via Dr. chi and myself regarding the patient's medical status. Plan no follow-up with palliative medicine to determine patient's goals of care. Discussed with PANEL MACHINE TENDER (Tali), Dr. Chi and Mrs Malave and patient's children at bedside. All questions answered. Physician Flor Solo MD Sep 14, 2017 19:47
--- NOTE | 2017-09-14 19:51 | PD.PROCEDR ---
Central Line Procedure REASON FOR PROCEDURE Central venous access PROCEDURE PERFORMED Central line placement: Left internal jugular, vasc catheter CONSENT Informed consent for procedure was obtained from . The risks and benefits of the procedure were discussed to include but limited to bleeding, clot formation, infection, and even . ANESTHESIA Local injection of 1% Lidocaine DESCRIPTION OF THE PROCEDURE The patient was placed in supine, mild Trendelenburg position. The area was exposed and cleansed with ChloraPrep, times two. Large sterile drape was used to cover the patient, with the site exposed, under sterile conditions including cap, face mask, sterile gown, and sterile gloves. On single attempt, the introducer needle was inserted with negative pressure in syringe and venous flash was obtained. The guide wire was then advanced without any restriction and the needle was removed. The dilator was used without any complications. Using Seldinger technique the 11.5 catheter was advanced over the guide wire to a depth of 20 centimeters. The guide wire was removed. All ports were aspirated with dark venous blood return and flushed easily with sterile saline. All ports were capped. Antibiotic disc was placed around central line at puncture site. The central line was secured to the skin with two interrupted 2.0 silk sutures. The area was bandaged with sterile see-through central line bandage. RADIOLOGICAL DATA Ultrasound guidance was used to locate left IJ. Doppler/color flow was used to confirm venous flow. COMPLICATIONS: No apparent complications ESTIMATED BLOOD LOSS: Less than 1 cc. Flor Koch MD Sep 14, 2017 19:51
[2017-09-14] MEDS: EPOPROSTENOL NEB SOLUTION 40 NG/KG/MIN 100 ML NEB SCH ×2 (21:00)
[2017-09-14 22:54] LABS: APTT (PATIENT) 70.6 SEC (24.3-30.1)
[2017-09-15] VITALS (37 sets, daily range): BP systolic 79–128; BP diastolic 34–71; PULSE 97–112; RESP 0–24; TEMP 96.4–98.5; O2SAT 84–98
[2017-09-15] MEDS: MIDAZOLAM 100 MG/100 ML INJ 100 ML IV PRN ×2 (00:09→19:30)
[2017-09-15] MEDS: NOREPINEPHRINE 4 MG/D5W 250 ML IV PRN ×4 (00:24→18:03)
[2017-09-15] MEDS: PHENYLEPHRINE HCL 160 MG/D5W 484 ML ADMIX IV PRN ×8 (00:30→22:17)
[2017-09-15] MEDS: SODIUM BICARBONATE 8.4% INJ 75 MEQ in SODIUM CHLOR 0.45% 1000 ML INJ 1,000 ML IV SCH ×22 (00:39→23:31)
[2017-09-15] MEDS ORDERED: GELATIN 12 MM/7 MM FOAM ONE (01:04)
--- NOTE | 2017-09-15 03:05 | RADRPT ---
EXAM DATE/TIME: 09/15/2017 02:46 [place] COMPARISON: CHEST SINGLE AP, September 14, 2017, 14:55. INDICATIONS : Respiratory failure. MEDICAL HISTORY : Hypercholesterolemia. Hypertension Transient ischemic attack. Anticoagulant therapy, Coumadin. Diabet es. Insulin pump. Coronary artery SURGICAL HISTORY : Appendectomy. Valve replacement. CABG. Cardiac catheterization. Lumpremoved from right face/neck ENCOUNTER: Subsequent ACUITY: 4 - 6 days PAIN SCORE: Non-responsive. LOCATION: Bilateral chest FINDINGS: A single AP semierect portable view of the chest was obtained. The endotracheal tube remains in place with the tip approximately 4 cm above the dami. The nasogastric tube is again seen coursing throug h the esophagus and into the stomach. There is a left internal jugular central venous line in place a s well as a smaller right internal jugular central venous line. There is increased diffuse hazy opaci ty in both lungs. The patient is status post median sternotomy and is mildly rotated to the right. Th e heart size remains prominent. The costophrenic angles appear blunted. Numerous overlying electrocar diogram leads are present. CONCLUSION: 1. Interval increase in hazy opacity in both lungs most consistent with pulmonary edema. There are ap parent bilateral effusions and cardiomegaly most consistent with congestive heart failure. 2. The patient remains intubated. Francisco Ralph MD on September 15, 2017 at 3:02 Board Certified Radiologist. This report was verified electronically.
[2017-09-15] MEDS: RESP: ALBUTEROL 2.5 MG/IPRATROPIUM 0.5 MG NEB (SCH) INH ×4 (03:39→21:58)
[2017-09-15] MEDS: INSULIN ASPART SUPPLEMENTAL SCALE SQ SCH ×6 (04:00→20:00)
[2017-09-15] MEDS: CHLORHEXIDINE GLUCONATE 2 % 1 PACK (2 CLOTHS) TOP SCH (04:00)
[2017-09-15 04:16] LABS: HEMATOCRIT 27.3 % (39.0-51.0); MEAN CELL VOLUME 92.4 FL (80.0-100.0); MEAN CORPUSCULAR HEMOGLOBIN 30.6 PG (27.0-34.0); MEAN CORPUSCULAR HGB CONC 33.1 % (32.0-36.0); PLATELET COUNT 178 TH/MM3 (150-450); RED BLOOD COUNT 2.96 MIL/MM3 (4.50-5.90); RED CELL DISTRIBUTION WIDTH 14.1 % (11.6-17.2)
[2017-09-15 04:20] LABS: REVIEW FLAG FINAL
[2017-09-15] MEDS: CEFEPIME INJ 1,000 MG in SODIUM CHLORIDE 0.9% INJ 100 ML IV SCH (04:24)
[2017-09-15 04:32] LABS: APTT (PATIENT) 73.8 SEC (24.3-30.1)
[2017-09-15 05:13] LABS: BICARBONATE 23.6 MEQ/L (21.0-32.0); POTASSIUM 4.8 MEQ/L (3.5-5.1); TOTAL BILIRUBIN ADULT 1.1 MG/DL (0.2-1.0)
[2017-09-15 05:24] LABS: CALCIUM-PROTEIN CORRECTED 6.9 MG/DL (8.5-10.1)
[2017-09-15 05:55] LABS: BLOOD GAS BASE EXCESS -2.5 mmol/L (-2-2); BLOOD GAS CARBOXYHEMOGLOBIN 1.1 % (0-4); BLOOD GAS HCO3 24 mmol/L (22-26); BLOOD GAS METHEMOGLOBIN 1.8 % (0-2); BLOOD GAS O2 HGB SATURATION 85 % (90-100); BLOOD GAS OXYGEN CONTENT 11.1 Vol % (12.0-20.0); BLOOD GAS PCO2 57 mmHg (38-42); BLOOD GAS PO2 59 mmHg (61-120); BLOOD GAS TOTAL HGB 9.2 G/DL (12.0-16.0); TEMP CORR TO 98.6
[2017-09-15 05:56] LABS: CRITICAL VALUE NO; DRAW SITE ART LINE; FIO2 100 %; OXYGEN DEVICE VENTILATOR; STAT NO; VENT SETTINGS PRVC/AC
[2017-09-15] MEDS: DOPamine 800 MG/D5W PREMIX 500 ML IV PRN (05:56)
--- NOTE | 2017-09-15 08:56 | HHI.CCPN ---
Subjective Remarks/Hospital Course This is a 71-year-old male with history of hypertension, valve replacement currently on Coumadin, diabetes with an insulin pump, previous CVA, that presented to the ED, with symptoms of malaise nausea and vomiting with dyspnea. EKG was done which show significant ST depressions, stroke alert had been initiated. The patient was diaphoretic, EKG shows deep ST depressions in the inferior leads and lateral leads. Dr. Chi, patient's roping machine tender was notified , a STEMI alert was initiated . The patient underwent cardiac catheterization lab for further evaluation. In the ED laboratory findings glucose of 500, pH of 7.19, potassium of 6.8, creatinine of 2.9, lactate level of 10. At this point, concern for acute renal failure, possible hyperkalemia, DKA. The patient has a medical history significant for aortic valve replacement , mechanical, and a two-vessel bypass and a recent foot infection. A bedside echo was performed by Dr. chi showing an ejection fraction of 35-40% with moderate TR. The patient underwent 2 stents to the RCA and cardiac catheterization the patient was noted to become significantly hypotensive with a systolic blood pressure in the 70s-80s, and intra-aortic balloon pump was placed. The patient was transferred to the ICU, critical care medicine was consulted. Upon arrival to the ICU,the patient was noted to be in agonal respirations, O2 saturation 70's, sinus bradycardia heart rate in the 40s, with systolic blood pressure in 60's, cold with weak pulses. The patient was emergently intubated, fluid boluses initiated, phenylephrine was initiated. ABG upon presentation to ICU, immediately postintubation-pH 6.86 PCO2 60 PO2 255, [id number] with a base excess of -20.3. Subjective: 09/12: Overnight the patient's vasopressor support increased to 3 pressor agents. Bicarbonate level normalized sodium bicarbonate infusion discontinued. Formal echo pending. A chin continues on IABP 1:1. Wound culture gram- positive cocci patient empirically on vancomycin and cefepime will obtain infectious disease consult secondary to multiple antibiotics in the last several weeks, appreciate recommendations. Urine output minimal overnight, resolution of hyperkalemia. The patient continues to be hyperglycemic, continues on insulin infusion glucose levels decreased from 700-500 currently. GCS 11 T currently on fentanyl infusion, patient responding to commands, interacting yes and no questions with family at bedside. 09/13: Patient FiO2 weaned to 55%. Patient continues in acute nonoliguric renal failure monitored per nephrology. Still requiring 3 vasopressors for maintaining a MAP of 65mmHg. The patient has been has been transitioned off insulin drip, subcutaneous insulin. Glucose ranges 200. Sodium bicarbonate infusion reinitiated at 50 cc/an hour with resolution of DKA. 09/14: Patient continues still have increasing oxygen requirement, currently FiO2 90%, PEEP now increased to 12. Left IJ vas catheter placement this afternoon for initiation of CRRT. Palliative care consulted, after discussing with Dr. Chi. 09/15: Patient's medical status continues to decline. Unable to oxygenate patient last evening 100% FiO2 and PEEP of 12 Flolan was initiated. On maximum doses of Flolan and 100% FiO2 PaO2 is 59. Chest x-ray worsen massive pulmonary edema, patient continues on CRRT currently removal 100 ml/hour. Patient now having blood extravasation from right femoral groin site left vas catheter site in right IJ site. Fibrinogen level pending. INR noted to be 12.0 repeat 12.0. Heparin infusion stopped. Patient typed and screened, plan to transfuse 2 units FFP to attempt to maintain INR 2-3.0 sedentary to the patient's mechanical valve and intra-aortic balloon pump in site. Objective Vital Signs Date Time Temp Pulse Resp B/P (MAP) Pulse Ox O2 Delivery O2 Flow Rate FiO2 09/15/17 08:00 107/38 (66) 09/15/17 07:58 87 100 09/15/17 06:00 102 09/15/17 05:00 96.4 24 09/11/17 15:10 Non-Rebreather 15.00 Intake and Output 09/15/17 09/15/17 09/16/17 08:00 16:00 00:00 Intake Total 8233.4 ml 1075 ml Output Total 1272 ml Balance 6961.4 ml 1075 ml Result Diagram: 09/15/17 0324 09/15/17 0324 Other Results Microbiology Date/Time Source Procedure Growth Status 09/12/17 12:30 Sputum Endotracheal Gram Stain - Final Complete 09/12/17 12:30 Sputum Endotracheal Sputum Culture - Final HEAVY GROWTH NORMAL RESPIRATORY JUDIE Complete 09/12/17 23:39 Urine Catheterized Urine Legionella Antigen - Final PRESUMPTIVE NEGATIVE FOR LEGIONELLA P... Complete 09/12/17 23:39 Urine Catheterized Urine Streptococcus pneumoniae Antigen (M - Final PRESUMPTIVE NEGATIVE FOR STREPTOCOCCU... Complete Laboratory Tests Test 09/14/17 15:00 09/14/17 17:05 09/14/17 19:27 09/15/17 05:38 Blood Gas Puncture Site ART LINE ART LINE ART LINE ART LINE Blood Gas Patient Temperature 98.6 98.6 98.6 98.6 Blood Gas HCO3 17 mmol/L (22-26) 17 mmol/L (22-26) 19 mmol/L (22-26) 24 mmol/L (22-26) Blood Gas Base Excess -10.4 mmol/L (-2-2) -9.6 mmol/L (-2-2) -7.2 mmol/L (-2-2) -2.5 mmol/L (-2-2) Blood Gas Oxygen Saturation 83 % (90-100) 89 % (90-100) 87 % (90-100) 85 % ( 90-100) Arterial Blood pH 7.16 (7.380-7.420) 7.21 (7.380-7.420) 7.21 (7.380-7.420) 7.25 (7.380-7.420) Arterial Blood Partial Pressure CO2 50 mmHg (38-42) 43 mmHg (38-42) 50 mmHg (38-42) 57 mmHg (38-42) Arterial Blood Partial Pressure O2 58 mmHg (61-120) 72 mmHg (61-120) 67 mmHg (61-120) 59 mmHg (61-120) Arterial Blood Oxygen Content 10.8 Vol % (12.0-20.0) 11.3 Vol % (12.0-20.0) 11.3 Vol % (12.0-20.0) 11.1 Vol % (12.0-20.0) Arterial Blood Carboxyhemoglobin 0.9 % (0-4) 1.1 % (0-4) 0.9 % (0-4) 1.1 % (0-4) Arterial Blood Methemoglobin 1.7 % (0-2) 1.6 % (0-2) 1.7 % (0-2) 1.8 % (0-2) Blood Gas Hemoglobin 9.2 G/DL (12.0-16.0) 9.0 G/DL (12.0-16.0) 9.1 G/DL (12.0-16.0) 9.2 G/DL (12.0-16.0) Oxygen Delivery Device VENTILATOR VENTILATOR VENTILATOR VENTILATOR Blood Gas Ventilator Setting PRVC/AC PRVC /AC PRVC/AC PRVC/AC Blood Gas Inspired Oxygen 100 % 100 % 100 % 100 % Imaging Last Impressions Chest X-Ray 09/15/17 0600 Signed Impressions: Service Date/Time: Friday, September 15, 2017 02:46 - CONCLUSION: 1. Interval increase in hazy opacity in both lungs most consistent with pulmonary edema. There are apparent bilateral effusions and cardiomegaly most consistent with congestive heart failure. 2. The patient remains intubated. Francisco Ralph MD Renal Ultrasound 09/12/17 0000 Signed Impressions: Service Date/Time: Tuesday, September 12, 2017 12:10 - CONCLUSION: 1. No hydronephrosis. 2. 6 mm nonobstructing right renal stone. 3. Urinary bladder decompressed and not well evaluated. 4. Small volume ascites. Devaughn Chiu Jr., MD Last Impressions Chest X-Ray 09/11/17 1421 Signed Impressions: Service Date/Time: Monday, September 11, 2017 14:45 - CONCLUSION: Bilateral interstitial/alveolar infiltrate characteristic of pulmonary edema. Mild cardiomegaly. Status post aortic valve replacement. Norberto Mckinley MD Objective Remarks GENERAL: Critically ill male intubated and sedated SKIN: Warm and dry, grossly edematous weeping from right groin site, total edema HEAD: Atraumatic. Normocephalic. EYES: Pupils equal and round. No scleral icterus. No injection or drainage. ENT: No nasal bleeding or discharge. Mucous membranes pink and moist. Orotracheally intubated NECK: Trachea midline. No JVD. CARDIOVASCULAR: Normal rate, regular rhythm. Telemetry sinus rhythm intra- aortic balloon pump 1:1 RESPIRATORY: Mechanical ventilation with Flolan. Bilateral chest excursion. Scattered rhonchi on auscultation GASTROINTESTINAL: Abdomen soft, non-tender, nondistended. No guarding. MUSCULOSKELETAL: Extremities without clubbing, cyanosis, 3+ peripheral edema. No obvious deformities. Right groin intra-aortic balloon pump noted oozing from site. Pulses now only dopplerable. Right foot wound, purulent drainage NEUROLOGICAL: GCS3T. RASS -2. Procedures 09/11 IABP, 2 drug-eluting stents to RCA 09/12 echo 09/14 LIJ vasc cath, CRRT initiated Date of Insertion: Sep 11, 2017 Date of Insertion: Sep 11, 2017 Line: Central Venous Catheter Side: Right Location: Internal A/P Assessment and Plan Assessment This is a 71-year-old male now in multisystem organ failure, on maximum doses of vasopressor support, inability to adequate oxygenation on maximum dose on 100 % FiO2 and maximum dose of Flolan and pulmonary pulmonary edema. I do not believe this patient will survive this hospitalization. ASSESSMENT STEMI S/P PCI x 2 (RCA) History of two-vessel cardiac bypass with mechanical AVR Cardiogenic shock- with IABP support 1:1 Status post PCI (2) KENNEDY to RCA-09/11 DKA-resolved Septic shock Acute hypercapnic and hypoxemic respiratory failure Pulmonary edema Nonoliguric acute renal failure Hyperkalemia-resolved Right Foot infection History of CVA Multisystem organ dysfunction Transaminitis Hepatic liver failure PLAN Neurologic: Versed and fentanyl infusions for ventilator synchrony Neurochecks per ICU protocol Daily sedation vacation and clinically applicable Tylenol 650 mg every 6 hours for temp greater than 101 Hold Neurontin at this time, patient's home medication GCS 11 T Respiratory: 09/11-intubated 8.0 ETT at 23cm Mechanical vent settings to maintain O2 saturation > 92% Ventilator bundle Bronchodilators every 6 hours scheduled, every 2 hours when necessary CPAP trials when clinically indicated FiO2 of 100% PEEP of 12, Flolan 29 ng to obtain a PaO2 of 59, woman in pulmonary edema Cardiovascular: IABP 1:1 Phenylephrine, dopamine, norepinephrine infusion to maintain MAP > 60mmHg maximum doses, continued hemodynamic instability Heparin infusion per protocol, will eventually plan on transitioning to Coumadin Status post drug-eluting stents 2 to RCA-aspirin Plavix and statin management per cardiology Cardiology-Dr. Chi following Renal: Insert and maintain Desouza Neurology following- Dr. Bliss 09/14-Vas-Cath placement and initiation of CRRT- currently fluid removal 100 cc/ hour, will confer with nephrology for increase removal per hour -- Strict I/Os FEN/GI: Continued LFTs elevation AST 856->1558, ALT 574->1044, Alk Phos 88 -> 118 over the last 4 days Monitor BMP Urine eosinophils-negative FeNa1.16 Maintain NPO status secondary to hemodynamic instability Zofran for nausea Bowel regimen Heme/ID: ID following-Dr. Mcknight-antibiotic management Follow-up blood, urine, and sputum cultures- NGTD Foot wound culture-Pseudomonas Oryzihabitou INR 12 , F/U fibrinogen level Heparin infusion 100 units/hour placed on hold Type and cross- transfuse FFP Endocrine: Insulin sliding scale -glucose ranges 200's insulin pump disconnected 09/11 -- SSI Prophylaxis: GI Prophylaxis Famotidine DVT Prophylaxis -- SCDs Heparin infusion 100/hr for IABP Lines: Peripheral IVs, right femoral intra-aortic balloon pump Dispo: This patient remains critically ill with one or more organ systems which are or may become a threat to life. I have spent in excess of 60 minutes discontinuously in the care and management of this patient. This time is exclusive of procedures, and includes, but is not limited to, evaluation of the patient, review of the medical record, discussions with family, consultants, nursing staff, or respiratory therapy, and documentation in the medical record. The patient continues in multisystem organ failure. Palliative care has been consulted. I do not think the patient will survive this hospitalization. Prognosis is poor. Extensive discussion with family via Dr. Chi and myself regarding the patient's medical status. Plan to follow-up with palliative medicine to determine patient's goals of care. Discussed with TRAFFIC ENGINEER (Marlys)Mrs Malave and patient's children at bedside. Per Mrs. Malave and family want to watch patient for another 24 hours, then consider possible withdrawal /[place] care measures .The patient was made DNR at family's request All questions answered. Do not believe this patient will survive this hospitalization. Physician Flor Solo MD Sep 15, 2017 08:56
[2017-09-15] MEDS: ATORVASTATIN 40 MG TAB PO SCH (09:00)
[2017-09-15] MEDS: DOCUSATE SODIUM 50 MG/SENNA 8.6 MG TAB PO SCH ×2 (09:00→20:22)
[2017-09-15] MEDS: ASPIRIN EC 81 MG TABEC PO SCH ×2 (09:00→11:49)
[2017-09-15] MEDS: CLOPIDOGREL 75 MG TAB PO SCH ×2 (09:00→11:49)
[2017-09-15] MEDS: INSULIN DETEMIR 100 UNITS/ML VIAL SQ SCH (09:00)
[2017-09-15] MEDS: SODIUM CHLORIDE 0.9% FLUSH 10 ML FLUSH IV FLUSH SCH ×2 (09:08→20:22)
[2017-09-15 09:30] LABS: BLOOD GAS BASE EXCESS -1.6 mmol/L (-2-2); BLOOD GAS HCO3 25 mmol/L (22-26); BLOOD GAS METHEMOGLOBIN 1.6 % (0-2); BLOOD GAS O2 HGB SATURATION 85 % (90-100); BLOOD GAS PCO2 59 mmHg (38-42); BLOOD GAS PO2 61 mmHg (61-120); BLOOD GAS TOTAL HGB 9.1 G/DL (12.0-16.0); CRITICAL VALUE YES; OXYGEN DEVICE VENTILATOR; TEMP CORR TO 98.6
[2017-09-15 09:31] LABS: DRAW SITE ART LINE; FIO2 100 %; STAT NO; ULNAR PULSE PRESENT
--- NOTE | 2017-09-15 11:21 | PD.CARD.PN ---
Subjective Subjective Remarks Pt remains intubated, on multiple pressors, on CVVH Objective Medications Current Medications Medications (Trade) Dose Ordered Sig/Kandice Route Start Time Stop Time Status Last Admin (Xylocaine 2% Jelly) 1 applic UNSCH PRN TOP 09/11/17 16:00 (Morphine Inj) 2 mg Q30M PRN IV PUSH 09/11/17 16:00 (Plavix) 75 mg DAILY PO 09/12/17 09:00 09/14/17 08:32 (Atropine Inj) 0.5 mg UNSCH PRN IV PUSH 09/11/17 16:00 (Reglan Inj) 10 mg Q4H PRN IV PUSH 09/11/17 16:00 (Zofran Inj) 4 mg Q4H PRN IV PUSH 09/11/17 16:00 Heparin Sodium/ Dextrose 250 ml @ 9 mls/hr TITRATE PRN IV 09/11/17 16:00 09/12/17 22:56 (NS Flush) 2 ml UNSCH PRN IV FLUSH 09/11/17 17:15 (NS Flush) 2 ml BID IV FLUSH 09/11/17 21:00 09/15/17 09:08 (Tylenol) 650 mg Q6H PRN PO 09/11/17 17:15 (Duoneb Neb) 1 ampule Q6HR NEB INH 09/11/17 22:00 09/15/17 08:05 (Duoneb Neb) 1 ampule Q2HR NEB PRN INH 09/11/17 17:15 Miscellaneous Information 1 Q361D XX 09/11/17 17:15 09/11/17 17:15 (Chlorhexidine 2% Cloth) 3 pack Taper DAILY@04 TOP 09/12/17 04:00 09/08/18 03:59 09/15/17 04:00 (Chlorhexidine 2% Cloth) 3 pack UNSCH PRN TOP 09/11/17 17:15 (Yamilex-Colace) 1 tab BID PO 09/11/17 21:00 09/14/17 21:10 (Milk Of Magnesia Liq) 30 ml Q12H PRN PO 09/11/17 17:15 (Senokot) 17.2 mg Q12H PRN PO 09/11/17 17:15 (Dulcolax Supp) 10 mg DAILY PRN RECTAL 09/11/17 17:15 (Lactulose Liq) 30 ml DAILY PRN PO 09/11/17 17:15 Fentanyl Citrate 250 ml @ 5 mls/hr TITRATE PRN IV 09/11/17 17:30 09/14/17 23:56 (Brethine Inj) 1 mg UNSCH PRN SQ 09/11/17 17:30 Pharmacy Profile Note 0 ml @ 0 mls/hr UNSCH OTHER 09/11/17 17:30 Miscellaneous Information 1 Q361D XX 09/11/17 17:30 09/11/17 17:30 (Peridex 0.12% Liq) 15 ml BID@08,20 MT 09/11/17 20:00 09/14/17 21:00 Miscellaneous Information 1 Q361D XX 09/11/17 17:45 09/11/17 17:45 Phenylephrine HCl 160 mg/Dextrose 500 ml @ 7.5 mls/hr TITRATE PRN IV 09/12/17 01:30 09/15/17 05:57 Dopamine HCl/ Dextrose 500 ml @ 8.182 mls/ hr TITRATE PRN IV 09/12/17 01:30 09/15/17 05:56 (Ecotrin Ec) 81 mg DAILY PO 09/12/17 10:00 09/14/17 08:33 (Lipitor) 40 mg DAILY PO 09/12/17 10:00 09/14/17 08:32 Midazolam HCl 100 ml @ 2 mls/hr TITRATE PRN IV 09/12/17 11:15 09/15/17 00:09 (Levemir Inj) 5 units DAILY SQ 09/13/17 10:00 09/13/17 10:00 (D50w (Vial) Inj) 50 ml UNSCH PRN IV PUSH 09/13/17 09:45 (Glucagon Inj) 1 mg UNSCH PRN OTHER 09/13/17 09:45 (NovoLOG SUPPLEMENTAL SCALE) 1 Q4HR SQ 09/13/17 16:00 09/15/17 09:17 Cefepime HCl 1000 mg/Sodium Chloride 100 ml @ 200 mls/hr Q24H IV 09/15/17 03:00 09/15/17 04:24 Sodium Bicarbonate 75 meq/Sodium Chloride 1,075 ml @ 1,000 mls/hr Q1H5M IV 09/14/17 16:15 09/15/17 10:27 Sodium Chloride 1,000 ml @ 0 mls/hr UNSCH PRN OTHER 09/14/17 16:15 (KCl 40 Meq Premix Inj) 2 meq WITH DIALYSIS PRN .XX 09/14/17 16:15 Norepinephrine Bitartrate 250 ml @ 18.75 mls/ hr TITRATE PRN IV 09/14/17 16:30 09/15/17 05:57 Epoprostenol Sodium 90 ml/ Sodium Chloride 100 ml @ 8 mls/hr Q8H NEB 09/14/17 20:00 09/14/17 21:00 Vital Signs / I&O Vital Signs Date Time Temp Pulse Resp B/P (MAP) Pulse Ox O2 Delivery O2 Flow Rate FiO2 09/15/17 11:00 95/35 (61) 09/15/17 10:11 84 100 09/15/17 10:00 103/42 (68) 09/15/17 09:43 108 96/38 09/15/17 09:00 98/33 (63) 09/15/17 08:00 107/38 (66) 09/15/17 08:00 100 09/15/17 07:58 87 100 09/15/17 07:00 110/50 (67) 09/15/17 06:00 106/39 (68) 09/15/17 06:00 102 09/15/17 05:57 102 102/40 09/15/17 05:57 102 102/40 09/15/17 05:56 102 102/40 09/15/17 05:00 100 09/15/17 05:00 104 107/57 (74) 102/38 (59) 09/15/17 05:00 108/49 (74) 09/15/17 05:00 96.4 104 24 107/57 (74) 86 102/38 (59) 09/15/17 04:41 107 107/41 09/15/17 04:00 96.4 104 24 108/63 (78) 88 111/41 (64) 09/15/17 04:00 104 09/15/17 04:00 117/40 (73) 09/15/17 04:00 100 09/15/17 03:36 96 98/34 09/15/17 03:35 88 100 09/15/17 03:00 96.4 100 24 114/53 (73) 87 104/40 (61) 09/15/17 03:00 101/44 (63) 09/15/17 02:12 99 105/36 09/15/17 02:07 100 104/36 09/15/17 02:00 103/41 (64) 09/15/17 02:00 100 09/15/17 02:00 96.4 100 24 85/54 (64) 89 99/43 (61) 09/15/17 01:49 99 91/44 09/15/17 01:34 98 102/41 09/15/17 01:13 97 101/37 09/15/17 01:00 96.4 97 24 100/53 (69) 89 103/34 (57) 09/15/17 01:00 99/35 (64) 09/15/17 00:48 97 99/41 09/15/17 00:39 90 100 09/15/17 00:30 97 103/35 09/15/17 00:24 97 105/36 09/15/17 00:00 105/37 (67) 09/15/17 00:00 97 09/15/17 00:00 100 09/15/17 00:00 96.4 97 24 97/55 (69) 90 91/43 (59) 09/14/17 23:45 96 101/38 09/14/17 23:00 96.3 97 24 98/57 (71) 91 99/43 (61) 09/14/17 23:00 100/39 (69) 09/14/17 22:01 108/40 (71) 09/14/17 22:00 96.3 98 24 100/58 (72) 90 107/44 (65) 09/14/17 22:00 98 09/14/17 21:30 89 100 09/14/17 21:00 199/37 (69) 09/14/17 21:00 96.2 96 24 97/55 (69) 87 104/38 (60) 09/14/17 20:04 89 100 09/14/17 20:00 96.6 96 0 99/57 (71) 89 94/45 (61) 09/14/17 20:00 96 09/14/17 20:00 112/38 (71) 09/14/17 20:00 100 09/14/17 19:42 96 91/42 09/14/17 19:00 107/37 (70) 09/14/17 18:17 96 93/43 09/14/17 18:00 96 09/14/17 18:00 113/38 (73) 09/14/17 17:37 103/38 09/14/17 17:00 109/36 (71) 09/14/17 16:35 89 100 09/14/17 16:31 96 90/45 09/14/17 16:30 98.8 96 0 92/46 (61) 89 09/14/17 16:00 102 09/14/17 16:00 100 09/14/17 16:00 99.0 96 0 107/55 (72) 86 102/51 (68) 09/14/17 15:30 99.1 96 0 93/49 (64) 86 09/14/17 15:00 108/37 (73) 09/14/17 15:00 99.1 97 9 100/53 (69) 85 86/45 (59) 09/14/17 14:30 99.1 98 0 85/47 (60) 82 09/14/17 14:00 105 09/14/17 14:00 99.1 101 81/52 (62) 88 92/48 (63) 09/14/17 13:39 100/48 09/14/17 13:30 99.1 100 0 93/50 (64) 87 09/14/17 13:20 92 83/45 09/14/17 13:17 78/43 09/14/17 13:00 99.1 92 0 91/57 (68) 89 81/43 (56) 09/14/17 13:00 91/37 (63) 09/14/17 12:30 99.0 92 0 82/45 (57) 90 09/14/17 12:20 92 83/41 09/14/17 12:14 90 100 09/14/17 12:00 99.3 92 0 87/57 (67) 90 87/46 (60) 09/14/17 12:00 93 09/14/17 12:00 95/38 (68) 09/14/17 12:00 100 09/14/17 11:30 99.3 92 0 82/45 (57) 91 I/O 09/14/17 09/14/17 09/14/17 09/15/17 09/15/17 09/15/17 07:00 15:00 23:00 07:00 15:00 23:00 Intake Total 2883.5 ml 6823.3 ml 8300.9 ml 4300 ml Output Total 100 ml 10 ml 1487 ml 1616 ml Balance -100 ml 2873.5 ml 5336.3 ml 6684.9 ml 4300 ml IV Total 2883.5 ml 6823.3 ml 8300.9 ml 4300 ml Output Urine Total 100 ml 10 ml 5 ml 3 ml Hemodialysis 1482 ml 1613 ml Physical Exam GENERAL: intubated CARDIOVASCULAR: slightly rapid rate and rhythm without murmurs, gallops, or rubs. RESPIRATORY: Clear to auscultation. Breath sounds equal bilaterally. No wheezes , rales, or rhonchi. GASTROINTESTINAL: Abdomen soft, non-tender, nondistended. Normal active bowel sounds MUSCULOSKELETAL: Extremities without clubbing, cyanosis, or edema. NEURO: Alert & Oriented x4 to person, place, time, situation. Moves all ext x4 Laboratory Laboratory Tests Test 09/14/17 15:00 09/14/17 15:15 09/14/17 17:05 09/14/17 19:27 Blood Gas Puncture Site ART LINE ART LINE ART LINE Blood Gas Patient Temperature 98.6 98.6 98.6 Blood Gas HCO3 17 mmol/L 17 mmol/L 19 mmol/L Blood Gas Base Excess -10.4 mmol/L -9.6 mmol/L -7.2 mmol/L Blood Gas Oxygen Saturation 83 % 89 % 87 % Arterial Blood pH 7.16 7.21 7.21 Arterial Blood Partial Pressure CO2 50 mmHg 43 mmHg 50 mmHg Arterial Blood Partial Pressure O2 58 mmHg 72 mmHg 67 mmHg Arterial Blood Oxygen Content 10.8 Vol % 11.3 Vol % 11.3 Vol % Arterial Blood Carboxyhemoglobin 0.9 % 1.1 % 0.9 % Arterial Blood Methemoglobin 1.7 % 1.6 % 1.7 % Blood Gas Hemoglobin 9.2 G/DL 9.0 G/DL 9.1 G/DL Oxygen Delivery Device VENTILATOR VENTILATOR VENTILATOR Blood Gas Ventilator Setting PRVC/AC PRVC /AC PRVC/AC Blood Gas Inspired Oxygen 100 % 100 % 100 % Activated Partial Thromboplast Time 67.5 SEC Test 09/14/17 22:10 09/15/17 03:24 09/15/17 05:38 09/15/17 09:25 Activated Partial Thromboplast Time 70.6 SEC 73.8 SEC White Blood Count 16.0 TH/MM3 Red Blood Count 2.96 MIL/MM3 Hemoglobin 9.1 GM/DL Hematocrit 27.3 % Mean Corpuscular Volume 92.4 FL Mean Corpuscular Hemoglobin 30.6 PG Mean Corpuscular Hemoglobin Concent 33.1 % Red Cell Distribution Width 14.1 % Platelet Count 178 TH/MM3 Mean Platelet Volume 8.6 FL Blood Urea Nitrogen 70 MG/DL Creatinine 4.46 MG/DL Random Glucose 127 MG/DL Total Protein 4.9 GM/DL Albumin 1.6 GM/DL Calcium Level 5.9 MG/DL Alkaline Phosphatase 118 U/L Aspartate Amino Transf (AST/SGOT) 1558 U/L Alanine Aminotransferase (ALT/SGPT) 1044 U/L Total Bilirubin 1.1 MG/DL Sodium Level 133 MEQ/L Potassium Level 4.8 MEQ/L Chloride Level 98 MEQ/L Carbon Dioxide Level 23.6 MEQ/L Anion Gap 11 MEQ/L Estimat Glomerular Filtration Rate 13 ML/MIN Protein Corrected Calcium 6.9 MG/DL Random Vancomycin Level 25.6 COMMENT Blood Gas Puncture Site ART LINE ART LINE Blood Gas Patient Temperature 98.6 98.6 Blood Gas HCO3 24 mmol/L 25 mmol/L Blood Gas Base Excess -2.5 mmol/L -1.6 mmol/L Blood Gas Oxygen Saturation 85 % 85 % Arterial Blood pH 7.25 7.24 Arterial Blood Partial Pressure CO2 57 mmHg 59 mmHg Arterial Blood Partial Pressure O2 59 mmHg 61 mmHg Arterial Blood Oxygen Content 11.1 Vol % 11.0 Vol % Arterial Blood Carboxyhemoglobin 1.1 % 1.0 % Arterial Blood Methemoglobin 1.8 % 1.6 % Blood Gas Hemoglobin 9.2 G/DL 9.1 G/DL Oxygen Delivery Device VENTILATOR VENTILATOR Blood Gas Ventilator Setting PRVC/AC Blood Gas Inspired Oxygen 100 % 100 % Test 09/15/17 09:30 Imaging Last 24 hours Impressions Chest X-Ray 09/15/17 0600 Signed Impressions: Service Date/Time: Friday, September 15, 2017 02:46 - CONCLUSION: 1. Interval increase in hazy opacity in both lungs most consistent with pulmonary edema. There are apparent bilateral effusions and cardiomegaly most consistent with congestive heart failure. 2. The patient remains intubated. Francisco Ralph MD Assessment and Plan Problem List: (1) ACS (acute coronary syndrome) ICD Codes: I24.9 - Acute ischemic heart disease, unspecified Status: Acute Assessment and Plan STEMI - KENNEDY RCA. asa plavix statin mechanical valve - on heparin gtt (there has been some oozing, would maintain heparin ggt in addition to antiplatlets for now but if he becomes hospice/ comfort measures would reconsider) cardiomyopathy - intubated. DKA - resolved cardiogenic shock - IABP in place. 1:1. needing 3 pressors ARF on CRI - neph following. No urine output. CVVHD starting Sepsis - ID following. On antibiotics. Poor prognosis. multiorgan failure. Pt made a no code, maxed out on pressors per nursing; prognosis Rancho Frost MD Sep 15, 2017 11:21
[2017-09-15] MEDS: CHLORHEXIDINE 0.12% (ORAL KIT) 15 ML CUP MT SCH ×2 (11:50→20:00)
[2017-09-15 12:36] LABS: PROTHROMBIN TIME - PATIENT 157.5 SEC (9.8-11.6)
[2017-09-15 12:41] LABS: INTERNATIONAL NORMALIZED RATIO 12.8 RATIO
[2017-09-15 12:43] LABS: BLOOD GAS BASE EXCESS -1.1 mmol/L (-2-2); BLOOD GAS CARBOXYHEMOGLOBIN 1.1 % (0-4); BLOOD GAS HCO3 25 mmol/L (22-26); BLOOD GAS METHEMOGLOBIN 1.6 % (0-2); BLOOD GAS O2 HGB SATURATION 83 % (90-100); BLOOD GAS OXYGEN CONTENT 10.8 Vol % (12.0-20.0); BLOOD GAS PCO2 60 mmHg (38-42); BLOOD GAS PO2 56 mmHg (61-120); BLOOD GAS TOTAL HGB 9.2 G/DL (12.0-16.0); TEMP CORR TO 98.6
[2017-09-15 12:44] LABS: CRITICAL VALUE YES; OXYGEN DEVICE VENTILATOR; VENT SETTINGS PRVC/AC
[2017-09-15 12:45] LABS: DRAW SITE ART LINE; FIO2 100 %; STAT NO
--- NOTE | 2017-09-15 13:50 | HHI.NPPN ---
Subjective History of Present Illness 71-year-old with acute coronary syndrome status post stent diabetes, acute renal failure on intra-aortic balloon pump Additional Remarks Patient remain intubated and on multiple pressors, BP on lower side and on 100% Fio2. Objective Data Data 09/15/17 09/16/17 19:00 07:00 Intake Total 7200 ml Balance 7200 ml IV Total 7200 ml Vital Signs Date Time Temp Pulse Resp B/P (MAP) Pulse Ox O2 Delivery O2 Flow Rate FiO2 09/15/17 13:01 86 100 09/15/17 12:30 107 96/47 09/15/17 12:00 100 09/15/17 11:29 108 92/37 09/15/17 11:20 108 92/36 09/15/17 11:00 95/35 (61) 09/15/17 10:11 84 100 09/15/17 10:00 103/42 (68) 09/15/17 09:43 108 96/38 09/15/17 09:00 98/33 (63) 09/15/17 08:00 107/38 (66) 09/15/17 08:00 100 09/15/17 07:58 87 100 09/15/17 07:00 110/50 (67) 09/15/17 06:00 106/39 (68) 09/15/17 06:00 102 09/15/17 05:57 102 102/40 09/15/17 05:57 102 102/40 09/15/17 05:56 102 102/40 09/15/17 05:00 100 09/15/17 05:00 104 107/57 (74) 102/38 (59) 09/15/17 05:00 108/49 (74) 09/15/17 05:00 96.4 104 24 107/57 (74) 86 102/38 (59) 09/15/17 04:41 107 107/41 09/15/17 04:00 96.4 104 24 108/63 (78) 88 111/41 (64) 09/15/17 04:00 104 09/15/17 04:00 117/40 (73) 09/15/17 04:00 100 09/15/17 03:36 96 98/34 09/15/17 03:35 88 100 09/15/17 03:00 96.4 100 24 114/53 (73) 87 104/40 (61) 09/15/17 03:00 101/44 (63) 09/15/17 02:12 99 105/36 09/15/17 02:07 100 104/36 09/15/17 02:00 103/41 (64) 09/15/17 02:00 100 09/15/17 02:00 96.4 100 24 85/54 (64) 89 99/43 (61) 09/15/17 01:49 99 91/44 09/15/17 01:34 98 102/41 09/15/17 01:13 97 101/37 09/15/17 01:00 96.4 97 24 100/53 (69) 89 103/34 (57) 09/15/17 01:00 99/35 (64) 09/15/17 00:48 97 99/41 09/15/17 00:39 90 100 09/15/17 00:30 97 103/35 09/15/17 00:24 97 105/36 09/15/17 00:00 105/37 (67) 09/15/17 00:00 97 09/15/17 00:00 100 09/15/17 00:00 96.4 97 24 97/55 (69) 90 91/43 (59) 09/14/17 23:45 96 101/38 09/14/17 23:00 96.3 97 24 98/57 (71) 91 99/43 (61) 09/14/17 23:00 100/39 (69) 09/14/17 22:01 108/40 (71) 09/14/17 22:00 96.3 98 24 100/58 (72) 90 107/44 (65) 09/14/17 22:00 98 09/14/17 21:30 89 100 09/14/17 21:00 199/37 (69) 09/14/17 21:00 96.2 96 24 97/55 (69) 87 104/38 (60) 09/14/17 20:04 89 100 09/14/17 20:00 96.6 96 0 99/57 (71) 89 94/45 (61) 09/14/17 20:00 96 09/14/17 20:00 112/38 (71) 09/14/17 20:00 100 09/14/17 19:42 96 91/42 09/14/17 19:00 107/37 (70) 09/14/17 18:17 96 93/43 09/14/17 18:00 96 09/14/17 18:00 113/38 (73) 09/14/17 17:37 103/38 09/14/17 17:00 109/36 (71) 09/14/17 16:35 89 100 09/14/17 16:31 96 90/45 09/14/17 16:30 98.8 96 0 92/46 (61) 89 09/14/17 16:00 102 09/14/17 16:00 100 09/14/17 16:00 99.0 96 0 107/55 (72) 86 102/51 (68) 09/14/17 15:30 99.1 96 0 93/49 (64) 86 09/14/17 15:00 108/37 (73) 09/14/17 15:00 99.1 97 9 100/53 (69) 85 86/45 (59) 09/14/17 14:30 99.1 98 0 85/47 (60) 82 09/14/17 14:00 105 09/14/17 14:00 99.1 101 81/52 (62) 88 92/48 (63) -: 09/15/17 0324 09/15/17 0324 Physical Exam General Appearance Remarks Intubated and sedated. Neck Neck Exam: Neck Supple Pulmonary Resp Exam: Rhonchi, Decreased Bases, Diminished Breath Sounds, Poor Inspiratory Effort Cardiology CV Exam: Arrhythmia Gastrointestinal/Abdomen GI Exam: Soft, Bowel Sounds Present, Distended Extremeties Extremities Exam: Moderate Edema, Pitting Edema, Dependent Edema Neurologic Neuro Exam: Sedated Assessment/Plan Problem List: (1) Acute renal failure ICD Codes: N17.9 - Acute kidney failure, unspecified Plan: Patient likely has acute tubular necrosis due to cardiogenic shock urine output has dropped Not responding to Bumex CRRT started , Tolerating well. Continue to monitor his progress He is in acute renal failure now Anuric Critically ill on vent and intra-aortic balloon pump support, stents were placed in RCA. Still on 100% Fio2. BP is low, on multiple pressors. Now removing 200 cc UF per hr. (2) Acute coronary syndrome ICD Codes: I24.9 - Acute ischemic heart disease, unspecified Plan: Continue to monitor prognosis is poor (3) Coronary artery disease ICD Codes: I25.10 - Atherosclerotic heart disease of jamul coronary artery without angina pectoris Plan: Cardiology following (4) Diabetes ICD Codes: E11.9 - Type 2 diabetes mellitus without complications Status: Chronic Plan: Monitor Ilya Foster MD Sep 15, 2017 13:50
[2017-09-15 17:01] LABS: BLOOD GAS BASE EXCESS 0.8 mmol/L (-2-2); BLOOD GAS CARBOXYHEMOGLOBIN 1.2 % (0-4); BLOOD GAS HCO3 26 mmol/L (22-26); BLOOD GAS METHEMOGLOBIN 1.6 % (0-2); BLOOD GAS O2 HGB SATURATION 94 % (90-100); BLOOD GAS OXYGEN CONTENT 11.6 Vol % (12.0-20.0); BLOOD GAS PCO2 46 mmHg (38-42); BLOOD GAS PO2 87 mmHg (61-120); BLOOD GAS TOTAL HGB 8.7 G/DL (12.0-16.0); CRITICAL VALUE NO; OXYGEN DEVICE VENTILATOR; TEMP CORR TO 98.6
[2017-09-15 17:03] LABS: DRAW SITE ART LINE; FIO2 100 %; STAT NO; ULNAR PULSE PRESENT
[2017-09-15 18:40] LABS: BLOOD GAS BASE EXCESS 0.6 mmol/L (-2-2); BLOOD GAS CARBOXYHEMOGLOBIN 1.2 % (0-4); BLOOD GAS HCO3 25 mmol/L (22-26); BLOOD GAS METHEMOGLOBIN 1.7 % (0-2); BLOOD GAS O2 HGB SATURATION 93 % (90-100); BLOOD GAS OXYGEN CONTENT 11.5 Vol % (12.0-20.0); BLOOD GAS PCO2 42 mmHg (38-42); BLOOD GAS PO2 85 mmHg (61-120); BLOOD GAS TOTAL HGB 8.7 G/DL (12.0-16.0); TEMP CORR TO 98.6
[2017-09-15 18:41] LABS: CRITICAL VALUE NO; OXYGEN DEVICE VENTILATOR
[2017-09-15 18:42] LABS: DRAW SITE ART LINE; FIO2 80 %; STAT NO; ULNAR PULSE PRESENT
[2017-09-15] MEDS: EPOPROSTENOL NEB SOLUTION 40 NG/KG/MIN 100 ML NEB SCH ×2 (20:05)
[2017-09-15 20:12] LABS: BLOOD GAS BASE EXCESS 1.2 mmol/L (-2-2); BLOOD GAS CARBOXYHEMOGLOBIN 1.3 % (0-4); BLOOD GAS HCO3 26 mmol/L (22-26); BLOOD GAS METHEMOGLOBIN 1.8 % (0-2); BLOOD GAS O2 HGB SATURATION 91 % (90-100); BLOOD GAS OXYGEN CONTENT 11.7 Vol % (12.0-20.0); BLOOD GAS PCO2 43 mmHg (38-42); BLOOD GAS PO2 72 mmHg (61-120); BLOOD GAS TOTAL HGB 9.1 G/DL (12.0-16.0); TEMP CORR TO 98.6
[2017-09-15 20:13] LABS: CRITICAL VALUE NO; OXYGEN DEVICE VENTILATOR
[2017-09-15 20:14] LABS: DRAW SITE ART LINE; FIO2 60 %; STAT NO; VENT SETTINGS PRVC
[2017-09-15] MEDS: fentaNYL DRIP 250 ML IV PRN (22:16)
[2017-09-15 22:41] LABS: INTERNATIONAL NORMALIZED RATIO 3.3 RATIO; PROTHROMBIN TIME - PATIENT 38.3 SEC (9.8-11.6)
[2017-09-16] VITALS (54 sets, daily range): BP systolic 87–145; BP diastolic 35–86; PULSE 106–118; RESP 0–24; O2SAT 86–99
[2017-09-16] MEDS: NOREPINEPHRINE 4 MG/D5W 250 ML IV PRN (00:16)
[2017-09-16] MEDS: SODIUM BICARBONATE 8.4% INJ 75 MEQ in SODIUM CHLOR 0.45% 1000 ML INJ 1,000 ML IV SCH ×22 (00:30→23:01)
[2017-09-16] MEDS ORDERED: NOREPINEPHRINE 4 MG/D5W 250 ML IV PRN (02:30)
[2017-09-16 02:47] LABS: AUTOMATED NEUTROPHIL # 16.2 TH/MM3 (1.8-7.7); BASOPHIL % 0.2 % (0.0-2.0); BICARBONATE 29.3 MEQ/L (21.0-32.0); EOSINOPHIL # 0.2 TH/MM3 (0-0.4); EOSINOPHIL % 1.1 % (0.0-4.0); HEMATOCRIT 27.1 % (39.0-51.0); LYMPH % 2.1 % (9.0-44.0); LYMPHOCYTE # 0.4 TH/MM3 (1.0-4.8); MAGNESIUM 1.4 MG/DL (1.5-2.5); MEAN CELL VOLUME 89.8 FL (80.0-100.0); MEAN CORPUSCULAR HEMOGLOBIN 30.5 PG (27.0-34.0); MONO % 4.5 % (0.0-8.0); NEUT % 92.1 % (16.0-70.0); PLATELET COUNT 128 TH/MM3 (150-450); POTASSIUM 3.7 MEQ/L (3.5-5.1); RED BLOOD COUNT 3.01 MIL/MM3 (4.50-5.90); RED CELL DISTRIBUTION WIDTH 14.1 % (11.6-17.2); TOTAL BILIRUBIN ADULT 1.6 MG/DL (0.2-1.0); WHITE BLOOD COUNT 17.6 TH/MM3 (4.0-11.0)
[2017-09-16 02:50] LABS: CALCIUM-PROTEIN CORRECTED 6.4 MG/DL (8.5-10.1)
[2017-09-16 02:52] LABS: APTT (PATIENT) 62.2 SEC (24.3-30.1)
[2017-09-16 03:15] LABS: HEMO FLAGS AUTO DIFF
--- NOTE | 2017-09-16 03:25 | RADRPT ---
EXAM DATE/TIME: 09/16/2017 02:41 [facility] COMPARISON: CHEST SINGLE AP, September 15, 2017, 2:46. INDICATIONS : Shortness of breath. Followup pulmonary infiltrates and probable congestive heart failure. MEDICAL HISTORY : Hypercholesterolemia. Hypertension TIA Acidosis SURGICAL HISTORY : Appendectomy. Valve replacement. ENCOUNTER: Subsequent ACUITY: 1 week PAIN SCORE: Non-responsive. LOCATION: Bilateral chest FINDINGS: A single AP semierect view of the chest was obtained and again demonstrates the endotracheal tube in place with the tip approximately 4 cm above the dami. A nasogastric tube is seen coursing through t he esophagus into the stomach. The bilateral internal jugular central venous lines remain in place. T here has been mild interval improvement in the bilateral hazy alveolar opacities in both lungs with m oderate residual. This is greatest at the lung bases. Both costophrenic angles are blunted and the he midiaphragms are obscured. The patient is status post median sternotomy and there is an artificial he art valve in place. The heart size remains moderately enlarged. CONCLUS Mild interval improvement in pulmonary opacities with moderate residual remaining most consistent wit h pulmonary edema and congestive heart failure. Francisco Ralph MD on September 16, 2017 at 3:23 Board Certified Radiologist. This report was verified electronically.
[2017-09-16] MEDS: CEFEPIME INJ 1,000 MG in SODIUM CHLORIDE 0.9% INJ 100 ML IV SCH (03:40)
[2017-09-16] MEDS: NOREPINEPHRINE 16 MG/D5W 250 ML IV PRN ×4 (03:56→17:29)
[2017-09-16] MEDS: PHENYLEPHRINE HCL 160 MG/D5W 484 ML ADMIX IV PRN ×8 (03:56→20:37)
[2017-09-16] MEDS: INSULIN ASPART SUPPLEMENTAL SCALE SQ SCH ×4 (04:00→12:00)
[2017-09-16] MEDS: RESP: ALBUTEROL 2.5 MG/IPRATROPIUM 0.5 MG NEB (SCH) INH ×4 (04:00→21:31)
[2017-09-16] MEDS: CHLORHEXIDINE GLUCONATE 2 % 1 PACK (2 CLOTHS) TOP SCH (04:00)
[2017-09-16 04:41] LABS: INTERNATIONAL NORMALIZED RATIO 3.7 RATIO; PROTHROMBIN TIME - PATIENT 42.7 SEC (9.8-11.6)
[2017-09-16 05:23] LABS: BANDS 13 % (0-6); CORRECTED NUCLEATED RBC 6 /100 WBC (0-0); EOSINOPHILS 2 % (0-4); KERATOCYTES 1+ (NORMAL); METAMYELOCYTES 1 % (0-1); MYELOCYTES 1 % (0-0); NEUTROPHIL # MANUAL DIFF 16.4 TH/MM3 (1.8-7.7); OVALOCYTES 1+ (NORMAL); POLYS (SEG NEUTROPHILS) 77 % (16-70); PROMYELOCYTES 1 % (0-0); WBC DIFF SAMPLE 100
[2017-09-16 05:24] LABS: PLATELET ESTIMATE SMEAR LOW (NORMAL); PLATELET MORPHOLOGY NORMAL (NORMAL); SCAN/DIFF FINAL DIFF MANUAL
[2017-09-16] MEDS: CHLORHEXIDINE 0.12% (ORAL KIT) 15 ML CUP MT SCH ×2 (07:49→20:37)
[2017-09-16] MEDS ORDERED: SODIUM CHLORID 0.9% 500 ML INJ 500 ML IV ONE (08:00)
[2017-09-16] MEDS: CLOPIDOGREL 75 MG TAB PO SCH (08:04)
[2017-09-16] MEDS: DOCUSATE SODIUM 50 MG/SENNA 8.6 MG TAB PO SCH ×2 (08:04→21:00)
[2017-09-16] MEDS: INSULIN DETEMIR 100 UNITS/ML VIAL SQ SCH (08:04)
[2017-09-16] MEDS: ATORVASTATIN 40 MG TAB PO SCH (08:05)
[2017-09-16] MEDS: SODIUM CHLORIDE 0.9% FLUSH 10 ML FLUSH IV FLUSH SCH ×2 (08:06→21:26)
[2017-09-16] MEDS: DOPamine 800 MG/D5W PREMIX 500 ML IV PRN (08:35)
[2017-09-16] MEDS: CALCIUM GLUCONATE INJ 1 GM in SODIUM CHLORIDE 0.9% INJ 100 ML IV SCH ×2 (09:40→21:25)
[2017-09-16] MEDS ORDERED: ALBUMIN 25% INJ 100 ML IV ONE (10:00)
--- NOTE | 2017-09-16 11:22 | PD.CARD.PN ---
Subjective Subjective Remarks Pt remains intubated, on multiple pressors, on CVVH Objective Medications Current Medications Medications (Trade) Dose Ordered Sig/Kandice Route Start Time Stop Time Status Last Admin (Xylocaine 2% Jelly) 1 applic UNSCH PRN TOP 09/11/17 16:00 (Morphine Inj) 2 mg Q30M PRN IV PUSH 09/11/17 16:00 (Plavix) 75 mg DAILY PO 09/12/17 09:00 09/15/17 11:49 (Atropine Inj) 0.5 mg UNSCH PRN IV PUSH 09/11/17 16:00 (Reglan Inj) 10 mg Q4H PRN IV PUSH 09/11/17 16:00 (Zofran Inj) 4 mg Q4H PRN IV PUSH 09/11/17 16:00 Heparin Sodium/ Dextrose 250 ml @ 9 mls/hr TITRATE PRN IV 09/11/17 16:00 Future Hold 09/12/17 22:56 (NS Flush) 2 ml UNSCH PRN IV FLUSH 09/11/17 17:15 (NS Flush) 2 ml BID IV FLUSH 09/11/17 21:00 09/16/17 08:06 (Tylenol) 650 mg Q6H PRN PO 09/11/17 17:15 (Duoneb Neb) 1 ampule Q2HR NEB PRN INH 09/11/17 17:15 Miscellaneous Information 1 Q361D XX 09/11/17 17:15 09/11/17 17:15 (Chlorhexidine 2% Cloth) 3 pack Taper DAILY@04 TOP 09/12/17 04:00 09/08/18 03:59 09/16/17 04:00 (Chlorhexidine 2% Cloth) 3 pack UNSCH PRN TOP 09/11/17 17:15 (Yamilex-Colace) 1 tab BID PO 09/11/17 21:00 09/14/17 21:10 (Milk Of Magnesia Liq) 30 ml Q12H PRN PO 09/11/17 17:15 (Senokot) 17.2 mg Q12H PRN PO 09/11/17 17:15 (Dulcolax Supp) 10 mg DAILY PRN RECTAL 09/11/17 17:15 (Lactulose Liq) 30 ml DAILY PRN PO 09/11/17 17:15 Fentanyl Citrate 250 ml @ 5 mls/hr TITRATE PRN IV 09/11/17 17:30 09/15/17 22:16 (Brethine Inj) 1 mg UNSCH PRN SQ 09/11/17 17:30 Pharmacy Profile Note 0 ml @ 0 mls/hr UNSCH OTHER 09/11/17 17:30 Miscellaneous Information 1 Q361D XX 09/11/17 17:30 09/11/17 17:30 (Peridex 0.12% Liq) 15 ml BID@08,20 MT 09/11/17 20:00 09/16/17 07:49 Miscellaneous Information 1 Q361D XX 09/11/17 17:45 09/11/17 17:45 Phenylephrine HCl 160 mg/Dextrose 500 ml @ 7.5 mls/hr TITRATE PRN IV 09/12/17 01:30 09/16/17 09:33 Dopamine HCl/ Dextrose 500 ml @ 8.182 mls/ hr TITRATE PRN IV 09/12/17 01:30 09/16/17 08:35 (Ecotrin Ec) 81 mg DAILY PO 09/12/17 10:00 Future Hold 09/15/17 11:49 (Lipitor) 40 mg DAILY PO 09/12/17 10:00 09/14/17 08:32 Midazolam HCl 100 ml @ 2 mls/hr TITRATE PRN IV 09/12/17 11:15 09/15/17 19:30 (Levemir Inj) 5 units DAILY SQ 09/13/17 10:00 09/13/17 10:00 (D50w (Vial) Inj) 50 ml UNSCH PRN IV PUSH 09/13/17 09:45 (Glucagon Inj) 1 mg UNSCH PRN OTHER 09/13/17 09:45 (NovoLOG SUPPLEMENTAL SCALE) 1 Q4HR SQ 09/13/17 16:00 09/16/17 07:50 Cefepime HCl 1000 mg/Sodium Chloride 100 ml @ 200 mls/hr Q24H IV 09/15/17 03:00 09/16/17 03:40 Sodium Bicarbonate 75 meq/Sodium Chloride 1,075 ml @ 1,000 mls/hr Q1H5M IV 09/14/17 16:15 Future hold 09/16/17 10:12 Sodium Chloride 1,000 ml @ 0 mls/hr UNSCH PRN OTHER 09/14/17 16:15 (KCl 40 Meq Premix Inj) 2 meq WITH DIALYSIS PRN .XX 09/14/17 16:15 Epoprostenol Sodium 90 ml/ Sodium Chloride 100 ml @ 8 mls/hr Q8H NEB 09/14/17 20:00 09/15/17 20:05 (Duoneb Neb) 1 ampule Q6HR NEB INH 09/15/17 16:00 09/16/17 09:30 Norepinephrine Bitartrate 16 mg/ Dextrose 250 ml @ 1.87 mls/hr TITRATE PRN IV 09/16/17 03:00 09/16/17 03:56 Calcium Gluconate 1 gm/Sodium Chloride 110 ml @ 1.5 mls/min Q12H IV 09/16/17 10:00 09/16/17 09:40 Vital Signs / I&O Vital Signs Date Time Temp Pulse Resp B/P (MAP) Pulse Ox O2 Delivery O2 Flow Rate FiO2 09/16/17 11:07 113 126/43 09/16/17 11:04 88 100 09/16/17 11:00 118/47 (80) 09/16/17 10:15 112/53 09/16/17 10:00 112 09/16/17 10:00 104/56 (73) 09/16/17 09:33 115 102/40 09/16/17 09:25 86 100 09/16/17 09:00 104/43 (70) 09/16/17 08:35 116 121/41 09/16/17 08:00 80 09/16/17 08:00 116/53 (78) 09/16/17 08:00 99.3 116 6 118/66 (83) 89 131/45 (73) 09/16/17 08:00 114 09/16/17 07:32 113 106/35 09/16/17 07:30 99.7 113 0 106/37 (60) 91 09/16/17 07:00 99.9 113 0 120/57 (78) 92 113/40 (64) 09/16/17 07:00 104/39 (67) 09/16/17 06:30 100.0 115 0 120/42 (68) 92 09/16/17 06:27 115 118/42 09/16/17 06:27 115 118/42 09/16/17 06:27 115 118/42 09/16/17 06:00 118 09/16/17 06:00 100.4 118 6 145/66 (92) 92 128/44 (72) 09/16/17 06:00 116/51 (76) 09/16/17 05:55 118 133/44 09/16/17 05:40 117 120/43 09/16/17 05:34 115 125/46 09/16/17 05:30 100.6 115 4 112/42 (65) 93 09/16/17 05:00 100.9 113 24 98/62 (74) 94 102/39 (60) 09/16/17 05:00 108/43 (71) 09/16/17 05:00 113 98/62 (74) 102/39 (60) 09/16/17 04:58 113 103/39 09/16/17 04:48 100.9 110 24 91/60 (70) 93 87/35 (52) 09/16/17 04:46 110 92/36 09/16/17 04:43 109 87/34 09/16/17 04:30 100.9 117 24 110/38 (62) 93 09/16/17 04:00 100.9 118 24 113/81 (92) 94 112/40 (64) 09/16/17 04:00 106/41 (69) 09/16/17 04:00 80 09/16/17 04:00 118 09/16/17 04:00 93 80 09/16/17 03:56 117 104/38 09/16/17 03:56 117 104/38 09/16/17 03:32 118 103/37 09/16/17 03:22 117 104/38 09/16/17 03:12 117 101/37 09/16/17 03:02 117 100/37 09/16/17 03:00 100.6 117 24 108/59 (75) 93 100/37 (58) 09/16/17 03:00 112/42 (71) 09/16/17 02:52 117 100/37 09/16/17 02:51 100.6 117 24 113/55 (74) 93 99/37 (57) 09/16/17 02:42 118 103/40 09/16/17 02:32 115 95/36 10/22/17 02:22 114 93/37 09/16/17 02:09 100.4 113 24 118/82 (94) 93 96/35 (55) 09/16/17 02:00 115 09/16/17 02:00 100.2 115 24 108/78 (88) 92 93/43 (60) 09/16/17 02:00 110/35 (70) 09/16/17 01:40 100.0 113 24 109/64 (79) 92 99/38 (58) 09/16/17 01:36 100.0 115 24 114/60 (78) 92 102/39 (60) 09/16/17 01:20 116 109/41 09/16/17 01:00 127/39 (77) 09/16/17 01:00 99.5 114 24 110/56 (74) 94 107/40 (62) 09/16/17 00:43 111 101/36 09/16/17 00:16 109 106/40 09/16/17 00:10 96 70 09/16/17 00:00 116/35 (69) 09/16/17 00:00 70 09/16/17 00:00 99.0 106 24 98/55 (69) 96 103/37 (59) 09/16/17 00:00 106 09/15/17 23:57 106 100/36 09/15/17 23:00 125/35 (74) 09/15/17 23:00 98.6 108 24 107/56 (73) 97 108/41 (63) 09/15/17 22:55 109 107/43 09/15/17 22:17 108 110/41 09/15/17 22:00 110 09/15/17 22:00 130/37 (76) 09/15/17 22:00 98.6 110 24 115/39 (64) 97 09/15/17 21:10 98.8 112 24 112/39 97 09/15/17 21:02 112 114/41 09/15/17 21:00 98.8 112 24 115/41 (65) 97 09/15/17 21:00 116/73 (68) 09/15/17 20:56 99.0 112 24 113/40 97 09/15/17 20:23 115 119/43 09/15/17 20:10 97 70 09/15/17 20:00 110 09/15/17 20:00 118/45 (78) 09/15/17 20:00 99.0 110 24 119/46 (70) 95 09/15/17 20:00 60 09/15/17 20:00 99.0 110 24 119/46 95 09/15/17 19:51 108 86/32 09/15/17 19:44 99.0 108 24 101/39 92 09/15/17 19:00 110/36 (68) 09/15/17 19:00 98.8 108 24 102/42 (62) 93 09/15/17 19:00 108 102/42 09/15/17 19:00 108 102/42 09/15/17 18:43 93 80 09/15/17 18:03 106 91/47 09/15/17 18:00 107/36 (67) 09/15/17 18:00 107 09/15/17 18:00 107 09/15/17 17:19 98.5 106 24 97/40 94 09/15/17 17:03 98.2 106 24 94/49 98 09/15/17 17:00 102/35 (65) 09/15/17 16:43 96 100 09/15/17 16:00 97.7 106 24 98/41 (60) 96 09/15/17 16:00 100 09/15/17 16:00 104/35 (65) 09/15/17 16:00 106 09/15/17 15:30 97.5 105 24 91/38 (55) 93 09/15/17 15:00 97.2 104 24 87/41 (56) 92 09/15/17 15:00 83/40 (56) 09/15/17 14:30 97.0 106 0 94/40 (58) 93 09/15/17 14:00 106 09/15/17 14:00 96.6 106 19 82/46 (58) 92 09/15/17 14:00 99/97 (64) 09/15/17 13:30 96.4 107 24 97/42 (60) 89 09/15/17 13:01 86 100 09/15/17 13:00 82/39 (59) 09/15/17 13:00 96.4 108 24 91/44 (60) 87 09/15/17 12:30 96.3 108 24 93/41 (58) 84 09/15/17 12:30 107 96/47 09/15/17 12:00 96.3 109 24 79/41 (54) 84 09/15/17 12:00 88/35 (56) 09/15/17 12:00 109 09/15/17 12:00 100 09/15/17 11:29 108 92/37 I/O 09/15/17 09/15/17 09/15/17 09/16/17 09/16/17 09/16/17 07:00 15:00 23:00 07:00 15:00 23:00 Intake Total 8300.9 ml 9350 ml 25719.3 ml 9574.6 ml 4295 ml Output Total 1964 ml 3039 ml 3466 ml 3190 ml 1543 ml Balance 6336.9 ml 6311 ml 7389.3 ml 6384.6 ml 2752 ml IV Total 8300.9 ml 9350 ml 72586.3 ml 9154.6 ml 4295 ml Packed Cells 400 ml FFP 582 ml Blood Product IV Normal Saline Flush 50 ml 20 ml Output Urine Total 3 ml 4 ml 11 ml Hemodialysis 1961 ml 3039 ml 3462 ml 3179 ml 1543 ml Physical Exam GENERAL: intubated CARDIOVASCULAR: slightly rapid rate and rhythm without murmurs, gallops, or rubs. RESPIRATORY: Clear to auscultation. Breath sounds equal bilaterally. No wheezes , rales, or rhonchi. GASTROINTESTINAL: Abdomen soft, non-tender, nondistended. Normal active bowel sounds MUSCULOSKELETAL: Extremities without clubbing, cyanosis, or edema. NEURO: Alert & Oriented x4 to person, place, time, situation. Moves all ext x4 Laboratory Laboratory Tests Test 09/15/17 11:30 09/15/17 12:34 09/15/17 16:55 09/15/17 18:34 Prothrombin Time 157.5 SEC Prothromb Time International Ratio 12.8 RATIO Fibrinogen 514 mg/dL Blood Gas Puncture Site ART LINE ART LINE ART LINE Blood Gas Patient Temperature 98.6 98.6 98.6 Blood Gas HCO3 25 mmol/L 26 mmol/L 25 mmol/L Blood Gas Base Excess -1.1 mmol/L 0.8 mmol/L 0.6 mmol/L Blood Gas Oxygen Saturation 83 % 94 % 93 % Arterial Blood pH 7.25 7.37 7.39 Arterial Blood Partial Pressure CO2 60 mmHg 46 mmHg 42 mmHg Arterial Blood Partial Pressure O2 56 mmHg 87 mmHg 85 mmHg Arterial Blood Oxygen Content 10.8 Vol % 11.6 Vol % 11.5 Vol % Arterial Blood Carboxyhemoglobin 1.1 % 1.2 % 1.2 % Arterial Blood Methemoglobin 1.6 % 1.6 % 1.7 % Blood Gas Hemoglobin 9.2 G/DL 8.7 G/DL 8.7 G/DL Oxygen Delivery Device VENTILATOR VENTILATOR VENTILATOR Blood Gas Ventilator Setting PRVC/AC Blood Gas Inspired Oxygen 100 % 100 % 80 % Test 09/15/17 19:52 09/15/17 22:02 09/16/17 02:02 Blood Gas Puncture Site ART LINE Blood Gas Patient Temperature 98.6 Blood Gas HCO3 26 mmol/L Blood Gas Base Excess 1.2 mmol/L Blood Gas Oxygen Saturation 91 % Arterial Blood pH 7.39 Arterial Blood Partial Pressure CO2 43 mmHg Arterial Blood Partial Pressure O2 72 mmHg Arterial Blood Oxygen Content 11.7 Vol % Arterial Blood Carboxyhemoglobin 1.3 % Arterial Blood Methemoglobin 1.8 % Blood Gas Hemoglobin 9.1 G/DL Oxygen Delivery Device VENTILATOR Blood Gas Ventilator Setting PRVC Blood Gas Inspired Oxygen 60 % Prothrombin Time 38.3 SEC 42.7 SEC Prothromb Time International Ratio 3.3 RATIO 3.7 RATIO White Blood Count 17.6 TH/MM3 Red Blood Count 3.01 MIL/MM3 Hemoglobin 9.2 GM/DL Hematocrit 27.1 % Mean Corpuscular Volume 89.8 FL Mean Corpuscular Hemoglobin 30.5 PG Mean Corpuscular Hemoglobin Concent 34.0 % Red Cell Distribution Width 14.1 % Platelet Count 128 TH/MM3 Mean Platelet Volume 8.8 FL Neutrophils (%) (Auto) 92.1 % Lymphocytes (%) (Auto) 2.1 % Monocytes (%) (Auto) 4.5 % Eosinophils (%) (Auto) 1.1 % Basophils (%) (Auto) 0.2 % Neutrophils # (Auto) 16.2 TH/MM3 Lymphocytes # (Auto) 0.4 TH/MM3 Monocytes # (Auto) 0.8 TH/MM3 Eosinophils # (Auto) 0.2 TH/MM3 Basophils # (Auto) 0.0 TH/MM3 CBC Comment AUTO DIFF Differential Total Cells Counted 100 Neutrophils % (Manual) 77 % Band Neutrophils % 13 % Lymphocytes % 1 % Monocytes % 4 % Eosinophils % 2 % Neutrophils # (Manual) 16.4 TH/MM3 Metamyelocytes 1 % Myelocytes 1 % Promyelocytes 1 % Nucleated Red Blood Cells 6 /100 WBC Differential Comment FINAL DIFF MANUAL Platelet Estimate LOW Platelet Morphology Comment NORMAL Ovalocytes 1+ Keratocytes 1+ Activated Partial Thromboplast Time 62.2 SEC Fibrinogen 531 mg/dL Blood Urea Nitrogen 50 MG/DL Creatinine 3.33 MG/DL Random Glucose 162 MG/DL Total Protein 4.9 GM/DL Albumin 1.6 GM/DL Calcium Level 5.5 MG/DL Phosphorus Level 3.9 MG/DL Magnesium Level 1.4 MG/DL Alkaline Phosphatase 142 U/L Aspartate Amino Transf (AST/SGOT) 995 U/L Alanine Aminotransferase (ALT/SGPT) 799 U/L Total Bilirubin 1.6 MG/DL Sodium Level 130 MEQ/L Potassium Level 3.7 MEQ/L Chloride Level 90 MEQ/L Carbon Dioxide Level 29.3 MEQ/L Anion Gap 11 MEQ/L Estimat Glomerular Filtration Rate 18 ML/MIN Protein Corrected Calcium 6.4 MG/DL Ammonia 40 MCMOL/L Random Vancomycin Level 20.4 COMMENT Imaging Last Impressions Chest X-Ray 09/15/17 0600 Signed Impressions: Service Date/Time: Friday, September 15, 2017 02:46 - CONCLUSION: 1. Interval increase in hazy opacity in both lungs most consistent with pulmonary edema. There are apparent bilateral effusions and cardiomegaly most consistent with congestive heart failure. 2. The patient remains intubated. Francisco Ralph MD Renal Ultrasound 09/12/17 0000 Signed Impressions: Service Date/Time: Tuesday, September 12, 2017 12:10 - CONCLUSION: 1. No hydronephrosis. 2. 6 mm nonobstructing right renal stone. 3. Urinary bladder decompressed and not well evaluated. 4. Small volume ascites. Devaughn Chiu Jr., MD Assessment and Plan Problem List: (1) ACS (acute coronary syndrome) ICD Codes: I24.9 - Acute ischemic heart disease, unspecified Status: Acute Assessment and Plan STEMI - KENNEDY RCA. asa plavix statin mechanical valve - on heparin gtt (there has been some oozing, would maintain heparin ggt in addition to antiplatlets for now but if he becomes hospice/ comfort measures would reconsider) cardiomyopathy - intubated. DKA - resolved cardiogenic shock - IABP in place. 1:1. needing 3 pressors ARF on CRI - neph following. No urine output. CVVHD starting Sepsis - ID following. On antibiotics. Poor prognosis. multiorgan failure. Pt made a no code, maxed out on pressors per nursing; prognosis girm I spent aprox. 30 mins discussing all of the above with the family. Rancho Dumont MD Sep 16, 2017 11:22
[2017-09-16 12:54] LABS: HEMATOCRIT 26.6 % (39.0-51.0); MEAN CELL VOLUME 88.6 FL (80.0-100.0); MEAN CORPUSCULAR HEMOGLOBIN 30.1 PG (27.0-34.0); MEAN CORPUSCULAR HGB CONC 33.9 % (32.0-36.0); PLATELET COUNT 103 TH/MM3 (150-450); RED BLOOD COUNT 3.01 MIL/MM3 (4.50-5.90); RED CELL DISTRIBUTION WIDTH 14.4 % (11.6-17.2); REVIEW FLAG FINAL; WHITE BLOOD COUNT 19.8 TH/MM3 (4.0-11.0)
--- NOTE | 2017-09-16 12:56 | HHI.IDPN ---
Subjective Subjective Remarks Patient is a 71-year-old male, brought into the hospital other evaluation of severe shortness of breath. He also had an episode of vomiting on the day of admission. Patient apparently has been noted to be short of breath early part of August. He has seen his surveyor geophysical prospecting, and an echo was done about a week prior to admission and there was mention that he has a leaky valve. The last 4 days to shortness of breath has been worse, and the kids have been trying to convince the patient to go to the hospital but did not want to go up until the day of admission when he became worse, and also had some vomiting. He was brought into the hospital, an EKG showed evidence of acute MA. He underwent cardiac catheterization, and had intervention done, and placement of an intra- aortic balloon pump. Patient also required intubation, and has been on the vent. Overnight he has required pressors, and currently on dopamine, Chito- Synephrine, and vasopressin. His intra-aortic balloon pump is at 1 is to 1. He has not been febrile. Of note is the patient apparently has been having problem with an ulcer on his right foot. He has been going to a particleboard factory worker over the last 3 weeks, and has been prescribed 2 courses of antibiotics, each course about a week's worth. Last week after he saw his surveyor geophysical prospecting, a chest x-ray was done, and there was some findings suggestive of pneumonia. His primary care physician prescribed an antibiotic is taking that antibiotic prior to admission. Patient really has not had any significant congestion or cough. He has not complained of any chest pain. The vomiting was only on the day of admission. There has been no complaint of any sore throat, runny nose or ear pain, fever or chills, diarrhea , or any urinary complaint. Infectious disease consultation has been requested to make recommendation regarding antibiotics. Notes reviewed D/W RN Temps up since last night Remains critically ill Remains on 3 pressors: chito, levophed and dopamine IABP 1:1 Sedated on the vent, FiO2 at 80% On CVVHD Bleeding from the vascath and some from groin line Antibiotics I attest that I obtained, updated or reviewed the home and current medications. Vanco x 1 dose Cefepime Current Medications Medications (Trade) Dose Ordered Sig/Kandice Route Start Time Stop Time Status Last Admin (Xylocaine 2% Jelly) 1 applic UNSCH PRN TOP 09/11/17 16:00 (Morphine Inj) 2 mg Q30M PRN IV PUSH 09/11/17 16:00 (Plavix) 75 mg DAILY PO 09/12/17 09:00 09/15/17 11:49 (Atropine Inj) 0.5 mg UNSCH PRN IV PUSH 09/11/17 16:00 (Reglan Inj) 10 mg Q4H PRN IV PUSH 09/11/17 16:00 (Zofran Inj) 4 mg Q4H PRN IV PUSH 09/11/17 16:00 Heparin Sodium/ Dextrose 250 ml @ 9 mls/hr TITRATE PRN IV 09/11/17 16:00 Future Hold 09/12/17 22:56 (NS Flush) 2 ml UNSCH PRN IV FLUSH 09/11/17 17:15 (NS Flush) 2 ml BID IV FLUSH 09/11/17 21:00 09/16/17 08:06 (Tylenol) 650 mg Q6H PRN PO 09/11/17 17:15 (Duoneb Neb) 1 ampule Q2HR NEB PRN INH 09/11/17 17:15 Miscellaneous Information 1 Q361D XX 09/11/17 17:15 09/11/17 17:15 (Chlorhexidine 2% Cloth) 3 pack Taper DAILY@04 TOP 09/12/17 04:00 09/08/18 03:59 09/16/17 04:00 (Chlorhexidine 2% Cloth) 3 pack UNSCH PRN TOP 09/11/17 17:15 (Yamilex-Colace) 1 tab BID PO 09/11/17 21:00 09/14/17 21:10 (Milk Of Magnesia Liq) 30 ml Q12H PRN PO 09/11/17 17:15 (Senokot) 17.2 mg Q12H PRN PO 09/11/17 17:15 (Dulcolax Supp) 10 mg DAILY PRN RECTAL 09/11/17 17:15 (Lactulose Liq) 30 ml DAILY PRN PO 09/11/17 17:15 Fentanyl Citrate 250 ml @ 5 mls/hr TITRATE PRN IV 09/11/17 17:30 09/15/17 22:16 (Brethine Inj) 1 mg UNSCH PRN SQ 09/11/17 17:30 Pharmacy Profile Note 0 ml @ 0 mls/hr UNSCH OTHER 09/11/17 17:30 Miscellaneous Information 1 Q361D XX 09/11/17 17:30 09/11/17 17:30 (Peridex 0.12% Liq) 15 ml BID@08,20 MT 09/11/17 20:00 09/16/17 07:49 Miscellaneous Information 1 Q361D XX 09/11/17 17:45 09/11/17 17:45 Phenylephrine HCl 160 mg/Dextrose 500 ml @ 7.5 mls/hr TITRATE PRN IV 09/12/17 01:30 09/16/17 09:33 Dopamine HCl/ Dextrose 500 ml @ 8.182 mls/ hr TITRATE PRN IV 09/12/17 01:30 09/16/17 08:35 (Ecotrin Ec) 81 mg DAILY PO 09/12/17 10:00 Future Hold 09/15/17 11:49 (Lipitor) 40 mg DAILY PO 09/12/17 10:00 09/14/17 08:32 Midazolam HCl 100 ml @ 2 mls/hr TITRATE PRN IV 09/12/17 11:15 09/15/17 19:30 (Levemir Inj) 5 units DAILY SQ 09/13/17 10:00 09/13/17 10:00 (D50w (Vial) Inj) 50 ml UNSCH PRN IV PUSH 09/13/17 09:45 (Glucagon Inj) 1 mg UNSCH PRN OTHER 09/13/17 09:45 (NovoLOG SUPPLEMENTAL SCALE) 1 Q4HR SQ 09/13/17 16:00 09/16/17 07:50 Cefepime HCl 1000 mg/Sodium Chloride 100 ml @ 200 mls/hr Q24H IV 09/15/17 03:00 09/16/17 03:40 Sodium Bicarbonate 75 meq/Sodium Chloride 1,075 ml @ 1,000 mls/hr Q1H5M IV 09/14/17 16:15 Future hold 09/16/17 12:13 Sodium Chloride 1,000 ml @ 0 mls/hr UNSCH PRN OTHER 09/14/17 16:15 (KCl 40 Meq Premix Inj) 2 meq WITH DIALYSIS PRN .XX 09/14/17 16:15 Epoprostenol Sodium 90 ml/ Sodium Chloride 100 ml @ 8 mls/hr Q8H NEB 09/14/17 20:00 09/15/17 20:05 (Duoneb Neb) 1 ampule Q6HR NEB INH 09/15/17 16:00 09/16/17 09:30 Norepinephrine Bitartrate 16 mg/ Dextrose 250 ml @ 1.87 mls/hr TITRATE PRN IV 09/16/17 03:00 09/16/17 03:56 Calcium Gluconate 1 gm/Sodium Chloride 110 ml @ 1.5 mls/min Q12H IV 09/16/17 10:00 09/16/17 09:40 Lines Central line Jazz IABP Desouza cath Past Medical History Aortic valve mechanical on Coumadin, for bicuspid Insulin-dependent diabetes on insulin pump Coronary artery disease Hyperlipidemia Hypertension Neuropathy Past Surgical History Appendectomy Coronary artery bypass graft Aortic valve replacement Lump removed Allergies: Coded Allergies: No Known Allergies (Verified , 09/11/17) Objective . Vital Signs Date Time Temp Pulse Resp B/P (MAP) Pulse Ox O2 Delivery O2 Flow Rate FiO2 09/16/17 12:05 110 122/42 09/16/17 12:00 112/52 (77) 09/16/17 12:00 112 09/16/17 12:00 90 09/16/17 12:00 98.4 111 14 130/63 (85) 94 129/46 (73) 09/16/17 11:47 111 127/42 09/16/17 11:34 90 09/16/17 11:30 98.2 113 22 127/46 (73) 93 09/16/17 11:30 113 128/73 09/16/17 11:07 113 126/43 09/16/17 11:04 88 100 09/16/17 11:00 118/47 (80) 09/16/17 11:00 98.2 114 9 124/63 (83) 88 128/48 (74) 09/16/17 10:30 98.2 114 1 120/44 (69) 89 09/16/17 10:15 112/53 09/16/17 10:00 98.4 115 10 124/62 (82) 88 118/45 (69) 09/16/17 10:00 112 09/16/17 10:00 104/56 (73) 09/16/17 09:33 115 102/40 09/16/17 09:30 98.6 115 0 109/40 (63) 86 09/16/17 09:25 86 100 09/16/17 09:00 98.8 115 0 120/64 (82) 89 110/39 (62) 09/16/17 09:00 104/43 (70) 09/16/17 08:35 116 121/41 09/16/17 08:30 99.1 115 0 128/49 (75) 91 09/16/17 08:00 80 09/16/17 08:00 116/53 (78) 09/16/17 08:00 99.3 116 6 118/66 (83) 89 131/45 (73) 09/16/17 08:00 114 09/16/17 07:32 113 106/35 09/16/17 07:30 99.7 113 0 106/37 (60) 91 09/16/17 07:00 99.9 113 0 120/57 (78) 92 113/40 (64) 09/16/17 07:00 104/39 (67) 09/16/17 06:30 100.0 115 0 120/42 (68) 92 09/16/17 06:27 115 118/42 09/16/17 06:27 115 118/42 09/16/17 06:27 115 118/42 09/16/17 06:00 118 09/16/17 06:00 100.4 118 6 145/66 (92) 92 128/44 (72) 09/16/17 06:00 116/51 (76) 09/16/17 05:55 118 133/44 09/16/17 05:40 117 120/43 09/16/17 05:34 115 125/46 09/16/17 05:30 100.6 115 4 112/42 (65) 93 09/16/17 05:00 100.9 113 24 98/62 (74) 94 102/39 (60) 09/16/17 05:00 108/43 (71) 09/16/17 05:00 113 98/62 (74) 102/39 (60) 09/16/17 04:58 113 103/39 09/16/17 04:48 100.9 110 24 91/60 (70) 93 87/35 (52) 09/16/17 04:46 110 92/36 09/16/17 04:43 109 87/34 09/16/17 04:30 100.9 117 24 110/38 (62) 93 09/16/17 04:00 100.9 118 24 113/81 (92) 94 112/40 (64) 09/16/17 04:00 106/41 (69) 09/16/17 04:00 80 09/16/17 04:00 118 09/16/17 04:00 93 80 09/16/17 03:56 117 104/38 09/16/17 03:56 117 104/38 09/16/17 03:32 118 103/37 09/16/17 03:22 117 104/38 09/16/17 03:12 117 101/37 09/16/17 03:02 117 100/37 09/16/17 03:00 100.6 117 24 108/59 (75) 93 100/37 (58) 09/16/17 03:00 112/42 (71) 09/16/17 02:52 117 100/37 09/16/17 02:51 100.6 117 24 113/55 (74) 93 99/37 (57) 09/16/17 02:42 118 103/40 09/16/17 02:32 115 95/36 09/16/17 02:22 114 93/37 09/16/17 02:09 100.4 113 24 118/82 (94) 93 96/35 (55) 09/16/17 02:00 115 09/16/17 02:00 100.2 115 24 108/78 (88) 92 93/43 (60) 09/16/17 02:00 110/35 (70) 09/16/17 01:40 100.0 113 24 109/64 (79) 92 99/38 (58) 09/16/17 01:36 100.0 115 24 114/60 (78) 92 102/39 (60) 09/16/17 01:20 116 109/41 09/16/17 01:00 127/39 (77) 09/16/17 01:00 99.5 114 24 110/56 (74) 94 107/40 (62) 09/16/17 00:43 111 101/36 09/16/17 00:16 109 106/40 09/16/17 00:10 96 70 09/16/17 00:00 116/35 (69) 09/16/17 00:00 70 09/16/17 00:00 99.0 106 24 98/55 (69) 96 103/37 (59) 09/16/17 00:00 106 09/15/17 23:57 106 100/36 09/15/17 23:00 125/35 (74) 09/15/17 23:00 98.6 108 24 107/56 (73) 97 108/41 (63) 09/15/17 22:55 109 107/43 09/15/17 22:17 108 110/41 09/15/17 22:00 110 09/15/17 22:00 130/37 (76) 09/15/17 22:00 98.6 110 24 115/39 (64) 97 09/15/17 21:10 98.8 112 24 112/39 97 09/15/17 21:02 112 114/41 09/15/17 21:00 98.8 112 24 115/41 (65) 97 09/15/17 21:00 116/73 (68) 09/15/17 20:56 99.0 112 24 113/40 97 09/15/17 20:23 115 119/43 09/15/17 20:10 97 70 09/15/17 20:00 110 09/15/17 20:00 118/45 (78) 09/15/17 20:00 99.0 110 24 119/46 (70) 95 09/15/17 20:00 60 09/15/17 20:00 99.0 110 24 119/46 95 09/15/17 19:51 108 86/32 09/15/17 19:44 99.0 108 24 101/39 92 09/15/17 19:00 110/36 (68) 09/15/17 19:00 98.8 108 24 102/42 (62) 93 09/15/17 19:00 108 102/42 09/15/17 19:00 108 102/42 09/15/17 18:43 93 80 09/15/17 18:03 106 91/47 09/15/17 18:00 107/36 (67) 09/15/17 18:00 107 09/15/17 18:00 107 09/15/17 17:19 98.5 106 24 97/40 94 09/15/17 17:03 98.2 106 24 94/49 98 09/15/17 17:00 102/35 (65) 09/15/17 16:43 96 100 09/15/17 16:00 97.7 106 24 98/41 (60) 96 09/15/17 16:00 100 09/15/17 16:00 104/35 (65) 09/15/17 16:00 106 09/15/17 15:30 97.5 105 24 91/38 (55) 93 09/15/17 15:00 97.2 104 24 87/41 (56) 92 09/15/17 15:00 83/40 (56) 09/15/17 14:30 97.0 106 0 94/40 (58) 93 09/15/17 14:00 106 09/15/17 14:00 96.6 106 19 82/46 (58) 92 09/15/17 14:00 99/97 (64) 09/15/17 13:30 96.4 107 24 97/42 (60) 89 09/15/17 13:01 86 100 09/15/17 13:00 82/39 (59) 09/15/17 13:00 96.4 108 24 91/44 (60) 87 09/16/17 09/16/17 09/17/17 15:00 23:00 07:00 Intake Total 5370 ml Output Total 1827 ml Balance 3543 ml IV Total 5370 ml Hemodialysis 1827 ml . Laboratory Tests Test 09/15/17 03:24 09/16/17 02:02 09/16/17 12:35 White Blood Count 16.0 TH/MM3 17.6 TH/MM3 Red Blood Count 2.96 MIL/MM3 3.01 MIL/MM3 Hemoglobin 9.1 GM/DL 9.2 GM/DL Hematocrit 27.3 % 27.1 % Mean Corpuscular Volume 92.4 FL 89.8 FL Mean Corpuscular Hemoglobin 30.6 PG 30.5 PG Mean Corpuscular Hemoglobin Concent 33.1 % 34.0 % Red Cell Distribution Width 14.1 % 14.1 % Platelet Count 178 TH/MM3 128 TH/MM3 Mean Platelet Volume 8.6 FL 8.8 FL Neutrophils (%) (Auto) 92.1 % Lymphocytes (%) (Auto) 2.1 % Monocytes (%) (Auto) 4.5 % Eosinophils (%) (Auto) 1.1 % Basophils (%) (Auto) 0.2 % Neutrophils # (Auto) 16.2 TH/MM3 Lymphocytes # (Auto) 0.4 TH/MM3 Monocytes # (Auto) 0.8 TH/MM3 Eosinophils # (Auto) 0.2 TH/MM3 Basophils # (Auto) 0.0 TH/MM3 CBC Comment AUTO DIFF Differential Total Cells Counted 100 Neutrophils % (Manual) 77 % Band Neutrophils % 13 % Lymphocytes % 1 % Monocytes % 4 % Eosinophils % 2 % Neutrophils # (Manual) 16.4 TH/MM3 Metamyelocytes 1 % Myelocytes 1 % Promyelocytes 1 % Nucleated Red Blood Cells 6 /100 WBC Differential Comment FINAL DIFF MANUAL Platelet Estimate LOW Platelet Morphology Comment NORMAL Ovalocytes 1+ Keratocytes 1+ Laboratory Tests Test 09/15/17 03:24 09/16/17 02:02 Blood Urea Nitrogen 70 MG/DL 50 MG/DL Creatinine 4.46 MG/DL 3.33 MG/DL Random Glucose 127 MG/DL 162 MG/DL Total Protein 4.9 GM/DL 4.9 GM/DL Albumin 1.6 GM/DL 1.6 GM/DL Calcium Level 5.9 MG/DL 5.5 MG/DL Alkaline Phosphatase 118 U/L 142 U/L Aspartate Amino Transf (AST/SGOT) 1558 U/L 995 U/L Alanine Aminotransferase (ALT/SGPT) 1044 U/L 799 U/L Total Bilirubin 1.1 MG/DL 1.6 MG/DL Sodium Level 133 MEQ/L 130 MEQ/L Potassium Level 4.8 MEQ/L 3.7 MEQ/L Chloride Level 98 MEQ/L 90 MEQ/L Carbon Dioxide Level 23.6 MEQ/L 29.3 MEQ/L Anion Gap 11 MEQ/L 11 MEQ/L Estimat Glomerular Filtration Rate 13 ML/MIN 18 ML/MIN Protein Corrected Calcium 6.9 MG/DL 6.4 MG/DL Phosphorus Level 3.9 MG/DL Magnesium Level 1.4 MG/DL Ammonia 40 MCMOL/L Imaging Chest X-Ray 09/14/17 0600 Signed Impressions: Service Date/Time: Thursday, September 14, 2017 04:35 - CONCLUSION: 1. Cardiomegaly with bibasilar densities and probable small pleural effusions. 2. Bilateral airspace disease either layering pleural effusions or pulmonary edema. Suman Duron MD Chest X-Ray 09/14/17 0000 Signed Impressions: Service Date/Time: Thursday, September 14, 2017 14:55 - CONCLUSION: Left-sided central appears to be in place. No pneumothorax. Chico Chappell MD Chest X-Ray 09/13/17 0000 Signed Impressions: Service Date/Time: August 12:44 - CONCLUSION: 1. Stable tubes and lines, as above. 2. Cardiomegaly with positive fluid balance. 3. Slightly worsening small to moderate bilateral pleural effusions and associated lower lobe airspace disease, presumably compressive atelectasis. Magdi Vergara MD Last Impressions Chest X-Ray 09/13/17 0000 Signed Impressions: Service Date/Time: August 12:44 - CONCLUSION: 1. Stable tubes and lines, as above. 2. Cardiomegaly with positive fluid balance. 3. Slightly worsening small to moderate bilateral pleural effusions and associated lower lobe airspace disease, presumably compressive atelectasis. Magdi Vergara MD Renal Ultrasound 09/12/17 0000 Signed Impressions: Service Date/Time: Tuesday, September 12, 2017 12:10 - CONCLUSION: 1. No hydronephrosis. 2. 6 mm nonobstructing right renal stone. 3. Urinary bladder decompressed and not well evaluated. 4. Small volume ascites. Devaughn Chiu Jr., MD Physical Exam GENERAL: sedated on the vent, not in respiratory distress. Looking more edematous SKIN: Warm and dry. No generalized rash, no ecchymoses and no evidence of embolic lesions. HEAD: Atraumatic. Normocephalic. No temporal wasting, or tenderness. EYES: [place] conjunctiva. No petechia or hemorrhage. Pupils equal, round and reactive to light. No scleral icterus. No injection or drainage. EARS, NOSE AND THROAT: Nose without bleeding or purulent nasal discharge. Edentulous, he is orally intubared, moist mucosa. NECK: Trachea midline. Supple and not tender, no meningeal signs. Bleeding from vascath L neck CARDIOVASCULAR: Regular rate and rhythm, could hear the IABP. RESPIRATORY: Bilateral wheezing ABDOMEN: Distended, bowel sounds present and hypoactive. No reaction to palpation, tympanitic on percussion. No organomegaly. R groin IABP in place with blood on dressing EXTREMITIES: No clubbing, cyanosis. Worsening edema. Dry ulcer R foot, no purulence or redness NEUROLOGICAL: Sedated. PSYCHIATRIC: Unable to assess LINE: Lines with no evidence of infection, bleeding : Desouza in place, urine looks clear. Scrotum very edematous Assessment & Plan Remarks IMPRESSION Shock, cardiogenic shock, S/P MA - S/P intervention, low EF - has IABP 1:1 ?sepsis, has bilateral pulmonary infiltrates which clinically on presentation looks more of pulmonary edema than PNA Respiratory failure Renal failure due to shock R foot ulcer, currently does not look infected - (+) wound culture C/W contamination DM Leukocytosis Elevated LFT, due to shock RECOMMENDATION Follow C/S Continue Cefepime Will not give any further Vancomycin Wound care to the foot ulcer Monitor progress Very poor prognosis D/W Loreta Cottrell MD Sep 16, 2017 12:56
[2017-09-16 13:15] LABS: APTT (PATIENT) 74.2 SEC (24.3-30.1); PROTHROMBIN TIME - PATIENT 72.3 SEC (9.8-11.6)
[2017-09-16] MEDS ORDERED: GLUCAGON 1 MG/ML VIAL OTHER PRN (13:45)
[2017-09-16] MEDS ORDERED: DEXTROSE 50% IN WATER 50 ML VIAL(D50) IV PUSH PRN (13:45)
[2017-09-16] MEDS: KCL/AQUEOUS SOLN Dialysate additive PRN ×2 (13:50→19:49)
--- NOTE | 2017-09-16 13:59 | HHI.CCPN ---
Subjective Remarks/Hospital Course This is a 71-year-old male with history of hypertension, valve replacement currently on Coumadin, diabetes with an insulin pump, previous CVA, that presented to the ED, with symptoms of malaise nausea and vomiting with dyspnea. EKG was done which show significant ST depressions, stroke alert had been initiated. The patient was diaphoretic, EKG shows deep ST depressions in the inferior leads and lateral leads. Dr. 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 The patient underwent cardiac catheterization lab for further evaluation. In the ED laboratory findings glucose of 500, pH of 7.19, potassium of 6.8, creatinine of 2.9, lactate level of 10. At this point, concern for acute renal failure, possible hyperkalemia, DKA. The patient has a medical history significant for aortic valve replacement , mechanical, and a two-vessel bypass and a recent foot infection. A bedside echo was performed by Dr. chi showing an ejection fraction of 35-40% with moderate TR. The patient underwent 2 stents to the RCA and cardiac catheterization the patient was noted to become significantly hypotensive with a systolic blood pressure in the 70s-80s, and intra-aortic balloon pump was placed. The patient was transferred to the ICU, critical care medicine was consulted. Upon arrival to the ICU,the patient was noted to be in agonal respirations, O2 saturation 70's, sinus bradycardia heart rate in the 40s, with systolic blood pressure in 60's, cold with weak pulses. The patient was emergently intubated, fluid boluses initiated, phenylephrine was initiated. ABG upon presentation to ICU, immediately postintubation-pH 6.86 PCO2 60 PO2 255, [id number] with a base excess of -20.3. Subjective: 09/12: Overnight the patient's vasopressor support increased to 3 pressor agents. Bicarbonate level normalized sodium bicarbonate infusion discontinued. Formal echo pending. A chin continues on IABP 1:1. Wound culture gram- positive cocci patient empirically on vancomycin and cefepime will obtain infectious disease consult secondary to multiple antibiotics in the last several weeks, appreciate recommendations. Urine output minimal overnight, resolution of hyperkalemia. The patient continues to be hyperglycemic, continues on insulin infusion glucose levels decreased from 700-500 currently. GCS 11 T currently on fentanyl infusion, patient responding to commands, interacting yes and no questions with family at bedside. 09/13: Patient FiO2 weaned to 55%. Patient continues in acute nonoliguric renal failure monitored per nephrology. Still requiring 3 vasopressors for maintaining a MAP of 65mmHg. The patient has been has been transitioned off insulin drip, subcutaneous insulin. Glucose ranges 200. Sodium bicarbonate infusion reinitiated at 50 cc/an hour with resolution of DKA. 09/14: Patient continues still have increasing oxygen requirement, currently FiO2 90%, PEEP now increased to 12. Left IJ vas catheter placement this afternoon for initiation of CRRT. Palliative care consulted, after discussing with Dr. Chi. 09/15: Patient's medical status continues to decline. Unable to oxygenate patient last evening 100% FiO2 and PEEP of 12 Flolan was initiated. On maximum doses of Flolan and 100% FiO2 PaO2 is 59. Chest x-ray worsen massive pulmonary edema, patient continues on CRRT currently removal 100 ml/hour. Patient now having blood extravasation from right femoral groin site left vas catheter site in right IJ site. Fibrinogen level pending. INR noted to be 12.0 repeat 12.0. Heparin infusion stopped. Patient typed and screened, plan to transfuse 2 units FFP to attempt to maintain INR 2-3.0 sedentary to the patient's mechanical valve and intra-aortic balloon pump in site. 09/16 Patient is intubated, sedated with Versed, Fentanyl infusion. On Nesoyn, Dopamine and Levophed. IABP 1:1. INR 6.0. On CVVHD Received 1unit PRBC, 2u FFP last night. Objective Vital Signs Date Time Temp Pulse Resp B/P (MAP) Pulse Ox O2 Delivery O2 Flow Rate FiO2 09/16/17 13:09 111 127/41 09/16/17 12:00 90 09/16/17 12:00 98.4 14 94 Intake and Output 09/16/17 09/16/17 09/17/17 08:00 16:00 00:00 Intake Total 9154.6 ml 4295 ml Output Total 3375 ml 1701 ml Balance 5779.6 ml 2594 ml Result Diagram: 09/16/17 1235 09/16/17 0202 Other Results Laboratory Tests Test 09/15/17 16:55 09/15/17 18:34 09/15/17 19:52 10/21/17 22:02 Blood Gas Puncture Site ART LINE ART LINE ART LINE Blood Gas Patient Temperature 98.6 98.6 98.6 Blood Gas HCO3 26 mmol/L 25 mmol/L 26 mmol/L Blood Gas Base Excess 0.8 mmol/L 0.6 mmol/L 1.2 mmol/L Blood Gas Oxygen Saturation 94 % 93 % 91 % Arterial Blood pH 7.37 7.39 7.39 Arterial Blood Partial Pressure CO2 46 mmHg 42 mmHg 43 mmHg Arterial Blood Partial Pressure O2 87 mmHg 85 mmHg 72 mmHg Arterial Blood Oxygen Content 11.6 Vol % 11.5 Vol % 11.7 Vol % Arterial Blood Carboxyhemoglobin 1.2 % 1.2 % 1.3 % Arterial Blood Methemoglobin 1.6 % 1.7 % 1.8 % Blood Gas Hemoglobin 8.7 G/DL 8.7 G/DL 9.1 G/DL Oxygen Delivery Device VENTILATOR VENTILATOR VENTILATOR Blood Gas Ventilator Setting PRVC Blood Gas Inspired Oxygen 100 % 80 % 60 % Prothrombin Time 38.3 SEC Prothromb Time International Ratio 3.3 RATIO Test 09/16/17 02:02 09/16/17 12:35 White Blood Count 17.6 TH/MM3 19.8 TH/MM3 Red Blood Count 3.01 MIL/MM3 3.01 MIL/MM3 Hemoglobin 9.2 GM/DL 9.0 GM/DL Hematocrit 27.1 % 26.6 % Mean Corpuscular Volume 89.8 FL 88.6 FL Mean Corpuscular Hemoglobin 30.5 PG 30.1 PG Mean Corpuscular Hemoglobin Concent 34.0 % 33.9 % Red Cell Distribution Width 14.1 % 14.4 % Platelet Count 128 TH/MM3 103 TH/MM3 Mean Platelet Volume 8.8 FL 8.3 FL Neutrophils (%) (Auto) 92.1 % Lymphocytes (%) (Auto) 2.1 % Monocytes (%) (Auto) 4.5 % Eosinophils (%) (Auto) 1.1 % Basophils (%) (Auto) 0.2 % Neutrophils # (Auto) 16.2 TH/MM3 Lymphocytes # (Auto) 0.4 TH/MM3 Monocytes # (Auto) 0.8 TH/MM3 Eosinophils # (Auto) 0.2 TH/MM3 Basophils # (Auto) 0.0 TH/MM3 CBC Comment AUTO DIFF Differential Total Cells Counted 100 Neutrophils % (Manual) 77 % Band Neutrophils % 13 % Lymphocytes % 1 % Monocytes % 4 % Eosinophils % 2 % Neutrophils # (Manual) 16.4 TH/MM3 Metamyelocytes 1 % Myelocytes 1 % Promyelocytes 1 % Nucleated Red Blood Cells 6 /100 WBC Differential Comment FINAL DIFF MANUAL Platelet Estimate LOW Platelet Morphology Comment NORMAL Ovalocytes 1+ Keratocytes 1+ Prothrombin Time 42.7 SEC 72.3 SEC Prothromb Time International Ratio 3.7 RATIO 6.0 RATIO Activated Partial Thromboplast Time 62.2 SEC 74.2 SEC Fibrinogen 531 mg/dL 571 mg/dL Blood Urea Nitrogen 50 MG/DL Creatinine 3.33 MG/DL Random Glucose 162 MG/DL Total Protein 4.9 GM/DL Albumin 1.6 GM/DL Calcium Level 5.5 MG/DL Phosphorus Level 3.9 MG/DL Magnesium Level 1.4 MG/DL Alkaline Phosphatase 142 U/L Aspartate Amino Transf (AST/SGOT) 995 U/L Alanine Aminotransferase (ALT/SGPT) 799 U/L Total Bilirubin 1.6 MG/DL Sodium Level 130 MEQ/L Potassium Level 3.7 MEQ/L Chloride Level 90 MEQ/L Carbon Dioxide Level 29.3 MEQ/L Anion Gap 11 MEQ/L Estimat Glomerular Filtration Rate 18 ML/MIN Protein Corrected Calcium 6.4 MG/DL Ammonia 40 MCMOL/L Random Vancomycin Level 20.4 COMMENT D-Dimer Quantitative (PE/DVT) 2.66 MG/L FEU Imaging Last Impressions Chest X-Ray 09/15/17 0600 Signed Impressions: Service Date/Time: Friday, September 15, 2017 02:46 - CONCLUSION: 1. Interval increase in hazy opacity in both lungs most consistent with pulmonary edema. There are apparent bilateral effusions and cardiomegaly most consistent with congestive heart failure. 2. The patient remains intubated. Francisco Ralph MD Renal Ultrasound 09/12/17 0000 Signed Impressions: Service Date/Time: Tuesday, September 12, 2017 12:10 - CONCLUSION: 1. No hydronephrosis. 2. 6 mm nonobstructing right renal stone. 3. Urinary bladder decompressed and not well evaluated. 4. Small volume ascites. Devaughn Chiu Jr., MD Objective Remarks GENERAL: Critically ill male intubated and sedated SKIN: Warm and dry, grossly edematous weeping from right groin site, total edema HEAD: Atraumatic. Normocephalic. EYES: Pupils equal and round. No scleral icterus. No injection or drainage. ENT: No nasal bleeding or discharge. Mucous membranes pink and moist. Orotracheally intubated NECK: Trachea midline. No JVD. CARDIOVASCULAR: Normal rate, regular rhythm. Telemetry sinus rhythm intra- aortic balloon pump 1:1 RESPIRATORY: Mechanical ventilation with Flolan. Bilateral chest excursion. Scattered rhonchi on auscultation GASTROINTESTINAL: Abdomen soft, non-tender, nondistended. No guarding. MUSCULOSKELETAL: Extremities without clubbing, cyanosis, 3+ peripheral edema. No obvious deformities. Right groin intra-aortic balloon pump noted oozing from site. Right foot wound, purulent drainage NEUROLOGICAL: GCS3T. RASS -2. Procedures 09/11 IABP, 2 drug-eluting stents to RCA 09/12 echo 09/14 LIJ vasc cath, CRRT initiated Date of Insertion: Sep 11, 2017 Date of Insertion: Sep 11, 2017 Line: Central Venous Catheter Side: Right Location: Internal A/P Assessment and Plan Assessment This is a 71-year-old male now in multisystem organ failure, on maximum doses of vasopressor support, inability to adequate oxygenation on maximum dose on 100 % FiO2 and maximum dose of Flolan and pulmonary pulmonary edema. ASSESSMENT STEMI S/P PCI x 2 (RCA) History of two-vessel cardiac bypass with mechanical AVR Cardiogenic shock- with IABP support 1:1 Status post PCI (2) KENNEDY to RCA-09/11 DKA-resolved Septic shock Acute hypercapnic and hypoxemic respiratory failure Pulmonary edema Nonoliguric acute renal failure Hyperkalemia-resolved Right Foot infection History of CVA Multisystem organ dysfunction Transaminitis Hepatic liver failure PLAN Neurologic: Versed and fentanyl infusions for sedation and ventilator synchrony Neurochecks per ICU protocol Daily sedation vacation and clinically applicable Respiratory: 09/11-intubated 8.0 ETT at 23cm Continue with vent support maintain O2 saturation > 92% On PRVC RR 24, IT:1.0, PEEP:12, FIO2 70% Ventilator bundle. Decrease FIO2 as naresh. Bronchodilators every 6 hours scheduled, every 2 hours when necessary CPAP trials when clinically indicated On Flolan Cardiovascular: IABP 1:1 Continue with pressors -Phenylephrine, dopamine, norepinephrine infusion to maintain MAP > 65mmHg maximum doses, continued hemodynamic instability Status post drug-eluting stents 2 to RCA-aspirin Plavix and statin management per cardiology Cardiology-Dr. Chi following Start stress dose steroids- HC 100mg IV Q8 Renal: Monitor renal function, I/O's, avoid nephrotoxins. Nephrology following- Dr. Bliss. On CVVHD 09/14-Vas-Cath placement and initiation of CRRT US abdomen 09/12: No hydronephrosis FEN/GI: Elevated LFT's- 2nd ischemic hepatics Monitor LFT's Zofran for nausea Bowel regimen ID: Continue abx per ID ( Cefepime), wound care is following. Follow-up blood, urine, and sputum cultures- NGTD Foot wound culture-Pseudomonas Oryzihabitou Heme Anemia, Thrombocytopenia, Coagulopathy. Will Transfuse 2units FFP today for INR 6.0 Monitor CBC, Coags. INR: 6.0, Fibrinogen: 571 Patient s/p transfusion 2units FFP and 1unit PRBC last night. Endocrine: -- SSI Prophylaxis: GI Prophylaxis Famotidine DVT Prophylaxis -- SCDs INR 6.0 Lines: Peripheral IVs, right femoral intra-aortic balloon pump, Right subclavian, Left IJ vascath Patient is critically ill with multiorgan failure and on multiple pressors. CCT 35 mins Tianna Weldon MD Sep 16, 2017 13:59
[2017-09-16] MEDS: HYDROCORTISONE SOD SUCCINATE 100 MG VIAL IV PUSH SCH ×2 (14:44→21:25)
--- NOTE | 2017-09-16 15:16 | HHI.NPPN ---
Subjective History of Present Illness 71-year-old with acute coronary syndrome status post stent diabetes, acute renal failure on intra-aortic balloon pump Additional Remarks Patient remain intubated and on multiple pressors, still the BP is on lower sides. Objective Data Data 09/16/17 09/17/17 19:00 07:00 Intake Total 9115 ml Output Total 2716 ml Balance 6399 ml IV Total 9095 ml Blood Product IV Normal Saline Flush 20 ml Hemodialysis 2716 ml Vital Signs Date Time Temp Pulse Resp B/P (MAP) Pulse Ox O2 Delivery O2 Flow Rate FiO2 09/16/17 15:00 109/44 (72) 09/16/17 14:45 111 113/39 09/16/17 14:00 100/40 (66) 09/16/17 14:00 111 09/16/17 13:54 98 80 09/16/17 13:09 111 127/41 09/16/17 13:00 111/44 (74) 09/16/17 12:05 110 122/42 09/16/17 12:00 112/52 (77) 09/16/17 12:00 112 09/16/17 12:00 90 09/16/17 12:00 98.4 111 14 130/63 (85) 94 129/46 (73) 09/16/17 11:47 111 127/42 09/16/17 11:34 90 09/16/17 11:30 98.2 113 22 127/46 (73) 93 09/16/17 11:30 113 128/73 09/16/17 11:07 113 126/43 09/16/17 11:04 88 100 09/16/17 11:00 118/47 (80) 09/16/17 11:00 98.2 114 9 124/63 (83) 88 128/48 (74) 09/16/17 10:30 98.2 114 1 120/44 (69) 89 09/16/17 10:15 112/53 09/16/17 10:00 98.4 115 10 124/62 (82) 88 118/45 (69) 09/16/17 10:00 112 09/16/17 10:00 104/56 (73) 09/16/17 09:33 115 102/40 09/16/17 09:30 98.6 115 0 109/40 (63) 86 09/16/17 09:25 86 100 09/16/17 09:00 98.8 115 0 120/64 (82) 89 110/39 (62) 09/16/17 09:00 104/43 (70) 09/16/17 08:35 116 121/41 09/16/17 08:30 99.1 115 0 128/49 (75) 91 09/16/17 08:00 80 09/16/17 08:00 116/53 (78) 09/16/17 08:00 99.3 116 6 118/66 (83) 89 131/45 (73) 09/16/17 08:00 114 09/16/17 07:32 113 106/35 09/16/17 07:30 99.7 113 0 106/37 (60) 91 09/16/17 07:00 99.9 113 0 120/57 (78) 92 113/40 (64) 09/16/17 07:00 104/39 (67) 09/16/17 06:30 100.0 115 0 120/42 (68) 92 09/16/17 06:27 115 118/42 09/16/17 06:27 115 118/42 09/16/17 06:27 115 118/42 09/16/17 06:00 118 09/16/17 06:00 100.4 118 6 145/66 (92) 92 128/44 (72) 09/16/17 06:00 116/51 (76) 09/16/17 05:55 118 133/44 09/16/17 05:40 117 120/43 09/16/17 05:34 115 125/46 09/16/17 05:30 100.6 115 4 112/42 (65) 93 09/16/17 05:00 100.9 113 24 98/62 (74) 94 102/39 (60) 09/16/17 05:00 108/43 (71) 09/16/17 05:00 113 98/62 (74) 102/39 (60) 09/16/17 04:58 113 103/39 09/16/17 04:48 100.9 110 24 91/60 (70) 93 87/35 (52) 09/16/17 04:46 110 92/36 09/16/17 04:43 109 87/34 09/16/17 04:30 100.9 117 24 110/38 (62) 93 09/16/17 04:00 100.9 118 24 113/81 (92) 94 112/40 (64) 09/16/17 04:00 106/41 (69) 09/16/17 04:00 80 09/16/17 04:00 118 09/16/17 04:00 93 80 09/16/17 03:56 117 104/38 09/16/17 03:56 117 104/38 09/16/17 03:32 118 103/37 09/16/17 03:22 117 104/38 09/16/17 03:12 117 101/37 09/16/17 03:02 117 100/37 09/16/17 03:00 100.6 117 24 108/59 (75) 93 100/37 (58) 09/16/17 03:00 112/42 (71) 09/16/17 02:52 117 100/37 09/16/17 02:51 100.6 117 24 113/55 (74) 93 99/37 (57) 09/16/17 02:42 118 103/40 09/16/17 02:32 115 95/36 09/16/17 02:22 114 93/37 09/16/17 02:09 100.4 113 24 118/82 (94) 93 96/35 (55) 09/16/17 02:00 115 09/16/17 02:00 100.2 115 24 108/78 (88) 92 93/43 (60) 09/16/17 02:00 110/35 (70) 09/16/17 01:40 100.0 113 24 109/64 (79) 92 99/38 (58) 09/16/17 01:36 100.0 115 24 114/60 (78) 92 102/39 (60) 09/16/17 01:20 116 109/41 09/16/17 01:00 127/39 (77) 09/16/17 01:00 99.5 114 24 110/56 (74) 94 107/40 (62) 09/16/17 00:43 111 101/36 09/16/17 00:16 109 106/40 09/16/17 00:10 96 70 09/16/17 00:00 116/35 (69) 09/16/17 00:00 70 09/16/17 00:00 99.0 106 24 98/55 (69) 96 103/37 (59) 09/16/17 00:00 106 09/15/17 23:57 106 100/36 09/15/17 23:00 125/35 (74) 09/15/17 23:00 98.6 108 24 107/56 (73) 97 108/41 (63) 09/15/17 22:55 109 107/43 09/15/17 22:17 108 110/41 09/15/17 22:00 110 09/15/17 22:00 130/37 (76) 09/15/17 22:00 98.6 110 24 115/39 (64) 97 09/15/17 21:10 98.8 112 24 112/39 97 09/15/17 21:02 112 114/41 09/15/17 21:00 98.8 112 24 115/41 (65) 97 09/15/17 21:00 116/73 (68) 09/15/17 20:56 99.0 112 24 113/40 97 09/15/17 20:23 115 119/43 09/15/17 20:10 97 70 09/15/17 20:00 110 09/15/17 20:00 118/45 (78) 09/15/17 20:00 99.0 110 24 119/46 (70) 95 09/15/17 20:00 60 09/15/17 20:00 99.0 110 24 119/46 95 09/15/17 19:51 108 86/32 09/15/17 19:44 99.0 108 24 101/39 92 09/15/17 19:00 110/36 (68) 09/15/17 19:00 98.8 108 24 102/42 (62) 93 09/15/17 19:00 108 102/42 09/15/17 19:00 108 102/42 09/15/17 18:43 93 80 09/15/17 18:03 106 91/47 09/15/17 18:00 107/36 (67) 09/15/17 18:00 107 09/15/17 18:00 107 09/15/17 17:19 98.5 106 24 97/40 94 09/15/17 17:03 98.2 106 24 94/49 98 09/15/17 17:00 102/35 (65) 09/15/17 16:43 96 100 09/15/17 16:00 97.7 106 24 98/41 (60) 96 09/15/17 16:00 100 09/15/17 16:00 104/35 (65) 09/15/17 16:00 106 09/15/17 15:30 97.5 105 24 91/38 (55) 93 -: 09/16/17 1235 09/16/17 0202 Physical Exam General Appearance Remarks Intubated and sedated. Neck Neck Exam: Neck Supple Pulmonary Resp Exam: Rhonchi, Decreased Bases, Diminished Breath Sounds, Poor Inspiratory Effort Cardiology CV Exam: Arrhythmia Gastrointestinal/Abdomen GI Exam: Soft, Bowel Sounds Present, Distended Extremeties Extremities Exam: Moderate Edema, Pitting Edema, Dependent Edema Neurologic Neuro Exam: Sedated Assessment/Plan Problem List: (1) Acute renal failure ICD Codes: N17.9 - Acute kidney failure, unspecified Plan: Patient likely has acute tubular necrosis due to cardiogenic shock urine output has dropped Not responding to Bumex CRRT started , Tolerating well. Continue to monitor his progress He is in acute renal failure now Anuric Critically ill on vent and intra-aortic balloon pump support, stents were placed in RCA. Still on 100% Fio2. BP is low, on multiple pressors. CRRT working, calcium is low, given IV. K increase to 3.[address] Bliss will follow from AM. (2) Acute coronary syndrome ICD Codes: I24.9 - Acute ischemic heart disease, unspecified Plan: Continue to monitor prognosis is poor (3) Coronary artery disease ICD Codes: I25.10 - Atherosclerotic heart disease of [place] coronary artery without angina pectoris Plan: Cardiology following (4) Diabetes ICD Codes: E11.9 - Type 2 diabetes mellitus without complications Status: Chronic Plan: Monitor Ilya Foster MD Sep 16, 2017 15:16
[2017-09-16] MEDS: INSULIN NovoLIN REGULAR SUPPLEMENTAL SCALE SQ SCH ×2 (16:00→20:00)
[2017-09-16] MEDS ORDERED: MIDAZOLAM 100 MG/NS 100 ML DRIP Premix IV PRN (19:45)
[2017-09-16] MEDS: EPOPROSTENOL NEB SOLUTION 40 NG/KG/MIN 100 ML NEB SCH ×2 (21:35)
[2017-09-17] VITALS (13 sets, daily range): BP systolic 109–129; BP diastolic 39–61; PULSE 90–101; RESP 24; TEMP 98.6–99; O2SAT 99–100
[2017-09-17] MEDS: SODIUM BICARBONATE 8.4% INJ 75 MEQ in SODIUM CHLOR 0.45% 1000 ML INJ 1,000 ML IV SCH ×12 (00:06→11:50)
[2017-09-17] MEDS: PHENYLEPHRINE HCL 160 MG/D5W 484 ML ADMIX IV PRN ×4 (02:11→08:18)
[2017-09-17] MEDS: CEFEPIME INJ 1,000 MG in SODIUM CHLORIDE 0.9% INJ 100 ML IV SCH (02:32)
[2017-09-17] MEDS: INSULIN NovoLIN REGULAR SUPPLEMENTAL SCALE SQ SCH ×3 (04:00→09:19)
[2017-09-17] MEDS: CHLORHEXIDINE GLUCONATE 2 % 1 PACK (2 CLOTHS) TOP SCH (04:00)
[2017-09-17] MEDS: fentaNYL DRIP 250 ML IV PRN (04:03)
[2017-09-17 04:11] LABS: BASOPHIL # 0.1 TH/MM3 (0-0.2); BASOPHIL % 0.3 % (0.0-2.0); EOSINOPHIL # 0.8 TH/MM3 (0-0.4); EOSINOPHIL % 3.4 % (0.0-4.0); LYMPH % 1.5 % (9.0-44.0); LYMPHOCYTE # 0.4 TH/MM3 (1.0-4.8); MEAN CELL VOLUME 89.1 FL (80.0-100.0); MEAN CORPUSCULAR HEMOGLOBIN 30.1 PG (27.0-34.0); MEAN CORPUSCULAR HGB CONC 33.8 % (32.0-36.0); MONO % 4.9 % (0.0-8.0); NEUT % 89.9 % (16.0-70.0); PLATELET COUNT 85 TH/MM3 (150-450); RED BLOOD COUNT 2.81 MIL/MM3 (4.50-5.90); RED CELL DISTRIBUTION WIDTH 14.1 % (11.6-17.2); WHITE BLOOD COUNT 23.3 TH/MM3 (4.0-11.0)
[2017-09-17 04:21] LABS: HEMO FLAGS AUTO DIFF
[2017-09-17 04:38] LABS: BICARBONATE 32.7 MEQ/L (21.0-32.0); POTASSIUM 3.2 MEQ/L (3.5-5.1); TOTAL BILIRUBIN ADULT 2.2 MG/DL (0.2-1.0)
[2017-09-17] MEDS: RESP: ALBUTEROL 2.5 MG/IPRATROPIUM 0.5 MG NEB (SCH) INH (04:39)
[2017-09-17 04:42] LABS: CALCIUM-PROTEIN CORRECTED 6.8 MG/DL (8.5-10.1)
[2017-09-17 04:45] LABS: APTT (PATIENT) 63.9 SEC (24.3-30.1)
[2017-09-17] MEDS: HYDROCORTISONE SOD SUCCINATE 100 MG VIAL IV PUSH SCH (05:42)
[2017-09-17 06:19] LABS: INTERNATIONAL NORMALIZED RATIO 3.7 RATIO; PROTHROMBIN TIME - PATIENT 43.2 SEC (9.8-11.6)
--- NOTE | 2017-09-17 08:37 | PD.CARD.PN ---
Subjective Subjective Remarks intubated, sedated and mechanically ventilated (Drea Jimenez) Objective Medications Current Medications Medications (Trade) Dose Ordered Sig/Kandice Route Start Time Stop Time Status Last Admin (Xylocaine 2% Jelly) 1 applic UNSCH PRN TOP 09/11/17 16:00 (Morphine Inj) 2 mg Q30M PRN IV PUSH 09/11/17 16:00 (Plavix) 75 mg DAILY PO 09/12/17 09:00 09/15/17 11:49 (Atropine Inj) 0.5 mg UNSCH PRN IV PUSH 09/11/17 16:00 (Reglan Inj) 10 mg Q4H PRN IV PUSH 09/11/17 16:00 (Zofran Inj) 4 mg Q4H PRN IV PUSH 09/11/17 16:00 Heparin Sodium/ Dextrose 250 ml @ 9 mls/hr TITRATE PRN IV 09/11/17 16:00 Future Hold 09/12/17 22:56 (NS Flush) 2 ml UNSCH PRN IV FLUSH 09/11/17 17:15 (NS Flush) 2 ml BID IV FLUSH 09/11/17 21:00 09/16/17 21:26 (Tylenol) 650 mg Q6H PRN PO 09/11/17 17:15 (Duoneb Neb) 1 ampule Q2HR NEB PRN INH 09/11/17 17:15 Miscellaneous Information 1 Q361D XX 09/11/17 17:15 09/11/17 17:15 (Chlorhexidine 2% Cloth) Taper DAILY@04 TOP 09/12/17 04:00 09/08/18 03:59 09/16/17 04:00 (Chlorhexidine 2% Cloth) 3 pack UNSCH PRN TOP 09/11/17 17:15 (Yamilex-Colace) 1 tab BID PO 09/11/17 21:00 09/14/17 21:10 (Milk Of Magnesia Liq) 30 ml Q12H PRN PO 09/11/17 17:15 (Senokot) 17.2 mg Q12H PRN PO 09/11/17 17:15 (Dulcolax Supp) 10 mg DAILY PRN RECTAL 09/11/17 17:15 (Lactulose Liq) 30 ml DAILY PRN PO 09/11/17 17:15 Fentanyl Citrate 250 ml @ 5 mls/hr TITRATE PRN IV 09/11/17 17:30 09/17/17 04:03 (Brethine Inj) 1 mg UNSCH PRN SQ 09/11/17 17:30 Pharmacy Profile Note 0 ml @ 0 mls/hr UNSCH OTHER 09/11/17 17:30 Miscellaneous Information 1 Q361D XX 09/11/17 17:30 09/11/17 17:30 (Peridex 0.12% Liq) 15 ml BID@08,20 MT 09/11/17 20:00 09/16/17 20:37 Miscellaneous Information 1 Q361D XX 09/11/17 17:45 09/11/17 17:45 Phenylephrine HCl 160 mg/Dextrose 500 ml @ 7.5 mls/hr TITRATE PRN IV 09/12/17 01:30 09/17/17 08:18 Dopamine HCl/ Dextrose 500 ml @ 8.182 mls/ hr TITRATE PRN IV 09/12/17 01:30 09/16/17 08:35 (Ecotrin Ec) 81 mg DAILY PO 09/12/17 10:00 Future Hold 09/15/17 11:49 (Lipitor) 40 mg DAILY PO 09/12/17 10:00 09/14/17 08:32 Cefepime HCl 1000 mg/Sodium Chloride 100 ml @ 200 mls/hr Q24H IV 09/15/17 03:00 09/17/17 02:32 Sodium Bicarbonate 75 meq/Sodium Chloride 1,075 ml @ 1,000 mls/hr Q1H5M IV 09/14/17 16:15 Future hold 09/17/17 07:43 Sodium Chloride 1,000 ml @ 0 mls/hr UNSCH PRN OTHER 09/14/17 16:15 (KCl 40 Meq Premix Inj) 2 meq WITH DIALYSIS PRN .XX 09/14/17 16:15 09/16/17 19:49 Epoprostenol Sodium 90 ml/ Sodium Chloride 100 ml @ 8 mls/hr Q8H NEB 09/14/17 20:00 09/16/17 21:35 (Duoneb Neb) 1 ampule Q6HR NEB INH 09/15/17 16:00 09/17/17 04:39 Norepinephrine Bitartrate 16 mg/ Dextrose 250 ml @ 1.87 mls/hr TITRATE PRN IV 09/16/17 03:00 09/16/17 17:29 Calcium Gluconate 1 gm/Sodium Chloride 110 ml @ 1.5 mls/min Q12H IV 09/16/17 10:00 09/16/17 21:25 (SoluCORTEF INJ) 100 mg Q8HR IV PUSH 09/16/17 14:00 09/17/17 05:42 (D50w (Vial) Inj) 50 ml UNSCH PRN IV PUSH 09/16/17 13:45 (Glucagon Inj) 1 mg UNSCH PRN OTHER 09/16/17 13:45 (NovoLIN R SUPPLEMENTAL SCALE) 1 Q4HR SQ 09/16/17 16:00 09/17/17 04:00 Midazolam HCl 100 ml @ 5 mls/hr TITRATE PRN IV 09/16/17 19:45 09/17/17 06:32 Vital Signs / I&O Vital Signs Date Time Temp Pulse Resp B/P (MAP) Pulse Ox O2 Delivery O2 Flow Rate FiO2 09/17/17 08:18 92 109/39 09/17/17 07:00 131/43 (84) 09/17/17 06:37 91 116/42 09/17/17 06:37 91 116/42 09/17/17 06:00 138/46 (91) 09/17/17 06:00 90 09/17/17 05:00 90 118/58 (78) 115/43 (67) 09/17/17 05:00 131/45 (86) 09/17/17 04:41 99 100 09/17/17 04:00 98.2 91 24 122/57 (78) 100 114/42 (66) 09/17/17 04:00 91 09/17/17 04:00 130/45 (86) 09/17/17 04:00 100 09/17/17 03:00 129/54 (88) 09/17/17 03:00 98.2 93 24 116/56 (76) 100 111/43 (65) 09/17/17 02:38 95 113/43 09/17/17 02:11 97 108/41 09/17/17 02:00 98.2 92 24 123/56 (78) 99 111/42 (65) 09/17/17 02:00 92 09/17/17 02:00 121/41 (79) 09/17/17 01:47 96 115/42 09/17/17 01:00 98.4 93 24 123/56 (78) 99 111/41 (64) 09/17/17 01:00 112/44 (75) 09/17/17 00:41 99 100 09/17/17 00:07 101 117/42 09/17/17 00:00 98.4 101 24 129/61 (83) 99 117/42 (67) 09/17/17 00:00 100 09/17/17 00:00 101 09/17/17 00:00 115/44 (77) 09/16/17 23:24 110 130/49 09/16/17 23:03 114 134/50 09/16/17 23:00 98.6 114 24 137/67 (90) 98 134/52 (79) 09/16/17 23:00 126/52 (87) 09/16/17 22:00 121/55 (85) 09/16/17 22:00 99.0 113 24 131/86 (101) 98 127/47 (73) 09/16/17 22:00 113 09/16/17 21:33 99 100 09/16/17 21:00 99.0 111 24 125/59 (81) 99 122/44 (70) 09/16/17 21:00 117/47 (78) 09/16/17 20:37 111 122/44 09/16/17 20:00 111 09/16/17 20:00 116/50 (79) 09/16/17 20:00 99.1 111 24 123/65 (84) 99 123/45 (71) 09/16/17 20:00 100 09/16/17 19:30 112 122/45 09/16/17 19:30 112 122/45 09/16/17 19:30 112 122/45 09/16/17 19:00 99.5 114 24 130/61 (84) 96 124/46 (72) 09/16/17 19:00 112/49 (77) 09/16/17 18:41 116 125/43 09/16/17 18:41 116 125/43 09/16/17 18:00 116 09/16/17 18:00 121/52 (82) 09/16/17 17:44 117 128/45 09/16/17 17:29 118 125/45 09/16/17 17:24 118 126/45 09/16/17 17:00 112/46 (74) 09/16/17 17:00 99.1 116 11 123/62 (82) 96 120/43 (68) 09/16/17 16:30 99.0 115 0 118/41 (66) 97 09/16/17 16:01 97 75 09/16/17 16:00 99.0 114 4 124/59 (80) 97 121/43 (69) 09/16/17 16:00 75 09/16/17 16:00 113 09/16/17 16:00 112/44 (74) 09/16/17 15:30 99.0 113 10 119/43 (68) 97 09/16/17 15:15 99.0 113 4 118/42 (67) 97 09/16/17 15:00 99.0 112 11 119/59 (79) 98 117/42 (67) 09/16/17 15:00 109/44 (72) 09/16/17 14:45 98.8 111 7 111/39 (63) 98 09/16/17 14:45 111 113/39 09/16/17 14:30 98.8 112 0 115/40 (65) 98 09/16/17 14:15 98.8 111 0 116/41 (66) 98 09/16/17 14:00 100/40 (66) 09/16/17 14:00 98.8 110 4 126/58 (80) 98 116/42 (66) 09/16/17 14:00 111 09/16/17 13:54 98 80 09/16/17 13:45 98.6 111 0 114/41 (65) 98 09/16/17 13:30 98.6 111 3 113/40 (64) 98 09/16/17 13:15 98.6 111 17 116/41 (66) 98 09/16/17 13:09 111 127/41 09/16/17 13:00 98.6 110 15 121/60 (80) 98 121/42 (68) 09/16/17 13:00 111/44 (74) 09/16/17 12:45 98.4 109 2 118/42 (67) 99 09/16/17 12:30 98.4 110 0 119/42 (67) 95 09/16/17 12:05 110 122/42 09/16/17 12:00 112/52 (77) 09/16/17 12:00 112 09/16/17 12:00 90 09/16/17 12:00 98.4 111 14 130/63 (85) 94 129/46 (73) 09/16/17 11:47 111 127/42 09/16/17 11:34 90 09/16/17 11:30 98.2 113 22 127/46 (73) 93 09/16/17 11:30 113 128/73 09/16/17 11:07 113 126/43 09/16/17 11:04 88 100 09/16/17 11:00 118/47 (80) 09/16/17 11:00 98.2 114 9 124/63 (83) 88 128/48 (74) 09/16/17 10:30 98.2 114 1 120/44 (69) 89 09/16/17 10:15 112/53 09/16/17 10:00 98.4 115 10 124/62 (82) 88 118/45 (69) 09/16/17 10:00 112 09/16/17 10:00 104/56 (73) 09/16/17 09:33 115 102/40 09/16/17 09:30 98.6 115 0 109/40 (63) 86 09/16/17 09:25 86 100 09/16/17 09:00 98.8 115 0 120/64 (82) 89 110/39 (62) 09/16/17 09:00 104/43 (70) 09/16/17 08:35 116 121/41 I/O 09/16/17 09/16/17 09/16/17 09/17/17 09/17/17 09/17/17 07:00 15:00 23:00 07:00 15:00 23:00 Intake Total 9574.6 ml 9115 ml 6920 ml 9113.0 ml 1205 ml Output Total 3190 ml 2716 ml 2576 ml 2440 ml Balance 6384.6 ml 6399 ml 4344 ml 6673.0 ml 1205 ml IV Total 9154.6 ml 9095 ml 6210 ml 9113.0 ml 1205 ml Packed Cells 400 ml FFP 655 ml Blood Product IV Normal Saline Flush 20 ml 20 ml 55 ml Output Urine Total 11 ml 14 ml 18 ml Hemodialysis 3179 ml 2716 ml 2562 ml 2422 ml Physical Exam intubated,sedated and mechanically ventilated HEAD: Atraumatic. Normocephalic. EYES: Pupils equal and round. No scleral icterus. No injection or drainage. ENT: No nasal bleeding or discharge. Mucous membranes pink and moist. NECK: Trachea midline. No JVD. CARDIOVASCULAR: Regular rate and rhythm. systolic murmur RESPIRATORY: No accessory muscle use. GASTROINTESTINAL: Abdomen soft, non-tender, nondistended. . MUSCULOSKELETAL: Extremities without clubbing, cyanosis, or edema. No obvious deformities. NEUROLOGICAL: sedated. Laboratory Laboratory Tests Test 09/16/17 12:35 09/16/17 19:40 09/17/17 03:45 White Blood Count 19.8 TH/MM3 23.3 TH/MM3 Red Blood Count 3.01 MIL/MM3 2.81 MIL/MM3 Hemoglobin 9.0 GM/DL 8.5 GM/DL Hematocrit 26.6 % 25.0 % Mean Corpuscular Volume 88.6 FL 89.1 FL Mean Corpuscular Hemoglobin 30.1 PG 30.1 PG Mean Corpuscular Hemoglobin Concent 33.9 % 33.8 % Red Cell Distribution Width 14.4 % 14.1 % Platelet Count 103 TH/MM3 85 TH/MM3 Mean Platelet Volume 8.3 FL 8.2 FL Prothrombin Time 72.3 SEC 35.0 SEC 43.2 SEC Prothromb Time International Ratio 6.0 RATIO 3.0 RATIO 3.7 RATIO Activated Partial Thromboplast Time 74.2 SEC 63.9 SEC Fibrinogen 571 mg/dL D-Dimer Quantitative (PE/DVT) 2.66 MG/L FEU Neutrophils (%) (Auto) 89.9 % Lymphocytes (%) (Auto) 1.5 % Monocytes (%) (Auto) 4.9 % Eosinophils (%) (Auto) 3.4 % Basophils (%) (Auto) 0.3 % Neutrophils # (Auto) 21.0 TH/MM3 Lymphocytes # (Auto) 0.4 TH/MM3 Monocytes # (Auto) 1.2 TH/MM3 Eosinophils # (Auto) 0.8 TH/MM3 Basophils # (Auto) 0.1 TH/MM3 CBC Comment AUTO DIFF Blood Urea Nitrogen 38 MG/DL Creatinine 2.51 MG/DL Random Glucose 187 MG/DL Total Protein 5.1 GM/DL Albumin 1.8 GM/DL Calcium Level 5.9 MG/DL Alkaline Phosphatase 165 U/L Aspartate Amino Transf (AST/SGOT) 497 U/L Alanine Aminotransferase (ALT/SGPT) 512 U/L Total Bilirubin 2.2 MG/DL Sodium Level 129 MEQ/L Potassium Level 3.2 MEQ/L Chloride Level 86 MEQ/L Carbon Dioxide Level 32.7 MEQ/L Anion Gap 10 MEQ/L Estimat Glomerular Filtration Rate 25 ML/MIN Protein Corrected Calcium 6.8 MG/DL Random Vancomycin Level 13.8 COMMENT (Drea Jimenez) Assessment and Plan Problem List: (1) ACS (acute coronary syndrome) ICD Codes: I24.9 - Acute ischemic heart disease, unspecified Status: Acute Assessment and Plan 71 yo M with HTN, CABG, mechanical AVR, diabetes with insulin pump, prior CVA. STEMI: s/p PCI [facility] RCA, 2/3 grafts patent, mid-LAD stenosis, asa/statin/plavix mechanical AVR- heparin gtt DKA resolved; acute renal failure nephrology following cardiogenic shock:, IABP in place 1:1, 3 pressors. sepsis- ID following patient is DNR, consider palliative care? . (Drea Jimenez) Assessment and Plan poor prognosis. family would like to move to comfort care (Raza Courtney MD) Drae Jimenez Sep 17, 2017 08:37 Raza Courtney MD Sep 17, 2017 09:03
[2017-09-17] MEDS: DOCUSATE SODIUM 50 MG/SENNA 8.6 MG TAB PO SCH (09:00)
[2017-09-17] MEDS: CLOPIDOGREL 75 MG TAB PO SCH (09:00)
[2017-09-17] MEDS: ATORVASTATIN 40 MG TAB PO SCH (09:00)
[2017-09-17] MEDS: SODIUM CHLORIDE 0.9% FLUSH 10 ML FLUSH IV FLUSH SCH (09:16)
[2017-09-17] MEDS: CHLORHEXIDINE 0.12% (ORAL KIT) 15 ML CUP MT SCH (09:16)
[2017-09-17 09:18] LABS: BANDS 16 % (0-6); NEUTROPHIL # MANUAL DIFF 21.4 TH/MM3 (1.8-7.7); POLYS (SEG NEUTROPHILS) 76 % (16-70); STOMATOCYTES 1+ (NORMAL); WBC DIFF SAMPLE 100
[2017-09-17 09:19] LABS: KERATOCYTES OCC (NORMAL)
[2017-09-17 09:20] LABS: PLATELET ESTIMATE SMEAR LOW (NORMAL); PLATELET MORPHOLOGY NORMAL (NORMAL); SCAN/DIFF FINAL DIFF MANUAL
--- NOTE | 2017-09-17 10:05 | HHI.NPPN ---
Subjective History of Present Illness 71-year-old with acute coronary syndrome status post stent diabetes, acute renal failure on intra-aortic balloon pump Additional Remarks Patient remain intubated and on multiple pressors, still the BP is on lower sides. Objective Data Data 09/17/17 09/18/17 19:00 07:00 Intake Total 3355 ml Balance 3355 ml IV Total 3355 ml Vital Signs Date Time Temp Pulse Resp B/P (MAP) Pulse Ox O2 Delivery O2 Flow Rate FiO2 09/17/17 09:06 100 100 09/17/17 09:00 130/46 (81) 09/17/17 08:18 92 109/39 09/17/17 08:00 125/38 (78) 09/17/17 07:00 131/43 (84) 09/17/17 06:37 91 116/42 09/17/17 06:37 91 116/42 09/17/17 06:00 138/46 (91) 09/17/17 06:00 90 09/17/17 05:00 90 118/58 (78) 115/43 (67) 09/17/17 05:00 131/45 (86) 09/17/17 04:41 99 100 09/17/17 04:00 98.2 91 24 122/57 (78) 100 114/42 (66) 09/17/17 04:00 91 09/17/17 04:00 130/45 (86) 09/17/17 04:00 100 09/17/17 03:00 129/54 (88) 09/17/17 03:00 98.2 93 24 116/56 (76) 100 111/43 (65) 09/17/17 02:38 95 113/43 09/17/17 02:11 97 108/41 09/17/17 02:00 98.2 92 24 123/56 (78) 99 111/42 (65) 09/17/17 02:00 92 09/17/17 02:00 121/41 (79) 09/17/17 01:47 96 115/42 09/17/17 01:00 98.4 93 24 123/56 (78) 99 111/41 (64) 09/17/17 01:00 112/44 (75) 09/17/17 00:41 99 100 09/17/17 00:07 101 117/42 09/17/17 00:00 98.4 101 24 129/61 (83) 99 117/42 (67) 09/17/17 00:00 100 09/17/17 00:00 101 09/17/17 00:00 115/44 (77) 09/16/17 23:24 110 130/49 09/16/17 23:03 114 134/50 09/16/17 23:00 98.6 114 24 137/67 (90) 98 134/52 (79) 09/16/17 23:00 126/52 (87) 09/16/17 22:00 121/55 (85) 09/16/17 22:00 99.0 113 24 131/86 (101) 98 127/47 (73) 09/16/17 22:00 113 09/16/17 21:33 99 100 09/16/17 21:00 99.0 111 24 125/59 (81) 99 122/44 (70) 09/16/17 21:00 117/47 (78) 09/16/17 20:37 111 122/44 09/16/17 20:00 111 09/16/17 20:00 116/50 (79) 09/16/17 20:00 99.1 111 24 123/65 (84) 99 123/45 (71) 09/16/17 20:00 100 09/16/17 19:30 112 122/45 09/16/17 19:30 112 122/45 09/16/17 19:30 112 122/45 09/16/17 19:00 99.5 114 24 130/61 (84) 96 124/46 (72) 09/16/17 19:00 112/49 (77) 09/16/17 18:41 116 125/43 09/16/17 18:41 116 125/43 09/16/17 18:00 116 09/16/17 18:00 121/52 (82) 09/16/17 17:44 117 128/45 09/16/17 17:29 118 125/45 09/16/17 17:24 118 126/45 09/16/17 17:00 112/46 (74) 09/16/17 17:00 99.1 116 11 123/62 (82) 96 120/43 (68) 10/22/17 16:30 99.0 115 0 118/41 (66) 97 09/16/17 16:01 97 75 09/16/17 16:00 99.0 114 4 124/59 (80) 97 121/43 (69) 09/16/17 16:00 75 09/16/17 16:00 113 09/16/17 16:00 112/44 (74) 09/16/17 15:30 99.0 113 10 119/43 (68) 97 09/16/17 15:15 99.0 113 4 118/42 (67) 97 09/16/17 15:00 99.0 112 11 119/59 (79) 98 117/42 (67) 09/16/17 15:00 109/44 (72) 09/16/17 14:45 98.8 111 7 111/39 (63) 98 09/16/17 14:45 111 113/39 09/16/17 14:30 98.8 112 0 115/40 (65) 98 09/16/17 14:15 98.8 111 0 116/41 (66) 98 09/16/17 14:00 100/40 (66) 09/16/17 14:00 98.8 110 4 126/58 (80) 98 116/42 (66) 09/16/17 14:00 111 09/16/17 13:54 98 80 09/16/17 13:45 98.6 111 0 114/41 (65) 98 09/16/17 13:30 98.6 111 3 113/40 (64) 98 09/16/17 13:15 98.6 111 17 116/41 (66) 98 09/16/17 13:09 111 127/41 09/16/17 13:00 98.6 110 15 121/60 (80) 98 121/42 (68) 09/16/17 13:00 111/44 (74) 09/16/17 12:45 98.4 109 2 118/42 (67) 99 09/16/17 12:30 98.4 110 0 119/42 (67) 95 09/16/17 12:05 110 122/42 09/16/17 12:00 112/52 (77) 09/16/17 12:00 112 09/16/17 12:00 90 09/16/17 12:00 98.4 111 14 130/63 (85) 94 129/46 (73) 09/16/17 11:47 111 127/42 09/16/17 11:34 90 09/16/17 11:30 98.2 113 22 127/46 (73) 93 09/16/17 11:30 113 128/73 09/16/17 11:07 113 126/43 09/16/17 11:04 88 100 09/16/17 11:00 118/47 (80) 09/16/17 11:00 98.2 114 9 124/63 (83) 88 128/48 (74) 09/16/17 10:30 98.2 114 1 120/44 (69) 89 09/16/17 10:15 112/53 -: 09/17/17 0345 09/17/17 0345 Physical Exam Neck Neck Exam: Neck Supple Pulmonary Resp Exam: Rhonchi, Decreased Bases, Diminished Breath Sounds, Poor Inspiratory Effort Cardiology CV Exam: Arrhythmia CV Remarks Intra-aortic balloon pump Gastrointestinal/Abdomen GI Exam: Soft, Bowel Sounds Present, Distended Extremeties Extremities Exam: Moderate Edema, Pitting Edema, Dependent Edema Neurologic Neuro Exam: Sedated Assessment/Plan Problem List: (1) Acute renal failure ICD Codes: N17.9 - Acute kidney failure, unspecified Plan: Patient likely has acute tubular necrosis due to cardiogenic shock urine output has dropped Not responding to Bumex CRRT started , d/w family he is crtically ill Critically ill on vent and intra-aortic balloon pump support, stents were placed in RCA. Still on 100% Fio2. BP is low, on multiple pressors. Family wishes to withdrawal of care Palliative taking over will stop CRRT today once paperwork is final (2) Acute coronary syndrome ICD Codes: I24.9 - Acute ischemic heart disease, unspecified Plan: Continue to monitor prognosis is poor (3) Coronary artery disease ICD Codes: I25.10 - Atherosclerotic heart disease of [place] coronary artery without angina pectoris Plan: Cardiology following (4) Diabetes ICD Codes: E11.9 - Type 2 diabetes mellitus without complications Status: Chronic Plan: Monitor Manda Bliss MD Sep 17, 2017 10:05
--- NOTE | 2017-09-17 10:25 | HHI.CCPN ---
Subjective Remarks/Hospital Course This is a 71-year-old male with history of hypertension, valve replacement currently on Coumadin, diabetes with an insulin pump, previous CVA, that presented to the ED, with symptoms of malaise nausea and vomiting with dyspnea. EKG was done which show significant ST depressions, stroke alert had been initiated. The patient was diaphoretic, EKG shows deep ST depressions in the inferior leads and lateral leads. Dr. 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 The patient underwent cardiac catheterization lab for further evaluation. In the ED laboratory findings glucose of 500, pH of 7.19, potassium of 6.8, creatinine of 2.9, lactate level of 10. At this point, concern for acute renal failure, possible hyperkalemia, DKA. The patient has a medical history significant for aortic valve replacement , mechanical, and a two-vessel bypass and a recent foot infection. A bedside echo was performed by Dr. chi showing an ejection fraction of 35-40% with moderate TR. The patient underwent 2 stents to the RCA and cardiac catheterization the patient was noted to become significantly hypotensive with a systolic blood pressure in the 70s-80s, and intra-aortic balloon pump was placed. The patient was transferred to the ICU, critical care medicine was consulted. Upon arrival to the ICU,the patient was noted to be in agonal respirations, O2 saturation 70's, sinus bradycardia heart rate in the 40s, with systolic blood pressure in 60's, cold with weak pulses. The patient was emergently intubated, fluid boluses initiated, phenylephrine was initiated. ABG upon presentation to ICU, immediately postintubation-pH 6.86 PCO2 60 PO2 255, [id number] with a base excess of -20.3. Subjective: 09/12: Overnight the patient's vasopressor support increased to 3 pressor agents. Bicarbonate level normalized sodium bicarbonate infusion discontinued. Formal echo pending. A chin continues on IABP 1:1. Wound culture gram- positive cocci patient empirically on vancomycin and cefepime will obtain infectious disease consult secondary to multiple antibiotics in the last several weeks, appreciate recommendations. Urine output minimal overnight, resolution of hyperkalemia. The patient continues to be hyperglycemic, continues on insulin infusion glucose levels decreased from 700-500 currently. GCS 11 T currently on fentanyl infusion, patient responding to commands, interacting yes and no questions with family at bedside. 09/13: Patient FiO2 weaned to 55%. Patient continues in acute nonoliguric renal failure monitored per nephrology. Still requiring 3 vasopressors for maintaining a MAP of 65mmHg. The patient has been has been transitioned off insulin drip, subcutaneous insulin. Glucose ranges 200. Sodium bicarbonate infusion reinitiated at 50 cc/an hour with resolution of DKA. 09/14: Patient continues still have increasing oxygen requirement, currently FiO2 90%, PEEP now increased to 12. Left IJ vas catheter placement this afternoon for initiation of CRRT. Palliative care consulted, after discussing with Dr. Chi. 09/15: Patient's medical status continues to decline. Unable to oxygenate patient last evening 100% FiO2 and PEEP of 12 Flolan was initiated. On maximum doses of Flolan and 100% FiO2 PaO2 is 59. Chest x-ray worsen massive pulmonary edema, patient continues on CRRT currently removal 100 ml/hour. Patient now having blood extravasation from right femoral groin site left vas catheter site in right IJ site. Fibrinogen level pending. INR noted to be 12.0 repeat 12.0. Heparin infusion stopped. Patient typed and screened, plan to transfuse 2 units FFP to attempt to maintain INR 2-3.0 sedentary to the patient's mechanical valve and intra-aortic balloon pump in site. 09/16 Patient is intubated, sedated with Versed, Fentanyl infusion. On Nesoyn, Dopamine and Levophed. IABP 1:1. INR 6.0. On CVVHD Received 1unit PRBC, 2u FFP last night. 09/17 Patient remains intubated, sedated and on multiple pressors. WBC increased 23.3 from 19.8. On CVVHD and IABP 1:1 Given 2units FFP yesterday INR 3.7 this morning. Spoke to family this morning and they are leaning toward comfort care. Objective Vital Signs Date Time Temp Pulse Resp B/P (MAP) Pulse Ox O2 Delivery O2 Flow Rate FiO2 09/17/17 10:00 133/44 (84) 09/17/17 09:06 100 100 09/17/17 08:18 92 09/17/17 04:00 98.2 24 Intake and Output 09/17/17 09/17/17 09/18/17 08:00 16:00 00:00 Intake Total 26942.0 ml 2280 ml Output Total 2140 ml Balance 7938.0 ml 2280 ml Result Diagram: 09/17/17 0345 09/17/17 0345 Other Results Laboratory Tests Test 09/16/17 12:35 09/16/17 19:40 09/17/17 03:45 White Blood Count 19.8 TH/MM3 23.3 TH/MM3 Red Blood Count 3.01 MIL/MM3 2.81 MIL/MM3 Hemoglobin 9.0 GM/DL 8.5 GM/DL Hematocrit 26.6 % 25.0 % Mean Corpuscular Volume 88.6 FL 89.1 FL Mean Corpuscular Hemoglobin 30.1 PG 30.1 PG Mean Corpuscular Hemoglobin Concent 33.9 % 33.8 % Red Cell Distribution Width 14.4 % 14.1 % Platelet Count 103 TH/MM3 85 TH/MM3 Mean Platelet Volume 8.3 FL 8.2 FL Prothrombin Time 72.3 SEC 35.0 SEC 43.2 SEC Prothromb Time International Ratio 6.0 RATIO 3.0 RATIO 3.7 RATIO Activated Partial Thromboplast Time 74.2 SEC 63.9 SEC Fibrinogen 571 mg/dL D-Dimer Quantitative (PE/DVT) 2.66 MG/L FEU Neutrophils (%) (Auto) 89.9 % Lymphocytes (%) (Auto) 1.5 % Monocytes (%) (Auto) 4.9 % Eosinophils (%) (Auto) 3.4 % Basophils (%) (Auto) 0.3 % Neutrophils # (Auto) 21.0 TH/MM3 Lymphocytes # (Auto) 0.4 TH/MM3 Monocytes # (Auto) 1.2 TH/MM3 Eosinophils # (Auto) 0.8 TH/MM3 Basophils # (Auto) 0.1 TH/MM3 CBC Comment AUTO DIFF Differential Total Cells Counted 100 Neutrophils % (Manual) 76 % Band Neutrophils % 16 % Lymphocytes % 2 % Monocytes % 6 % Neutrophils # (Manual) 21.4 TH/MM3 Differential Comment FINAL DIFF MANUAL Platelet Estimate LOW Platelet Morphology Comment NORMAL Basophilic Stippling FAINT Stomatocytes 1+ Keratocytes OCC Blood Urea Nitrogen 38 MG/DL Creatinine 2.51 MG/DL Random Glucose 187 MG/DL Total Protein 5.1 GM/DL Albumin 1.8 GM/DL Calcium Level 5.9 MG/DL Alkaline Phosphatase 165 U/L Aspartate Amino Transf (AST/SGOT) 497 U/L Alanine Aminotransferase (ALT/SGPT) 512 U/L Total Bilirubin 2.2 MG/DL Sodium Level 129 MEQ/L Potassium Level 3.2 MEQ/L Chloride Level 86 MEQ/L Carbon Dioxide Level 32.7 MEQ/L Anion Gap 10 MEQ/L Estimat Glomerular Filtration Rate 25 ML/MIN Protein Corrected Calcium 6.8 MG/DL Random Vancomycin Level 13.8 COMMENT Imaging Last Impressions Chest X-Ray 09/15/17 0600 Signed Impressions: Service Date/Time: Friday, September 15, 2017 02:46 - CONCLUSION: 1. Interval increase in hazy opacity in both lungs most consistent with pulmonary edema. There are apparent bilateral effusions and cardiomegaly most consistent with congestive heart failure. 2. The patient remains intubated. Francisco Ralph MD Renal Ultrasound 09/12/17 0000 Signed Impressions: Service Date/Time: Tuesday, September 12, 2017 12:10 - CONCLUSION: 1. No hydronephrosis. 2. 6 mm nonobstructing right renal stone. 3. Urinary bladder decompressed and not well evaluated. 4. Small volume ascites. Devaughn Chiu Jr., MD Objective Remarks GENERAL: Critically ill male intubated and sedated SKIN: Warm and dry, grossly edematous weeping from right groin site, total edema HEAD: Atraumatic. Normocephalic. EYES: Pupils equal and round. No scleral icterus. No injection or drainage. ENT: No nasal bleeding or discharge. Mucous membranes pink and moist. Orotracheally intubated NECK: Trachea midline. No JVD. CARDIOVASCULAR: Normal rate, regular rhythm. Telemetry sinus rhythm intra- aortic balloon pump 1:1 RESPIRATORY: Mechanical ventilation with Flolan. Bilateral chest excursion. Scattered rhonchi on auscultation GASTROINTESTINAL: Abdomen soft, non-tender, nondistended. No guarding. MUSCULOSKELETAL: Extremities without clubbing, cyanosis, 3+ peripheral edema. No obvious deformities. Right groin intra-aortic balloon pump noted oozing from site. Right foot wound, purulent drainage NEUROLOGICAL: GCS3T. RASS -2. Procedures 09/11 IABP, 2 drug-eluting stents to RCA 09/12 echo 09/14 LIJ vasc cath, CRRT initiated Date of Insertion: Sep 11, 2017 Date of Insertion: Sep 11, 2017 Line: Central Venous Catheter Side: Right Location: Internal A/P Assessment and Plan Assessment This is a 71-year-old male now in multisystem organ failure, on maximum doses of vasopressor support, inability to adequate oxygenation on maximum dose on 100 % FiO2 and maximum dose of Flolan and pulmonary pulmonary edema. ASSESSMENT STEMI S/P PCI x 2 (RCA) History of two-vessel cardiac bypass with mechanical AVR Cardiogenic shock- with IABP support 1:1 Status post PCI (2) KENNEDY to RCA-09/11 DKA-resolved Septic shock Acute hypercapnic and hypoxemic respiratory failure Pulmonary edema Nonoliguric acute renal failure Hyperkalemia-resolved Right Foot infection History of CVA Multisystem organ dysfunction Transaminitis Hepatic liver failure PLAN Neurologic: Versed and fentanyl infusions for sedation and ventilator synchrony Neurochecks per ICU protocol Daily sedation vacation and clinically applicable Respiratory: 09/11-intubated 8.0 ETT at 23cm Continue with vent support maintain O2 saturation > 92% On PRVC RR 24, IT:1.0, PEEP:12, FIO2 100% Ventilator bundle. Decrease FIO2 as naresh. Bronchodilators every 6 hours scheduled, every 2 hours when necessary On Flolan Cardiovascular: IABP 1:1 Continue with pressors -Phenylephrine, norepinephrine infusion to maintain MAP > 65mmHg Status post drug-eluting stents 2 to RCA-aspirin Plavix and statin management per cardiology Cardiology-Dr. Chi following Start stress dose steroids- HC 100mg IV Q8 Renal: Monitor renal function, I/O's, avoid nephrotoxins. Nephrology following- Dr. Bliss. On CVVHD 09/14-Vas-Cath placement and initiation of CRRT US abdomen 09/12: No hydronephrosis FEN/GI: Elevated LFT's- 2nd ischemic hepatics Monitor LFT's Zofran for nausea Bowel regimen ID: Continue abx per ID ( Cefepime), wound care is following. Follow-up blood, urine, and sputum cultures- NGTD Foot wound culture-Pseudomonas Oryzihabitou Heme Anemia, Thrombocytopenia, Coagulopathy. s/p Transfusion 2units FFP 09/16, INR 3.7 this morning Monitor CBC, Coags. INR: 6.0, Fibrinogen: 571 Patient s/p transfusion 2units FFP and 1unit PRBC 09/15 Endocrine: -- SSI Prophylaxis: GI Prophylaxis Famotidine DVT Prophylaxis -- SCDs INR 6.0 Lines: Peripheral IVs, right femoral intra-aortic balloon pump, Right subclavian, Left IJ vascath Palliative care is following. Patient is critically ill with multiorgan failure and on multiple pressors. Discussed with patient's family and they are leaning toward transitioning to comfort care. CCT 35 mins Tianna Weldon MD Sep 17, 2017 10:25
[2017-09-17] MEDS: CALCIUM GLUCONATE INJ 1 GM in SODIUM CHLORIDE 0.9% INJ 100 ML IV SCH (10:30)
[2017-09-17] MEDS ORDERED: VANCOMYCIN 1,500 MG/NS 500 ML IV ONE ×2 (11:00)
--- NOTE | 2017-09-17 11:28 | HHI.HCPN ---
Reason for visit a. To assist with evaluation and management of symptoms including: Dyspnea, encephalopathy, malnutrition b. To assist medical decision maker(s) with: better understanding of current medical conditions; weighing benefits/burdens of medical treatment options; making medical treatment decisions. (Camilla Petty) Subjective/Interval History Palliative care received VM from family requesting follow up regarding goals of treatment prior to my arrival to MICU . Pt remained on balloon pump, CRRT over the weekend. Dopamine weaned off, still requiring norepinephrine, phenylephrine. Nephrology following, no improvement in renal function. Making a few ML of urine in 24 hr. Liver functions remain elevated, bilirubin trending up, 2.2. Requiring 100% FiO2 over the weekend and maximize ventilator support. CXR with worsening pulmonary edema. Patient with oozing from IV access sites--heparin was DC'd yesterday. Required transfusion of FFP, RBC yesterday. Nonresponsive per nursing, remains on fentanyl, Versed for sedation. Patient seen in room nurse, family present. Nonresponsive to my exam. pupils nonreactive, no blink to threat. No withdrawal to pain stimuli. 3+ generalized edema, anasarca. No signs of distress or discomfort. Met with family at length following exam see interaction below,/ family requests to remove artificial life support and transition to comfort focus as consistent with patient's known wishes. Discussed at length with the critical care attending Dr. Weldon, palliative care physician,and Dr. Courtney system support developer. . Family/friend interactions Met with , son, daughter at length. Review of clinical course, tx in place, condition, prognosis. They indicate they have spoken w Dr Courtney and critical care over the weekend, pt has not improved and they feel he would not want to continue artificial measures with no improvement towards recovery. They request removal of life support today,as consistent with pt known wishes. Anticipatory guidance for compassionate withdrawal provided. All questions answered. They wish to proceed today within the next hour if possible. . (Camilla Petty) Advance Directives Living Will: Completed, but not made available Health Care Surrogate: Completed, but not made available (Camilla Petty) Objective Vital Signs Date Time Temp Pulse Resp B/P (MAP) Pulse Ox O2 Delivery O2 Flow Rate FiO2 09/17/17 11:00 136/43 (86) 09/17/17 10:00 133/44 (84) 09/17/17 10:00 96 09/17/17 09:06 100 100 09/17/17 09:00 130/46 (81) 09/17/17 08:18 92 109/39 09/17/17 08:00 92 09/17/17 08:00 100 09/17/17 08:00 98.6 91 24 111/59 (76) 100 109/39 (62) 09/17/17 08:00 125/38 (78) 09/17/17 07:00 131/43 (84) 09/17/17 06:37 91 116/42 09/17/17 06:37 91 116/42 09/17/17 06:00 138/46 (91) 09/17/17 06:00 90 09/17/17 05:00 90 118/58 (78) 115/43 (67) 09/17/17 05:00 131/45 (86) 09/17/17 04:41 99 100 09/17/17 04:00 98.2 91 24 122/57 (78) 100 114/42 (66) 09/17/17 04:00 91 09/17/17 04:00 130/45 (86) 09/17/17 04:00 100 09/17/17 03:00 129/54 (88) 09/17/17 03:00 98.2 93 24 116/56 (76) 100 111/43 (65) 09/17/17 02:38 95 113/43 09/17/17 02:11 97 108/41 09/17/17 02:00 98.2 92 24 123/56 (78) 99 111/42 (65) 09/17/17 02:00 92 09/17/17 02:00 121/41 (79) 09/17/17 01:47 96 115/42 09/17/17 01:00 98.4 93 24 123/56 (78) 99 111/41 (64) 09/17/17 01:00 112/44 (75) 09/17/17 00:41 99 100 09/17/17 00:07 101 117/42 09/17/17 00:00 98.4 101 24 129/61 (83) 99 117/42 (67) 09/17/17 00:00 100 09/17/17 00:00 101 09/17/17 00:00 115/44 (77) 09/16/17 23:24 110 130/49 09/16/17 23:03 114 134/50 09/16/17 23:00 98.6 114 24 137/67 (90) 98 134/52 (79) 09/16/17 23:00 126/52 (87) 09/16/17 22:00 121/55 (85) 09/16/17 22:00 99.0 113 24 131/86 (101) 98 127/47 (73) 09/16/17 22:00 113 09/16/17 21:33 99 100 09/16/17 21:00 99.0 111 24 125/59 (81) 99 122/44 (70) 09/16/17 21:00 117/47 (78) 09/16/17 20:37 111 122/44 09/16/17 20:00 111 09/16/17 20:00 116/50 (79) 09/16/17 20:00 99.1 111 24 123/65 (84) 99 123/45 (71) 09/16/17 20:00 100 09/16/17 19:30 112 122/45 09/16/17 19:30 112 122/45 09/16/17 19:30 112 122/45 09/16/17 19:00 99.5 114 24 130/61 (84) 96 124/46 (72) 09/16/17 19:00 112/49 (77) 09/16/17 18:41 116 125/43 09/16/17 18:41 116 125/43 09/16/17 18:00 116 09/16/17 18:00 121/52 (82) 09/16/17 17:44 117 128/45 09/16/17 17:29 118 125/45 09/16/17 17:24 118 126/45 09/16/17 17:00 112/46 (74) 09/16/17 17:00 99.1 116 11 123/62 (82) 96 120/43 (68) 09/16/17 16:30 99.0 115 0 118/41 (66) 97 09/16/17 16:01 97 75 09/16/17 16:00 99.0 114 4 124/59 (80) 97 121/43 (69) 09/16/17 16:00 75 09/16/17 16:00 113 09/16/17 16:00 112/44 (74) 09/16/17 15:30 99.0 113 10 119/43 (68) 97 09/16/17 15:15 99.0 113 4 118/42 (67) 97 09/16/17 15:00 99.0 112 11 119/59 (79) 98 117/42 (67) 09/16/17 15:00 109/44 (72) 09/16/17 14:45 98.8 111 7 111/39 (63) 98 09/16/17 14:45 111 113/39 09/16/17 14:30 98.8 112 0 115/40 (65) 98 09/16/17 14:15 98.8 111 0 116/41 (66) 98 09/16/17 14:00 100/40 (66) 09/16/17 14:00 98.8 110 4 126/58 (80) 98 116/42 (66) 09/16/17 14:00 111 09/16/17 13:54 98 80 09/16/17 13:45 98.6 111 0 114/41 (65) 98 09/16/17 13:30 98.6 111 3 113/40 (64) 98 09/16/17 13:15 98.6 111 17 116/41 (66) 98 09/16/17 13:09 111 127/41 09/16/17 13:00 98.6 110 15 121/60 (80) 98 121/42 (68) 09/16/17 13:00 111/44 (74) 09/16/17 12:45 98.4 109 2 118/42 (67) 99 09/16/17 12:30 98.4 110 0 119/42 (67) 95 09/16/17 12:05 110 122/42 09/16/17 12:00 112/52 (77) 09/16/17 12:00 112 09/16/17 12:00 90 09/16/17 12:00 98.4 111 14 130/63 (85) 94 129/46 (73) 09/16/17 11:47 111 127/42 09/16/17 11:34 90 09/16/17 11:30 98.2 113 22 127/46 (73) 93 09/16/17 11:30 113 128/73 Intake & Output 09/17/17 09/17/17 07:00 19:00 Intake Total 60675.0 ml 4430 ml Output Total 3559 ml 1019 ml Balance 9310.0 ml 3411 ml IV Total 31432.0 ml 4430 ml Output Urine Total 28 ml Hemodialysis 3531 ml 1019 ml Physical Exam CONSTITUTIONAL/GENERAL: This is a critically ill appearing patient, critically ill on mechanical vent, CRRT TUBES/LINES/DRAINS: IJ central line, left IJ dialysis catheter, ET tube, OG tube , Desouza catheter, CRRT machine, balloon pump SKIN: oozing from IV access sites. No wounds seen anteriorly. Skin warm. 3+ Generalized edema/anasarca EYES: Pupils 3 mm, nonreactive to light. No eye opening. No scleral icterus. + scleral edema. No injection or drainage. Fundi not examined. ENT: Nose without bleeding or purulent drainage. Unable to visualize oropharynx secondary ET tube, NG tube CARDIOVASCULAR: Regular rate and rhythm , audible balloon pump click, unable to palp pedal pulses, reported +via doppler RESPIRATORY/CHEST: Symmetric, unlabored respirations via mechanical vent. Course air movement, diminished throughout, scattered inspiratory and expiratory wheezes GASTROINTESTINAL: Abdomen soft, unable to determine tenderness, distended, taut. Limited palpation though no readily palpable masses. Bowel sounds absent. G-tube clamped. GENITOURINARY: Without palpable bladder distension. Desouza catheter in place 1 or 2 mL of urine present. Significant scrotal edema. MUSCULOSKELETAL: Extremities without clubbing, cyanosis. Significant edema to entire body, extremities . NEUROLOGICAL: Sedated on mechanical vent. Nonresponsive to my exam. No eye opening no withdrawal. Pupils NONreactive. PSYCHIATRIC: Limited assessment due to clinical condition, no apparent anxiety or tachypnea (Camilla Petty) Diagnostic Tests Laboratory Laboratory Tests Test 09/14/17 15:00 09/14/17 15:15 09/14/17 17:05 09/14/17 19:27 Blood Gas Puncture Site ART LINE ART LINE ART LINE Blood Gas Patient Temperature 98.6 98.6 98.6 Blood Gas HCO3 17 mmol/L (22-26) 17 mmol/L (22-26) 19 mmol/L (22-26) Blood Gas Base Excess -10.4 mmol/L (-2-2) -9.6 mmol/L (-2-2) -7.2 mmol/L (-2-2) Blood Gas Oxygen Saturation 83 % (90-100) 89 % (90-100) 87 % (90-100) Arterial Blood pH 7.16 (7.380-7.420) 7.21 (7.380-7.420) 7.21 (7.380-7.420) Arterial Blood Partial Pressure CO2 50 mmHg (38-42) 43 mmHg (38-42) 50 mmHg (38-42) Arterial Blood Partial Pressure O2 58 mmHg (61-120) 72 mmHg (61-120) 67 mmHg (61-120) Arterial Blood Oxygen Content 10.8 Vol % (12.0-20.0) 11.3 Vol % (12.0-20.0) 11.3 Vol % (12.0-20.0) Arterial Blood Carboxyhemoglobin 0.9 % (0-4) 1.1 % (0-4) 0.9 % (0-4) Arterial Blood Methemoglobin 1.7 % (0-2) 1.6 % (0-2) 1.7 % (0-2) Blood Gas Hemoglobin 9.2 G/DL (12.0-16.0) 9.0 G/DL (12.0-16.0) 9.1 G/DL (12.0-16.0) Oxygen Delivery Device VENTILATOR VENTILATOR VENTILATOR Blood Gas Ventilator Setting PRVC/AC PRVC /AC PRVC/AC Blood Gas Inspired Oxygen 100 % 100 % 100 % Activated Partial Thromboplast Time 67.5 SEC (24.3-30.1) Test 09/14/17 22:10 09/15/17 03:24 09/15/17 05:38 09/15/17 09:25 Activated Partial Thromboplast Time 70.6 SEC (24.3-30.1) 73.8 SEC (24.3-30.1) White Blood Count 16.0 TH/MM3 (4.0-11.0) Red Blood Count 2.96 MIL/MM3 (4.50-5.90) Hemoglobin 9.1 GM/DL (13.0-17.0) Hematocrit 27.3 % (39.0-51.0) Mean Corpuscular Volume 92.4 FL (80.0-100.0) Mean Corpuscular Hemoglobin 30.6 PG (27.0-34.0) Mean Corpuscular Hemoglobin Concent 33.1 % (32.0-36.0) Red Cell Distribution Width 14.1 % (11.6-17.2) Platelet Count 178 TH/MM3 (150-450) Mean Platelet Volume 8.6 FL (7.0-11.0) Blood Urea Nitrogen 70 MG/DL (7-18) Creatinine 4.46 MG/DL (0.60-1.30) Random Glucose 127 MG/DL (74-106) Total Protein 4.9 GM/DL (6.4-8.2) Albumin 1.6 GM/DL (3.4-5.0) Calcium Level 5.9 MG/DL (8.5-10.1) Alkaline Phosphatase 118 U/L (45-117) Aspartate Amino Transf (AST/SGOT) 1558 U/L (15-37) Alanine Aminotransferase (ALT/SGPT) 1044 U/L (12-78) Total Bilirubin 1.1 MG/DL (0.2-1.0) Sodium Level 133 MEQ/L (136-145) Potassium Level 4.8 MEQ/L (3.5-5.1) Chloride Level 98 MEQ/L (98-107) Carbon Dioxide Level 23.6 MEQ/L (21.0-32.0) Anion Gap 11 MEQ/L (5-15) Estimat Glomerular Filtration Rate 13 ML/MIN (>89) Protein Corrected Calcium 6.9 MG/DL (8.5-10.1) Random Vancomycin Level 25.6 COMMENT Blood Gas Puncture Site ART LINE ART LINE Blood Gas Patient Temperature 98.6 98.6 Blood Gas HCO3 24 mmol/L (22-26) 25 mmol/L (22-26) Blood Gas Base Excess -2.5 mmol/L (-2-2) -1.6 mmol/L (-2-2) Blood Gas Oxygen Saturation 85 % (90-100) 85 % (90-100) Arterial Blood pH 7.25 (7.380-7.420) 7.24 (7.380-7.420) Arterial Blood Partial Pressure CO2 57 mmHg (38-42) 59 mmHg (38-42) Arterial Blood Partial Pressure O2 59 mmHg (61-120) 61 mmHg (61-120) Arterial Blood Oxygen Content 11.1 Vol % (12.0-20.0) 11.0 Vol % (12.0-20.0) Arterial Blood Carboxyhemoglobin 1.1 % (0-4) 1.0 % (0-4) Arterial Blood Methemoglobin 1.8 % (0-2) 1.6 % (0-2) Blood Gas Hemoglobin 9.2 G/DL (12.0-16.0) 9.1 G/DL (12.0-16.0) Oxygen Delivery Device VENTILATOR VENTILATOR Blood Gas Ventilator Setting PRVC/AC Blood Gas Inspired Oxygen 100 % 100 % Test 09/15/17 11:30 09/15/17 12:34 09/15/17 16:55 09/15/17 18:34 Prothrombin Time 157.5 SEC (9.8-11.6) Prothromb Time International Ratio 12.8 RATIO Fibrinogen 514 mg/dL (227-377) Blood Gas Puncture Site ART LINE ART LINE ART LINE Blood Gas Patient Temperature 98.6 98.6 98.6 Blood Gas HCO3 25 mmol/L (22-26) 26 mmol/L (22-26) 25 mmol/L (22-26) Blood Gas Base Excess -1.1 mmol/L (-2-2) 0.8 mmol/L (-2-2) 0.6 mmol/L (-2-2) Blood Gas Oxygen Saturation 83 % (90-100) 94 % (90-100) 93 % (90-100) Arterial Blood pH 7.25 (7.380-7.420) 7.37 (7.380-7.420) 7.39 (7.380-7.420) Arterial Blood Partial Pressure CO2 60 mmHg (38-42) 46 mmHg (38-42) 42 mmHg (38-42) Arterial Blood Partial Pressure O2 56 mmHg (61-120) 87 mmHg (61-120) 85 mmHg (61-120) Arterial Blood Oxygen Content 10.8 Vol % (12.0-20.0) 11.6 Vol % (12.0-20.0) 11.5 Vol % (12.0-20.0) Arterial Blood Carboxyhemoglobin 1.1 % (0-4) 1.2 % (0-4) 1.2 % (0-4) Arterial Blood Methemoglobin 1.6 % (0-2) 1.6 % (0-2) 1.7 % (0-2) Blood Gas Hemoglobin 9.2 G/DL (12.0-16.0) 8.7 G/DL (12.0-16.0) 8.7 G/DL (12.0-16.0) Oxygen Delivery Device VENTILATOR VENTILATOR VENTILATOR Blood Gas Ventilator Setting PRVC/AC Blood Gas Inspired Oxygen 100 % 100 % 80 % Test 09/15/17 19:52 09/15/17 22:02 09/16/17 02:02 09/16/17 12:35 Blood Gas Puncture Site ART LINE Blood Gas Patient Temperature 98.6 Blood Gas HCO3 26 mmol/L (22-26) Blood Gas Base Excess 1.2 mmol/L (-2-2) Blood Gas Oxygen Saturation 91 % (90-100) Arterial Blood pH 7.39 (7.380-7.420) Arterial Blood Partial Pressure CO2 43 mmHg (38-42) Arterial Blood Partial Pressure O2 72 mmHg (61-120) Arterial Blood Oxygen Content 11.7 Vol % (12.0-20.0) Arterial Blood Carboxyhemoglobin 1.3 % (0-4) Arterial Blood Methemoglobin 1.8 % (0-2) Blood Gas Hemoglobin 9.1 G/DL (12.0-16.0) Oxygen Delivery Device VENTILATOR Blood Gas Ventilator Setting [facility] Blood Gas Inspired Oxygen 60 % Prothrombin Time 38.3 SEC (9.8-11.6) 42.7 SEC (9.8-11.6) 72.3 SEC (9.8-11.6) Prothromb Time International Ratio 3.3 RATIO 3.7 RATIO 6.0 RATIO White Blood Count 17.6 TH/MM3 (4.0-11.0) 19.8 TH/MM3 (4.0-11.0) Red Blood Count 3.01 MIL/MM3 (4.50-5.90) 3.01 MIL/MM3 (4.50-5.90) Hemoglobin 9.2 GM/DL (13.0-17.0) 9.0 GM/DL (13.0-17.0) Hematocrit 27.1 % (39.0-51.0) 26.6 % (39.0-51.0) Mean Corpuscular Volume 89.8 FL (80.0-100.0) 88.6 FL (80.0-100.0) Mean Corpuscular Hemoglobin 30.5 PG (27.0-34.0) 30.1 PG (27.0-34.0) Mean Corpuscular Hemoglobin Concent 34.0 % (32.0-36.0) 33.9 % (32.0-36.0) Red Cell Distribution Width 14.1 % (11.6-17.2) 14.4 % (11.6-17.2) Platelet Count 128 TH/MM3 (150-450) 103 TH/MM3 (150-450) Mean Platelet Volume 8.8 FL (7.0-11.0) 8.3 FL (7.0-11.0) Neutrophils (%) (Auto) 92.1 % (16.0-70.0) Lymphocytes (%) (Auto) 2.1 % (9.0-44.0) Monocytes (%) (Auto) 4.5 % (0.0-8.0) Eosinophils (%) (Auto) 1.1 % (0.0-4.0) Basophils (%) (Auto) 0.2 % (0.0-2.0) Neutrophils # (Auto) 16.2 TH/MM3 (1.8-7.7) Lymphocytes # (Auto) 0.4 TH/MM3 (1.0-4.8) Monocytes # (Auto) 0.8 TH/MM3 (0-0.9) Eosinophils # (Auto) 0.2 TH/MM3 (0-0.4) Basophils # (Auto) 0.0 TH/MM3 (0-0.2) CBC Comment AUTO DIFF Differential Total Cells Counted 100 Neutrophils % (Manual) 77 % (16-70) Band Neutrophils % 13 % (0-6) Lymphocytes % 1 % (9-44) Monocytes % 4 % (0-8) Eosinophils % 2 % (0-4) Neutrophils # (Manual) 16.4 TH/MM3 (1.8-7.7) Metamyelocytes 1 % (0-1) Myelocytes 1 % (0-0) Promyelocytes 1 % (0-0) Nucleated Red Blood Cells 6 /100 WBC (0-0) Differential Comment FINAL DIFF MANUAL Platelet Estimate LOW (NORMAL) Platelet Morphology Comment NORMAL (NORMAL) Ovalocytes 1+ (NORMAL) Keratocytes 1+ (NORMAL) Activated Partial Thromboplast Time 62.2 SEC (24.3-30.1) 74.2 SEC (24.3-30.1) Fibrinogen 531 mg/dL (227-377) 571 mg/dL (227-377) Blood Urea Nitrogen 50 MG/DL (7-18) Creatinine 3.33 MG/DL (0.60-1.30) Random Glucose 162 MG/DL (74-106) Total Protein 4.9 GM/DL (6.4-8.2) Albumin 1.6 GM/DL (3.4-5.0) Calcium Level 5.5 MG/DL (8.5-10.1) Phosphorus Level 3.9 MG/DL (2.5-4.9) Magnesium Level 1.4 MG/DL (1.5-2.5) Alkaline Phosphatase 142 U/L (45-117) Aspartate Amino Transf (AST/SGOT) 995 U/L (15-37) Alanine Aminotransferase (ALT/SGPT) 799 U/L (12-78) Total Bilirubin 1.6 MG/DL (0.2-1.0) Sodium Level 130 MEQ/L (136-145) Potassium Level 3.7 MEQ/L (3.5-5.1) Chloride Level 90 MEQ/L (98-107) Carbon Dioxide Level 29.3 MEQ/L (21.0-32.0) Anion Gap 11 MEQ/L (5-15) Estimat Glomerular Filtration Rate 18 ML/MIN (>89) Protein Corrected Calcium 6.4 MG/DL (8.5-10.1) Ammonia 40 MCMOL/L (11-32) Random Vancomycin Level 20.4 COMMENT D-Dimer Quantitative (PE/DVT) 2.66 MG/L FEU (0.00-0.50) Test 09/16/17 19:40 09/17/17 03:45 Prothrombin Time 35.0 SEC (9.8-11.6) 43.2 SEC (9.8-11.6) Prothromb Time International Ratio 3.0 RATIO 3.7 RATIO White Blood Count 23.3 TH/MM3 (4.0-11.0) Red Blood Count 2.81 MIL/MM3 (4.50-5.90) Hemoglobin 8.5 GM/DL (13.0-17.0) Hematocrit 25.0 % (39.0-51.0) Mean Corpuscular Volume 89.1 FL (80.0-100.0) Mean Corpuscular Hemoglobin 30.1 PG (27.0-34.0) Mean Corpuscular Hemoglobin Concent 33.8 % (32.0-36.0) Red Cell Distribution Width 14.1 % (11.6-17.2) Platelet Count 85 TH/MM3 (150-450) Mean Platelet Volume 8.2 FL (7.0-11.0) Neutrophils (%) (Auto) 89.9 % (16.0-70.0) Lymphocytes (%) (Auto) 1.5 % (9.0-44.0) Monocytes (%) (Auto) 4.9 % (0.0-8.0) Eosinophils (%) (Auto) 3.4 % (0.0-4.0) Basophils (%) (Auto) 0.3 % (0.0-2.0) Neutrophils # (Auto) 21.0 TH/MM3 (1.8-7.7) Lymphocytes # (Auto) 0.4 TH/MM3 (1.0-4.8) Monocytes # (Auto) 1.2 TH/MM3 (0-0.9) Eosinophils # (Auto) 0.8 TH/MM3 (0-0.4) Basophils # (Auto) 0.1 TH/MM3 (0-0.2) CBC Comment AUTO DIFF Differential Total Cells Counted 100 Neutrophils % (Manual) 76 % (16-70) Band Neutrophils % 16 % (0-6) Lymphocytes % 2 % (9-44) Monocytes % 6 % (0-8) Neutrophils # (Manual) 21.4 TH/MM3 (1.8-7.7) Differential Comment FINAL DIFF MANUAL Platelet Estimate LOW (NORMAL) Platelet Morphology Comment NORMAL (NORMAL) Basophilic Stippling FAINT (NORMAL) Stomatocytes 1+ (NORMAL) Keratocytes OCC (NORMAL) Activated Partial Thromboplast Time 63.9 SEC (24.3-30.1) Blood Urea Nitrogen 38 MG/DL (7-18) Creatinine 2.51 MG/DL (0.60-1.30) Random Glucose 187 MG/DL (74-106) Total Protein 5.1 GM/DL (6.4-8.2) Albumin 1.8 GM/DL (3.4-5.0) Calcium Level 5.9 MG/DL (8.5-10.1) Alkaline Phosphatase 165 U/L (45-117) Aspartate Amino Transf (AST/SGOT) 497 U/L (15-37) Alanine Aminotransferase (ALT/SGPT) 512 U/L (12-78) Total Bilirubin 2.2 MG/DL (0.2-1.0) Sodium Level 129 MEQ/L (136-145) Potassium Level 3.2 MEQ/L (3.5-5.1) Chloride Level 86 MEQ/L (98-107) Carbon Dioxide Level 32.7 MEQ/L (21.0-32.0) Anion Gap 10 MEQ/L (5-15) Estimat Glomerular Filtration Rate 25 ML/MIN (>89) Protein Corrected Calcium 6.8 MG/DL (8.5-10.1) Random Vancomycin Level 13.8 COMMENT (Camilla Petty) Result Diagram: 09/17/17 0345 09/17/17 0345 Microbiology Microbiology Date/Time Source Procedure Growth Status 09/11/17 18:47 Blood Peripheral Aerobic Blood Culture - Final NO GROWTH IN 5 DAYS Complete 09/11/17 18:47 Blood Peripheral Anaerobic Blood Culture - Final NO GROWTH IN 5 DAYS Complete 09/12/17 12:30 Sputum Endotracheal Gram Stain - Final Complete 09/12/17 12:30 Sputum Endotracheal Sputum Culture - Final HEAVY GROWTH NORMAL RESPIRATORY JUDIE Complete 09/12/17 23:39 Urine Catheterized Urine Legionella Antigen - Final PRESUMPTIVE NEGATIVE FOR LEGIONELLA P... Complete 09/12/17 23:39 Urine Catheterized Urine Streptococcus pneumoniae Antigen (M - Final PRESUMPTIVE NEGATIVE FOR STREPTOCOCCU... Complete 09/11/17 19:00 Wound Foot Gram Stain - Final Complete 09/11/17 19:00 Wound Culture - Final Pseudo Fluorescens/Putida Pseudomonas Oryzihabitans Complete Imaging Last Impressions Chest X-Ray 09/15/17 0600 Signed Impressions: Service Date/Time: Sunday, September 15, 2017 02:46 - CONCLUSION: 1. Interval increase in hazy opacity in both lungs most consistent with pulmonary edema. There are apparent bilateral effusions and cardiomegaly most consistent with congestive heart failure. 2. The patient remains intubated. Francisco Ralph MD Renal Ultrasound 09/12/17 0000 Signed Impressions: Service Date/Time: Tuesday, September 12, 2017 12:10 - CONCLUSION: 1. No hydronephrosis. 2. 6 mm nonobstructing right renal stone. 3. Urinary bladder decompressed and not well evaluated. 4. Small volume ascites. Devaughn Chiu Jr., MD (Camilla Petty) Assessment and Plan Disease Oriented Problem List: (1) Acute respiratory failure (2) Hepatic failure, acute (3) DKA (diabetic ketoacidoses) (4) ACS (acute coronary syndrome) (5) Coronary artery disease (6) Acute renal failure (7) Acute coronary syndrome (8) Hypertension (9) Diabetes Symptom Scale: (1) Dyspnea (2) Encephalopathy (3) Malnutrition Pertinent Non-Medical Issues Psychosocial: to his since 1965. One son, one daughter . 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 Originally from [place], in [place] since 1969. Spiritual: Faith, no particular affiliation not recently active in confucianism. Does request design architect visit in the next day or so Legal:Due to clinical condition patient unable to participate in decision- making. is reported to be healthcare surrogate, awaiting these documents. Per [place] statutes would be appropriate legal proxy. Ethical issues impacting care: No ethical issues identified Important Contacts Starr Malave [phone] / [phone] Son Francisco [phone] Daughter Shelbie [phone] . . Prognosis Patient was admitted for acute STEMI. He underwent emergent cardiac catheterization. He has remained critically ill requiring 3 pressors, aortic balloon pump, and is in multiorgan failure. Prognosis poor. Appropriate for hospice and comfort measures if no improvement in the coming days. Code Status: Full Code Plan * Legal decision maker: Due to clinical condition patient unable to participate in decision-making. is reported to be healthcare surrogate, awaiting these documents. Per [place] statutes would be appropriate legal proxy. * Goals: Follow up meeting with patient and family today. Family appears to have good understanding of conditions and overall prognosis. , family requests COMPASSIONATE WITHDRAWAL,COMFORT treatments only. * * family elects comfort treatment only-->> orders entered for pre withdrawal, time of withdrawal and post withdrawal. Anticipatory guidance has been provided. Exhibits B, C signed and in chart. * CODE STATUS: DNR * SYMPTOMS: * family elects comfort treatment only-->> orders entered for pre withdrawal, time of withdrawal and post withdrawal. --Dyspnea-emergently intubated for respiratory distress secondary to cardiogenic shock; currently on maximized mechanical vent 100% FiO2; also requiring balloon pump for cardiac support. --Encephalopathy-multiorgan failure/multifactorial non-responsive to exam. On some sedation fentanyl, Versed. Previously nodding to some questions, though has been nonresponsive to stimuli for several days. --Malnutrition-OG tube in place, clamped. BS absent, concern for aspiration due to decreased GI motility ,No TF. . * Palliative care will continue to follow during hospital course as condition evolves, to assist patient/decision-maker with understanding of medical conditions, weighing benefits/burdens of treatment options, for clarification of goals of treatment. Additionally will assist with any symptoms of palliative concern . (Camilla Petty) Time Spent Total Floor Time (mins): 60 (review of chart, PE, meeting w family, discussions w critical care, cardiology, nursing) (Camilla Petty) Attestation To help prompt me to consider important information that might be impacting today's encounter and assessment, information from prior notes written by myself or my colleagues may have been "brought forward" into today's note. My signature on this note, however, is an attestation that I personally performed the exam, history, and/or decision-making noted today, and, unless otherwise indicated, the interactions with patient, family, and staff as well as the review of records all occurred today. I also attest that the listed assessment and stated plan reflect my best clinical judgment today based on the combination of historical information, prior notes, and today's exam/ interactions. When time spent is documented, it refers only to time spent today by the signer, or if indicated, combined time spent today by collaborating physician/nurse practitioner. (Camilla Petty) Collaborating MD Comments Chart reviewed, patient examined personally by me, case discussed with palliative care HUMAN RESOURCES BENEFITS SPECIALIST, spoke with family at bedside. Above HUMAN RESOURCES BENEFITS SPECIALIST note reviewed and I concur. Patient remains mechanically ventilated in MICU, on pressor support, sedated with fentanyl and midazolam, balloon pump. Afebrile, BP 136/43; on 100% FI02. Intermittently tachycardic. Lungs clear on vent. Regular rate/rhythm. ABdomen distended, firm. Scrotal edema and generalized edema in the extremities is present. Family is aware of grim prognosis and agree that patient would NOT want to be prolonged on life support under the circumstances. PLAN: * Family has agreed to go forward with compassionate withdrawal of life support * Discussed process of withdrawal * Discussed withdrawal orders with HUMAN RESOURCES BENEFITS SPECIALIST. * Offered [employer] to patient -- they have declined, as a design architect has visited already and provided Sacrament of the Sick. . TIME: Over 45 minutes of combined ANIMAL HUSBANDRY PROFESSOR/md time spent on floor with chart review, patient exam, discussion with family, answering family questions re withdrawal of life support, and writing orders for withdrawal and post-withdrawal comfort. Over 50% of the time spent on counseling/coordination of care. . (Matthew Jaquez MD) Camilla Petty Sep 17, 2017 11:28 Matthew Jaquez MD Sep 17, 2017 12:21
[2017-09-17] MEDS ORDERED: MIDAZOLAM HCL 5 MG/ML VIAL (1 ML) IV PUSH ONE ×2 (11:30→12:00)
[2017-09-17] MEDS ORDERED: HYOSCYAMINE 0.5 MG/ML AMP IV PUSH ONE (11:30)
[2017-09-17] MEDS ORDERED: MIDAZOLAM 100 MG/100 ML INJ 100 ML IV PRN (11:30)
[2017-09-17] MEDS ORDERED: fentaNYL DRIP 250 ML IV PRN (11:30)
== END 2017-09-17 12:55 | disposition expired | DRG 270 ==
LOC: NEPE 14:18 → NEDA 14:54 → HIMN 16:20
PROVIDERS: ADMIT Internal Medicine Critical Care Medicine; ATTEND Internal Medicine Critical Care Medicine
PROC: 5A02210 Assistance with Cardiac Output using Balloon Pump, Continuous (ICD-10-PCS; principal; 2017-09-11)
PROC: 027035Z Dilation of Coronary Artery, One Artery with Two Drug-eluting Intraluminal Devices, Percutaneous Approach (ICD-10-PCS; 2017-09-11)
PROC: 4A023N7 Measurement of Cardiac Sampling and Pressure, Left Heart, Percutaneous Approach (ICD-10-PCS; 2017-09-11)
PROC: B2111ZZ Fluoroscopy of Multiple Coronary Arteries using Low Osmolar Contrast (ICD-10-PCS; 2017-09-11)
PROC: B2181ZZ Fluoroscopy of Left Internal Mammary Bypass Graft using Low Osmolar Contrast (ICD-10-PCS; 2017-09-11)
PROC: B2121ZZ Fluoroscopy of Single Coronary Artery Bypass Graft using Low Osmolar Contrast (ICD-10-PCS; 2017-09-11)
PROC: 0BH18EZ Insertion of Endotracheal Airway into Trachea, Via Natural or Artificial Opening Endoscopic (ICD-10-PCS; 2017-09-11)
PROC: 05HM33Z Insertion of Infusion Device into Right Internal Jugular Vein, Percutaneous Approach (ICD-10-PCS; 2017-09-11)
PROC: 5A1955Z Respiratory Ventilation, Greater than 96 Consecutive Hours (ICD-10-PCS; 2017-09-11)
PROC: 05HN33Z Insertion of Infusion Device into Left Internal Jugular Vein, Percutaneous Approach (ICD-10-PCS; 2017-09-14)
PROC: 30233K1 Transfusion of Nonautologous Frozen Plasma into Peripheral Vein, Percutaneous Approach (ICD-10-PCS; 2017-09-15)
PROC: 30233N1 Transfusion of Nonautologous Red Blood Cells into Peripheral Vein, Percutaneous Approach (ICD-10-PCS; 2017-09-15)
DX: I21.3 ST elevation (STEMI) myocardial infarction of unspecified site (principal); E11.10 Type 2 diabetes mellitus with ketoacidosis without coma; K72.00 Acute and subacute hepatic failure without coma; R57.0 Cardiogenic shock; J96.02 Acute respiratory failure with hypercapnia; J96.01 Acute respiratory failure with hypoxia; N17.0 Acute kidney failure with tubular necrosis; R65.21 Severe sepsis with septic shock; A41.9 Sepsis, unspecified organism; J81.1 Chronic pulmonary edema; D68.9 Coagulation defect, unspecified; I42.9 Cardiomyopathy, unspecified; E46 Unspecified protein-calorie malnutrition; E87.5 Hyperkalemia; E11.21 Type 2 diabetes mellitus with diabetic nephropathy; L97.519 Non-pressure chronic ulcer of other part of right foot with unspecified severity; D69.6 Thrombocytopenia, unspecified; Z51.5 Encounter for palliative care; G89.29 Other chronic pain; N18.9 Chronic kidney disease, unspecified; E78.5 Hyperlipidemia, unspecified; Z96.41 Presence of insulin pump (external) (internal); M54.5 Low back pain; D64.9 Anemia, unspecified; E11.42 Type 2 diabetes mellitus with diabetic polyneuropathy; I12.9 Hypertensive chronic kidney disease with stage 1 through stage 4 chronic kidney disease, or unspecified chronic kidney disease; M25.559 Pain in unspecified hip; Z66 Do not resuscitate; R00.1 Bradycardia, unspecified; I25.10 Atherosclerotic heart disease of native coronary artery without angina pectoris; Z79.4 Long term (current) use of insulin; Z95.1 Presence of aortocoronary bypass graft; Z95.2 Presence of prosthetic heart valve; Z86.73 Personal history of transient ischemic attack (TIA), and cerebral infarction without residual deficits; Z79.01 Long term (current) use of anticoagulants; Z87.891 Personal history of nicotine dependence; Z91.81 History of falling
CPT/HCPCS: 33967; 36430; 36556; 36600; 71010; 76775; 76937; 80048; 80053; 80061; 80076; 80202; 81001; 81003; 82010; 82140; 82435; 82550; 82552; 82565; 82570; 82805; 82947; 82948; 83605; 83735; 83935; 84100; 84132; 84155; 84295; 84300; 84484; 84520; 85007; 85025; 85027; 85379; 85384; 85610; 85730; 86403; 86850; 86900; 86901; 86920; 86922; 86927; 87040; 87070; 87077; 87086; 87186; 87205; 87449; 87641; 92941; 93005; 93306; 93458; 94002; 94003; 94640; 94664; 94799; C1725; C1769; C1876; C1887; C1893; J0583; J0610; J0692; J1265; J1325; J1644; J1720; J1815; J1817; J1940; J1980; J2250; J2370; J2543; J3010; J3370; J3480; J7030; J7040; J7042; J7050; J7060; P9016; P9017; P9047; Q9967